=== PATIENT | female | born 1995 | race Two or more races ===

== ENCOUNTER 2020-07-24 10:32 | Emergency (ER) | payer MEDICAID, SELFPAY ==
[2020-07-24 10:34] VITALS: BP 116/70; PULSE 85; RESP 18; TEMP 37.1; O2SAT 97; BMI 32.0
[2020-07-24 11:13] LABS: Glucose Urine UA NEG (NEG); Leukocyte Esterase Urine NEG (NEG); Nitrite Urine NEG (NEG); Specific Gravity - Urine >= 1.030 (1.005-1.025); Urine Blood NEG (NEG); Urine Ketones 15 MG/DL (NEG); Urine Protein NEG (NEG-TRACE)
[2020-07-24 11:16] LABS: Appearance Urine CLEAR; Color Urine YELLOW
[2020-07-24 11:17] LABS: UPreg QC Valid YES; Urine Pregnancy NEGATIVE (NEGATIVE)
--- NOTE | 2020-07-24 11:50 | ED_ITS ---
HPI - Abdominal Pain General Chief Complaint: Abdominal Pain Stated Complaint: abd pain Time Seen by Provider: 07/24/20 11:49 History of Present Illness HPI narrative: Patient complains of intermittent mild low abdominal pain that is coming and going over several days, there is no pain now, there is no nausea vomiting or diarrhea, no dysuria, no vaginal discharge no unusual bleeding At this moment in time she has no symptoms Related Data Allergies Allergy/AdvReac Type Severity Reaction Status Date / Time Penicillins [PCN] Allergy Unknown HIVES Unverified 01/21/20 17:12 Review of Systems Review of Systems Intermittent pelvic pain Negatives are no fever no chills no dizziness no weakness no headache no neck pain no faintness no feeling faint no chest pain no shortness of breath no nausea vomiting diarrhea no dysuria no urinary frequency no changes to bowel or bladder, no rash, no numbness or weakness Physical Exam Vital Signs: Vital Signs: Last Vital Signs Temp 98.7 F 07/24/20 10:34 Pulse 85 07/24/20 10:34 Resp 18 07/24/20 10:34 BP 116/70 07/24/20 10:34 Pulse Ox 97 07/24/20 10:34 Body Mass Index 32.0 General appearance is no acute distress comfortable relaxed and cooperative and O x3 The pharynx is moist, no redness The neck is supple The chest is clear to auscultation bilaterally with full symmetric breath sounds Heart rate regular no murmur The abdomen is soft nontender no rebound no guarding Extremities no edema no rash Neuro no focal deficit Course Course Course Narrative: Urinalysis was negative, was negative I came into room to re-evaluate the patient and repeated an abdominal exam which is completely nontender without rebound or guarding I spoke with the patient at this point in time she has no pain no discomfort and feels completely normal and 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 MDM - Abdominal Pain Lab Data Labs: Lab Results 07/24/20 07/24/20 Range/Units 11:05 11:05 Urine Color YELLOW Urine Appearance CLEAR Urine pH 6.0 (5.0-8.0) Ur Specific [place] >= 1.030 H (1.005-1.025) Urine Protein NEG (NEG-TRACE) MG/DL Urine Glucose (UA) NEG (NEG) MG/DL Urine Ketones 15 (NEG) MG/DL Urine Blood NEG (NEG) Urine Nitrite NEG (NEG) Ur Leukocyte Esterase NEG (NEG) Urine Test NEGATIVE (NEGATIVE) Discharge Plan Discharge Clinical Impression: Pelvic pain Patient Disposition: Home, Self-Care Additional Instructions: During ER visit the pain was gone and her exam was completely normal Urinalysis did not show an active infection test was negative If pain returns or worsens or changes return to ER any time for any worse condition or any concerns If mild pain is coming and going intermittently you can 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
[2020-07-24 12:20] VITALS: BP 127/62; PULSE 80; RESP 18; TEMP 36.9; O2SAT 100
[2020-07-24 14:15] LABS: CT PCR DETECTED (Not Detect.); NG PCR NOT DETECTED (Not Detect.)
== END 2020-07-24 12:34 | disposition home or self-care (01) ==
PROVIDERS: Physician Assistant Medical; Emergency Provider Emergency Medicine; PCP Internal Medicine
DX: A56.02 Chlamydial vulvovaginitis (principal); R10.2 Pelvic and perineal pain
CPT/HCPCS: 81003; 81025; 87491; 87591; 99283

== ENCOUNTER 2020-11-13 09:54 | Emergency (ER) | payer MEDICAID, SELFPAY ==
[2020-11-13 09:58] VITALS: BP 115/72; PULSE 84; RESP 16; TEMP 36.7; O2SAT 98; BMI 25.6
[2020-11-13 11:49] LABS: MANUAL DIFF FLAG NO
[2020-11-13 11:50] LABS: Basophils Percent Auto 0.4 % (0-2); Eosinophils Percent Auto 0.4 % (0-4); Hematocrit 40.3 % (37-47); Hemoglobin 13.4 g/dl (12.0-16.0); Imm Gran Abs Auto 0.03 X10*3/uL (0.00-0.03); Imm Gran Pct Auto 0.3 % (0.0-0.4); Lymphocytes Percent Auto 18.3 % (20-40); Mean Corpuscular HGB Conc 33.3 g/dl (31.0-35.0); Mean Corpuscular Hemoglobin 27.9 pg (27.0-33.0); Mean Corpuscular Volume 83.8 fL (80-98); Mean Platelet Volume 9.9 fL (9.4-12.3); Monocytes Absolute Auto 0.6 X10*3/uL (0.1-1.2); Monocytes Percent Auto 5.1 % (2-11); Neutrophils Absolute Auto 8.3 X10*3/uL (2.0-8.3); Neutrophils Percent Auto 75.5 % (45-73); Platelet Count 245 X10*3/uL (160-400); Red Blood Count 4.81 X10*6/uL (4.20-5.50); Red Cell Distribution Width 13.4 % (11.0-16.0)
[2020-11-13 12:25] LABS: Alanine Aminotransferase 9 U/L (0-31); Albumin Level 4.5 g/dL (3.5-5.0); Alkaline Phosphatase 57 U/L (39-117); Anion Gap 14 (12-20); Aspartate Amino Transferase 14 U/L (5-31); Bilirubin Total 0.6 mg/dL (0.0-1.0); Blood Urea Nitrogen 6 mg/dL (9-16); Calcium 9.7 mg/dL (8.4-10.2); Carbon Dioxide 24 mmol/L (22-29); Chloride 105 mmol/L (96-108); Creatinine Clr Calc Pharmacy 95.3; Estimated Glomerular Filt Rate > 60; Glucose Random 100 mg/dL (60-115); Potassium 3.8 mmol/L (3.3-5.1); Sodium 139 mmol/L (135-145); Total Protein 7.6 g/dL (6.5-8.0)
[2020-11-13 13:23] LABS: Lipase 17 U/L (8-78)
--- NOTE | 2020-11-13 13:28 | ED.ABDPAIN ---
HPI - Abdominal Pain General Chief Complaint: Abdominal Pain Stated Complaint: abd pain Time Seen by Provider: 11/13/20 12:54 Source: patient Mode of arrival: ambulatory Limitations: no limitations History of Present Illness HPI narrative: 25-year-old female came in for evaluation of an abdominal pain. Abdominal pain started 2 days ago after eating [employer] sandwich, no other sick contact, patient describes the pain as an intermittent pain only in the morning and nighttime but during the day patient is pain-free, describes the pain in suprapubic area to the right side, no radiation, pain is associated with 1 time diarrhea and nausea, and vomiting. No fever or chills. Patient also describes mild dysuria. Patient declined any vaginal bleed or discharge. Related Data Allergies Allergy/AdvReac Type Severity Reaction Status Date / Time Penicillins [PCN] Allergy Unknown HIVES Unverified 01/21/20 17:12 Review of Systems Review of Systems All other systems are reviewed and are negative Constitutional: Reports as per HPI and Reports no additional constitutional complaints Eyes: Reports as per HPI and Reports no additional eye complaints Reports system reviewed and no additional complaints, except as documented Cardiovascular: Reports as per HPI and Reports no additional cardiovascular complaints Respiratory: Reports as per HPI and Reports no additional respiratory complaints Gastrointestinal: Reports as per HPI and Reports no additional gastrointestinal complaints Genitourinary: Reports no additional female genitourinary complaints Musculoskeletal: Reports no additional musculoskeletal complaints Skin/Breast: Reports system reviewed and no additional complaints, except as docu Psychiatric: Reports no additional psychiatric complaints Endocrine: Reports no additional endocrine complaints Hematologic/Lymphatic: Reports no additional hematologic/lymphatic complaints Allergic/Immunologic: Reports no additional allergic/immunologic complaints Reports system reviewed and no additional complaints, except as documented and Reports Abnormal speech present Physical Exam Vital Signs: Vital Signs: Last Vital Signs Temp 98.0 F 11/13/20 09:58 Pulse 78 11/13/20 13:40 Resp 16 11/13/20 13:40 BP 114/64 11/13/20 13:40 Pulse Ox 99 11/13/20 13:40 Body Mass Index 25.6 Vital signs have been reviewed as appeared to be correct. Blood pressure normal. Heart rate normal. Respiration rate normal. Temperature normal. Oxygen saturation normal. Appearance: Alert. Oriented X3. No acute distress. Head: Normal external exam. Normocephalic. Atraumatic. No [place] signs noted. No raccoon eyes noted Eyes: PERRLA. EOMI. Conjunctiva and sclera normal. Eyelids normal. ENT: TM's Normal. Pharynx normal. Uvula midline. Moist mucous membranes. No trismus noted. No drooling noted. No muffled voice noted. Neck: Normal inspection. Neck supple. FROM. No adenopathy. Thyroid Normal. No meningeal signs. No neck mass noted. CVS: Normal heart rate and rhythm. Heart sound normal. No murmurs noted. Pulses normal throughout. Respiratory: No respiratory distress. Painless inspiration. Breath sounds normal. No wheezes/rales/rhonchi noted. Chest nontender. No accessory muscle usage noted or decreased air movement noted. Abdomen: Soft and nontender. Bowel sounds normal in all 4 quadrants. No distention noted. No organomegaly noted. No visible injury noted. Back: No CVA tenderness. Full range of motion noted. Skin: Skin warm and dry. Normal skin color. Normal skin turgor. No rashes/lesions/lacerations noted. Extremities: No lower extremity edema. Extremities exhibit normal range of motion. Extremities nontender. Neuro: Oriented X 3. No motor deficit. No sensory deficit. Reflexes normal. Course Course Course Narrative: Assessment and plan. 25-year-old female came in with abdominal pain for 2 days, patient claims that she ate [employer] sandwich followed by abdominal cramps and diarrhea with nausea and vomiting no other sick contacts. Patient with mild leukocytosis, abdominal exam show no tenderness or rebound or guarding, otherwise labs and urine are unremarkable. Will reassure and discharge the patient. MDM - Abdominal Pain Lab Data Attestation: I reviewed the patient's lab results. Result diagrams: 11/13/20 11:44 11/13/20 11:44 Labs: Lab Results 11/13/20 11/13/20 11/13/20 Range/Units 11:44 11:44 13:38 WBC 11.0 H (4.8-10.8) X10*3/uL RBC 4.81 (4.20-5.50) X10*6/uL Hgb 13.4 (12.0-16.0) g/dl Hct 40.3 (37-47) % MCV 83.8 (80-98) fL MCH 27.9 (27.0-33.0) pg MCHC 33.3 (31.0-35.0) g/dl RDW 13.4 (11.0-16.0) % Plt Count 245 (160-400) X10*3/uL MPV 9.9 (9.4-12.3) fL Immature Gran % (Auto) 0.3 (0.0-0.4) % Neut % (Auto) 75.5 H (45-73) % Lymph % (Auto) 18.3 L (20-40) % [place] % (Auto) 5.1 (2-11) % Eos % (Auto) 0.4 (0-4) % Baso % (Auto) 0.4 (0-2) % Lymph # (Auto) 2.0 (1.2-4.9) X10*3/uL [place] # (Auto) 0.6 (0.1-1.2) X10*3/uL Eos # (Auto) 0.0 (0.0-0.4) X10*3/uL Baso # (Auto) 0.0 (0.0-0.2) X10*3/uL Abs Immat Gran (auto) 0.03 (0.00-0.03) X10*3/uL Absolute Neuts (auto) 8.3 (2.0-8.3) X10*3/uL Absolute Nucleated RBC 0.000 (0.0-0.012) X10*3/uL Nucleated RBC % (auto) 0.0 (0.0-0.2) /100WBC Sodium 139 (135-145) mmol/L Potassium 3.8 (3.3-5.1) mmol/L Chloride 105 (96-108) mmol/L Carbon Dioxide 24 (22-29) mmol/L Anion Gap 14 (12-20) BUN 6 L (9-16) mg/dL Creatinine 0.79 (0.5-1.4) mg/dL Estim Creat Clear Calc 95.3 Estimated GFR > 60 Random Glucose 100 (60-115) mg/dL Calcium 9.7 (8.4-10.2) mg/dL Total Bilirubin 0.6 (0.0-1.0) mg/dL AST 14 (5-31) U/L ALT 9 (0-31) U/L Alkaline Phosphatase 57 (39-117) U/L Total Protein 7.6 (6.5-8.0) g/dL Albumin 4.5 (3.5-5.0) g/dL Lipase 17 (8-78) U/L Urine Color YELLOW Urine Appearance HAZY Urine pH 6.0 (5.0-8.0) Ur Specific [place] >= 1.030 H (1.005-1.025) Urine Protein NEG (NEG-TRACE) MG/DL Urine Glucose (UA) NEG (NEG) MG/DL Urine Ketones 40 (NEG) MG/DL Urine Blood NEG (NEG) Urine Nitrite NEG (NEG) Ur Leukocyte Esterase NEG (NEG) Discharge Plan Discharge Clinical Impression: Abdominal pain, Food poisoning Patient Disposition: Home, Self-Care Instructions: Food Poisoning (ED) Referrals: María Elena Zuleta MD [Primary Care Provider] - 2 days PMF Past Medical History Medical History No known health problems Social History Social History Advance Directives: Yes Advance Directives Information Provided: No Advance Directives on File: No Patient : No
[2020-11-13 13:40] VITALS: BP 114/64; PULSE 78; RESP 16; O2SAT 99
[2020-11-13 13:48] LABS: Glucose Urine UA NEG (NEG); Leukocyte Esterase Urine NEG (NEG); Nitrite Urine NEG (NEG); Specific Gravity - Urine >= 1.030 (1.005-1.025); Urine Blood NEG (NEG); Urine Ketones 40 MG/DL (NEG); Urine Protein NEG (NEG-TRACE)
[2020-11-13 13:49] LABS: Appearance Urine HAZY; Color Urine YELLOW
[2020-11-13 14:22] LABS: UPreg QC Valid YES; Urine Pregnancy NEGATIVE (NEGATIVE)
== END 2020-11-13 14:50 | disposition home or self-care (01) ==
PROVIDERS: Emergency Provider Emergency Medicine; PCP Internal Medicine
DX: A05.9 Bacterial foodborne intoxication, unspecified (principal)
CPT/HCPCS: 36415; 80053; 81003; 81025; 83690; 85025; 99283; 99284

== ENCOUNTER 2021-04-21 15:04 | Emergency (ER) | payer MEDICAID, SELFPAY ==
[2021-04-21 15:29] VITALS: BP 109/62; PULSE 77; RESP 18; TEMP 36.8; O2SAT 99; BMI 26.2
[2021-04-21 17:41] LABS: MANUAL DIFF FLAG NO
[2021-04-21 17:47] LABS: Basophils Percent Auto 0.2 % (0-2); Eosinophils Absolute Auto 0.4 X10*3/uL (0.0-0.4); Eosinophils Percent Auto 2.7 % (0-4); Hematocrit 38.8 % (37.0-47.0); Hemoglobin 13.1 g/dl (12.0-16.0); Imm Gran Abs Auto 0.04 X10*3/uL (0.00-0.03); Imm Gran Pct Auto 0.3 % (0.0-0.4); Lymphocytes Absolute Auto 3.2 X10*3/uL (1.2-4.9); Mean Corpuscular HGB Conc 33.8 g/dl (31.0-35.0); Mean Corpuscular Hemoglobin 28.2 pg (27.0-33.0); Mean Corpuscular Volume 83.4 fL (80.0-98.0); Mean Platelet Volume 9.4 fL (9.4-12.3); Monocytes Absolute Auto 1.2 X10*3/uL (0.1-1.2); Monocytes Percent Auto 8.4 % (2-11); Neutrophils Absolute Auto 9.1 x10*3/uL (2.0-8.3); Neutrophils Percent Auto 65.4 % (45-73); Platelet Count 359 X10*3/uL (160-400); Red Blood Count 4.65 X10*6/uL (4.20-5.50); Red Cell Distribution Width 13.2 % (11.0-16.0)
[2021-04-21 18:00] LABS: Alanine Aminotransferase 23 U/L (0-31); Albumin Level 4.2 g/dL (3.5-5.0); Alkaline Phosphatase 64 U/L (39-117); Anion Gap 10 (12-20); Aspartate Amino Transferase 17 U/L (5-31); Bilirubin Total 0.4 mg/dL (0.0-1.0); Blood Urea Nitrogen 11 mg/dL (9-16); Calcium 9.4 mg/dL (8.4-10.2); Carbon Dioxide 26 mmol/L (22-29); Chloride 104 mmol/L (96-108); Creatinine Clr Calc Pharmacy 72.4; Estimated Glomerular Filt Rate > 60; Glucose Random 74 mg/dL (60-115); Potassium 3.9 mmol/L (3.3-5.1); Sodium 136 mmol/L (135-145); Total Protein 7.5 g/dL (6.5-8.0)
--- NOTE | 2021-04-21 19:29 | ED.ABDPAIN ---
HPI - Abdominal Pain General Chief Complaint: Abdominal Pain Stated Complaint: Lower back pain/abd pain Time Seen by Provider: 04/21/21 17:49 Source: patient Mode of arrival: ambulatory Limitations: no limitations History of Present Illness HPI narrative: Patient with 3 days of pelvic pain, LMP 03/16 patient states at times she is irregular, patient had a test that was negative, patient denies vaginal discharge, no fever. Patient has a history of STD's, denies new sexual partners. MD elicited complaint: other (pelvic pain) Onset (ago): day(s) Severity: moderate Related Data Previous Rx's Medication Instructions Recorded naproxen 500 mg tablet (Naprosyn) 500 mg PO BID #20 tab 04/21/21 Allergies Allergy/AdvReac Type Severity Reaction Status Date / Time No Known Allergies Allergy Verified 04/21/21 15:28 Review of Systems Constitutional: Reports no additional constitutional complaints Eyes: Reports no additional eye complaints Denies dizziness Cardiovascular: Reports no additional cardiovascular complaints Respiratory: Reports as per HPI Gastrointestinal: Reports no additional gastrointestinal complaints Genitourinary: Reports no additional female genitourinary complaints Musculoskeletal: Reports no additional musculoskeletal complaints Skin/Breast: Denies rash Reports system reviewed and no additional complaints, except as documented, Denies dizziness and Denies Sensory deficit (Neuro) Psychiatric: Denies anxiety Physical Exam Vital Signs: Vital Signs: Last Vital Signs Temp 98.2 F 04/21/21 19:55 Pulse 74 04/21/21 19:55 Resp 16 04/21/21 19:55 BP 106/64 04/21/21 19:55 Pulse Ox 99 04/21/21 19:55 BMI result Body Mass Index 26.2 Const: General: healthy appearing Nutritional Appearance: average body habitus Orientation/consciousness: oriented to person and patient oriented x3 Limitations: no limitations HENMT: Head: Yes normal to inspection Ears: external ears normal General nose exam: Normal external nose present Mouth: Normal oral and palatal mucosa present and oropharynx normal Throat: Yes posterior oropharynx normal Eyes: General: appearance normal, both eyes and all related structures Neck: Other: supple Neck: Yes normal visual inspection Chest: Chest palpation & inspection: normal inspection of the chest Resp: Auscultation: clear to auscultation bilaterally Cardio: Jugular venous distension: no JVD Rate: regular rate Rhythm: regular rhythm Heart sounds: S1 normal heart sound present and S2 normal heart sound present GI: Other: pelvic tenderness Inspection: Yes normal to inspection Palpation (GI): Soft to palpation and No hepatosplenomegaly present Auscultation: normal bowel sounds : Other: normal vagina, no discharge in vault, no CMT, No adnexal tenderness, uterus slightly enlarged but not very tender General: Yes no CVA tenderness Back/Spine/Pelvis: Back: no CVA tenderness Skin: General skin exam: no rashes or lesions noted Neuro: General: oriented to person and patient oriented x3 Cranial nerves: Yes CN's II-XII intact bilaterally Motor exam (neuro): 5/5 motor strength present throughout Sensory Exam: No Sensory deficit (Neuro) Extrem: General: Yes normal to inspection Psych: Appearance: grossly normal Course Reevaluation(s) Reevaluation #1: physical not consistent with STD, uterus is enlarged by physical but not tender, patient to go for US on Saturday with follow up of PCP Time: 20:45 MDM - Abdominal Pain Lab Data Result diagrams: 04/21/21 17:35 04/21/21 17:35 Labs: Lab Results 04/21/21 04/21/21 04/21/21 Range/Units 17:35 17:35 19:47 WBC 14.0 H (4.8-10.8) X10*3/uL RBC 4.65 (4.20-5.50) X10*6/uL Hgb 13.1 (12.0-16.0) g/dl Hct 38.8 (37.0-47.0) % MCV 83.4 (80.0-98.0) fL MCH 28.2 (27.0-33.0) pg MCHC 33.8 (31.0-35.0) g/dl RDW 13.2 (11.0-16.0) % Plt Count 359 (160-400) X10*3/uL MPV 9.4 (9.4-12.3) fL Immature Gran % (Auto) 0.3 (0.0-0.4) % Neut % (Auto) 65.4 (45-73) % Lymph % (Auto) 23.0 (20-40) % [place] % (Auto) 8.4 (2-11) % Eos % (Auto) 2.7 (0-4) % Baso % (Auto) 0.2 (0-2) % Lymph # (Auto) 3.2 (1.2-4.9) X10*3/uL [place] # (Auto) 1.2 (0.1-1.2) X10*3/uL Eos # (Auto) 0.4 (0.0-0.4) X10*3/uL Baso # (Auto) 0.0 (0.0-0.2) X10*3/uL Abs Immat Gran (auto) 0.04 H (0.00-0.03) X10*3/uL Absolute Neuts (auto) 9.1 H (2.0-8.3) x10*3/uL Absolute Nucleated RBC 0.000 (0.0-0.012) X10*3/uL Nucleated RBC % (auto) 0.0 (0.0-0.2) /100WBC Sodium 136 (135-145) mmol/L Potassium 3.9 (3.3-5.1) mmol/L Chloride 104 (96-108) mmol/L Carbon Dioxide 26 (22-29) mmol/L Anion Gap 10 L (12-20) BUN 11 (9-16) mg/dL Creatinine 1.01 (0.5-1.4) mg/dL Estim Creat Clear Calc 72.4 Estimated GFR > 60 Random Glucose 74 (60-115) mg/dL Calcium 9.4 (8.4-10.2) mg/dL Total Bilirubin 0.4 (0.0-1.0) mg/dL AST 17 (5-31) U/L ALT 23 (0-31) U/L Alkaline Phosphatase 64 (39-117) U/L Total Protein 7.5 (6.5-8.0) g/dL Albumin 4.2 (3.5-5.0) g/dL Urine Color Urine Appearance Urine pH (5.0-8.0) Ur Specific [place] (1.005-1.025) Urine Protein (NEG-TRACE) MG/DL Urine Glucose (UA) (NEG) MG/DL Urine Ketones (NEG) MG/DL Urine Blood (NEG) Urine Nitrite (NEG) Ur Leukocyte Esterase (NEG) Urine RBC (0) /HPF Urine WBC (0-4) /HPF Ur Squamous Epith Cells /LPF Urine Bacteria /LPF Urine Yeast /HPF Urine Test NEGATIVE (NEGATIVE) 04/21/21 Range/Units 19:47 WBC (4.8-10.8) X10*3/uL RBC (4.20-5.50) X10*6/uL Hgb (12.0-16.0) g/dl Hct (37.0-47.0) % MCV (80.0-98.0) fL MCH (27.0-33.0) pg MCHC (31.0-35.0) g/dl RDW (11.0-16.0) % Plt Count (160-400) X10*3/uL MPV (9.4-12.3) fL Immature Gran % (Auto) (0.0-0.4) % Neut % (Auto) (45-73) % Lymph % (Auto) (20-40) % [place] % (Auto) (2-11) % Eos % (Auto) (0-4) % Baso % (Auto) (0-2) % Lymph # (Auto) (1.2-4.9) X10*3/uL [place] # (Auto) (0.1-1.2) X10*3/uL Eos # (Auto) (0.0-0.4) X10*3/uL Baso # (Auto) (0.0-0.2) X10*3/uL Abs Immat Gran (auto) (0.00-0.03) X10*3/uL Absolute Neuts (auto) (2.0-8.3) x10*3/uL Absolute Nucleated RBC (0.0-0.012) X10*3/uL Nucleated RBC % (auto) (0.0-0.2) /100WBC Sodium (135-145) mmol/L Potassium (3.3-5.1) mmol/L Chloride (96-108) mmol/L Carbon Dioxide (22-29) mmol/L Anion Gap (12-20) BUN (9-16) mg/dL Creatinine (0.5-1.4) mg/dL Estim Creat Clear Calc Estimated GFR Random Glucose (60-115) mg/dL Calcium (8.4-10.2) mg/dL Total Bilirubin (0.0-1.0) mg/dL AST (5-31) U/L ALT (0-31) U/L Alkaline Phosphatase (39-117) U/L Total Protein (6.5-8.0) g/dL Albumin (3.5-5.0) g/dL Urine Color YELLOW Urine Appearance HAZY Urine pH 6.0 (5.0-8.0) Ur Specific [place] >= 1.030 H (1.005-1.025) Urine Protein NEG (NEG-TRACE) MG/DL Urine Glucose (UA) NEG (NEG) MG/DL Urine Ketones NEG (NEG) MG/DL Urine Blood NEG (NEG) Urine Nitrite NEG (NEG) Ur Leukocyte Esterase 1+ H (NEG) Urine RBC 0 (0) /HPF Urine WBC 1-4 (0-4) /HPF Ur Squamous Epith Cells 4+ /LPF Urine Bacteria 1+ /LPF Urine Yeast 1+ /HPF Urine Test (NEGATIVE) Discharge Plan Discharge Clinical Impression: Pelvic pain Patient Disposition: Home, Self-Care Instructions: Pelvic Pain (ED) Additional Instructions: Must have US on Saturday Prescriptions: New naproxen [Naprosyn] 500 mg tablet 500 mg PO BID Qty: 20 RF: 0 Referrals: María Elena Zuleta MD [Primary Care Provider] - 5 days PMF Past Medical History Medical History No known health problems Social History Social History Advance Directives: No Advance Directives Information Provided: No Patient : No
[2021-04-21 19:55] VITALS: BP 106/64; PULSE 74; RESP 16; TEMP 36.8; O2SAT 99
[2021-04-21 19:57] LABS: Appearance Urine HAZY; Color Urine YELLOW; Glucose Urine UA NEG (NEG); Leukocyte Esterase Urine 1+ (NEG); Nitrite Urine NEG (NEG); Specific Gravity - Urine >= 1.030 (1.005-1.025); UACC Culture Trigger YES; UPreg QC Valid YES; Urine Blood NEG (NEG); Urine Ketones NEG (NEG); Urine Pregnancy NEGATIVE (NEGATIVE); Urine Protein NEG (NEG-TRACE)
[2021-04-21 20:03] LABS: Bacteria Urine 1+ /LPF; Squamous Epithelial Cell Urine 4+ /LPF
[2021-04-21 20:05] LABS: RBC Urine 0 /HPF (0)
== END 2021-04-21 21:05 | disposition home or self-care (01) ==
PROVIDERS: Emergency Provider Emergency Medicine; PCP Internal Medicine
DX: R10.2 Pelvic and perineal pain (principal); Z79.899 Other long term (current) drug therapy
CPT/HCPCS: 36415; 80053; 81001; 81025; 85025; 87086; 87491; 87591; 99283; 99284

== ENCOUNTER 2021-05-16 13:15 | Outpatient (REF) | payer MEDICAID, SELFPAY ==
[2021-05-17 09:10] LABS: BV Int Neg Control Negative (Negative); BV Int Pos Control Positive (Positive)
[2021-05-17 10:32] LABS: CT PCR NOT DETECTED (Not Detect.); NG PCR NOT DETECTED (Not Detect.)
== END 2021-05-16 13:16 | disposition home or self-care (01) ==
LOC: HO.LAB 13:15
PROVIDERS: PCP Internal Medicine; Visit Provider Advanced Practice Midwife
DX: O20.9 Hemorrhage in early pregnancy, unspecified (principal)
CPT/HCPCS: 36415; 81025; 84702; 86850; 86900; 86901; 87480; 87491; 87510; 87591; 87660; 99202

== ENCOUNTER 2021-05-16 13:56 | Outpatient (REF) | payer MEDICAID, SELFPAY ==
[2021-05-16 15:32] LABS: HCG Quantitative 21126 mIU/mL
== END 2021-05-16 13:57 | disposition home or self-care (01) ==
LOC: HO.LAB 13:56
PROVIDERS: Visit Provider Advanced Practice Midwife
DX: O20.0 Threatened abortion (principal)
CPT/HCPCS: 36415; 84702; 86850; 86900; 86901

== ENCOUNTER 2021-05-26 10:02 | Outpatient (REF) | payer MEDICAID, SELFPAY ==
--- NOTE | ~2021-05-26 | US_ITS ---
EXAMINATION: OBSTETRICAL ULTRASOUND, FIRST TRIMESTER HISTORY: 25-year-old at approximately 10 weeks of gestation Dating and viability LMP: 03/16/2021 COMPARISON: None in this TECHNIQUE: Real time transabdominal imaging with color and M-mode Doppler. FINDINGS: A single, live IUP CRL of 19.6 mm c/w 8.4wks is noted. Heart Rate: 181 beats per minute. Both maternal ovaries are seen and appear normal. GESTATIONAL AGE: 1. GA from LMP: 10.1 wks 2. GA from AUA: 8.4 wks ESTIMATED DATE OF DELIVERY: 1. BECKY from LMP: 12/21/2021 2. BECKY from AUA: 01/01/2022 US/US OB <= 14 weeks fetus IMPRESSION: 1. Single live IUP 2. CRL corresponds to 8.4 weeks. BECKY of 01/01/2022 3. Normal ovaries 4. Small resolving subchorionic hematoma Discussion: I discussed the ultrasound findings and that the CRL is approximately 10 days behind her LMP date. The best BECKY is 01/01/2022 based on today's exam. Thank you very much for this referral. This note was generated with a voice recognition program. Please excuse any errors which may have been overlooked during my review of this note. Sometimes these errors may affect the content or meaning of a given sentence.
== END 2021-05-26 10:03 | disposition home or self-care (01) ==
LOC: HO.US 10:02
PROVIDERS: Visit Provider Advanced Practice Midwife
DX: O20.9 Hemorrhage in early pregnancy, unspecified (principal)
CPT/HCPCS: 76801

== ENCOUNTER 2021-05-27 11:31 | Emergency (ER) | payer MEDICAID, SELFPAY ==
[2021-05-27 12:34] VITALS: BP 113/66; PULSE 19; RESP 19; TEMP 36.6; O2SAT 99; BMI 25.2
[2021-05-27 13:29] LABS: MANUAL DIFF FLAG NO
[2021-05-27 13:45] LABS: Basophils Percent Auto 0.2 % (0-2); Eosinophils Absolute Auto 0.1 X10*3/uL (0.0-0.4); Eosinophils Percent Auto 0.8 % (0-4); Hematocrit 38.6 % (37.0-47.0); Hemoglobin 13.2 g/dl (12.0-16.0); Imm Gran Abs Auto 0.05 X10*3/uL (0.00-0.03); Imm Gran Pct Auto 0.3 % (0.0-0.4); Lymphocytes Absolute Auto 2.5 X10*3/uL (1.2-4.9); Lymphocytes Percent Auto 17.3 % (20-40); Mean Corpuscular HGB Conc 34.2 g/dl (31.0-35.0); Mean Corpuscular Hemoglobin 28.7 pg (27.0-33.0); Mean Corpuscular Volume 83.9 fL (80.0-98.0); Mean Platelet Volume 10.3 fL (9.4-12.3); Monocytes Percent Auto 7.1 % (2-11); Neutrophils Absolute Auto 10.8 x10*3/uL (2.0-8.3); Neutrophils Percent Auto 74.3 % (45-73); Platelet Count 308 X10*3/uL (160-400); Red Cell Distribution Width 13.7 % (11.0-16.0); White Blood Count 14.6 X10*3/uL (4.8-10.8)
[2021-05-27 13:46] LABS: Appearance Urine HAZY; Color Urine YELLOW; Glucose Urine UA NEG (NEG); Leukocyte Esterase Urine TRACE (NEG); Nitrite Urine NEG (NEG); Specific Gravity - Urine >= 1.030 (1.005-1.025); UACC Culture Trigger YES; Urine Blood NEG (NEG); Urine Ketones 5 MG/DL (NEG); Urine Protein TRACE MG/DL (NEG-TRACE)
[2021-05-27 13:59] LABS: Anion Gap 12 (12-20); Blood Urea Nitrogen 5 mg/dL (9-16); Calcium 9.9 mg/dL (8.4-10.2); Carbon Dioxide 25 mmol/L (22-29); Chloride 103 mmol/L (96-108); Creatinine Clr Calc Pharmacy 108.4; Estimated Glomerular Filt Rate > 60; Glucose Random 80 mg/dL (60-115); Potassium 3.7 mmol/L (3.3-5.1); Sodium 136 mmol/L (135-145)
[2021-05-27 14:00] LABS: Bacteria Urine 1+ /LPF; Mucus Urine 2+ /LPF; RBC Urine 0 /HPF (0); Squamous Epithelial Cell Urine 4+ /LPF
== END 2021-05-27 16:07 | disposition left against medical advice (07) ==
PROVIDERS: Emergency Provider Emergency Medicine; PCP Internal Medicine
DX: O21.9 Vomiting of pregnancy, unspecified (principal); Z3A.08 8 weeks gestation of pregnancy
CPT/HCPCS: 36415; 80048; 81001; 84702; 85025; 87086; 87147; 99283

== ENCOUNTER 2021-05-29 11:51 | Emergency (ER) | payer MEDICAID, SELFPAY ==
[2021-05-29 11:53] VITALS: BP 108/63; PULSE 69; RESP 19; TEMP 36.6; O2SAT 99; BMI 24.8
[2021-05-29 12:10] LABS: MANUAL DIFF FLAG NO
[2021-05-29 12:12] LABS: Basophils Percent Auto 0.2 % (0-2); Eosinophils Absolute Auto 0.2 X10*3/uL (0.0-0.4); Eosinophils Percent Auto 1.2 % (0-4); Hematocrit 37.1 % (37.0-47.0); Hemoglobin 12.8 g/dl (12.0-16.0); Imm Gran Abs Auto 0.04 X10*3/uL (0.00-0.03); Imm Gran Pct Auto 0.3 % (0.0-0.4); Lymphocytes Absolute Auto 2.1 X10*3/uL (1.2-4.9); Lymphocytes Percent Auto 15.2 % (20-40); Mean Corpuscular HGB Conc 34.5 g/dl (31.0-35.0); Mean Corpuscular Hemoglobin 28.6 pg (27.0-33.0); Mean Platelet Volume 9.8 fL (9.4-12.3); Monocytes Absolute Auto 0.9 X10*3/uL (0.1-1.2); Monocytes Percent Auto 6.8 % (2-11); Neutrophils Absolute Auto 10.5 x10*3/uL (2.0-8.3); Neutrophils Percent Auto 76.3 % (45-73); Platelet Count 288 X10*3/uL (160-400); Red Blood Count 4.47 X10*6/uL (4.20-5.50); Red Cell Distribution Width 13.5 % (11.0-16.0); White Blood Count 13.8 X10*3/uL (4.8-10.8)
[2021-05-29 12:29] LABS: Alanine Aminotransferase 8 U/L (0-31); Albumin Level 4.2 g/dL (3.5-5.0); Alkaline Phosphatase 42 U/L (39-117); Anion Gap 11 (12-20); Aspartate Amino Transferase 13 U/L (5-31); Bilirubin Direct 0.2 mg/dL (0.0-0.5); Bilirubin Total 0.4 mg/dL (0.0-1.0); Blood Urea Nitrogen 5 mg/dL (9-16); Calcium 9.8 mg/dL (8.4-10.2); Carbon Dioxide 23 mmol/L (22-29); Chloride 105 mmol/L (96-108); Creatinine Clr Calc Pharmacy 104.6; Estimated Glomerular Filt Rate > 60; Glucose Random 98 mg/dL (60-115); Potassium 3.5 mmol/L (3.3-5.1); Sodium 135 mmol/L (135-145); Total Protein 7.4 g/dL (6.5-8.0)
[2021-05-29 12:30] LABS: COVID-19 Test Negative (Negative); IDNOW Serial# 9DD0AD1C
--- NOTE | 2021-05-29 16:29 | ED.NAVMDI ---
HPI - Nausea/Vomiting/Diarrhea General Chief complaint: Nausea/Vomiting/Diarrhea Stated complaint: Syncope/ 8wks preg Time Seen by Provider: 05/29/21 16:28 Source: patient Mode of arrival: ambulatory Limitations: no limitations History of Present Illness HPI Narrative: Patient 8 weeks 2 with vomiting for last few days was here 2 days ago received IV fluids came back as is still vomiting unable to hold down any fluids patient already on B6 and doxylamine. No diarrhea no fever no cough no abdominal pain no vaginal bleeding or urinary symptoms Related Data Previous Rx's Medication Instructions Recorded naproxen 500 mg tablet (Naprosyn) 500 mg PO BID #20 tab 04/21/21 PNV 153-FA 400 mcg-om3 35 mg-dha 1 tab PO daily 30 Days #30 tab 05/17/21 25 mg-epa 5 mg-fish oil chew tablet ( Gummies) doxylamine succinate 25 mg tablet 25 mg PO BEDTIME 30 Days #30 tab 05/22/21 (Unisom (doxylamine)) pyridoxine (vitamin B6) 25 mg 25 mg PO tid PRN 30 Days #90 tab 05/22/21 tablet (Vitamin B-6) ondansetron 4 mg disintegrating 4 mg PO Q6-8H PRN #20 tab 05/29/21 tablet Allergies Allergy/AdvReac Type Severity Reaction Status Date / Time No Known Allergies Allergy Verified 05/16/21 13:23 Review of Systems Review of Systems: Yes all other systems are reviewed and are negative PMFSH Past Medical History Medical History No known health problems Social History Social History Alcohol intake: never Patient Tobacco Use Status: Never used Tobacco Use of substances other than those prescribed or required for medical reasons: No Substance Use Type: Marijuana Advance Directives: No Advance Directives Information Provided: Yes Patient : Yes Sexual orientation: Straight/Heterosexual Gender identity: Female Physical Exam Vital Signs: Vital Signs: Last Vital Signs Temp 98 F 05/29/21 11:53 Pulse 75 05/29/21 20:25 Resp 18 05/29/21 20:25 BP 92/47 L 05/29/21 20:25 Pulse Ox 99 05/29/21 20:25 BMI result Body Mass Index 24.8 Appearance: Alert. Oriented X3. No acute distress. Eyes: No pallor or icterus ENT: Pharynx normal. Oral Mucosa moist Neck: Normal inspection. Neck supple. CVS: Normal heart rate and rhythm. Pulses normal. Respiratory: No respiratory distress. Equal air entry bilateral Abdomen: Soft and nontender. Bowel sounds are present, no mass palpable, no CVA tenderness Skin: Skin warm and dry. Normal skin color. Normal skin turgor. Extremities: No lower extremity edema. No calf tenderness Neuro: Oriented X 3. MDM - Nausea/Vomiting/Diarrhea MDM Narrative Medical decision making narrative: Patient with hyperemesis gravidarum with dehydration improved after 2 L of IV fluid taking p.o. fluids will discharge patient home on Zofran Lab Data Attestation: I reviewed the patient's lab results. Result diagrams: 05/29/21 12:04 05/29/21 12:04 Labs: Lab Results 05/29/21 05/29/21 05/29/21 Range/Units 12:04 12:04 12:04 WBC 13.8 H (4.8-10.8) X10*3/uL RBC 4.47 (4.20-5.50) X10*6/uL Hgb 12.8 (12.0-16.0) g/dl Hct 37.1 (37.0-47.0) % MCV 83.0 (80.0-98.0) fL MCH 28.6 (27.0-33.0) pg MCHC 34.5 (31.0-35.0) g/dl RDW 13.5 (11.0-16.0) % Plt Count 288 (160-400) X10*3/uL MPV 9.8 (9.4-12.3) fL Immature Gran % (Auto) 0.3 (0.0-0.4) % Neut % (Auto) 76.3 H (45-73) % Lymph % (Auto) 15.2 L (20-40) % [place] % (Auto) 6.8 (2-11) % Eos % (Auto) 1.2 (0-4) % Baso % (Auto) 0.2 (0-2) % Lymph # (Auto) 2.1 (1.2-4.9) X10*3/uL [place] # (Auto) 0.9 (0.1-1.2) X10*3/uL Eos # (Auto) 0.2 (0.0-0.4) X10*3/uL Baso # (Auto) 0.0 (0.0-0.2) X10*3/uL Abs Immat Gran (auto) 0.04 H (0.00-0.03) X10*3/uL Absolute Neuts (auto) 10.5 H (2.0-8.3) x10*3/uL Absolute Nucleated RBC 0.000 (0.0-0.012) X10*3/uL Nucleated RBC % (auto) 0.0 (0.0-0.2) /100WBC Sodium 135 (135-145) mmol/L Potassium 3.5 (3.3-5.1) mmol/L Chloride 105 (96-108) mmol/L Carbon Dioxide 23 (22-29) mmol/L Anion Gap 11 L (12-20) BUN 5 L (9-16) mg/dL Creatinine 0.71 (0.5-1.4) mg/dL Estim Creat Clear Calc 104.6 Estimated GFR > 60 Random Glucose 98 (60-115) mg/dL Calcium 9.8 (8.4-10.2) mg/dL Total Bilirubin 0.4 (0.0-1.0) mg/dL Direct Bilirubin 0.2 (0.0-0.5) mg/dL AST 13 (5-31) U/L ALT 8 (0-31) U/L Alkaline Phosphatase 42 D (39-117) U/L Total Protein 7.4 (6.5-8.0) g/dL Albumin 4.2 (3.5-5.0) g/dL Beta HCG, Quant [id number] mIU/mL Urine Color Urine Appearance Urine pH (5.0-8.0) Ur Specific [place] (1.005-1.025) Urine Protein (NEG-TRACE) MG/DL Urine Glucose (UA) (NEG) MG/DL Urine Ketones (NEG) MG/DL Urine Blood (NEG) Urine Nitrite (NEG) Ur Leukocyte Esterase (NEG) COVID-19 (SUZAN) (Negative) COVID-19 Clin Com 01/24/22 01/24/22 Range/Units 12:04 16:43 WBC (4.8-10.8) X10*3/uL RBC (4.20-5.50) X10*6/uL Hgb (12.0-16.0) g/dl Hct (37.0-47.0) % MCV (80.0-98.0) fL MCH (27.0-33.0) pg MCHC (31.0-35.0) g/dl RDW (11.0-16.0) % Plt Count (160-400) X10*3/uL MPV (9.4-12.3) fL Immature Gran % (Auto) (0.0-0.4) % Neut % (Auto) (45-73) % Lymph % (Auto) (20-40) % [place] % (Auto) (2-11) % Eos % (Auto) (0-4) % Baso % (Auto) (0-2) % Lymph # (Auto) (1.2-4.9) X10*3/uL [place] # (Auto) (0.1-1.2) X10*3/uL Eos # (Auto) (0.0-0.4) X10*3/uL Baso # (Auto) (0.0-0.2) X10*3/uL Abs Immat Gran (auto) (0.00-0.03) X10*3/uL Absolute Neuts (auto) (2.0-8.3) x10*3/uL Absolute Nucleated RBC (0.0-0.012) X10*3/uL Nucleated RBC % (auto) (0.0-0.2) /100WBC Sodium (135-145) mmol/L Potassium (3.3-5.1) mmol/L Chloride (96-108) mmol/L Carbon Dioxide (22-29) mmol/L Anion Gap (12-20) BUN (9-16) mg/dL Creatinine (0.5-1.4) mg/dL Estim Creat Clear Calc Estimated GFR Random Glucose (60-115) mg/dL Calcium (8.4-10.2) mg/dL Total Bilirubin (0.0-1.0) mg/dL Direct Bilirubin (0.0-0.5) mg/dL AST (5-31) U/L ALT (0-31) U/L Alkaline Phosphatase (39-117) U/L Total Protein (6.5-8.0) g/dL Albumin (3.5-5.0) g/dL Beta HCG, Quant mIU/mL Urine Color YELLOW Urine Appearance HAZY Urine pH 8.5 H (5.0-8.0) Ur Specific [place] 1.015 (1.005-1.025) Urine Protein TRACE (NEG-TRACE) MG/DL Urine Glucose (UA) NEG (NEG) MG/DL Urine Ketones >=80 (NEG) MG/DL Urine Blood NEG (NEG) Urine Nitrite NEG (NEG) Ur Leukocyte Esterase NEG (NEG) COVID-19 (SUZAN) Negative (Negative) COVID-19 Clin Com See Note Discharge Plan Discharge Clinical Impression: Hyperemesis gravidarum Patient Disposition: Home, Self-Care Instructions: Hyperemesis Gravidarum (ED) Additional Instructions: Drink plenty of fluids Zofran for severe vomiting Prescriptions: New ondansetron 4 mg tablet,disintegrating 4 mg PO Q6-8H PRN (Reason: Vomiting) Qty: 20 RF: 0 No Action Gummies 400 mcg-35 mg- 25 mg-5 mg tablet,chewable 1 tab PO daily 30 Days Qty: 30 RF: 11 pyridoxine (vitamin B6) [Vitamin B-6] 25 mg tablet 25 mg PO tid PRN (Reason: nausea) 30 Days Qty: 90 RF: 3 Unisom (doxylamine) 25 mg tablet 25 mg PO BEDTIME 30 Days Qty: 30 RF: 3 naproxen [Naprosyn] 500 mg tablet 500 mg PO BID Qty: 20 RF: 0 Interventions: ED Discharge Assessment Last Done: 05/29/21 20:29 Discharge Date/Time: 05/29/21 20:32
[2021-05-29 16:39] VITALS: BP 105/57; PULSE 72; RESP 18; O2SAT 100
[2021-05-29] MEDS: 0.9 % Sodium Chloride 1,000 ML 999 ML IV ×2 (16:40→19:58)
[2021-05-29] MEDS: ondansetron HCL 4 MG/2 ML VIAL IVPUSH (16:42)
[2021-05-29 16:54] LABS: Appearance Urine HAZY; Color Urine YELLOW; Glucose Urine UA NEG (NEG); Leukocyte Esterase Urine NEG (NEG); Nitrite Urine NEG (NEG); PH 8.5 (5.0-8.0); Specific Gravity - Urine 1.015 (1.005-1.025); Urine Blood NEG (NEG); Urine Ketones >=80 MG/DL (NEG); Urine Protein TRACE MG/DL (NEG-TRACE)
--- NOTE | 2021-05-29 17:47 | PC.NURSE ---
pt reports feeling better, denies nausea at this time
[2021-05-29 18:47] VITALS: BP 91/52; PULSE 71; RESP 16; O2SAT 99
[2021-05-29 20:25] VITALS: BP 92/47; PULSE 75; RESP 18; O2SAT 99
== END 2021-05-29 20:32 | disposition home or self-care (01) ==
PROVIDERS: Emergency Provider Internal Medicine; PCP Internal Medicine
DX: O21.1 Hyperemesis gravidarum with metabolic disturbance (principal); Z3A.08 8 weeks gestation of pregnancy; Z20.822 Contact with and (suspected) exposure to COVID-19
CPT/HCPCS: 36415; 80048; 80076; 81003; 84702; 85025; 87635; 96361; 96374; 99284; J2405

== ENCOUNTER 2021-06-12 09:44 | Emergency (ER) | payer MEDICAID, SELFPAY ==
[2021-06-12 09:49] VITALS: BP 137/74; PULSE 82; RESP 16; TEMP 35.9; O2SAT 100; BMI 24.3
[2021-06-12 10:24] VITALS: BP 103/62; PULSE 72; RESP 18; O2SAT 100
--- NOTE | 2021-06-12 10:36 | ED.NAVMDI ---
HPI - Nausea/Vomiting/Diarrhea General Chief complaint: Nausea/Vomiting/Diarrhea Stated complaint: vomiting - 3 months preg Time Seen by Provider: 06/12/21 09:59 Source: patient Mode of arrival: ambulatory History of Present Illness HPI Narrative: 25-year-old female at about 10 weeks gestation by CRL, hyperemesis, presenting to the ED complaining of nausea, vomiting, and inability to tolerate p.o. x3 days. Admits to similar symptoms in the past which she was recently evaluated in the ED for, was prescribed Zofran which was working, however ran out of medication. Reports abdominal discomfort secondary to vomiting. Denies fever, chills, dysuria/hematuria, vaginal bleeding/discharge MD elicited complaint: nausea and abdominal pain Onset (ago): day(s) Related Data Previous Rx's Medication Instructions Recorded naproxen 500 mg tablet (Naprosyn) 500 mg PO BID #20 tab 04/21/21 PNV 153-FA 400 mcg-om3 35 mg-dha 1 tab PO daily 30 Days #30 tab 05/17/21 25 mg-epa 5 mg-fish oil chew tablet ( Gummies) doxylamine succinate 25 mg tablet 25 mg PO BEDTIME 30 Days #30 tab 05/22/21 (Unisom (doxylamine)) pyridoxine (vitamin B6) 25 mg 25 mg PO tid PRN 30 Days #90 tab 05/22/21 tablet (Vitamin B-6) ondansetron 4 mg disintegrating 4 mg PO Q6-8H PRN #20 tab 05/29/21 tablet ondansetron 4 mg disintegrating 4 mg PO Q8H PRN #14 tab 06/12/21 tablet Allergies Allergy/AdvReac Type Severity Reaction Status Date / Time No Known Allergies Allergy Verified 06/12/21 09:49 Review of Systems Review of Systems: Constitutional: No Fever, No Chills, No Fatigue, No Malaise ENT/Mouth: No Hearing loss, No Ear Pain, No Nasal Congestion, No sore throat Eyes: No Eye Pain, No Swelling, No Redness Cardiovascular: No Chest Pain, No SOB, No Orthopnea, No Edema, No Palpitations Respiratory: No Cough, No Sputum, No Dyspnea Gastrointestinal: + Nausea, + Vomiting, No Diarrhea, No Constipation, + Abdominal discomfort Genitourinary: No irregular bleeding, No vaginal d/c, No Dysuria, No Urinary Frequency, No Hematuria, No Flank Pain, No Urinary Flow Changes, No Hesitancy Musculoskeletal: No joint pain, No Myalgias, No Joint Swelling Skin: No Skin Lesions, No rash Neuro: No Weakness, No Numbness, No Paresthesias, No Dizziness, No Headache Yes all other systems are reviewed and are negative [facility] Past Medical History Attestation statement: The following information was validated with the patient. Medical History No known health problems Social History Social History Alcohol intake: never Patient Tobacco Use Status: Never used Tobacco Substance Use Type: Marijuana Advance Directives: No Advance Directives Information Provided: No Patient : Yes Sexual orientation: Straight/Heterosexual Gender identity: Female Physical Exam Vital Signs: Vital Signs: Last Vital Signs Temp 96.6 F L 06/12/21 09:49 Pulse 72 06/12/21 10:24 Resp 18 06/12/21 10:24 BP 103/62 06/12/21 10:24 Pulse Ox 100 06/12/21 10:24 BMI result Body Mass Index 24.3 Const: General: cooperative, healthy appearing and no acute distress Orientation/consciousness: patient oriented x3 Limitations: no limitations HENMT: Head: Yes normal to inspection and Yes atraumatic Ears: hearing grossly normal bilaterally General nose exam: Normal external nose present Face and sinus: Yes normal facial exam Eyes: General: appearance normal, both eyes and all related structures EOM: EOMs intact bilaterally Neck: Neck: Yes normal visual inspection and Yes no meningeal signs Resp: Effort & Inspection: normal respiratory effort and no respiratory distress Auscultation: clear to auscultation bilaterally Cardio: Rate: regular rate Heart sounds: S1 normal heart sound present and S2 normal heart sound present GI: Inspection: Yes normal to inspection Palpation (GI): Soft to palpation, Tenderness to palpation present (GI) in the epigastrum, no guarding and not rigid : General: Yes no CVA tenderness Back/Spine/Pelvis: Back: no CVA tenderness Skin: Rashes: no rashes Wounds: no wounds Neuro: General: patient oriented x3, tone normal, moves all extremities and no meningeal signs Gait exam (Neuro): Normal gait present Extrem: General: Yes normal to inspection Course Course Course Narrative: -1227--mild leukocytosis of 12.6 likely reactive from nausea/vomiting. Labs otherwise unremarkable. -hCG 105,812. UA with trace protein/not infected. On re-evaluation patient reports symptomatic improvement, playing on phone. Will p.o. challenge and re-evaluate -1321--patient tolerated p.o. apple juice, fruit, and crackers without nausea or vomiting. Admits she has follow-up with her OBGYN and is aware she is in the ED today. Will DC with Zofran and close follow-up. Discussed worrisome signs and symptoms, she verbalized understanding of feel safe for discharge home MDM - Nausea/Vomiting/Diarrhea MDM Narrative Medical decision making narrative: 25-year-old female at about 10 weeks gestation by CRL, hyperemesis, presenting to the ED complaining of nausea, vomiting, and inability to tolerate p.o. x3 days. On exam vital signs stable, NAD/nontoxic appearing, abdomen soft with mild epigastric tenderness, no rebound or guarding. Denies related complaints Medical Records Attestation: I reviewed the patient's medical records. Lab Data Attestation: I reviewed the patient's lab results. Result diagrams: 06/12/21 10:31 06/12/21 10:31 Labs: Lab Results 06/12/21 06/12/21 06/12/21 Range/Units 10:31 10:31 10:46 WBC 12.6 H (4.8-10.8) X10*3/uL RBC 4.34 (4.20-5.50) X10*6/uL Hgb 12.3 (12.0-16.0) g/dl Hct 36.1 L (37.0-47.0) % MCV 83.2 (80.0-98.0) fL MCH 28.3 (27.0-33.0) pg MCHC 34.1 (31.0-35.0) g/dl RDW 13.5 (11.0-16.0) % Plt Count 264 (160-400) X10*3/uL MPV 10.1 (9.4-12.3) fL Immature Gran % (Auto) 0.3 (0.0-0.4) % Neut % (Auto) 75.9 H (45-73) % Lymph % (Auto) 15.5 L (20-40) % [place] % (Auto) 6.4 (2-11) % Eos % (Auto) 1.7 (0-4) % Baso % (Auto) 0.2 (0-2) % Lymph # (Auto) 2.0 (1.2-4.9) X10*3/uL [place] # (Auto) 0.8 (0.1-1.2) X10*3/uL Eos # (Auto) 0.2 (0.0-0.4) X10*3/uL Baso # (Auto) 0.0 (0.0-0.2) X10*3/uL Abs Immat Gran (auto) 0.04 H (0.00-0.03) X10*3/uL Absolute Neuts (auto) 9.6 H (2.0-8.3) x10*3/uL Absolute Nucleated RBC 0.000 (0.0-0.012) X10*3/uL Nucleated RBC % (auto) 0.0 (0.0-0.2) /100WBC Sodium 136 (135-145) mmol/L Potassium 3.9 (3.3-5.1) mmol/L Chloride 104 (96-108) mmol/L Carbon Dioxide 25 (22-29) mmol/L Anion Gap 11 L (12-20) BUN 5 L (9-16) mg/dL Creatinine 0.68 (0.5-1.4) mg/dL Estim Creat Clear Calc 104.6 Estimated GFR > 60 Random Glucose 87 (60-115) mg/dL Calcium 9.6 (8.4-10.2) mg/dL Magnesium 1.8 (1.6-2.6) mg/dL Total Bilirubin 0.6 (0.0-1.0) mg/dL Direct Bilirubin 0.2 (0.0-0.5) mg/dL AST 13 (5-31) U/L ALT 8 (0-31) U/L Alkaline Phosphatase 37 L (39-117) U/L Total Protein 7.0 (6.5-8.0) g/dL Albumin 4.1 (3.5-5.0) g/dL Lipase 17 (8-78) U/L Beta HCG, Quant [id number] mIU/mL Urine Color YELLOW Urine Appearance CLOUDY Urine pH 8.0 (5.0-8.0) Ur Specific [place] 1.010 (1.005-1.025) Urine Protein TRACE (NEG-TRACE) MG/DL Urine Glucose (UA) NEG (NEG) MG/DL Urine Ketones NEG (NEG) MG/DL Urine Blood NEG (NEG) Urine Nitrite NEG (NEG) Ur Leukocyte Esterase NEG (NEG) Discharge Plan Discharge Clinical Impression: Hyperemesis gravidarum Patient Disposition: Home, Self-Care Instructions: Hyperemesis Gravidarum (ED) Additional Instructions: Take Zofran as needed at home for nausea and vomiting Please have close follow-up with her OBGYN. If youre unable to eat or drink, developed abdominal pain, vaginal bleeding or discharge please return to the emergency department Prescriptions: New ondansetron 4 mg tablet,disintegrating 4 mg PO Q8H PRN (Reason: nausea and vomiting) Qty: 14 0RF No Action Gummies 400 mcg-35 mg- 25 mg-5 mg tablet,chewable 1 tab PO daily 30 Days Qty: 30 11RF pyridoxine (vitamin B6) [Vitamin B-6] 25 mg tablet 25 mg PO tid PRN (Reason: nausea) 30 Days Qty: 90 3RF Rx Instructions: may take every 6 - 8 hours for nausea Unisom (doxylamine) 25 mg tablet 25 mg PO BEDTIME 30 Days Qty: 30 3RF naproxen [Naprosyn] 500 mg tablet 500 mg PO BID Qty: 20 0RF ondansetron 4 mg tablet,disintegrating 4 mg PO Q6-8H PRN (Reason: Vomiting) Qty: 20 0RF Referrals: Jose Raul Bustamante MD [Physician] - 2 days
[2021-06-12 10:37] LABS: MANUAL DIFF FLAG NO
[2021-06-12 10:39] LABS: Basophils Percent Auto 0.2 % (0-2); Eosinophils Absolute Auto 0.2 X10*3/uL (0.0-0.4); Eosinophils Percent Auto 1.7 % (0-4); Hematocrit 36.1 % (37.0-47.0); Hemoglobin 12.3 g/dl (12.0-16.0); Imm Gran Abs Auto 0.04 X10*3/uL (0.00-0.03); Imm Gran Pct Auto 0.3 % (0.0-0.4); Lymphocytes Percent Auto 15.5 % (20-40); Mean Corpuscular HGB Conc 34.1 g/dl (31.0-35.0); Mean Corpuscular Hemoglobin 28.3 pg (27.0-33.0); Mean Corpuscular Volume 83.2 fL (80.0-98.0); Mean Platelet Volume 10.1 fL (9.4-12.3); Monocytes Absolute Auto 0.8 X10*3/uL (0.1-1.2); Monocytes Percent Auto 6.4 % (2-11); Neutrophils Absolute Auto 9.6 x10*3/uL (2.0-8.3); Neutrophils Percent Auto 75.9 % (45-73); Platelet Count 264 X10*3/uL (160-400); Red Blood Count 4.34 X10*6/uL (4.20-5.50); Red Cell Distribution Width 13.5 % (11.0-16.0); White Blood Count 12.6 X10*3/uL (4.8-10.8)
[2021-06-12 10:53] LABS: Alanine Aminotransferase 8 U/L (0-31); Albumin Level 4.1 g/dL (3.5-5.0); Alkaline Phosphatase 37 U/L (39-117); Anion Gap 11 (12-20); Aspartate Amino Transferase 13 U/L (5-31); Bilirubin Direct 0.2 mg/dL (0.0-0.5); Bilirubin Total 0.6 mg/dL (0.0-1.0); Blood Urea Nitrogen 5 mg/dL (9-16); Calcium 9.6 mg/dL (8.4-10.2); Carbon Dioxide 25 mmol/L (22-29); Chloride 104 mmol/L (96-108); Creatinine Clr Calc Pharmacy 104.6; Estimated Glomerular Filt Rate > 60; Glucose Random 87 mg/dL (60-115); Lipase 17 U/L (8-78); Magnesium 1.8 mg/dL (1.6-2.6); Potassium 3.9 mmol/L (3.3-5.1); Sodium 136 mmol/L (135-145)
[2021-06-12] MEDS: Famotidine/PF 20 MG/2 ML VIAL IVPUSH (11:00)
[2021-06-12] MEDS: ondansetron HCL 4 MG/2 ML VIAL IVPUSH (11:00)
[2021-06-12] MEDS: diphenhydrAMINE HCL 50 MG/ML VIAL 25 MG IVPUSH (11:00)
[2021-06-12] MEDS: 0.9 % Sodium Chloride 1,000 ML 999 ML IV (11:01)
[2021-06-12 11:06] LABS: Appearance Urine CLOUDY; Color Urine YELLOW; Glucose Urine UA NEG (NEG); Leukocyte Esterase Urine NEG (NEG); Nitrite Urine NEG (NEG); Urine Blood NEG (NEG); Urine Ketones NEG (NEG); Urine Protein TRACE MG/DL (NEG-TRACE)
[2021-06-12] MEDS: Pyridoxine HCl (Vitamin B6) 50 MG TABLET 25 MG PO (11:24)
[2021-06-12 11:35] LABS: HCG Quantitative 105812 mIU/mL
--- NOTE | 2021-06-12 11:47 | PC.NURSE ---
pt resting in the stretcher watching tv, no vomiting since she arrived to the ED, denies abd pain, respirations even and unlabored
[2021-06-12 13:29] VITALS: TEMP 37.2
== END 2021-06-12 13:52 | disposition home or self-care (01) ==
PROVIDERS: Physician Assistant; Emergency Provider Emergency Medicine
DX: O21.0 Mild hyperemesis gravidarum (principal); Z3A.10 10 weeks gestation of pregnancy
CPT/HCPCS: 36415; 80048; 80076; 81003; 83690; 83735; 84702; 85025; 96361; 96374; 96375; 99284; J1200; J2405

== ENCOUNTER 2021-06-20 22:25 | Emergency (ER) | payer MEDICAID, SELFPAY ==
[2021-06-20 22:33] VITALS: BP 110/66; PULSE 73; RESP 18; TEMP 36.6; O2SAT 100; BMI 24.1
[2021-06-20] MEDS: 0.9 % Sodium Chloride 1,000 ML 999 ML IVCONT (22:41)
--- NOTE | 2021-06-20 22:44 | ED_ITS ---
HPI - Nausea/Vomiting/Diarrhea General Chief complaint: Nausea/Vomiting/Diarrhea Stated complaint: 3 months preg, cant stop throwing up Time Seen by Provider: 06/20/21 22:35 Source: patient Mode of arrival: ambulatory Limitations: no limitations History of Present Illness HPI Narrative: Patient comes to emergency room complaining of vomiting. Patient is at 11 weeks of gestation age. Patient states that she has been seen multiple times for hyperemesis gravidarum. Patient was seen here 1 week ago. Patient was prescribed Zofran. Patient states that she did very well on Zofran. However, she ran out of tablets 2 days ago, and today she started vomiting. Patient denies abdominal cramping, no vaginal bleeding/fluid leakage, no UTI symptoms, no fever chills. Related Data Previous Rx's Medication Instructions Recorded naproxen 500 mg tablet (Naprosyn) 500 mg PO BID #20 tab 04/21/21 PNV 153-FA 400 mcg-om3 35 mg-dha 1 tab PO daily 30 Days #30 tab 05/17/21 25 mg-epa 5 mg-fish oil chew tablet ( Gummies) doxylamine succinate 25 mg tablet 25 mg PO BEDTIME 30 Days #30 tab 05/22/21 (Unisom (doxylamine)) pyridoxine (vitamin B6) 25 mg 25 mg PO tid PRN 30 Days #90 tab 05/22/21 tablet (Vitamin B-6) ondansetron 4 mg disintegrating 4 mg PO Q6-8H PRN #20 tab 05/29/21 tablet ondansetron 4 mg disintegrating 4 mg PO Q8H PRN #14 tab 06/12/21 tablet ondansetron HCl 4 mg tablet 4 mg PO Q6H PRN #30 tab 06/21/21 Allergies Allergy/AdvReac Type Severity Reaction Status Date / Time No Known Allergies Allergy Verified 06/20/21 22:36 Review of Systems Review of Systems: Constitutional : No Weight loss, No Fever, No Chills, No Night Sweats, No Fatigue, No Malaise ENT/Mouth : No Hearing loss, No Ear Pain, No Nasal Congestion, No Sinus Pain, No Hoarseness, No sore throat, No Rhinorrhea, No Swallowing Difficulty Eyes: No Eye Pain, No Swelling, No Redness, No Foreign Body, No Discharge, No Vision Changes Cardiovascular : No Chest Pain, No SOB, No Dyspnea on Exertion, No Orthopnea, No Edema, No Palpitations Respiratory : No Cough, No Sputum, No Wheezing, No Smoke Exposure, No Dyspnea Gastrointestinal : Complaining of nausea and vomiting, No Diarrhea, No Constipation, No abdominal Pain, No Hematochezia, No Melena Genitourinary : no irregular bleeding, No Dysuria, No Urinary Frequency, No Hematuria, No Urinary Incontinence, No Urgency, No Flank Pain, No Urinary Flow Changes, No Hesitancy Musculoskeletal : No joint pain, No Myalgias, No Joint Swelling Skin : No Skin Lesions, No rash Neuro : No Weakness, No Numbness, No Paresthesias, No Loss of Consciousness, No Dizziness, No Headache Psych : No Anxiety/Panic, No Depression, No SI/HI/AH/VH, No Social Issues, Heme/Lymph: No Bruising, No Bleeding,No Lymphadenopathy Endocrine : No Polyuria, No Polydipsia, No Temperature Intolerance [facility] Past Medical History Medical History (Updated 06/21/21 @ 00:32 by Shirley Espinosa MD) Hyperemesis No known health problems Social History Social History Alcohol intake: never Patient Tobacco Use Status: Never used Tobacco Substance Use Type: Marijuana Advance Directives: No Advance Directives Information Provided: Yes Patient : Yes ([facility] 01/31/22) Sexual orientation: Straight/Heterosexual Gender identity: Female Physical Exam Vital Signs: Vital Signs: Last Vital Signs Temp 97.7 F 06/20/21 23:52 Pulse 76 06/20/21 23:52 Resp 16 06/20/21 23:52 BP 119/68 06/20/21 23:52 Pulse Ox 100 06/20/21 23:52 BMI result Body Mass Index 24.1 Const: Other: Appearance: Alert. Oriented X3. No acute distress. Eyes: Pupils equal, round and reactive to light. ENT: Pharynx normal. Neck: Normal inspection. Neck supple. No lymph nodes noted. No crepitus CVS: Normal heart rate and rhythm. Pulses normal. Normal S1 and S2 Respiratory: No respiratory distress. Breath sounds normal. No Wheezing. No rales Abdomen: Soft and nontender. No rigidity. No distention. Skin: Skin warm and dry. Normal skin color. Normal skin turgor. Extremities: No lower extremity edema. No Lacerations. No Rash Neuro: Oriented X 3. No motor deficit. No sensory deficit. Moving all extermities. No slurred speech. Course Course Course Narrative: Patient will be hydrated with IV fluids, given Zofran since it works well for her. Labs pending Feeling much better, patient was p.o. challenged, doing well. Patient instructed to follow-up with OBGYN MDM - Nausea/Vomiting/Diarrhea Lab Data Result diagrams: 06/20/21 23:01 06/20/21 23:01 Labs: Lab Results 06/20/21 06/20/21 Range/Units 23:01 23:01 WBC 13.2 H (4.8-10.8) X10*3/uL RBC 4.14 L (4.20-5.50) X10*6/uL Hgb 11.5 L (12.0-16.0) g/dl Hct 34.7 L (37.0-47.0) % MCV 83.8 (80.0-98.0) fL MCH 27.8 (27.0-33.0) pg MCHC 33.1 (31.0-35.0) g/dl RDW 13.2 (11.0-16.0) % Plt Count 246 (160-400) X10*3/uL MPV 9.5 (9.4-12.3) fL Immature Gran % (Auto) 0.5 H (0.0-0.4) % Neut % (Auto) 65.2 (45-73) % Lymph % (Auto) 22.9 (20-40) % [place] % (Auto) 8.7 (2-11) % Eos % (Auto) 2.4 (0-4) % Baso % (Auto) 0.3 (0-2) % Lymph # (Auto) 3.0 (1.2-4.9) X10*3/uL [place] # (Auto) 1.1 (0.1-1.2) X10*3/uL Eos # (Auto) 0.3 (0.0-0.4) X10*3/uL Baso # (Auto) 0.0 (0.0-0.2) X10*3/uL Abs Immat Gran (auto) 0.06 H (0.00-0.03) X10*3/uL Absolute Neuts (auto) 8.6 H (2.0-8.3) x10*3/uL Absolute Nucleated RBC 0.000 (0.0-0.012) X10*3/uL Nucleated RBC % (auto) 0.0 (0.0-0.2) /100WBC Sodium 136 (135-145) mmol/L Potassium 3.9 (3.3-5.1) mmol/L Chloride 103 (96-108) mmol/L Carbon Dioxide 25 (22-29) mmol/L Anion Gap 12 (12-20) BUN 7 L (9-16) mg/dL Creatinine 0.62 (0.5-1.4) mg/dL Estim Creat Clear Calc 109.7 Estimated GFR > 60 Random Glucose 90 (60-115) mg/dL Calcium 9.5 (8.4-10.2) mg/dL Total Bilirubin 0.2 (0.0-1.0) mg/dL Direct Bilirubin < 0.2 (0.0-0.5) mg/dL AST 11 (5-31) U/L ALT < 6 (0-31) U/L Alkaline Phosphatase 39 (39-117) U/L Total Protein 6.5 (6.5-8.0) g/dL Albumin 3.8 (3.5-5.0) g/dL Beta HCG, Quant 77204 mIU/mL Discharge Plan Discharge Clinical Impression: Hyperemesis Patient Disposition: Home, Self-Care Instructions: Hyperemesis Gravidarum (ED) Additional Instructions: Please follow-up with your primary care physician tomorrow. If you have any worsening or new symptoms, please return to the emergency room or call 911 Prescriptions: New ondansetron HCl 4 mg tablet 4 mg PO Q6H PRN (Reason: nausea and vomiting) Qty: 30 0RF No Action Gummies 400 mcg-35 mg- 25 mg-5 mg tablet,chewable 1 tab PO daily 30 Days Qty: 30 11RF pyridoxine (vitamin B6) [Vitamin B-6] 25 mg tablet 25 mg PO tid PRN (Reason: nausea) 30 Days Qty: 90 3RF Rx Instructions: may take every 6 - 8 hours for nausea Unisom (doxylamine) 25 mg tablet 25 mg PO BEDTIME 30 Days Qty: 30 3RF naproxen [Naprosyn] 500 mg tablet 500 mg PO BID Qty: 20 0RF ondansetron 4 mg tablet,disintegrating 4 mg PO Q6-8H PRN (Reason: Vomiting) Qty: 20 0RF ondansetron 4 mg tablet,disintegrating 4 mg PO Q8H PRN (Reason: nausea and vomiting) Qty: 14 0RF
[2021-06-20 23:05] LABS: MANUAL DIFF FLAG NO
[2021-06-20 23:06] LABS: Basophils Percent Auto 0.3 % (0-2); Eosinophils Absolute Auto 0.3 X10*3/uL (0.0-0.4); Eosinophils Percent Auto 2.4 % (0-4); Hematocrit 34.7 % (37.0-47.0); Hemoglobin 11.5 g/dl (12.0-16.0); Imm Gran Abs Auto 0.06 X10*3/uL (0.00-0.03); Imm Gran Pct Auto 0.5 % (0.0-0.4); Lymphocytes Percent Auto 22.9 % (20-40); Mean Corpuscular HGB Conc 33.1 g/dl (31.0-35.0); Mean Corpuscular Hemoglobin 27.8 pg (27.0-33.0); Mean Corpuscular Volume 83.8 fL (80.0-98.0); Mean Platelet Volume 9.5 fL (9.4-12.3); Monocytes Absolute Auto 1.1 X10*3/uL (0.1-1.2); Monocytes Percent Auto 8.7 % (2-11); Neutrophils Absolute Auto 8.6 x10*3/uL (2.0-8.3); Neutrophils Percent Auto 65.2 % (45-73); Platelet Count 246 X10*3/uL (160-400); Red Blood Count 4.14 X10*6/uL (4.20-5.50); Red Cell Distribution Width 13.2 % (11.0-16.0); White Blood Count 13.2 X10*3/uL (4.8-10.8)
[2021-06-20 23:33] LABS: Alanine Aminotransferase < 6 U/L (0-31); Albumin Level 3.8 g/dL (3.5-5.0); Alkaline Phosphatase 39 U/L (39-117); Anion Gap 12 (12-20); Aspartate Amino Transferase 11 U/L (5-31); Bilirubin Direct < 0.2 mg/dL (0.0-0.5); Bilirubin Total 0.2 mg/dL (0.0-1.0); Blood Urea Nitrogen 7 mg/dL (9-16); Calcium 9.5 mg/dL (8.4-10.2); Carbon Dioxide 25 mmol/L (22-29); Chloride 103 mmol/L (96-108); Creatinine Clr Calc Pharmacy 109.7; Estimated Glomerular Filt Rate > 60; Glucose Random 90 mg/dL (60-115); Potassium 3.9 mmol/L (3.3-5.1); Sodium 136 mmol/L (135-145); Total Protein 6.5 g/dL (6.5-8.0)
[2021-06-20 23:52] VITALS: BP 119/68; PULSE 76; RESP 16; TEMP 36.5; O2SAT 100
[2021-06-21] MEDS: ondansetron HCL 4 MG/2 ML VIAL IVPUSH (00:08)
== END 2021-06-21 00:47 | disposition home or self-care (01) ==
PROVIDERS: Emergency Provider Emergency Medicine; PCP Internal Medicine
DX: O21.0 Mild hyperemesis gravidarum (principal); Z3A.11 11 weeks gestation of pregnancy; Z79.899 Other long term (current) drug therapy
CPT/HCPCS: 36415; 80048; 80076; 84702; 85025; 96361; 96374; 99283; 99284; J2405

== ENCOUNTER 2021-06-23 09:31 | Outpatient (REF) | payer MEDICAID, SELFPAY ==
--- NOTE | ~2021-06-23 | US_ITS ---
EXAMINATION: OBSTETRICAL ULTRASOUND, FIRST TRIMESTER HISTORY: 25-year-old at 12.4 weeks of gestation NT screening COMPARISON: None TECHNIQUE: Real time transabdominal imaging with color and M-mode Doppler. FINDINGS: A single, live IUP CRL of 62.1 mm c/w 12.5wks is noted. Heart Rate: 152 beats per minute. Normal yolk sac seen. NT was 1.2.mm. NB Present The embryo appears sonographically wnl for this GA. Both maternal ovaries are seen and appear normal. GESTATIONAL AGE: 1. Established GA: 12.4 wks 2. GA from AUA: 12.5 wks ESTIMATED DATE OF DELIVERY: 1. Established BECKY: 01/01/2022 2. BECKY from AUA: 12/31/2021 US/US OB 1T nuc measure IMPRESSION: 1. A single live IUP 2. Size equals dates 3. NT of 1.2 mm MFM Consultation: I reviewed the ultrasound findings along with significance of NT measurement. The NT of less than 3mm is generally reassuring. However, the sensitivity for T21 detection is only 60%. I reviewed the availability of serum aneuploidy screening which includes cell-free DNA and placental protein based tests. I discussed the sensitivity, false-positive rate, and other limitations associated with each test. I also reviewed the availability of invasive diagnostic tests that are associated small but definite risk of miscarriage. We also reviewed the differences between screening tests and diagnostic tests. After our discussion, she opted for the First trimester screening that is based on cell-free DNA or non-invasive testing (NIPT). The result will be faxed to your office in approximately 7 days. A follow up at 18 weeks for survey has been scheduled. Thank you very much for this referral. Total time 30 minutes. The time spent was devoted to counseling the patient about the disease and diagnosis, coordinating care including reviewing her records, pertinent lab data and studies, as well as discussing diagnostic evaluation and workup, plan therapeutic interventions and future disposition of care. This includes any additional research needed to obtain further information in formulating the plan of care of this patient. This note was generated with a voice recognition program. Please excuse any errors which may have been overlooked during my review of this note. Sometimes these errors may affect the content or meaning of a given sentence.
== END 2021-06-23 09:32 | disposition home or self-care (01) ==
LOC: HO.US 09:31
PROVIDERS: PCP Internal Medicine; Visit Provider Advanced Practice Midwife
DX: Z34.91 Encounter for supervision of normal pregnancy, unspecified, first trimester (principal); Z3A.12 12 weeks gestation of pregnancy
CPT/HCPCS: 76813

== ENCOUNTER → 2021-07-17 09:48 | Outpatient (BNVA) | payer MEDICAID, SELFPAY | PROVIDERS: PCP Internal Medicine; Visit Provider Advanced Practice Midwife | DX: Z13.89 Encounter for screening for other disorder (principal) | CPT/HCPCS: 99212 ==

== ENCOUNTER 2021-07-24 16:50 | Emergency (ER) | payer MEDICAID, SELFPAY ==
--- NOTE | 2021-07-24 19:33 | PC.NURSE ---
called x 3 in waiting room LWT at this time.
== END 2021-07-24 21:26 | disposition left against medical advice (07) ==
LOC: HO.ED 21:16
PROVIDERS: Emergency Provider Emergency Medicine; PCP Internal Medicine
DX: O21.9 Vomiting of pregnancy, unspecified (principal); Z3A.17 17 weeks gestation of pregnancy

== ENCOUNTER 2021-08-02 11:31 | Outpatient (REF) | payer MEDICAID, SELFPAY ==
[2021-08-03 06:30] LABS: CT PCR NOT DETECTED (Not Detect.); NG PCR NOT DETECTED (Not Detect.)
[2021-08-03 13:34] LABS: BV Int Neg Control Negative (Negative); BV Int Pos Control Positive (Positive)
[2021-08-15 05:21] LABS: HPV 16 RNA NOT DETECTED (NOT DETECTED); HPV mRNA E6/E7 rflx Detected (Not Detected)
== END 2021-08-02 11:32 | disposition home or self-care (01) ==
LOC: HO.LAB 11:31
PROVIDERS: PCP Internal Medicine; Visit Provider Obstetrics & Gynecology
DX: Z34.92 Encounter for supervision of normal pregnancy, unspecified, second trimester (principal); Z3A.18 18 weeks gestation of pregnancy
CPT/HCPCS: 81003; 87480; 87491; 87510; 87591; 87624; 87625; 87660; 88142; 99212

== ENCOUNTER 2021-08-03 10:25 | Outpatient (REF) | payer MEDICAID, SELFPAY ==
[2021-08-03 12:41] LABS: Amphetamine Screen Urine Not Detected (Not Detect); Barbiturates, Urine Not Detected (Not Detect); Benzodiazepines Screen Urine Not Detected (Not Detect); Cannabinoid Screen Urine POSITIVE (Not Detect); Cocaine Screen Urine Not Detected (Not Detect); Fentanyl, urine Not Detected (Not Detect); Opiate Screen Urine Not Detected (Not Detect); Phencyclidine Screen Urine Not Detected (Not Detect)
[2021-08-03 12:58] LABS: Glucose 1 Hour PP 50gm Dose 128 mg/dL (60-140)
[2021-08-03 13:36] LABS: Hematocrit 34.4 % (37.0-47.0); Hemoglobin 11.6 g/dl (12.0-16.0); Mean Corpuscular HGB Conc 33.7 g/dl (31.0-35.0); Mean Corpuscular Hemoglobin 29.4 pg (27.0-33.0); Mean Corpuscular Volume 87.1 fL (80.0-98.0); Mean Platelet Volume 11.4 fL (9.4-12.3); Platelet Count 270 X10*3/uL (160-400); Red Blood Count 3.95 X10*6/uL (4.20-5.50); Red Cell Distribution Width 13.4 % (11.0-16.0); White Blood Count 13.6 X10*3/uL (4.8-10.8)
[2021-08-04 07:49] LABS: HIV AB/AG Nonreactive (Nonreactive); HIV Num 1 0.07 S/CO (0.00-0.99); Hepatitis B Surface Antigen Negative (Negative)
[2021-08-04 08:07] LABS: ~HepC Num1 0.11 S/CO (0.00-0.79); ~Hepatitis C Antibody Nonreactive (Nonreactive)
[2021-08-04 08:17] LABS: Syphilis Screen Nonreactive (Nonreactive)
== END 2021-08-03 10:26 | disposition home or self-care (01) ==
LOC: HO.LAB 10:25
PROVIDERS: PCP Internal Medicine; Visit Provider Advanced Practice Midwife
DX: Z32.01 Encounter for pregnancy test, result positive (principal)
CPT/HCPCS: 80307; 85027; 86762; 86780; 86787; 86803; 86850; 86900; 86901; 87086; 87340; 87389

== ENCOUNTER 2021-08-04 09:35 | Outpatient (REF) | payer MEDICAID, SELFPAY ==
--- NOTE | ~2021-08-04 | US_ITS ---
EXAMINATION: US OBSTETRICAL CLINICAL INFORMATION: 25-year-old at the 18.4 weeks of gestation Screening for anomaly COMPARISON: 06/23/2021 TECHNIQUE: Real-time transabdominal ultrasound was performed using C1-5 megahertz transducer. FINDINGS: A single, active, fetus is seen in vertex presentation. The placenta is right lateral, and the amniotic fluid volume is wnl. MEASUREMENTS: 1. Biparietal Diameter: 4.2 cm; 18.6 wks 2. Occipital Frontal Diameter: 5.6 cm 3. Head Circumference: 16.6 cm; 19.3 wks 4. Abdominal Circumference: 13.5 cm; 19.0 wks 5. Femur Length: 3.0 cm; 19.2 wks 6. Tibia Length: 2.5 cm; 19.1 wks 7. Ulna Length: 2.6 cm; 19.4 wks 8. Lateral ventricle: 0.4 cm 9. Cerebellum: 1.92 cm; 19.6 wks 10. Cisterna Magna: 0.32 cm 11. Nuchal Fold: 1.91 mm 12. Heart Rate: 146 beats per minute Rt ovary: normal Lt ovary: normal Cervical length 2.7 cm on T/A. GESTATIONAL AGE: 1. Established GA: 18.4 wks 2. GA from AUA: 19.1 wks ESTIMATED DATE OF DELIVERY: 1. Established BECKY: 01/01/2022 2. BECKY from AUA: 12/28/2021 ANATOMY: The visualized anatomy includes but not limited to: 1. Cranium: Normal 2. Intracranial anatomy: cavum septum pellucidi, lateral ventricles, choroid plexus, cerebellum, posterior fossa, third and fourth ventricles. 3. face: orbits, lip/palate, profile, nasal bone 4. Heart: four-chamber view of the heart, ventricular septum, foramen ovale, pulmonary vein, left and right outflow tracts, three-vessel view, 3 vessel trachea view, aortic and ductal arches, situs.. 5. Diaphragm: Normal 6. Abdominal wall: Normal 7. Cord Insertion: Normal 8. Spine: Cervical, thoracic, lumbar, sacral. 9. Stomach: Normal size and shape 10. Right Kidney: Normal 11. Left Kidney: Normal 12. 3 vessel cord: Normal 13. Upper extremity: Open hands, fifth digit. 14. Lower extremity: Tibia, fibula, bilateral feet. 15. Bladder: Normal 16. Genitalia: Male, patient aware US/US OB /maternal detail IMPRESSION: 1. Single, living, intrauterine with appropriate biometry. 2. Normal survey DISCUSSION: I reviewed today's ultrasound findings. We discussed the limitations of ultrasound in diagnosing aneuploidy and other congenital abnormalities. I reviewed the differences between screening test and diagnostic test. Amniocentesis was discussed and declined. She was informed that the baseline incidence of congenital abnormalities is approximately 3-5%. Not all these conditions are diagnosable in utero. RECOMMENDATIONS: 1. Follow-up when necessary Thank you for allowing me to participate in her care. Total time 20 minutes. The time spent was devoted to counseling the patient about the disease and diagnosis, coordinating care including reviewing her records, pertinent lab data and studies, as well as discussing diagnostic evaluation and workup, plan therapeutic interventions and future disposition of care. This includes any additional research needed to obtain further information in formulating the plan of care of this patient. This note was generated with a voice recognition program. Please excuse any errors which may have been overlooked during my review of this note. Sometimes these errors may affect the content or meaning of a given sentence.
== END 2021-08-04 09:36 | disposition home or self-care (01) ==
LOC: HO.US 09:35
PROVIDERS: PCP Internal Medicine; Visit Provider Advanced Practice Midwife
DX: O35.9XX0 Maternal care for (suspected) fetal abnormality and damage, unspecified, not applicable or unspecified (principal)
CPT/HCPCS: 76811

== ENCOUNTER → 2021-08-30 10:44 | Outpatient (BNVA) | payer MEDICAID, SELFPAY | PROVIDERS: Visit Provider Advanced Practice Midwife | DX: O26.892 Other specified pregnancy related conditions, second trimester (principal); R87.619 Unspecified abnormal cytological findings in specimens from cervix uteri; Z3A.20 20 weeks gestation of pregnancy | CPT/HCPCS: 81003; 99212 ==

== ENCOUNTER → 2021-09-11 09:59 | Outpatient (BNVA) | payer MEDICAID, SELFPAY | PROVIDERS: PCP Internal Medicine; Visit Provider Obstetrics & Gynecology | DX: O98.312 Other infections with a predominantly sexual mode of transmission complicating pregnancy, second trimester (principal); R87.610 Atypical squamous cells of undetermined significance on cytologic smear of cervix (ASC-US); R87.810 Cervical high risk human papillomavirus (HPV) DNA test positive; Z3A.24 24 weeks gestation of pregnancy | CPT/HCPCS: 57452; 99212 ==

== ENCOUNTER 2021-10-09 09:20 | Outpatient (REF) | payer MEDICAID, SELFPAY ==
[2021-10-09 12:18] LABS: Hematocrit 31.8 % (37.0-47.0); Hemoglobin 10.4 g/dl (12.0-16.0); Mean Corpuscular HGB Conc 32.7 g/dl (31.0-35.0); Mean Corpuscular Hemoglobin 28.6 pg (27.0-33.0); Mean Corpuscular Volume 87.4 fL (80.0-98.0); Mean Platelet Volume 9.8 fL (9.4-12.3); Platelet Count 234 X10*3/uL (160-400); Red Blood Count 3.64 X10*6/uL (4.20-5.50); Red Cell Distribution Width 13.2 % (11.0-16.0); White Blood Count 13.9 X10*3/uL (4.8-10.8)
[2021-10-09 12:38] LABS: Glucose 1 Hour PP 50gm Dose 130 mg/dL (60-140)
[2021-10-09 13:22] LABS: Syphilis Screen Nonreactive (Nonreactive)
== END 2021-10-09 09:21 | disposition home or self-care (01) ==
LOC: HO.LAB 09:20
PROVIDERS: PCP Internal Medicine; Visit Provider Advanced Practice Midwife
DX: Z34.93 Encounter for supervision of normal pregnancy, unspecified, third trimester (principal); Z3A.28 28 weeks gestation of pregnancy
CPT/HCPCS: 36415; 85027; 86780; 99212

== ENCOUNTER → 2021-10-23 14:06 | Outpatient (BNVA) | payer MEDICAID, SELFPAY | PROVIDERS: PCP Internal Medicine; Visit Provider Advanced Practice Midwife | DX: O99.013 Anemia complicating pregnancy, third trimester (principal); Z3A.30 30 weeks gestation of pregnancy | CPT/HCPCS: 99212 ==

== ENCOUNTER → 2021-10-31 14:07 | Outpatient (BNVA) | payer MEDICAID, SELFPAY | PROVIDERS: PCP Internal Medicine; Visit Provider Obstetrics & Gynecology | DX: Z34.83 Encounter for supervision of other normal pregnancy, third trimester (principal); Z3A.31 31 weeks gestation of pregnancy | CPT/HCPCS: 99212 ==

== ENCOUNTER → 2021-11-15 11:27 | Outpatient (BNVA) | payer MEDICAID, SELFPAY | PROVIDERS: PCP Internal Medicine; Visit Provider Obstetrics & Gynecology | DX: O26.893 Other specified pregnancy related conditions, third trimester (principal); M54.9 Dorsalgia, unspecified; O99.820 Streptococcus B carrier state complicating pregnancy; O99.013 Anemia complicating pregnancy, third trimester; D64.9 Anemia, unspecified; Z3A.33 33 weeks gestation of pregnancy; Z79.899 Other long term (current) drug therapy | CPT/HCPCS: 99212 ==

== ENCOUNTER → 2021-12-05 11:03 | Outpatient (BNVA) | payer MEDICAID, SELFPAY | PROVIDERS: PCP Internal Medicine; Visit Provider Obstetrics & Gynecology | DX: Z34.83 Encounter for supervision of other normal pregnancy, third trimester (principal); Z3A.36 36 weeks gestation of pregnancy | CPT/HCPCS: 99212 ==

== ENCOUNTER 2023-01-09 12:12 | Outpatient (REF) | payer MEDICAID, SELFPAY ==
[2023-01-09 14:10] LABS: Estimated Glomerular Filt Rate > 60
[2023-01-10 08:27] LABS: HIV AB/AG Nonreactive (Nonreactive); HIV Num 1 0.06 S/CO (0.00-0.99)
[2023-01-10 12:08] LABS: BV Int Neg Control Negative (Negative); BV Int Pos Control Positive (Positive)
[2023-01-15 06:54] LABS: HPV mRNA E6/E7 rflx Not Detected (Not Detected)
[2023-01-22 03:53] LABS: C. trachomatis RNA TMA NOT DETECTED (NOT DETECTED); N. gonorrhoeae RNA TMA NOT DETECTED (NOT DETECTED)
== END 2023-01-09 12:13 | disposition home or self-care (01) ==
LOC: HO.HHCL 12:12
PROVIDERS: Visit Provider Advanced Practice Midwife
DX: N89.8 Other specified noninflammatory disorders of vagina (principal); R30.0 Dysuria; Z11.3 Encounter for screening for infections with a predominantly sexual mode of transmission; Z12.4 Encounter for screening for malignant neoplasm of cervix; Z79.899 Other long term (current) drug therapy
CPT/HCPCS: 36415; 82565; 87389; 87480; 87491; 87510; 87591; 87624; 87660; 88142

== ENCOUNTER 2023-05-16 11:31 | Outpatient (REF) | payer MEDICAID, SELFPAY ==
[2023-05-16 13:25] LABS: Alanine Aminotransferase 10 U/L (0-31); Albumin Level 4.6 g/dL (3.5-5.0); Alkaline Phosphatase 49 U/L (39-117); Aspartate Amino Transferase 15 U/L (5-31); Bilirubin Direct 0.1 mg/dL (0.0-0.5); Bilirubin Total 0.3 mg/dL (0.0-1.0); Total Protein 7.9 g/dL (6.5-8.0)
[2023-05-21 14:28] LABS: HIV RNA PCR Qn Copies NOT DETECTED copies/mL (NOT DETECTED); HIV RNA PCR Qn Log Copies NOT DETECTED (NOT DETECTED)
== END 2023-05-16 11:32 | disposition home or self-care (01) ==
LOC: HO.HHCL 11:31
PROVIDERS: Visit Provider Internal Medicine
DX: Z79.899 Other long term (current) drug therapy (principal)
CPT/HCPCS: 36415; 80076; 87536

== ENCOUNTER 2023-05-28 08:52 | Outpatient (AMB) | payer MEDICAID, SELFPAY ==
--- NOTE | 2023-05-28 08:54 | A.OFFVIS_ITS ---
Intake Vital Signs 05/28/23 08:55 Height 5 ft 2 in Weight 132 lb BMI 24.1 BP 112/70 Intake Visit Reasons: BV? Intake Note: pt c/o yellow discharge and vaginal irritation Flight Control Specialist: Flight Control Specialist Present (Zina) Allergies No Known Allergies Allergy (Verified 05/28/23 08:55) HPI HPI Comments History of Present Illness Details Patient is here today with complaints of external vulvar burning after being intimate with multiple partners. She was seen at [facility] this month for symptoms, and also with her primary care for the same symptoms. HIV testing was done at primary Care and she reports all negative. She pulled up her results on tapestry under phone during the visit in my and chlamydia were negative. She admits using a triage soap scrub following shaving prior to her intimacy. Currently taking weekly Diflucan x3 weeks. And initially treated with a topical yeast cream intravaginally. She reports an onion like odor from the vulvar region. [facility] Medical History (Updated 05/28/23 @ 09:31 by Radhika Ruelas CNM) No known health problems Family History Mother Diabetes mellitus H/O cancer of uterus H/O: hysterectomy Bipolar 1 disorder, mixed Maternal Grandmother Diabetes mellitus Family/Other Breast CA Sister Autism Brother Autism Bipolar 1 disorder, mixed Social History Household Members: Children Housing: Apartment Are you a primary critical care unit manager to a significant other at home: No Do you presently have visiting nurse or other home services: No Alcohol intake: never Patient Tobacco Use Status: Never used Tobacco Substance Use Type: Marijuana Agree to transfusion: Yes service: No Current occupational status: unemployed Sexual orientation: Straight/Heterosexual Gender identity: Female Cognitive needs: No Hearing needs: No Vision needs: No Female Reproductive History Menstrual Age of Menarche: 10 control method: progesterone injection Total pregnancies: 2 Full term: 2 Number of Living Children: 2 Review of Systems Const All systems reviewed & are unremarkable except as noted in HPI and below Physical Exam Vital Signs: Last Vital Signs BP 112/70 05/28/23 08:55 BMI result Body Mass Index 24.1 Const General: cooperative, healthy appearing and no acute distress Orientation/consciousness: patient oriented x3 GI Inspection: Yes normal to inspection Palpation (GI): Soft to palpation and Other GI palpation findings present (Nontender) Rectal Exam - Female: visual inspection normal General: Yes bladder normal to palpation External Female Exam: normal appearance of the urethra Speculum Exam - Vagina: normal appearance of the vagina, normal palpation and other (White frothy discharge) Speculum Exam - Cervix: normal appearance of the cervix and normal palpation Bimanual exam- vagina & uterus: normal bimanual exam, normal palpation, uterine size normal, bladder normal to palpation, normal palpation, uterine shape normal and non-tender Bimanual Exam- Adnexa, other: normal adnexae Neuro General: patient oriented x3 Assessment & Plan Assessment & Plan (1) Vulvar irritation: Code(s): N90.89 - Other specified noninflammatory disorders of vulva and perineum (2) Possible exposure to STD: Code(s): Z20.2 - Contact with and (suspected) exposure to infections with a predominantly sexual mode of transmission Plan Instructions: Discussed the multiple causes for vulvar irritation. Utilized a mirror during her exam to point out the areas of her concerned, the area was the hymenal ring and it does appear normal. Most likely it may have been fungal on top of mechanical chemical irritation. It appears that she has improved she will continue with the medication prescribed from her primary care. Clean with warm water, no soaps, scrub, exfoliating, or scented/flavored products. No shaving. Wear loose, cotton underclothes, avoid tight outer clothing. Air when possible. No coitus until well healed. Always use condoms. Await culture results. Call the office if there is no improvement in 24-48hrs., or if worsening symptoms. All of her questions and concerns were addressed to the best of my ability and shared decision making. She is agreeable to the plan of care. Request for Pap records from [facility]. Schedule annual exam. Orders: Orders Routine Culture w Gram Stain Today N89.8 - Other specified noninflammatory disorders of vagina Bacterial Vaginosis Panel Today N89.8 - Other specified noninflammatory disorders of vagina CT NG by PCR Today N89.8 - Other specified noninflammatory disorders of vagina Coding Level of Care Code Est Pt Level 3 (16487) Diagnoses Vulvar irritation N90.89 Possible exposure to STD Z20.2
--- OUTSIDE RECORDS SUMMARY | 2023-05-28 08:54 | XMS_ITS | Continuity of Care Document ---
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 Role Phone Sreedhar DIOP, Eva Martinez Primary Care Physician [place] [facility] [place](s): 12/11/21 - 12/13/[address] [address] Discharge Disposition: A-D/C Home Attending Physician: Holden Tellez MD Admitting Physician: Holden Tellez MD Referring Physician: Holden Tellez MD Allergies, Adverse Reactions, Alerts No Known Medication Allergies Medications acetaminophen 500 mg oral capsule 2 capsule = 1,000 mg, By Mouth, Every 6 hours, PRN Pain , Moderate, for 14 days, not to exceed 4000mg/day, # 100 capsule, 0 Refills, Acute 12/26/21 11:42:00 EDT, 12/12/21 11:42:00 EDT, Capsule, [id number], Partial fill upon patient request if... Start Date: 12/12/21 Stop Date: 12/26/21 Status: Ordered Acetaminophen Tablet 650 mg, Tablet, By Mouth, Every 4 hours, PRN for Pain , Mild, (1-3), may give 325mg per patient preference and re-dose with 325mg within 4 hours, if needed. Patient should only receive a total of 650mg of Acetaminophen every 4 hours., Routine, 12/11... Start Date: 12/11/21 Stop Date: 12/13/21 Status: Discontinued ferrous sulfate 325 mg oral enteric coated tablet 325 mg, 1, tablet, By Mouth, Daily, # 30 tablet, Refills 0, Maintenance, 11/25/21 21:07:00 EDT, Partial fill upon patient request if the prescription is for a schedule II opioid drug. Start Date: 11/25/21 Status: Ordered ibuprofen 600 mg oral tablet 600 mg, 1, tablet, By Mouth, 4 times a day, for 14 days, # 56 tablet, Refills 0, Tot. Refills 0, Acute 12/26/21 11:42:00 EDT, 12/12/21 11:42:00 EDT, Route to Pharmacy Electronically, [id number], Partial fill upon patient request if the prescri... Start Date: 12/12/21 Stop Date: 12/26/21 Status: Ordered Multivitamins By Mouth, Daily, 0 Refills, Maintenance, 11/25/21 21:07:00 EDT, Partial fill upon patient request if the prescription is for a schedule II opioid drug. Start Date: 11/25/21 Status: Ordered Problem List Condition Effective Dates Status Health Status Inform ant Non-toxic uninodular goiter(Confirmed) Active Vital Signs Most recent to oldest [Reference Range]: 1 2 3 4 Height 158 cm (12/13/21 9:38 AM) 158 cm (12/12/21 3:20 PM) 158 cm (12/12/21 3:20 PM) Weight 70 kg (12/11/21 8:09 AM) 70.0 kg (12/11/21 6:36 AM) Oxygen Saturation [94-100 %] 99 % (12/11/21 11:55 PM) 97 % (12/11/21 8:29 PM) 96 % (12/11/21 11:15 AM) Pulse Rate [55-90 bpm] 66 bpm (12/13/21 9:38 AM) 76 bpm (12/13/21 12:00 AM) 74 bpm (12/12/21 3:20 PM) 74 bpm (12/12/21 3:20 PM) Body Mass Index [18.5-24.99] 28.04 *H* (12/11/21 8:09 AM) 28.04 *H* (12/11/21 6:36 AM) Blood Pressure [90-138/55-84 mm Hg] 104/68mm Hg (12/13/21 9:38 AM) 116/58mm Hg (12/13/21 12:00 AM) 104/57mm Hg (12/12/21 3:20 PM) 104/57mm Hg (12/12/21 3:20 PM) Respiratory Rate [16-30 br/min] 16 br/min (12/13/21 11:05 AM) 17 br/min (12/13/21 9:38 AM) 18 br/min (12/12/21 9:55 PM) Temperature [96.8-100.4 DegF] 98.1 DegF (12/13/21 9:38 AM) 98.6 DegF (12/13/21 12:00 AM) 97.8 DegF (12/12/21 3:20 PM) 97.8 DegF (12/12/21 3:20 PM) Mode of Delivery (Oxygen) Room air (12/11/21 11:55 PM) Room air (12/11/21 8:29 PM) Blood pressure sites Arm, right (12/13/21 9:38 AM) Arm, left (12/13/21 12:00 AM) Arm, left (12/11/21 11:55 PM) Temperature Route Oral (12/13/21 9:38 AM) Oral (12/13/21 12:00 AM) Oral (12/12/21 3:20 PM) Oral (12/12/21 3:20 PM) Dry Weight 70 kg (12/11/21 8:09 AM) 70.0 kg (12/11/21 6:36 AM) Weight Obtained Via Standing scale (12/11/21 6:36 AM)
--- OUTSIDE RECORDS SUMMARY | 2023-05-28 08:54 | XMS_ITS | Continuity of Care Document ---
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 Role Phone Not on Staff, PCP Primary Care Physician Unavail able Encounter [facility] [place] Date(s): 05/26/23 - 05/26/[address] [address]- Encounter Diagnosis Vulvar pruritus(Final) - 05/26/23 Discharge Disposition: A-D/C Home Attending Physician: Taiwo Currie MD, Kasia Admitting Physician: Taiwo Currie MD, Kasia Referring Physician: Not on Staff, Referring MD Allergies, Adverse Reactions, Alerts No Known Medication Allergies Medications desonide 0.05% topical cream 1 application, Topically, 2 times a day, for 14 days, # 90 Gm, 1 Refills, Acute 06/23/23 15:04:00 EST, 05/26/23 15:04:00 EST, Cream, [id number], Partial fill upon patient request if the prescription is for a schedule II opioid drug., 1 applica... Start Date: 05/26/23 Stop Date: 06/23/23 Status: Ordered ferrous sulfate 325 mg oral enteric coated tablet 325 mg, 1, tablet, By Mouth, Daily, # 30 tablet, Refills 0, Maintenance, 11/25/21 21:07:00 EDT, Partial fill upon patient request if the prescription is for a schedule II opioid drug. Start Date: 11/25/21 Status: Ordered Multivitamins By Mouth, Daily, 0 Refills, Maintenance, 11/25/21 21:07:00 EDT, Partial fill upon patient request if the prescription is for a schedule II opioid drug. Start Date: 11/25/21 Status: Ordered Problem List Condition Confirmation Course Effective Dates Status Health St atus Informant Non-toxic uninodular goiter Confirmed Active Vital Signs Most recent to oldest [Reference Range]: 1 2 3 Height 155 cm (05/26/23 1:59 PM) 155 cm (05/26/23 1:36 PM) 155 cm (05/26/23 11:31 AM) Weight 64 kg (05/26/23 1:59 PM) 64 kg (05/26/23 1:36 PM) 64 kg (05/26/23 11:31 AM) Oxygen Saturation [94-100 %] 100 % (05/26/23 1:36 PM) 99 % (05/26/23 11:33 AM) 100 % (05/26/23 11:31 AM) Pulse Rate [55-90 bpm] 62 bpm (05/26/23 1:36 PM) 93 bpm *H* (05/26/23 11:33 AM) 60 bpm (05/26/23 11:31 AM) Body Mass Index [18.5-24.99 kg/m2] 26.64 kg/m2 *H* (05/26/23 1:36 PM) 26.64 kg/m2 *H* (05/26/23 11:31 AM) Blood Pressure [90-138/55-84 mm Hg] 107/68mm Hg (05/26/23 1:36 PM) 121/72mm Hg (05/26/23 11:31 AM) Respiratory Rate [16-30 br/min] 18 br/min (05/26/23 1:36 PM) 18 br/min (05/26/23 11:31 AM) Temperature [96.8-100.4 DegF] 98.4 DegF (05/26/23 1:36 PM) 98.8 DegF (05/26/23 11:31 AM) Mode of Delivery (Oxygen) Room air (05/26/23 1:36 PM) Room air (05/26/23 11:33 AM) Room air (05/26/23 11:31 AM) Blood pressure sites Arm, right (05/26/23 11:31 AM) Temperature Route Oral (05/26/23 1:36 PM) Oral (05/26/23 11:31 AM) Dry Weight 64 kg (05/26/23 1:59 PM) 64 kg (05/26/23 1:36 PM) 64 kg (05/26/23 11:31 AM) Weight Obtained Via Patient/family state d (05/26/23 11:31 AM) Dry Weight Obtained Via Patient/family s tated (05/26/23 11:31 AM) Patient Care team information Care Team Personnel Name: Not on Staff, PCP Position: [facility] Physician (General Medicine) Member Role: PCP Care Team Related Persons Name: HENNY JOSE M Address: [address] [place] [address] Name: MONAE MARCH Address: [id number] Address: [address] [address] [place]
--- OUTSIDE RECORDS SUMMARY | 2023-05-28 08:54 | XMS_ITS | Continuity of Care Document ---
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 Role Phone Eva Eli NP, V Primary Care Physician [place] [facility] [place] 12/08/21 - 12/08/[address] [address]- Discharge Disposition: A-D/C Home Attending Physician: Ana Martinez MD Admitting Physician: Ana Martinez MD Referring Physician: Ana Martinez MD Allergies, Adverse Reactions, Alerts No Known Medication Allergies Medications ferrous sulfate 325 mg oral enteric coated [...] Most recent to oldest [Reference Range]: 1 Weight 69.8 kg (12/08/21 2:26 PM) Oxygen Saturation [94-100 %] 97 % (12/08/21 2:41 PM) Blood Pressure [90-138/55-84 mm Hg] 95/5 6mm Hg (12/08/21 2:41 PM) Respiratory Rate [16-30 br/min] 18 br/mi n (12/08/21 2:41 PM) Temperature [96.8-100.4 DegF] 97.8 DegF (12/08/21 2:26 PM) Mode of Delivery (Oxygen) Room air (12/08/21 2:41 PM) Blood pressure sites Arm, left (12/08/21 2:41 PM) Temperature Route Oral (12/08/21 2:26 PM) Weight Obtained Via Standing scale (12/08/21 2:26 PM)
[2023-05-28 08:55] VITALS: BP 112/70; BMI 24.1
== END 2023-05-28 09:34 | disposition home or self-care (01) ==
LOC: HO.HWS 08:52
PROVIDERS: PCP Internal Medicine; Visit Provider Advanced Practice Midwife
DX: N90.89 Other specified noninflammatory disorders of vulva and perineum (principal); Z20.2 Contact with and (suspected) exposure to infections with a predominantly sexual mode of transmission
CPT/HCPCS: 99213

== ENCOUNTER 2023-05-28 08:52 | Outpatient (REF) | payer MEDICAID, SELFPAY ==
[2023-05-28 14:07] LABS: CT PCR NOT DETECTED (Not Detect.); NG PCR NOT DETECTED (Not Detect.)
[2023-05-29 11:06] LABS: BV Int Neg Control Negative (Negative); BV Int Pos Control Positive (Positive)
== END 2023-05-28 08:53 | disposition home or self-care (01) ==
LOC: HO.LAB 08:52
PROVIDERS: PCP Internal Medicine; Visit Provider Advanced Practice Midwife
DX: N90.89 Other specified noninflammatory disorders of vulva and perineum (principal); Z11.3 Encounter for screening for infections with a predominantly sexual mode of transmission; Z20.2 Contact with and (suspected) exposure to infections with a predominantly sexual mode of transmission
CPT/HCPCS: 0353U; 87070; 87205; 87480; 87510; 87660; 99212

== ENCOUNTER 2023-05-28 09:21 | Outpatient (REF) | payer MEDICAID, SELFPAY | END 2023-05-28 09:22 | disposition home or self-care (01) | LOC: HO.LNP 09:21 | PROVIDERS: Visit Provider Advanced Practice Midwife | DX: Z13.89 Encounter for screening for other disorder (principal) ==

== ENCOUNTER 2023-06-14 09:22 | Outpatient (REF) | payer MEDICAID, SELFPAY ==
[2023-06-17 13:43] LABS: HIV RNA PCR Qn Copies NOT DETECTED copies/mL (NOT DETECTED); HIV RNA PCR Qn Log Copies NOT DETECTED (NOT DETECTED)
== END 2023-06-14 09:23 | disposition home or self-care (01) ==
LOC: HO.HHCL 09:22
PROVIDERS: Visit Provider Internal Medicine
DX: Z11.4 Encounter for screening for human immunodeficiency virus [HIV] (principal); Z79.899 Other long term (current) drug therapy
CPT/HCPCS: 36415; 87536

== ENCOUNTER 2023-06-28 01:01 | Emergency (ER) | payer MEDICAID, SELFPAY ==
[2023-06-28 01:17] VITALS: BP 104/65; BP 110/68; PULSE 65; PULSE 88; RESP 20; TEMP 36.6; O2SAT 97; O2SAT 98; BMI 26.1
[2023-06-28 01:37] LABS: MANUAL DIFF FLAG NO
[2023-06-28 01:38] LABS: Basophils Percent Auto 0.3 % (0-2); Eosinophils Absolute Auto 0.2 X10*3/uL (0.0-0.4); Eosinophils Percent Auto 2.5 % (0-4); Hematocrit 38.5 % (37.0-47.0); Hemoglobin 13.1 g/dl (12.0-16.0); Imm Gran Abs Auto 0.02 X10*3/uL (0.00-0.03); Imm Gran Pct Auto 0.2 % (0.0-0.4); Lymphocytes Absolute Auto 1.5 X10*3/uL (1.2-4.9); Lymphocytes Percent Auto 15.8 % (20-40); Mean Corpuscular Hemoglobin 27.8 pg (27.0-33.0); Mean Corpuscular Volume 81.6 fL (80.0-98.0); Mean Platelet Volume 9.6 fL (9.4-12.3); Monocytes Absolute Auto 0.8 X10*3/uL (0.1-1.2); Neutrophils Absolute Auto 6.8 x10*3/uL (2.0-8.3); Neutrophils Percent Auto 72.2 % (45-73); Platelet Count 291 X10*3/uL (160-400); Red Blood Count 4.72 X10*6/uL (4.20-5.50); Red Cell Distribution Width 12.9 % (11.0-16.0); White Blood Count 9.4 X10*3/uL (4.8-10.8)
[2023-06-28 01:51] LABS: Appearance Urine Clear; Color Urine Yellow; Glucose Urine UA Negative (Negative); Leukocyte Esterase Urine Trace (Negative); Nitrite Urine Negative (Negative); PH >= 9.0 (5.0-9.0); Specific Gravity - Urine >= 1.030 (1.005-1.025); UMIC TRIGGER UACC YES; Urine Blood Large (3+) (Negative); Urine Ketones Trace mg/dL (Negative); Urine Protein 100 (2+) mg/dL (Neg-Trace)
[2023-06-28 01:52] LABS: UPreg QC Valid YES; Urine Pregnancy NEGATIVE (NEGATIVE)
[2023-06-28 01:55] LABS: Bacteria Urine 1+ (None Seen); Hyaline Casts Urine 0-2 /LPF (0-2); RBC Urine >20 /HPF (0-2); WBC Urine 0-5 /HPF (0-5)
[2023-06-28 01:56] LABS: Alanine Aminotransferase 14 U/L (0-31); Albumin Level 4.4 g/dL (3.5-5.0); Alkaline Phosphatase 51 U/L (39-117); Anion Gap 14 (12-20); Aspartate Amino Transferase 13 U/L (5-31); Bilirubin Total 0.3 mg/dL (0.0-1.0); Blood Urea Nitrogen 7 mg/dL (9-16); Calcium 9.6 mg/dL (8.4-10.2); Carbon Dioxide 21 mmol/L (22-29); Chloride 109 mmol/L (96-108); Creatinine Clr Calc Pharmacy 88.4; Estimated Glomerular Filt Rate > 60; Glucose Random 109 mg/dL (60-115); Lipase 34 U/L (8-78); Potassium 3.6 mmol/L (3.3-5.1); Sodium 140 mmol/L (135-145); Total Protein 7.6 g/dL (6.5-8.0)
[2023-06-28 02:09] LABS: COVID-19 Test Negative (Negative); IDNOW Serial# 08D9AD1C; IDNOW Serial# 152EDE1D; Influenza A Negative (Negative); Influenza B2 Negative (Negative)
--- NOTE | 2023-06-28 03:31 | ED.NAVMDI ---
HPI - Nausea/Vomiting/Diarrhea General Chief complaint: Abdominal Pain Stated complaint: Abd Pain, N/V Time Seen by Provider: 06/28/23 03:24 Source: patient Mode of arrival: ambulatory Limitations: no limitations History of Present Illness HPI Narrative: Patient comes to the emergency room complaining of nausea vomiting and diarrhea for 2 days. Patient complaining of generalized malaise. Patient denies significant abdominal pain, no flank pain. No fever. Only chills. Related Data Home Medications Medication Instructions Recorded Confirmed desonide 0.05 % topical cream 1 appl topical BID-QID PRN 05/28/23 medroxyprogesterone 150 mg/mL mg IM 05/28/23 intramuscular suspension Previous Rx's Medication Instructions Recorded loperamide 2 mg capsule 2 mg PO Q4H PRN loose stool #14 06/28/23 caps ondansetron HCl 4 mg tablet 4 mg PO Q6H PRN nausea and 06/28/23 vomiting #14 tabs sulfamethoxazole 800 1 tab PO BID #5 tabs 06/28/23 mg-trimethoprim 160 mg tablet (Bactrim DS) Allergies Allergy/AdvReac Type Severity Reaction Status Date / Time No Known Allergies Allergy Verified 05/28/23 08:55 Review of Systems Review of Systems: Constitutional : No Weight loss, No Fever, No Chills, No Night Sweats, complaining of fatigue and generalized malaise ENT/Mouth : No Hearing loss, No Ear Pain, No Nasal Congestion, No Sinus Pain, No Hoarseness, No sore throat, No Rhinorrhea, No Swallowing Difficulty Eyes: No Eye Pain, No Swelling, No Redness, No Foreign Body, No Discharge, No Vision Changes Cardiovascular : No Chest Pain, No SOB, No Dyspnea on Exertion, No Orthopnea, No Edema, No Palpitations Respiratory : No Cough, No Sputum, No Wheezing, No Smoke Exposure, No Dyspnea Gastrointestinal : Complaining of nausea and vomiting, No Diarrhea, No Constipation, No abdominal Pain, No Hematochezia, No Melena Genitourinary : no irregular bleeding, No Dysuria, No Urinary Frequency, No Hematuria, No Urinary Incontinence, No Urgency, No Flank Pain, No Urinary Flow Changes, No Hesitancy Musculoskeletal : No joint pain, No Myalgias, No Joint Swelling Skin : No Skin Lesions, No rash Neuro : No Weakness, No Numbness, No Paresthesias, No Loss of Consciousness, No Dizziness, No Headache Psych : No Anxiety/Panic, No Depression, No SI/HI/AH/VH, No Social Issues, Heme/Lymph: No Bruising, No Bleeding,No Lymphadenopathy Endocrine : No Polyuria, No Polydipsia, No Temperature Intolerance [facility] Past Medical History Medical History No known health problems Family History Family History Mother Diabetes mellitus H/O cancer of uterus H/O: hysterectomy Bipolar 1 disorder, mixed Maternal Grandmother Diabetes mellitus Family/Other Breast CA Sister Autism Brother Autism Bipolar 1 disorder, mixed Social History Social History Household Members: Children Housing: Apartment Are you a primary manager intensive care to a significant other at home: No Do you presently have visiting nurse or other home services: No Alcohol intake: never Patient Tobacco Use Status: Never used Tobacco Substance Use Type: Marijuana Agree to transfusion: Yes Advance Directives: No Advance Directives Information Provided: Yes service: No Current occupational status: unemployed Sexual orientation: Straight/Heterosexual Gender identity: Female Cognitive needs: No Hearing needs: No Vision needs: No Physical Exam Vital Signs: Vital Signs: Last Vital Signs Temp 97.9 F 06/28/23 01:17 Pulse 65 06/28/23 01:17 Resp 20 06/28/23 01:17 BP 110/68 06/28/23 01:17 Pulse Ox 98 06/28/23 01:17 O2 Del Method Room Air 06/28/23 01:17 BMI result Body Mass Index 26.1 Const: Other: Appearance: Alert. Oriented X3. No acute distress. Eyes: Pupils equal, round and reactive to light. ENT: Pharynx normal. Neck: Normal inspection. Neck supple. No lymph nodes noted. No crepitus CVS: Normal heart rate and rhythm. Pulses normal. Normal S1 and S2 Respiratory: No respiratory distress. Breath sounds normal. No Wheezing. No rales Abdomen: Soft and nontender. No rigidity. No distention. Skin: Skin warm and dry. Normal skin color. Normal skin turgor. Extremities: No lower extremity edema. No Lacerations. No Rash Neuro: Oriented X 3. No motor deficit. No sensory deficit. Moving all extremities. No slurred speech. CN 2 through 12 grossly intact Psych: calm, cooperative, normal affect Medical Decision Making Medical Decision Making [facility] Narrative: My interpretation of labs: No significant electrolyte abnormalities, hematology normal, LFTs and lipase normal. test negative. Patient does have a UTI. -patient receiving IV fluids, Zofran, loperamide and Bactrim -patient has no fever chills, normal blood pressure, sepsis/pyelonephritis no suspected Differential Diagnosis Differential Diagnoses: The differential diagnosis associated with the presentation includes (Viral syndrome, gastritis, gastroenteritis, UTI, pyelonephritis) Lab Data [facility] Lab Attestation statement: I reviewed the patient's lab results. 06/28/23 01:06/28/23 01: Labs: Lab Results 06/28/23 06/28/23 Range/Units 01:29 01:43 WBC 9.4 (4.8-10.8) X10*3/uL RBC 4.72 D (4.20-5.50) X10*6/uL Hgb 13.1 D (12.0-16.0) g/dl Hct 38.5 D (37.0-47.0) % MCV 81.6 (80.0-98.0) fL MCH 27.8 (27.0-33.0) pg MCHC 34.0 (31.0-35.0) g/dl RDW 12.9 (11.0-16.0) % Plt Count 291 (160-400) X10*3/uL MPV 9.6 (9.4-12.3) fL Immature Gran % (Auto) 0.2 (0.0-0.4) % Neut % (Auto) 72.2 (45-73) % Lymph % (Auto) 15.8 L (20-40) % [place] % (Auto) 9.0 (2-11) % Eos % (Auto) 2.5 (0-4) % Baso % (Auto) 0.3 (0-2) % Lymph # (Auto) 1.5 (1.2-4.9) X10*3/uL [place] # (Auto) 0.8 (0.1-1.2) X10*3/uL Eos # (Auto) 0.2 (0.0-0.4) X10*3/uL Baso # (Auto) 0.0 (0.0-0.2) X10*3/uL Abs Immat Gran (auto) 0.02 (0.00-0.03) X10*3/uL Absolute Neuts (auto) 6.8 (2.0-8.3) x10*3/uL Absolute Nucleated RBC 0.000 (0.0-0.012) X10*3/uL Nucleated RBC % (auto) 0.0 (0.0-0.2) /100WBC Sodium 140 (135-145) mmol/L Potassium 3.6 (3.3-5.1) mmol/L Chloride 109 H (96-108) mmol/L Carbon Dioxide 21 L (22-29) mmol/L Anion Gap 14 (12-20) BUN 7 L (9-16) mg/dL Creatinine 0.81 (0.5-1.4) mg/dL Estim Creat Clear Calc 88.4 Estimated GFR > 60 Random Glucose 109 (60-115) mg/dL Calcium 9.6 (8.4-10.2) mg/dL Total Bilirubin 0.3 (0.0-1.0) mg/dL AST 13 (5-31) U/L ALT 14 (0-31) U/L Alkaline Phosphatase 51 (39-117) U/L Total Protein 7.6 (6.5-8.0) g/dL Albumin 4.4 (3.5-5.0) g/dL Lipase 34 (8-78) U/L Urine Color Yellow Urine Appearance Clear Urine pH >= 9.0 (5.0-9.0) Ur Specific [place] >= 1.030 H (1.005-1.025) Urine Protein 100 (2+) H (Neg-Trace) mg/dL Urine Glucose (UA) Negative (Negative) mg/dL Urine Ketones Trace (Negative) mg/dL Urine Blood Large (3+) H (Negative) Urine Nitrite Negative (Negative) Ur Leukocyte Esterase Trace H (Negative) Urine RBC >20 H (0-2) /HPF Urine WBC 0-5 (0-5) /HPF Ur Squamous Epith Cells 3-5 (0-2) /HPF Urine Bacteria 1+ (None Seen) Hyaline Casts 0-2 (0-2) /LPF Urine Test NEGATIVE (NEGATIVE) COVID-19 (SUZAN) Negative (Negative) COVID-19 Clin Com See Note Influenza Type A (JORJE) Negative (Negative) Influenza Type B (JORJE) Negative (Negative) Influenza A & B Note See Note Discharge Plan Discharge Clinical Impression: UTI (urinary tract infection), Nausea & vomiting, Diarrhea Patient Disposition: Home, Self-Care Instructions: Urinary Tract Infection in Women (ED), Acute Nausea and Vomiting (ED), Acute Diarrhea (ED) Additional Instructions: Please follow-up with your primary care physician tomorrow. If you have any worsening or new symptoms, please return to the emergency room or call 911 Prescriptions: New sulfamethoxazole-trimethoprim [Bactrim DS] 800-160 mg tablet 1 tab PO BID Qty: 5 0RF ondansetron HCl 4 mg tablet 4 mg PO Q6H PRN (Reason: nausea and vomiting) Qty: 14 0RF loperamide 2 mg capsule 2 mg PO Q4H PRN (Reason: loose stool) Qty: 14 0RF Rx Instructions: administer after each loose stool until symptoms controlled; do not exceed 8 mg per 24 hrs No Action desonide 0.05 % cream 1 appl topical BID-QID PRN medroxyprogesterone 150 mg/mL suspension IM Stand Alone Forms: Work/School Release
[2023-06-28] MEDS: Sulfamethox/Trimeth 800/160 TABLET 1 TAB PO (03:52)
[2023-06-28] MEDS: ondansetron HCL 4 MG/2 ML VIAL IVPUSH (03:53)
[2023-06-28] MEDS: 0.9 % Sodium Chloride 1,000 ML 999 ML IVCONT (03:53)
[2023-06-28] MEDS: Loperamide HCl 2 MG CAPSULE 4 MG PO (03:53)
[2023-06-28 04:42] VITALS: BP 115/51; PULSE 71; RESP 16; TEMP 37.1
[2023-06-28 04:57] VITALS: BP 100/60; BP 108/64; BP 99/62; PULSE 61; PULSE 62; PULSE 63
== END 2023-06-28 04:58 | disposition home or self-care (01) ==
PROVIDERS: Emergency Provider Emergency Medicine
DX: N39.0 Urinary tract infection, site not specified (principal); R11.2 Nausea with vomiting, unspecified; R19.7 Diarrhea, unspecified; Z11.52 Encounter for screening for COVID-19
CPT/HCPCS: 36415; 80053; 81001; 81025; 83690; 85025; 87502; 87635; 96374; 99284; 99285; J2405

== ENCOUNTER 2023-07-25 17:53 | Outpatient (REF) | payer MEDICAID, SELFPAY ==
[2023-07-27 00:04] LABS: C. trachomatis RNA TMA NOT DETECTED (NOT DETECTED); N. gonorrhoeae RNA TMA NOT DETECTED (NOT DETECTED)
== END 2023-07-25 17:54 | disposition home or self-care (01) ==
LOC: HO.HHCLNP 17:53
PROVIDERS: Visit Provider Internal Medicine
DX: R39.9 Unspecified symptoms and signs involving the genitourinary system (principal); N92.1 Excessive and frequent menstruation with irregular cycle
CPT/HCPCS: 36415; 81513; 87086; 87491; 87591

== ENCOUNTER 2023-08-01 11:34 | Outpatient (REF) | payer MEDICAID, SELFPAY ==
--- NOTE | ~2023-08-01 | US_ITS ---
EXAMINATION: US PELVIS CLINICAL INFORMATION: Pelvic pain. Unknown last menstrual period. COMPARISON: None available. TECHNIQUE: Ultrasound of the pelvis is performed using both transabdominal and transvaginal transducers along with Doppler. Transvaginal imaging is performed due to inadequate visualization transabdominally. FINDINGS: The uterus is anteverted and measures 7.9 x 5.0 x 5.6 cm. No discrete fibroids are appreciated. Endometrial thickness is 6 mm. Small amount of free fluid in the cul-de-sac. Right ovary measures 3.8 x 2.6 x 2.6 cm, volume 13.4 mL. Left ovary measures 3.5 x 2.3 x 2.8 cm, volume 11.8 mL. Bilateral ovaries are unremarkable. US/US pelvic and transvaginal IMPRESSION: 1. Endometrial thickness is 6 mm. 2. Small amount of free fluid in the cul-de-sac. 3. Unremarkable bilateral ovaries.
[2023-08-01 11:49] LABS: MANUAL DIFF FLAG NO
[2023-08-01 12:50] LABS: Basophils Percent Auto 0.4 % (0-2); Eosinophils Absolute Auto 0.5 X10*3/uL (0.0-0.4); Hematocrit 36.1 % (37.0-47.0); Hemoglobin 11.9 g/dl (12.0-16.0); Imm Gran Abs Auto 0.03 X10*3/uL (0.00-0.03); Imm Gran Pct Auto 0.3 % (0.0-0.4); Lymphocytes Absolute Auto 3.7 X10*3/uL (1.2-4.9); Lymphocytes Percent Auto 36.4 % (20-40); Mean Corpuscular Hemoglobin 27.6 pg (27.0-33.0); Mean Corpuscular Volume 83.8 fL (80.0-98.0); Mean Platelet Volume 10.7 fL (9.4-12.3); Monocytes Absolute Auto 0.8 X10*3/uL (0.1-1.2); Monocytes Percent Auto 7.9 % (2-11); Neutrophils Absolute Auto 5.1 x10*3/uL (2.0-8.3); Platelet Count 284 X10*3/uL (160-400); Red Blood Count 4.31 X10*6/uL (4.20-5.50); Red Cell Distribution Width 14.1 % (11.0-16.0); White Blood Count 10.2 X10*3/uL (4.8-10.8)
[2023-08-01 13:13] LABS: TSH reflex Free T4 0.92 uIU/mL (0.32-4.0)
== END 2023-08-01 11:35 | disposition home or self-care (01) ==
LOC: HO.US 11:34
PROVIDERS: Internal Medicine; PCP Internal Medicine; Visit Provider Internal Medicine
DX: R10.2 Pelvic and perineal pain (principal); N92.1 Excessive and frequent menstruation with irregular cycle
CPT/HCPCS: 36415; 76830; 76856; 84443; 85025

== ENCOUNTER 2023-08-22 17:36 | Outpatient (REF) | payer MEDICAID, SELFPAY ==
[2023-08-23 23:14] LABS: C. trachomatis RNA TMA NOT DETECTED (NOT DETECTED); N. gonorrhoeae RNA TMA NOT DETECTED (NOT DETECTED)
== END 2023-08-22 17:37 | disposition home or self-care (01) ==
LOC: HO.HHCLNP 17:36
PROVIDERS: Visit Provider Internal Medicine
DX: N92.1 Excessive and frequent menstruation with irregular cycle (principal)
CPT/HCPCS: 36415; 81513; 87491; 87591

== ENCOUNTER 2023-09-27 17:54 | Outpatient (REF) | payer MEDICAID, SELFPAY ==
[2023-09-28 06:08] LABS: CT PCR NOT DETECTED (Not Detect.); NG PCR NOT DETECTED (Not Detect.)
[2023-09-28 08:19] LABS: Bacterial Vaginosis PCR NEGATIVE (Negative); Candida Group PCR NOT DETECTED (Not Detect); Candida glab krusei PCR NOT DETECTED (Not Detect); Trichomonas vaginalis PCR NOT DETECTED (Not Detect)
== END 2023-09-27 17:55 | disposition home or self-care (01) ==
LOC: HO.HHCLNP 17:54
PROVIDERS: Visit Provider Internal Medicine
DX: N89.8 Other specified noninflammatory disorders of vagina (principal)
CPT/HCPCS: 0352U; 0353U

== ENCOUNTER 2023-10-09 23:13 | Emergency (ER) | payer MEDICAID, SELFPAY ==
[2023-10-09 23:15] VITALS: BP 122/74; PULSE 77; O2SAT 98
[2023-10-09 23:23] VITALS: BP 112/57; PULSE 80; RESP 20; TEMP 36.2; O2SAT 99; BMI 24.3
[2023-10-09 23:59] LABS: MANUAL DIFF FLAG NO
[2023-10-10] LABS: Basophils Percent Auto 0.3 % (0-2); Eosinophils Absolute Auto 0.5 X10*3/uL (0.0-0.4); Hematocrit 35.3 % (37.0-47.0); Hemoglobin 12.1 g/dl (12.0-16.0); Imm Gran Abs Auto 0.05 X10*3/uL (0.00-0.03); Imm Gran Pct Auto 0.3 % (0.0-0.4); Lymphocytes Absolute Auto 2.1 X10*3/uL (1.2-4.9); Lymphocytes Percent Auto 13.2 % (20-40); Mean Corpuscular HGB Conc 34.3 g/dl (31.0-35.0); Mean Corpuscular Hemoglobin 28.6 pg (27.0-33.0); Mean Corpuscular Volume 83.5 fL (80.0-98.0); Mean Platelet Volume 10.2 fL (9.4-12.3); Monocytes Absolute Auto 1.2 X10*3/uL (0.1-1.2); Monocytes Percent Auto 7.4 % (2-11); Neutrophils Percent Auto 75.8 % (45-73); Platelet Count 229 X10*3/uL (160-400); Red Blood Count 4.23 X10*6/uL (4.20-5.50); Red Cell Distribution Width 13.2 % (11.0-16.0); White Blood Count 15.8 X10*3/uL (4.8-10.8)
[2023-10-10 00:02] LABS: Appearance Urine Clear; Color Urine Yellow; Glucose Urine UA Negative (Negative); Leukocyte Esterase Urine Trace (Negative); Nitrite Urine Negative (Negative); PH 5.5 (5.0-9.0); Specific Gravity - Urine >= 1.030 (1.005-1.025); UMIC TRIGGER UACC YES; Urine Blood Negative (Negative); Urine Ketones 15 mg/dL (Negative); Urine Protein Negative (Neg-Trace)
[2023-10-10 00:03] LABS: UPreg QC Valid YES; Urine Pregnancy NEGATIVE (NEGATIVE)
[2023-10-10 00:04] LABS: Bacteria Urine None Seen (None Seen); RBC Urine 0-2 /HPF (0-2); WBC Urine 0-5 /HPF (0-5)
[2023-10-10 00:20] LABS: Alanine Aminotransferase 8 U/L (0-31); Albumin Level 4.2 g/dL (3.5-5.0); Alkaline Phosphatase 44 U/L (39-117); Anion Gap 13 (12-20); Aspartate Amino Transferase 13 U/L (5-31); Bilirubin Direct < 0.2 mg/dL (0.0-0.5); Bilirubin Total 0.2 mg/dL (0.0-1.0); Blood Urea Nitrogen 8 mg/dL (9-16); Calcium 9.3 mg/dL (8.4-10.2); Carbon Dioxide 22 mmol/L (22-29); Chloride 108 mmol/L (96-108); Creatinine Clr Calc Pharmacy 99.5; Estimated Glomerular Filt Rate > 60; Glucose Random 98 mg/dL (60-115); Lipase 31 U/L (8-78); Potassium 3.3 mmol/L (3.3-5.1); Sodium 140 mmol/L (135-145); Total Protein 7.3 g/dL (6.5-8.0)
[2023-10-10 01:34] VITALS: BP 127/88; PULSE 77; RESP 18; TEMP 36.9; O2SAT 99
== END 2023-10-10 03:38 | disposition left against medical advice (07) ==
PROVIDERS: Emergency Provider Emergency Medicine
DX: R10.9 Unspecified abdominal pain (principal); R10.13 Epigastric pain; Z79.899 Other long term (current) drug therapy
CPT/HCPCS: 36415; 80048; 80076; 81001; 81003; 81025; 83690; 85025; 99284

== ENCOUNTER 2023-12-08 09:14 | Emergency (ER) | payer MEDICAID, SELFPAY ==
--- NOTE | ~2023-12-08 | CT_ITS ---
EXAMINATION: CT ABDOMEN AND PELVIS WITH CONTRAST CLINICAL INFORMATION: Abdominal pain, diarrhea, nausea and vomiting. COMPARISON: CT abdomen and pelvis 07/27/2017. TECHNIQUE: Multidetector volumetric images were obtained from the superior aspect of the liver through the pubic symphysis following administration 85 mL of Omnipaque 350 intravenous contrast. Sagittal and coronal reformatted images were obtained on the technologist's workstation. Oral contrast: No This CT examination was performed using dose optimization techniques as appropriate, variously including the following: *Automated exposure control *Adjustment of mA and/or kV according to patient size (this includes techniques or standardized protocols for targeted exams where dose is matched to indication/reason for exam; i.e. extremities or head) *Use of iterative reconstruction technique DLP: 407 mGy-cm FINDINGS: LUNG BASES: The lung bases are clear. LIVER, GALLBLADDER, AND BILIARY TREE: The liver is normal in size, shape, and attenuation. No focal hepatic lesion or biliary ductal dilatation is present. The gallbladder is unremarkable with no evidence of radiopaque gallstones, gallbladder wall thickening, or obvious pericholecystic inflammatory changes. PANCREAS: Unremarkable. SPLEEN: Unremarkable. ADRENAL GLANDS: Unremarkable. KIDNEYS AND URETERS: The kidneys are normal in size, shape, and attenuation. No hydronephrosis, hydroureter, or calculi seen. No perinephric stranding. BLADDER: Unremarkable. GASTROINTESTINAL TRACT: There is scattered stool and gas seen throughout the colon without significant distention. The small bowel loops are normal caliber. Appendix is not visualized. There is no free air or free fluid. ABDOMINAL WALL: No significant hernia is appreciated. LYMPH NODES: Normal. VASCULAR: Unremarkable. PELVIC VISCERA: The uterus is anteverted and appears unremarkable. There is no adnexal mass or free fluid.. OSSEOUS STRUCTURES: No aggressive lytic or sclerotic process. CT/CT abdomen pelvis w IV con IMPRESSION: 1. No acute intra-abdominal process seen. 2. Mild constipation. 3. No major change since the previous exam 07/27/2017 Fleischner guidelines were followed.
--- NOTE | ~2023-12-08 | XR_ITS ---
EXAMINATION: XR CHEST CLINICAL INFORMATION: Examination: Chest pressure. COMPARISON: None available. TECHNIQUE: Frontal view of the chest was obtained. FINDINGS: The lungs are well-expanded and clear. Heart size and pulmonary vascularity is normal. No gross bony abnormality seen. Unremarkable chest exam. XR/XR chest 1V IMPRESSION: Unremarkable chest exam.
[2023-12-08 09:19] VITALS: BP 108/64; BP 110/64; PULSE 65; PULSE 66; RESP 18; TEMP 36.6; O2SAT 98; O2SAT 99; BMI 24.7
[2023-12-08 09:28] VITALS: BP 108/64; PULSE 66; RESP 18; TEMP 36.6; O2SAT 99
--- NOTE | 2023-12-08 09:35 | ED.ABDPAIN ---
HPI - Abdominal Pain General Chief Complaint: Abdominal Pain Stated Complaint: n/v x3days, NO PO, ab pain Source: patient Mode of arrival: ambulatory Limitations: no limitations History of Present Illness ED Provider: Rodrick LUNDBERG HPI narrative: This is a 28-year-old female with a past medical history of hyperemesis, low back pain presents to the emergency department for concerns of diarrhea, epigastric pain abdominal pain, nausea, vomiting, headache and central chest pressure that doesn't radiate to her neck or arms. Patient reports that a month ago she was diagnosed with acute gastritis at [facility] and was prescribed a medication which she does not recall the name of. She states her symptoms started 3 days ago after she ate some sauce from food brand call [employer] . She states she unable to keep foods down but tolerates fluids . Patient reports diarrhea comes on suddenly and she is unable to make it to the bathroom sometimes however she does feel like coming.. She denies any fevers, dizziness, flank pain, no urinary symptoms. She does report frequent use of marijuana as well. Related Data Home Medications ?Medication ?Instructions ?Recorded ?Confirmed desonide 0.05 % topical cream 1 appl topical BID-QID PRN 05/28/23 medroxyprogesterone 150 mg/mL mg IM 05/28/23 intramuscular suspension Previous Rx's ?Medication ?Instructions ?Recorded loperamide 2 mg capsule 2 mg PO Q4H PRN loose stool #14 06/28/23 caps ondansetron HCl 4 mg tablet 4 mg PO Q6H PRN nausea and 06/28/23 vomiting #14 tabs sulfamethoxazole 800 1 tab PO BID #5 tabs 06/28/23 mg-trimethoprim 160 mg tablet (Bactrim DS) ondansetron 4 mg disintegrating 4 mg PO Q6H PRN nausea and 12/08/23 tablet vomiting #14 tabs Allergies Allergy/AdvReac Type Severity Reaction Status Date / Time No Known Allergies Allergy Verified 12/08/23 09:21 Review of Systems Review of Systems Yes all other systems are reviewed and are negative [facility] Past Medical History Attestation statement: The following information was validated with the patient. Source: old records reviewed and nursing notes reviewed Medical History No known health problems Family History Family History Mother Diabetes mellitus H/O cancer of uterus H/O: hysterectomy Bipolar 1 disorder, mixed Maternal Grandmother Diabetes mellitus Family/Other Breast CA Sister Autism Brother Autism Bipolar 1 disorder, mixed Social History Social History Household Members: Children Housing: Apartment Are you a primary pet care associate to a significant other at home: No Do you presently have visiting nurse or other home services: No Alcohol intake: never Patient Tobacco Use Status: Never used Tobacco Substance Use Type: Marijuana Agree to transfusion: Yes Advance Directives: No Advance Directives Information Provided: No Do you have a plan to hurt others: No Plan service: No Current occupational status: unemployed Sexual orientation: Straight/Heterosexual Gender identity: Female Cognitive needs: No Hearing needs: No Vision needs: No Physical Exam ED Vital Signs: Vital Signs - 24 hr 12/08/23 09:19 12/08/23 09:28 12/08/23 12:02 Temperature 97.8 F 97.8 F Pulse Rate 66 66 63 Respiratory Rate 18 18 18 Blood Pressure 108/64 108/64 99/63 Pulse Oximetry 99 99 100 Oxygen Delivery Method Room Air Room Air Room Air 12/08/23 12:05 Temperature Pulse Rate Respiratory Rate 18 Blood Pressure Pulse Oximetry Oxygen Delivery Method BMI result Body Mass Index 24.7 vss Appearance: Alert.? Oriented X3.? No acute distress.? Head: Normocephalic, atraumatic, no step-offs or deformities Eyes: Pupils equal, round and reactive to light.? ENT: Pharynx normal.? Neck: Normal inspection.? Neck supple.? CVS: Normal heart rate and rhythm.? Pulses normal.? Respiratory: No respiratory distress.? Breath sounds normal.? Abdomen: Soft and tenderness in the epigastrium.? Skin: Skin warm and dry.? Normal skin color.? Normal skin turgor.? Extremities: No lower extremity edema.? No calf ttp. 5/5 strength to bilateral upper and lower extremities Neuro: Oriented X 3.? No motor deficit.? No sensory deficit. CN 2-12 intact . No saddle anesthesias. Ambulating with steady gait normal coordination Course Reevaluation(s) Reevaluation #1: CBC slight leukocytosis likely reactive secondary to nausea and vomiting. Chemistry with very mild hypokalemia will give p.o. potassium at this time 40 connie equivalents. UA with mild infection. Urine toxicology positive for marijuana again can not exclude cannabis induced hyperemesis syndrome. Transaminases normal. Lipase normal. Patient's influenza, COVID, RSV negative. Troponin and EKG pending. Time: 11:31 Reevaluation #2: Troponin negative nonischemic EKG. On re-evaluation patient is feeling a lot better. Pain-free. No longer having nausea or vomiting. Educated patient on diagnosis and treatment plan, answered all question, patient verbalizes understanding. At this time patient will be discharged home, advised to return with new or worsening symptoms. Educated on worrisome signs and symptoms and when to return. At this time I feel comfortable discharge home. Time: 12:33 Medical Decision Making Medical Decision Making [facility] Narrative: 28-year-old female presents with nausea, vomiting, diarrhea, abdominal pain and some substernal chest discomfort. All of which started 3 days ago Physical exam tenderness to palpation to epigastric region. History and physical exam concerning for viral illness versus gastroenteritis versus hyperemesis. Unlikely C diff bacterial diarrhea. Will rule out metabolic derangements. Unlikely acute abdomen diverticulitis , cholecystitis, pancreatitis, obstruction, appendicitis. Diarrhea likely secondary to viral illness I do not suspect acute cauda equina, cord compression, epidural abscess. Plan labs, imaging, urine, a drug test Differential Diagnosis Differential Diagnoses: The differential diagnosis associated with the presentation includes History and physical exam concerning for viral illness versus gastroenteritis versus hyperemesis. Unlikely C diff bacterial diarrhea. Will rule out metabolic derangements. Unlikely acute abdomen diverticulitis , cholecystitis, pancreatitis, obstruction, appendicitis. Diarrhea likely secondary to viral illness I do not suspect acute cauda equina, cord compression, epidural abscess. Admission/Observation Consideration of admission/observation: Escalation of care including admission/observation considered Unlikley however considered Lab Data [facility] Lab Attestation statement: I reviewed the patient's lab results. 12/08/23 09:39 12/08/23 09:39 Labs: Lab Results 12/08/23 12/08/23 Range/Units 09:39 09:55 WBC 11.1 H (4.8-10.8) X10*3/uL RBC 4.32 (4.20-5.50) X10*6/uL Hgb 12.1 (12.0-16.0) g/dl Hct 34.3 L (37.0-47.0) % MCV 79.4 L (80.0-98.0) fL MCH 28.0 (27.0-33.0) pg MCHC 35.3 H (31.0-35.0) g/dl RDW 13.1 (11.0-16.0) % Plt Count 286 (160-400) X10*3/uL MPV 10.0 (9.4-12.3) fL Immature Gran % (Auto) 0.3 (0.0-0.4) % Neut % (Auto) 66.8 (45-73) % Lymph % (Auto) 24.8 (20-40) % [place] % (Auto) 7.3 (2-11) % Eos % (Auto) 0.5 (0-4) % Baso % (Auto) 0.3 (0-2) % Lymph # (Auto) 2.8 (1.2-4.9) X10*3/uL [place] # (Auto) 0.8 (0.1-1.2) X10*3/uL Eos # (Auto) 0.1 (0.0-0.4) X10*3/uL Baso # (Auto) 0.0 (0.0-0.2) X10*3/uL Abs Immat Gran (auto) 0.03 (0.00-0.03) X10*3/uL Absolute Neuts (auto) 7.4 (2.0-8.3) x10*3/uL Absolute Nucleated RBC 0.000 (0.0-0.012) X10*3/uL Nucleated RBC % (auto) 0.0 (0.0-0.2) /100WBC Sodium 139 (135-145) mmol/L Potassium 3.1 L (3.3-5.1) mmol/L Chloride 106 (96-108) mmol/L Carbon Dioxide 23 (22-29) mmol/L Anion Gap 13 (12-20) BUN 9 (9-16) mg/dL Creatinine 0.82 (0.5-1.4) mg/dL Estim Creat Clear Calc 84.4 Estimated GFR > 60 Random Glucose 113 (60-115) mg/dL Calcium 9.4 (8.4-10.2) mg/dL Magnesium 1.8 (1.6-2.6) mg/dL Total Bilirubin 0.4 (0.0-1.0) mg/dL AST 13 (5-31) U/L ALT 11 (0-31) U/L Alkaline Phosphatase 39 (39-117) U/L Troponin I High Sens < 2.7 (<3.5-17.0) ng/L Total Protein 7.3 (6.5-8.0) g/dL Albumin 4.3 (3.5-5.0) g/dL Lipase 21 (8-78) U/L Urine Color Yellow Urine Appearance Clear Urine pH 6.5 (5.0-9.0) Ur Specific [place] >= 1.030 H (1.005-1.025) Urine Protein Trace (Neg-Trace) mg/dL Urine Glucose (UA) Negative (Negative) mg/dL Urine Ketones 80 (Negative) mg/dL Urine Blood Negative (Negative) Urine Nitrite Negative (Negative) Ur Leukocyte Esterase Trace H (Negative) Urine RBC 0-2 (0-2) /HPF Urine WBC 6-10 H (0-5) /HPF Ur Squamous Epith Cells 11-20 (0-2) /HPF Urine Bacteria 1+ (None Seen) Hyaline Casts 0-2 (0-2) /LPF Urine Test NEGATIVE (NEGATIVE) Urine Opiates Screen Not Detected (Not Detect) Ur Buprenorphine Scrn Not Detected (Not Detect) ng/mL Ur Oxycodone Screen Not Detected (Not Detect) ng/mL Urine Methadone Screen Not Detected (Not Detect) ng/mL Urine Fentanyl Screen Not Detected (Not Detect) Ur Barbiturates Screen Not Detected (Not Detect) Ur Phencyclidine Scrn Not Detected (Not Detect) Ur Amphetamines Screen Not Detected (Not Detect) U Benzodiazepines Scrn Not Detected (Not Detect) Urine Cocaine Screen Not Detected (Not Detect) U Marijuana (THC) Screen POSITIVE H (Not Detect) Influenza Type A (PCR) NEGATIVE (Negative) Influenza Type B (PCR) NEGATIVE (Negative) RSV RNA Qual (PCR) NEGATIVE (Negative) SARS-CoV-2 RNA (RT-PCR) NEGATIVE (Negative) Independent Interpretation I performed an independent interpretation of an: CT Scan Radiology Impression Discussion of test interpretation with radiology: I have reviewed the radiologist's reading. External Record Review External record reviewed: Office record, Outpatient record and Prior outpatient labs Medications Administered Discontinued Medications Generic Name Dose Route Start Last Admin Trade Name Paula PRN Reason Stop Dose Admin Iohexol 100 ml 12/08/23 11:25 12/08/23 11:26 Iohexol 350 Mg/Ml 100 Ml Infus..Btl IV 12/08/23 11:26 85 ml ONCE ONE Administration Morphine Sulfate 2 mg 12/08/23 11:32 12/08/23 12:05 Morphine Sulfate 2 Mg/Ml Cartridge IVPUSH 12/08/23 11:33 2 mg ONCE ONE Administration Protocol Ondansetron HCl 4 mg 12/08/23 11:10 12/08/23 11:20 Ondansetron Hcl 4 Mg/2 Ml Vial IVPUSH 12/08/23 11:11 4 mg ONCE ONE Administration Critical Care Time Critical Care Time Critical Care Time: Yes Total Critical Care Time: 35 Attestation: I attest to this time spent taking care of the patient, obtaining history, physical, reviewing labs, imaging, speaking to my attending, specialist or hospitalist. Discharge Plan Discharge Clinical Impression: Viral illness, Nausea & vomiting, Diarrhea, Chest pain, Abdominal pain, Hyperemesis, UTI (urinary tract infection) Patient Disposition: Home, Self-Care Instructions: Chest Pain (ED), Hypokalemia (ED), Acute Nausea and Vomiting (ED), Acute Diarrhea (ED), Viral Syndrome (ED), Nutrition Tips for Relief of Diarrhea (ED), Chest Wall Pain (ED) Additional Instructions: Take your medications as prescribed. If you were prescribed antibiotics today, it is important that you take your medication to their entirety, do not skip any doses, do not finish them early. Follow-up with your primary care provider this week. Return to the emergency department with new or worsening symptoms. Such as fevers, chills, chest pain, shortness of breath, nausea, vomiting, dizziness, headache, vision changes, lethargy In case of emergency call 911 Jelena has been sent to your pharmacy for nausea and vomiting please take this as prescribed. Prescriptions: New ondansetron 4 mg tablet,disintegrating 4 mg PO Q6H PRN (Reason: nausea and vomiting) Qty: 14 0RF No Action sulfamethoxazole-trimethoprim [Bactrim DS] 800-160 mg tablet 1 tab PO BID Qty: 5 0RF ondansetron HCl 4 mg tablet 4 mg PO Q6H PRN (Reason: nausea and vomiting) Qty: 14 0RF loperamide 2 mg capsule 2 mg PO Q4H PRN (Reason: loose stool) Qty: 14 0RF Rx Instructions: administer after each loose stool until symptoms controlled; do not exceed 8 mg per 24 hrs desonide 0.05 % cream 1 appl topical BID-QID PRN medroxyprogesterone 150 mg/mL suspension IM Referrals: María Elena Zuleta MD [Primary Care Provider] - 2 days Print Language: Swedish
[2023-12-08 09:44] LABS: MANUAL DIFF FLAG NO
[2023-12-08 09:48] LABS: Basophils Percent Auto 0.3 % (0-2); Eosinophils Absolute Auto 0.1 X10*3/uL (0.0-0.4); Eosinophils Percent Auto 0.5 % (0-4); Hematocrit 34.3 % (37.0-47.0); Hemoglobin 12.1 g/dl (12.0-16.0); Imm Gran Abs Auto 0.03 X10*3/uL (0.00-0.03); Imm Gran Pct Auto 0.3 % (0.0-0.4); Lymphocytes Absolute Auto 2.8 X10*3/uL (1.2-4.9); Lymphocytes Percent Auto 24.8 % (20-40); Mean Corpuscular HGB Conc 35.3 g/dl (31.0-35.0); Mean Corpuscular Volume 79.4 fL (80.0-98.0); Monocytes Absolute Auto 0.8 X10*3/uL (0.1-1.2); Monocytes Percent Auto 7.3 % (2-11); Neutrophils Absolute Auto 7.4 x10*3/uL (2.0-8.3); Neutrophils Percent Auto 66.8 % (45-73); Platelet Count 286 X10*3/uL (160-400); Red Blood Count 4.32 X10*6/uL (4.20-5.50); Red Cell Distribution Width 13.1 % (11.0-16.0); White Blood Count 11.1 X10*3/uL (4.8-10.8)
[2023-12-08 10:03] LABS: Alanine Aminotransferase 11 U/L (0-31); Albumin Level 4.3 g/dL (3.5-5.0); Alkaline Phosphatase 39 U/L (39-117); Anion Gap 13 (12-20); Aspartate Amino Transferase 13 U/L (5-31); Bilirubin Total 0.4 mg/dL (0.0-1.0); Blood Urea Nitrogen 9 mg/dL (9-16); Calcium 9.4 mg/dL (8.4-10.2); Carbon Dioxide 23 mmol/L (22-29); Chloride 106 mmol/L (96-108); Creatinine Clr Calc Pharmacy 84.4; Estimated Glomerular Filt Rate > 60; Glucose Random 113 mg/dL (60-115); Lipase 21 U/L (8-78); Magnesium 1.8 mg/dL (1.6-2.6); Potassium 3.1 mmol/L (3.3-5.1); Sodium 139 mmol/L (135-145); Total Protein 7.3 g/dL (6.5-8.0)
[2023-12-08 10:17] LABS: UPreg QC Valid YES; Urine Pregnancy NEGATIVE (NEGATIVE)
[2023-12-08 10:19] LABS: Appearance Urine Clear; Color Urine Yellow; Glucose Urine UA Negative (Negative); Leukocyte Esterase Urine Trace (Negative); Nitrite Urine Negative (Negative); PH 6.5 (5.0-9.0); Specific Gravity - Urine >= 1.030 (1.005-1.025); UMIC TRIGGER UACC YES; Urine Blood Negative (Negative); Urine Ketones 80 mg/dL (Negative); Urine Protein Trace mg/dL (Neg-Trace)
[2023-12-08 10:21] LABS: Bacteria Urine 1+ (None Seen); Hyaline Casts Urine 0-2 /LPF (0-2); RBC Urine 0-2 /HPF (0-2); UACC Culture Trigger YES
[2023-12-08 10:25] LABS: Influenza A PCR NEGATIVE (Negative); Influenza B PCR NEGATIVE (Negative); Resp Syncy Virus RNA Qual PCR NEGATIVE (Negative); SARS COV2 PCR INHOUSE NEGATIVE (Negative)
[2023-12-08 10:35] LABS: Amphetamine Screen Urine Not Detected (Not Detect); Barbiturates, Urine Not Detected (Not Detect); Benzodiazepines Screen Urine Not Detected (Not Detect); Buprenorphine Scr Not Detected (Not Detect); Cannabinoid Screen Urine POSITIVE (Not Detect); Cocaine Screen Urine Not Detected (Not Detect); Fentanyl, urine Not Detected (Not Detect); Methadone Screen, Urine Not Detected (Not Detect); Opiate Screen Urine Not Detected (Not Detect); Oxycodone Screen Urine Not Detected (Not Detect); Phencyclidine Screen Urine Not Detected (Not Detect)
[2023-12-08] MEDS: ondansetron HCL 4 MG/2 ML VIAL IVPUSH (11:20)
[2023-12-08] MEDS: iohexoL 350 MG/ML 100 ML INFUS..BTL IV (11:26)
--- NOTE | 2023-12-08 11:29 | ECG_ITS ---
Test Reason : CHEST PAINS Blood Pressure : / mmHG Vent. Rate : 057 BPM Atrial Rate : 057 BPM P-R Int : 118 ms QRS Dur : 110 ms QT Int : 438 ms P-R-T Axes : 023 031 017 degrees QTc Int : 426 ms Sinus bradycardia Incomplete right bundle branch block Nonspecific T wave abnormality Abnormal ECG No previous ECGs available Referred By: Yaw Harmon Electronically Signed By:ZOILA GUIDO MD
[2023-12-08 12:02] VITALS: BP 99/63; PULSE 63; RESP 18; O2SAT 100
[2023-12-08 12:05] VITALS: RESP 18
[2023-12-08] MEDS: Morphine Sulfate 2 MG/ML CARTRIDGE IVPUSH (12:05)
[2023-12-08 12:22] LABS: Troponin-I High Sensitivity < 2.7 ng/L (<3.5-17.0)
--- NOTE | 2023-12-08 13:09 | PC.NURSE ---
Pt. requesting to speak with PA again before d/c, as she is concerned that her abdominal pain and nausea is returning.
--- NOTE | 2023-12-08 13:23 | PC.NURSE ---
Pt. refusing to drink Potassium powdered drink due to flavor - is requesting the Potassium in a tablet/pill form. MATT Ulloa aware.
[2023-12-08] MEDS: Potassium Chloride ER 20 MEQ TAB.ER.PRT 40 MEQ PO (13:29)
[2023-12-08] MEDS: Acetaminophen 325 MG TABLET 975 MG PO (13:29)
[2023-12-08 14:00] VITALS: BP 100/58; PULSE 55; O2SAT 100
[2023-12-08 14:52] VITALS: BP 100/58; PULSE 55; RESP 18; TEMP 36.6; O2SAT 100
== END 2023-12-08 14:52 | disposition home or self-care (01) ==
PROVIDERS: Physician Assistant; Emergency Provider Emergency Medicine; PCP Internal Medicine
DX: B34.9 Viral infection, unspecified (principal); N39.0 Urinary tract infection, site not specified; R11.2 Nausea with vomiting, unspecified; M54.50 Low back pain, unspecified; R07.89 Other chest pain; R10.13 Epigastric pain; F12.90 Cannabis use, unspecified, uncomplicated; Z03.818 Encounter for observation for suspected exposure to other biological agents ruled out; Z79.899 Other long term (current) drug therapy
CPT/HCPCS: 0241U; 71045; 74177; 80053; 80307; 81001; 81025; 83690; 83735; 84484; 85025; 87086; 93005; 96374; 99284; J2270; J2405; Q9967

== ENCOUNTER → 2023-12-08 11:29 | Outpatient (BNV) | payer MEDICAID, SELFPAY | PROVIDERS: Emergency Provider Emergency Medicine; PCP Internal Medicine; Visit Provider Internal Medicine Cardiovascular Disease | DX: R07.9 Chest pain, unspecified (principal); R00.1 Bradycardia, unspecified; I45.19 Other right bundle-branch block; R94.31 Abnormal electrocardiogram [ECG] [EKG] | CPT/HCPCS: 93010 ==

== ENCOUNTER 2023-12-20 13:18 | Outpatient (AMB) | payer MEDICAID, SELFPAY ==
--- NOTE | 2023-12-20 13:22 | MHC.OFFVIS ---
Vital Signs 12/20/23 13:25 Height 5 ft 2 in Weight 132 lb 11.492 oz BMI 24.3 BP 112/56 L Blood Pressure Location Lt brachial Position Sitting Pulse 80 Pulse Source Pulse Oximeter Pulse Oximetry (%) 98 Oxygen Delivery Method Room Air Intake Visit Reasons: Coffee Ground Emesis Intake Note: Vilma presents in office today for a scheduled initial assessment CC; Pt reports having worsening epigastric pain over the course of the last 1 month. Pt has also had multiple episodes of coffee ground type emesis. Pt reports that she recall this episode approximately 3-4 weeks ago when she had eaten at a restaurant and had spicy food. Pt states that she recalls feeling this burning sensation prior to her vomiting. Pt reports feeling a twisting feeling in their epigastric region that accompanied the vomiting. Pt reports that she did notice a similar presentation with coffee ground emesis, lots of brown spots . Pt reports that she was seen [place] [facility] [place]. Pt has also been seen at [facility] most recently for a similar episode. Embedded Systems Software Developer Required: No Accompanied by: Child Allergies No Known Allergies Allergy (Verified 12/20/23 13:24) HPI HPI Coffee Ground Emesis: Details: 28-year-old female with past medical history of hyperemesis, HPV, is here today for initial consultation. Patient reports that in the past few months she has been having excessive nausea, occasional vomiting and epigastric pain. Currently patient is taking famotidine. Patient was seen in the ER on August 07 before then she was seen at [facility] ER. Each time patient had mildly elevated white, most likely related to vomiting. Patient does admit to smoking marijuana, however she reports that even if she does not her symptoms are the same. Patient has not had upper endoscopy. Reports to have UTI and had been treated with antibiotics. Symptoms of nausea and vomiting before she was even treated with antibiotics. Patient reports that she is constipated moves her bowels only every 2-3 days. Patient also reports postprandial abdominal bloating. Not on any particular diet. Did not notice if any food provokes her symptoms [facility] Medical History (Updated 12/20/23 @ 21:13 by Griselda Sharma FIELD MARKETING SPECIALIST-) Constipation Nausea & vomiting Family History Mother Diabetes mellitus H/O cancer of uterus H/O: hysterectomy Bipolar 1 disorder, mixed Maternal Grandmother Diabetes mellitus Family/Other Breast CA Sister Autism Brother Autism Bipolar 1 disorder, mixed Social History Household Members: Children Both parents involved: Yes Caregiver staying overnight: No Housing: Apartment Are you a primary rn acute care to a significant other at home: No Do you presently have visiting nurse or other home services: No 75 years or older and lives alone: No Alcohol intake: never Patient Tobacco Use Status: Never used Tobacco Substance Use Type: Marijuana Agree to transfusion: Yes service: No Current occupational status: unemployed Sexual orientation: Straight/Heterosexual Gender identity: Female Cognitive needs: No Hearing needs: No Vision needs: No Female Reproductive History Menstrual Age of Menarche: 10 Review of Systems Const Denies weight gain and Denies weight loss ENT Reports no additional complaints, Denies dysphagia and Denies odynophagia Card Reports no additional complaints Resp Reports no additional complaints GI Reports abdominal pain (Epigastric), Denies belching, Denies melena, Reports bloating, Denies change in bowel habits, Reports constipation, Denies dysphagia, Denies excessive flatus, Reports dyspepsia, Reports heartburn, Denies diarrhea, Denies loose stools, Denies nausea, Denies odynophagia and Denies vomiting Reports no additional complaints Musc Reports no additional complaints Neuro Reports no additional complaints Psych Reports no additional complaints Endo Reports no additional complaints Physical Exam Vital Signs: Last Vital Signs Pulse 80 12/20/23 13:25 BP 112/56 L 12/20/23 13:25 Pulse Ox 98 12/20/23 13:25 Oxygen Delivery Method Room Air 12/20/23 13:25 BMI result Body Mass Index 24.3 Const General: healthy appearing, no acute distress and well developed Nutritional Appearance: well nourished Orientation/consciousness: patient oriented x3 Resp Effort & Inspection: normal respiratory effort, able to speak in complete sentences, no tracheal deviation and symmetric chest movement Auscultation: clear to auscultation bilaterally Cardio Rate: regular rate GI Inspection: Yes normal to inspection and No distended Palpation (GI): Soft to palpation, not firm, nontender and No hepatosplenomegaly present Auscultation: normal bowel sounds General: Yes no CVA tenderness Back/Spine/Pelvis Back: no CVA tenderness Skin General skin exam: elasticity normal, turgor normal and dry skin Neuro General: patient oriented x3 Psych Appearance: grossly normal Mental Status: mental status grossly normal Assessment & Plan Assessment & Plan (1) Postprandial epigastric pain: Code(s): R10.13 - Epigastric pain (2) GERD (gastroesophageal reflux disease): Code(s): K21.9 - Gastro-esophageal reflux disease without esophagitis Qualifiers: Esophagitis presence: esophagitis presence not specified Qualified Code(s): K21.9 - Gastro-esophageal reflux disease without esophagitis (3) Postprandial abdominal bloating: Code(s): R14.0 - Abdominal distension (gaseous) (4) Constipation: Code(s): K59.00 - Constipation, unspecified Qualifiers: Constipation type: slow transit constipation Qualified Code(s): K59.01 - Slow transit constipation (5) Nausea & vomiting: Code(s): R11.2 - Nausea with vomiting, unspecified Qualifiers: Vomiting type: unspecified Qualified Code(s): R11.2 - Nausea with vomiting, unspecified Plan Patient will return for H pylori testing on Saturday and will stop famotidine on Saturday. Will treat empirically if positive. Vitamin B12, folate and vitamin-D levels. Patient will start to take omeprazole after testing. Patient will start taking senna every evening after dinner. Patient was encouraged to avoid dietary triggers and late night snacking. Staying upright for minimum 3 hours after meals discussed with patient. Patient will follow-up in the office in 3 months, sooner on as needed basis. Patient will be sent for upper endoscopy we will discuss going for the procedure next visit. She is agreeable to this plan and verbalizes understanding of instructions. She was given the opportunity to ask questions and all questions answered. Thank you for allowing me to participate in her care Orders: Orders H Pylori Breath Test Today K21.9 - Gastro-esophageal reflux disease without esophagitis Vitamin B12 and Folate Today R19.7 - Diarrhea, unspecified Vitamin D 25-OH (D2 and D3) Today E55.9 - Vitamin D deficiency, unspecified Medications: New sennosides (Natural Senna Laxative) 17.2 mg (2 x 8.6 mg) PO BEDTIME 60 tabs 3RF constipation K59.00 - Constipation, unspecified Coding Level of Care Code New Pt Level 4 (01406) Diagnoses Postprandial epigastric pain R10.13 Gastroesophageal reflux disease, unspecified whether esophagitis present K21.9 Esophagitis presence: esophagitis presence not specified Postprandial abdominal bloating R14.0 Slow transit constipation K59.01 Constipation type: slow transit constipation Nausea and vomiting, unspecified vomiting type R11.2 Vomiting type: unspecified Time Spent (min) 45 Comment 30 minutes spent with patient and additional 15 minutes spent reviewing her records
[2023-12-20 13:25] VITALS: BP 112/56; PULSE 80; O2SAT 98; BMI 24.3
== END 2023-12-20 13:57 | disposition home or self-care (01) ==
PROVIDERS: PCP Internal Medicine; Visit Provider Nurse Practitioner Family
DX: R10.13 Epigastric pain (principal); K21.9 Gastro-esophageal reflux disease without esophagitis; R14.0 Abdominal distension (gaseous); K59.01 Slow transit constipation; R11.2 Nausea with vomiting, unspecified
CPT/HCPCS: 99204

== ENCOUNTER 2023-12-20 13:18 | Outpatient (REF) | payer MEDICAID, SELFPAY ==
[2023-12-20 16:29] LABS: Folate 9.8 ng/mL (> or = 4.0)
[2023-12-20 17:09] LABS: Vitamin B12 350 pg/mL (200-900)
[2023-12-27 16:14] LABS: Vitamin D 25-OH, D2 <4 ng/mL; Vitamin D 25-OH, D3 29 ng/mL; Vitamin D 25-OH, Total 29 ng/mL (30-100)
== END 2023-12-20 13:19 | disposition home or self-care (01) ==
LOC: HO.LAB 13:18
PROVIDERS: PCP Internal Medicine; Visit Provider Nurse Practitioner Family
DX: R19.7 Diarrhea, unspecified (principal); E55.9 Vitamin D deficiency, unspecified; R10.13 Epigastric pain; K21.9 Gastro-esophageal reflux disease without esophagitis; R14.0 Abdominal distension (gaseous); K59.01 Slow transit constipation; R11.2 Nausea with vomiting, unspecified
CPT/HCPCS: 36415; 82306; 82607; 82746; 99212

== ENCOUNTER 2023-12-25 14:26 | Outpatient (REF) | payer MEDICAID, SELFPAY ==
[2023-12-26 12:29] LABS: H Pylori Breath Test Positive (Negative)
== END 2023-12-25 14:27 | disposition home or self-care (01) ==
LOC: HO.LNP 14:26
PROVIDERS: PCP Internal Medicine; Visit Provider Nurse Practitioner Family
DX: K21.9 Gastro-esophageal reflux disease without esophagitis (principal)
CPT/HCPCS: 83013

== ENCOUNTER → 2023-12-25 14:26 | Outpatient (AMB) | payer MEDICAID, SELFPAY ==
--- NOTE | 2023-12-25 15:54 | AM.OFFVISNUR ---
Intake Visit Reasons: H pylori Intake Note: Patient presents for collection of H Pylori breath test. Patient has been fasting for 1 hour (nothing to eat, drink, no chewing gum or smoking) has not taken any antacid medication for at least 2 weeks and has no allergies to artificial sweeteners.?? Allergies No Known Allergies Allergy (Verified 12/25/23 15:54) Nursing Note Patient presents for collection of H Pylori breath test. Patient has been fasting for 1 hour (nothing to eat, drink, no chewing gum or smoking) has not taken any antacid medication for at least 2 weeks and has no allergies to artificial sweeteners.?? Assessment & Plan Assessment & Plan (1) Hyperemesis: Code(s): R11.10 - Vomiting, unspecified Category: Medical (2) Nausea & vomiting: Code(s): R11.2 - Nausea with vomiting, unspecified Category: Medical Plan Patient presents for collection of H Pylori breath test. Patient has been fasting for 1 hour (nothing to eat, drink, no chewing gum or smoking) has not taken any antacid medication for at least 2 weeks and has no allergies to artificial sweeteners.???This test checks for an overgrowth of bacteria in your stomach. We all have bacteria but some may have more than others. It is treatable. if the test comes back negative there is nothing else to do. If the test result is positive we will treat you with 2 antibiotics and a medication to decrease the acid in your stomach (PPI) for 2 weeks. Two weeks after you have completed the treatment we will retest you to make sure the overgrowth has resolved. Patient Instructions: Process for specimen collection and reason for testing was explained to the patient. Specimen collection. Patient instructed to take a deep breath and then exhale into the blue bag, filling it up as much as possible. Patient instructed to drink a mixture of water and the artificial sweetener with a straw. A 15 minute wait period was observed. Patient instructed to take a deep breath and then exhale into the pink bag, filling it up as much as possible.??
== END ==
LOC: HO.HGI 14:26
PROVIDERS: PCP Internal Medicine; Visit Provider Nurse Practitioner Family
DX: R11.10 Vomiting, unspecified (principal); R11.2 Nausea with vomiting, unspecified
CPT/HCPCS: 99499

== ENCOUNTER 2024-05-13 11:55 | Outpatient (REF) | payer MEDICAID, SELFPAY ==
[2024-05-16 13:38] LABS: TS Negative Control Passed; TS Panel A 0; TS Panel B 0; TS Positive Control Passed; TSpotTB Negative (Negative)
== END 2024-05-13 11:56 | disposition home or self-care (01) ==
LOC: HO.HHCL 11:55
PROVIDERS: Visit Provider Internal Medicine
DX: Z00.00 Encounter for general adult medical examination without abnormal findings (principal); Z11.1 Encounter for screening for respiratory tuberculosis
CPT/HCPCS: 36415; 86481

== ENCOUNTER 2024-05-13 13:07 | Outpatient (REF) | payer MEDICAID, SELFPAY ==
[2024-05-13 16:17] LABS: Appearance Urine Clear; Color Urine Yellow; Glucose Urine UA Negative (Negative); Leukocyte Esterase Urine Small (1+) (Negative); Nitrite Urine Negative (Negative); PH 6.5 (5.0-9.0); Specific Gravity - Urine 1.025 (1.005-1.025); UMIC TRIGGER UACC YES; Urine Blood Negative (Negative); Urine Ketones Negative (Negative); Urine Protein Negative (Neg-Trace)
[2024-05-13 16:35] LABS: Bacteria Urine 1+ (None Seen); Hyaline Casts Urine 0-2 /LPF (0-2); RBC Urine 0-2 /HPF (0-2); UACC Culture Trigger YES
== END 2024-05-13 13:08 | disposition home or self-care (01) ==
LOC: HO.HHCL 13:07
PROVIDERS: Internal Medicine; Visit Provider Nurse Practitioner
DX: R39.9 Unspecified symptoms and signs involving the genitourinary system (principal)
CPT/HCPCS: 81001; 87086

== ENCOUNTER 2024-05-27 15:59 | Outpatient (REF) | payer MEDICAID, SELFPAY ==
[2024-05-27 17:39] LABS: MANUAL DIFF FLAG NO
[2024-05-27 17:48] LABS: Basophils Absolute Auto 0.1 X10*3/uL (0.0-0.2); Basophils Percent Auto 0.6 % (0-2); Eosinophils Absolute Auto 0.5 X10*3/uL (0.0-0.4); Eosinophils Percent Auto 4.4 % (0-4); Hematocrit 32.8 % (37.0-47.0); Hemoglobin 11.1 g/dl (12.0-16.0); Imm Gran Abs Auto 0.04 X10*3/uL (0.00-0.03); Imm Gran Pct Auto 0.4 % (0.0-0.4); Lymphocytes Absolute Auto 2.6 X10*3/uL (1.2-4.9); Lymphocytes Percent Auto 24.2 % (20-40); Mean Corpuscular HGB Conc 33.8 g/dl (31.0-35.0); Mean Corpuscular Volume 82.8 fL (80.0-98.0); Mean Platelet Volume 10.9 fL (9.4-12.3); Monocytes Absolute Auto 1.1 X10*3/uL (0.1-1.2); Monocytes Percent Auto 9.9 % (2-11); Neutrophils Absolute Auto 6.5 x10*3/uL (2.0-8.3); Neutrophils Percent Auto 60.5 % (45-73); Platelet Count 316 X10*3/uL (160-400); Red Blood Count 3.96 X10*6/uL (4.20-5.50); White Blood Count 10.8 X10*3/uL (4.8-10.8)
--- OUTSIDE RECORDS SUMMARY | 2024-05-27 18:07 | XMS_ITS | Encounter Summary ---
Author Organization [employer] Address [address] [facility] [address] [place] [address] Care Team Providers Care Keno Manager Name Role Phone María Elena Zuleta MD Primary Care Provider + Encounter Details Date Type Department Care Team (Latest Contact Info) Description 05/13/2024 Travel Social History Tobacco Use Types Packs/Day Years Used Date Smoking Tobacco: Never Smokeless Tobacco: Never Alcohol Use Standard Drinks/Week Comments Not Currently 0 (1 standard drink = 0.6 oz pur e alcohol) Depression Answer Date Recorded Patient Health Questionnaire-9 Score 6 11/27/2023 Patient Health Questionnaire-9 Score 6 11/27/2023 Last PHQ-9: Questionnaire Data Not on file 0 11/27/2023 Housing Stability Answer Date Recorded What is your housing situation today? I have tricialiborio simon 02/18/[address] you li ve. Do you have problems with any of the following? None of the above 02/18/2023 Food Insecurity Answer Date Recorded Within the past 12 months, y ou worried that your food would run out before you got money to buy more: Never True 02/18/2023 Within the past 12 months,th e food you bought just didn't last and you didn't have enough money to get more: Never True Transportation Answer Date Recorded In the past 12 months, has l ack of transportation kept you from medical appts, meetings, work or from getting things needed for daily living? Yes, it has kept me from non-medical meetings, work, or getting things that I need 05/07/2024 Utilities Answer Date Recorded In the past 12 months, has t he electric, gas, oil or water [employer] threatened to shut off services in your home? No 02/18/2023 Depression Answer Date Recorded Patient Health Questionnaire-2 Score 0 05/13/2024 Internet Access Answer Date Recorded Internet Access Q1 Yes 05/07/2024 Internet Access Q2 Not on file 05/07/2024 Comments No Sex and Gender Information Value Date Recorded Sex Assigned at Female 03/05/2022 10:16 AM EDT Legal Sex Female 10:16 AM EDT Gender Identity Female 03/05/2022 10:16 AM EDT Sexual Orientation Bisexual 05/22/2024 8: 45 AM EST Sexual Orientation Straight 05/22/2024 8: 45 AM EST documented as of this encounter Plan of Treatment Upcoming Encounters Date Type Department Care Team (Late st Contact Info) Description 07/27/2024 2:30 PM EDT Office Visit [facility] [address] [place] [address] TarkaSerena, OD [address] [place] [address] documented as of this encounter Visit Diagnoses Not on filedocumented in this encounter Additional Health Concerns Assessment Noted Time PHQ-9 Depression Total Score: 6 11/27/19 24 9:34 AM EDT documented as of this encounter Care Teams Keno Manager Relationship Specialty Start Date End Date María Elena Zuleta MD [address] [place] [phone] PCP - General Family Medicine 06/13/17 documented as of this encounter
--- OUTSIDE RECORDS SUMMARY | 2024-05-27 18:07 | XMS_ITS | Encounter Summary ---
Author Organization [employer] Address [address] [facility] [address] [place] [address] Care Team Providers Care Asparagus Cutter Name Role Phone María Elena Zuleta MD Primary Care Provider + Seven Ly RN Unavailable [phone] Encounter Details Date Type Department Care Team (Latest Contact Info) Description 05/27/2024 Travel Social History Tobacco Use Types Packs/Day [...] t he electric, gas, oil or water company threatened to shut off services in your [...] Description 07/27/2024 2:30 PM EDT Office Visit [facility] OPTOMETRY [address] [place] [address] Serena Daniel, OD [address] [place] [address] documented as of this encounter Visit Diagnoses Not on filedocumented in this encounter Additional Health Concerns Assessment Noted Time PHQ-9 Depression Total Score: 6 11/27/19 24 9:34 AM EDT documented as of this encounter Care Teams Asparagus Cutter Relationship Specialty Start Date End Date María Elena Zuleta MD [address] [place] [address] PCP - General Family Medicine 06/13/17 Seven Ly RN [address] [place] [address] Tool/Die MakerAdoption Counselor 05/26/24 documented as of this encounter
--- OUTSIDE RECORDS SUMMARY | 2024-05-27 18:07 | XMS_ITS | Encounter Summary ---
Author Organization [employer] Address [address] [facility] [address] [place] [address] Care Team Providers Care Opto Mechanical Technician Name Role Phone María Elena Zuleta MD Primary Care Provider + Encounter Details Date Type Department Care Team ([facility] st Contact Info) Description 05/13/2024 Orders Only [facility] [address] [place], [place] [phone] María Elena Zuleta MD [address] [place], [place] [phone] Social History Tobacco Use Types Packs/Day Years [...] is your housing situation today? I have tricia simon 02/18/[address] you [...] AM EST documented as of this encounter Miscellaneous Notes * Result Encounter Note - María Elena Zuleta MD - 05/13/2024 4:35 PM EST Rx Bactrim sent until results of Cx are available, see previous encounter/ * Result Encounter Note - María Elena Zuleta MD - 05/13/2024 4:35 PM EST UA showed strep viridans, no need for addtl rx at this time documented in this encounter Plan of Treatment Upcoming Encounters Date Type Department Care Team (Late st Contact Info) Description 07/27/2024 2:30 PM EDT Office Visit [facility] OPTOMETRY [address] [place], [place] [phone] Serena Daniel, OD [address] [place] [address] documented as of this encounter Procedures Procedure Name Priority Date/Time Associated Diagnosis Comments URINALYSIS, COMPLETE, WITH REFLEX TO CULTURE Routine 05/13/2024 1:09 PM EST CULTURE, URINE, ROUTINE Routine 05/13/2024 1:09 PM EST documented in this encounter Results * Culture, Urine, Routine (05/13/2024 1:09 PM EST) Urine Urine specimen obtained by clean catch procedure / Unknown 05/13/2024 1:09 PM EST 05/13/2024 4:41 PM EST Comment:UACC Narrative [facility] - 05/17/2024 8:22 AM EST Viridans streptococcus group Quant > 100,000 cfu/mL Susc N/A Susceptibility not routinely performed on this isolate. Specimen Source: Urine clean catch us María Elena Zuleta MD LAB MICROBIOLOGY - GENER AL ORDERABLES Final Result [facility] [address] [place] [phone] * (ABNORMAL) Urinalysis, Complete, with Reflex to Culture (05/13/2024 1:09 PM EST) Color Urine Yellow [facility] Appearance Urine Clear [facility] PH 6.5 5.0 - 9.0 [facility] Glucose Urine UA Negative Negative mg/dL [facility] Urine Blood Negative Negative [facility] Specific Heaters - Urine 1.025 1.005 - 1.025 [facility] Urine Protein Negative Neg-Trace mg/dL [facility] Urine Ketones Negative Negative mg/dL [facility] Nitrite Urine Negative Negative [facility] Leukocyte Esterase Urine Small (1+)(A) Negative [facility] RBC Urine 0-2 0 - 2 /HPF [facility] Urine WBC 11-20(A) 0 - 5 /HPF [facility] Urine Squamous Epithelial Cell 6-10 0 - 2 /HPF [facility] Urine Bacteria 1+ None Seen [facility] Hyaline Casts, Urine 0-2 0 - 2 /LPF [facility] 05/13/2024 1:09 PM EST 05/13/2024 4:07 PM EST Narrative [facility] - 05/13/2024 4:38 PM EST Urine, Clean Catch us María Elena Zuleta MD LAB URINE ORDERABLES Fin al Result Performing Organization Address City/State/[facility] Co de Phone Number [facility] [address] [place] [phone] documented in this encounter Visit Diagnoses Not on filedocumented in this encounter Additional Health Concerns Assessment Noted Time PHQ-9 Depression Total Score: 6 11/27/19 24 9:34 AM EDT documented as of this encounter Care Teams Opto Mechanical Technician Relationship Specialty Start Date End Date María Elena Zuleta MD [address] [place] [phone] PCP - General Family Medicine 06/13/17 documented as of this encounter
--- OUTSIDE RECORDS SUMMARY | 2024-05-27 18:07 | XMS_ITS | Encounter Summary ---
Author Organization [employer] Address [address] [facility] [address] [address] Care Team Providers Care Banana Room Cutter Name Role Phone María Elena Zuleta MD Primary Care Provider + Reason for Visit * Reason Comments Care Coordination CM/CHW appt reminder Encounter Details Date Type Department Care Team (Latest Contact Info) Description 05/22/2024 Patient Outreach [facility] [address] [place], [place] [phone] María Elena Zuleta MD [address] [place], [place] [phone] Care Coordination (CM/CHW appt reminder) Social History Tobacco Use Types Packs/Day Years [...] AM EST documented as of this encounter Progress Notes * Ivette Nunez - 05/22/2024 11:10 AM EST CHW Ivette Nunez sent text through [employer] for Appt. reminder for initial assessment scheduled for 05/26/24 @ 103AM tele appt with JOVANNA Ly RN. documented in this encounter Plan of Treatment Upcoming Encounters Date Type Department Care Team ([facility] st Contact Info) Description 07/27/2024 2:30 PM EDT Office Visit [facility] OPTOMETRY [address] [place] [address] Tarka, Serena, OD [address] [place] [address] documented as of this encounter Visit Diagnoses Not on filedocumented in this encounter Additional Health Concerns Assessment Noted Time PHQ-9 Depression Total Score: 6 11/27/19 24 9:34 AM EDT documented as of this encounter Care Teams Banana Room Cutter Relationship Specialty Start Date End Date María Elena Zuleta MD [address] [place] [address] PCP - General Family Medicine 06/13/17 documented as of this encounter
--- OUTSIDE RECORDS SUMMARY | 2024-05-27 18:07 | XMS_ITS | Encounter Summary ---
Author Organization [employer] Address [address] 7 [place] [address] Care Team Providers Care Hand Laminator Name Role Phone María Elena Zuleta MD Primary Care Provider + Seven Ly RN Unavailable [phone] Reason for Visit * Reason Onset Date Comments Care Management 05/26/2024 C3CM- initial as sessment/ enrollment Encounter Details Date Type Department Care Team ([facility] st Contact Info) Description 05/26/2024 Telephone [facility] MEDICINE [address] [place], [place] [phone] Seven Ly, RN [address] [place], [place] [phone] Care Management (C3- initial assessment/ enrollment) Social History Tobacco Use Types Packs/Day Years [...] as of this encounter Miscellaneous Notes * Telephone Encounter - Seven Ly RN - 05/26/2024 11:05 AM EST JOVANNA Ly RN, provided notification to PCP Dr. Zuleta of patient's enrollment into C3 Complex Care Program. JOVANNA Ly RN, completed care plan and sent to HIM to be scanned into the medical record. PCP notified and awaiting review from provider. CM plan: - assist with scheduling appointments with provider/ specialists and ensure that patient is attending visits as scheduled -provide patient with appt reminders and assist with scheduling PT1 as needed -provide education around disease processes and management - provide patient with resources based on positive SDOH needs * Telephone Encounter - Seven Ly RN - 05/26/2024 11:04 AM EST JOVANNA Ly RN placed outbound call to patient for agreed upon time for initial assessment for enrollment into Adult Care Management Program. Patient's name, , and address were verified. Vilma is a 28 year old female with Hx of pelvic pain, low transit constipation, recurrent UTI, DUB, metorrhagia, non- toxic uninodular goiter, tinea corporis, H.Pylori infection. Patient also reports Hx anxiety. Per patient, being followed by [facility] and [facility]. She states she was dx with H.Pylori infection several months ago. Per patient, seen by GI and started on medications to treat symptoms. Patient states she started the medications but reports stopping the meds, stating there were just too many to take. She reports still experiencing acid reflux and gas occasionally. Per patient, was instructed by GI to follow a diet that is low in fat/cholesterol/processed foods due to having gastritis. She states this has been difficult for her to do but knows that it is important for her overall health. Per patient, plans on calling GI to schedule a f/u appt. Will f/u with CM if in need of assistance with connecting to the office. Patient states she was previously followed by [facility] for therapy. Shestates she fell out of care about 2-3 years ago. Per patient, stopped seeing her therapist as she felt she was being asked about SI/HI too often. Per patient, was not suicidal at the time. She statesshe just wanted to vent about her feelings. Patient states that at the time, she was dealing with homelessness. She reports recently moving into a low income apartment. She states she is relieved andis happy with where she is at currently. Per patient, has not been behind on rent or utilities. Shestates she is able to afford food. She reports currently living with her two children who are 2 and7. She states her 2 year old was recently Dx with autism. Patient reports doing much better emotionally and declines referral to at this time. 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 CM/CHW will assist with connecting her to resources. Per patient, recently seen at [facility] and Dx with BV, UTI and pelvic cyst? She states she was prescribed several medications which she reports taking as prescribed. Per patient, symptoms have improved and deniesany pain at this time. Patient is scheduled for ED f/u tomorrow and denies any barriers to attending the visit. She states she also called [facility] and has an upcoming appt scheduled. Patient denies any immediate needs or concerns at this time. Care management program explained and contact information given. Patient verbalizes understanding, and able to repeat back to service writer advisor. A follow up call will be placed within 10 days, patient agrees with plan. documented in this encounter Plan of Treatment Upcoming Encounters Date Type Department Care Team ([facility] st Contact Info) Description 07/27/2024 2:30 PM EDT Office Visit [facility] OPTOMETRY [address] [place] [address] Serena Daniel, OD [address] [place] [address] documented as of this encounter Visit Diagnoses Not on filedocumented in this encounter Additional Health Concerns Assessment Noted Time PHQ-9 Depression Total Score: 6 11/27/19 24 9:34 AM EDT documented as of this encounter Care Teams Hand Laminator Relationship Specialty Start Date End Date María Elena Zuleta MD [address] [place] [id number] PCP - General Family Medicine 06/13/17 Seven Ly RN [address] [place] [phone] State DirectorAgri Business Agent 05/26/24 documented as of this encounter
--- OUTSIDE RECORDS SUMMARY | 2024-05-27 18:07 | XMS_ITS | Encounter Summary ---
Author Organization [employer] Address [address] [facility] 7 [place] [address] Care Team Providers Care Churn Tender Name Role Phone María Elena Zuleta MD Primary Care Provider + Seven Ly RN Unavailable [phone] Reason for Visit * Reason Comments Abdominal Pain Encounter Details Date Type Department Care Team ([facility] st Contact Info) Description 05/27/2024 3:30 PM EST Office Visit [facility] MEDICINE [address] [place], [place] [phone] Emani Bird MD [address] [place], [place] [phone] Rupture of cyst of right ovary (Primary Dx) Social History Tobacco Use Types Packs/Day Years Used Date Smoking Tobacco: Never Smokeless Tobacco: Never Tobacco Cessation:Counseling Given: Not Answered Alcohol Use Standard Drinks/Week Comments Not Currently [...] AM EST documented as of this encounter Last Filed Vital Signs Vital Sign Reading Time Taken Comments Blood Pressure 121/65 05/27/2024 3:42 PM EST Pulse 74 05/27/2024 3:42 PM EST Temperature 36.2 ??C (97.2 ??F) 05/27/2024 3:42 PM ES T Respiratory Rate 16 05/27/2024 3:42 PM EST Oxygen Saturation 100% 05/27/2024 3:42 PM EST Inhaled Oxygen Concentration - - Weight 60.8 kg (134 lb) 05/27/2024 3:42 PM EST Height 157.5 cm (5' 2 ) 05/27/2024 3:42 PM EST Body Mass Index 24.51 05/27/2024 3:42 PM EST documented in this encounter Plan of Treatment Upcoming Encounters Date Type Department Care Team (Late st Contact Info) Description 07/27/2024 2:30 PM EDT Office Visit [facility] OPTOMETRY [address] [place], [place] [phone] Serena Daniel, OD [address] [place], [place] [phone] documented as of this encounter Procedures Procedure Name Priority Date/Time Associated Diagnosis Comments CBC WITH AUTO DIFFERENTIAL Routine 05/27/2024 4:01 PM EST Rupture of cyst of right ovary documented in this encounter Results * (ABNORMAL) CBC auto differential (05/27/2024 4:01 PM EST) White Blood Count 10.8 4.8 - 10.8 X10*3/uL [facility] Red Blood Count 3.96(L) 4.20 - 5.50 X10*6/uL [facility] Hemoglobin 11.1(L) 12.0 - 16.0 g/dl [facility] Hematocrit 32.8(L) 37.0 - 47.0 % [facility] Mean Corpuscular Volume 82.8 80.0 - 98.0 fL [facility] Mean Corpuscular Hemoglobin 28.0 27.0 - 33.0 pg [facility] Mean Corpuscular HGB Conc 33.8 31.0 - 35.0 g/dl [facility] Red Cell Distribution Width 14.0 11.0 - 16.0 % [facility] Platelet Count 316 160 - 400 X10*3/uL [facility] Mean Platelet Volume 10.9 9.4 - 12.3 fL [facility] Neutrophils Percent Auto 60.5 45 - 73 % [facility] Imm Gran Pct Auto 0.4 0.0 - 0.4 % [facility] Lymphocytes Percent Auto 24.2 20 - 40 % [facility] Monocytes Percent Auto 9.9 2 - 11 % [facility] Eosinophils Percent Auto 4.4(H) 0 - 4 % [facility] Basophils Percent Auto 0.6 0 - 2 % [facility] NRBC Pct Auto 0.0 0.0 - 0.2 /100WBC [facility] Neutrophils Absolute Auto 6.5 2.0 - 8.3 x10*3/uL [facility] Imm Gran Abs Auto 0.04(H) 0.00 - 0.03 X10*3/uL [facility] Lymphocytes Absolute Auto 2.6 1.2 - 4.9 X10*3/uL [facility] Monocytes Absolute Auto 1.1 0.1 - 1.2 X10*3/uL [facility] Eosinophils Absolute Auto 0.5(H) 0.0 - 0.4 X10*3/uL [facility] Basophils Absolute Auto 0.1 0.0 - 0.2 X10*3/uL [facility] NRBC Abs Auto 0.000 0.0 - 0.012 X10*3/uL [facility] Blood Venous blood specimen / Unknown 05/27/2024 4:01 PM EST 05/27/2024 5:35 PM EST us Emani Bird MD LAB BLOOD ORDERABLES Final Res ult [facility] [address] [place] [phone] documented in this encounter Visit Diagnoses Diagnosis Rupture of cyst of right ovary- Primary documented in this encounter Additional Health Concerns Assessment Noted Time PHQ-9 Depression Total Score: 6 11/27/19 24 9:34 AM EDT documented as of this encounter Care Teams Churn Tender Relationship Specialty Start Date End Date María Elena Zuleta MD [address] [place] [address] PCP - General Family Medicine 06/13/17 Seven Ly RN [address] [place] [phone] Head Banquet Waiter/WaitressPaint Laboratory Technician 05/26/24 documented as of this encounter
--- OUTSIDE RECORDS SUMMARY | 2024-05-27 18:07 | XMS_ITS | Encounter Summary ---
Author Organization [employer] Address [address] [facility] 7t [place] [address] Care Team Providers Care Airplane Refueler Name Role Phone María Elena Zuleta MD Primary Care Provider + Encounter Details Date Type Department Care Team ([facility] st Contact Info) Description 05/21/2024 Telephone [facility] MEDICINE [address] [place], [place] [phone] Seven Ly RN [address] [place] [address] Social History Tobacco Use Types Packs/Day Years [...] Telephone Encounter - Seven Ly RN - 05/21/2024 8:25 AM EST JOVANNA Ly RN, performed chart review, in anticipation of initial assessment with patient, as patient has stratified for C3 Adult Complex Care through the ADT feed. History significant for pelvic pain, slow transit constipation, recurrent UTI, DUB, metrorrhagia, non-toxic uninodular goiter, t inea corporis, and H. Pylori infection. Specialists include [facility] Dental, Optometry, [facility], HUMAN RESOURCES ANALYST, andOphthalmology. ED visits within the last 12 months include [facility] 05/20/24, [facility] 05/02/24, [facility] 12/08/23, and [facility] 10/10/23. Last appointment in PCP office on 05/13/24. Next appointment scheduled for 07/27/24 at 2:30pm with [facility] Optometry. documented in this encounter Plan of Treatment Upcoming Encounters Date Type Department Care Team (Late st Contact Info) Description 07/27/2024 2:30 PM EDT Office Visit [facility] OPTOMETRY [address] [place] [address] Serena Daniel, DARIN [address] [place] [address] documented as of this encounter Visit Diagnoses Not on filedocumented in this encounter Additional Health Concerns Assessment Noted Time PHQ-9 Depression Total Score: 6 11/27/19 24 9:34 AM EDT documented as of this encounter Care Teams Airplane Refueler Relationship Specialty Start Date End Date María Elena Zuleta MD [address] [place] [phone] PCP - General Family Medicine 06/13/17 documented as of this encounter
--- OUTSIDE RECORDS SUMMARY | 2024-05-27 18:07 | XMS_ITS | Encounter Summary ---
Author Organization [email or web address] Address [address] [facility] [address], [place] [address] Care Team Providers Care Block Operator Name Role Phone María Elena Zuleta MD Primary Care Provider + Reason for Visit * Reason Onset Date Comments Nurse Triage 05/19/2024 Encounter Details Date Type Department Care Team ([facility] st Contact Info) Description 05/19/[address] [facility] MEDICINE [address] [place], [place] [phone] María Elena Zuleta MD [address] [place], [place] [phone] Nurse Triage Social History Tobacco Use Types Packs/Day Years [...] encounter Miscellaneous Notes * Telephone Encounter - Gale Oviedo RN - 05/19/2024 10:15 AM EST Call returned to Vilma Andrews to triage below. Reports having lower back pain and RLQ pelvic pain x 1 week. Per pt still having sx even while taking medication. Per pt last dose of meds taken yesterday. Pt denies any pain with passing urine now. Pt denies any vaginal discharge. Painis intermittent. Pt has not taken any OTC meds since pain onset prior to visit on 05/13/24. Pt advised of disposition, agrees to seek [facility] today for exam . Reviewed [facility] operating hours and that wait times vary. Reviewed home care advise, ER precautions and reasons to call back. Protocol Used: Urinary Tract Infection on Antibiotic Follow-up Call - Female (Adult) Protocol-Based Disposition: See in Office or Video Visit Today Positive Triage Question: * Taking antibiotic > 72 hours (3 days) for UTI and flank or lower back pain is SAME (unchanged,not better) * All higher-acuity triage questions were negative * Telephone Encounter - Nolberto Rodriguez - 05/19/2024 9:40 AM EST Symptoms: Back Pain - Not From Injury, Abdominal Pain - Female - Not Outcome: Schedule an appointment to be seen within 24 hours Reason: Caller denied all higher acuity questions The caller accepted this outcome. Contact pt at [phone] documented in this encounter Plan of Treatment Upcoming Encounters Date Type Department Care Team (Late st Contact Info) Description 07/27/2024 2:30 PM EDT Office Visit [facility] OPTOMETRY [address] [place], [place] [phone] Serena Daniel OD [address] [place] [address] documented as of this encounter Visit Diagnoses Not on filedocumented in this encounter Additional Health Concerns Assessment Noted Time PHQ-9 Depression Total Score: 6 11/27/19 24 9:34 AM EDT documented as of this encounter Care Teams Block Operator Relationship Specialty Start Date End Date María Elena Zuleta MD [address] [place] [address] PCP - General Family Medicine 06/13/17 documented as of this encounter
--- OUTSIDE RECORDS SUMMARY | 2024-05-27 18:07 | XMS_ITS | Encounter Summary ---
Author Organization [employer] Address [address] [facility] [address] 7[address] [place] [address] Care Team Providers Care Glueline Worker Name Role Phone María Elena Zuleta MD Primary Care Provider + Seven Ly RN Unavailable [phone] Encounter Details Date Type Department Care Team ([facility] st Contact Info) Description 05/26/2024 Telephone [facility] MEDICINE [address] [place], [place] [phone] Seven Ly, RN [address] [place], [place] [phone] Social History Tobacco Use Types Packs/Day Years [...] encounter Miscellaneous Notes * Telephone Encounter - Nasrin Cosme RN - 05/26/2024 3:49 PM EST Call returned to patient regarding request to change PCP. Patient states felt her medical needs were not being met. She was having back pain and pelvic pain. Was seen by PCP and tested for UTI. She was told the u/a was positive and she was given Rx. She states she was told to F/U once she finished the medication. Patient finished the medication but was still having symptoms. She called for appointment and was told no appointments were available until June so she went to [facility] ER, had an ultrasound, vaginal swab and repeat u/a completed. Results showed cyst, BV infection, no UTI. Patient wasprescribed treatment for the BV and is taking the medication. She was referred to OBGYN for the cyst. Patient has a ED follow up appointment with Dr. Bird on 05/27/24. Patient states she doesn't understand why Dr. Zuleta told her she had a UTI but the u/a in the ED showed no infection. Patient was educated about how the antibiotic she took for the UTI cleared the infection and the repeat u/a would not show an infection. Patient verbalized understanding. The patient was also advised that she should have been offered a sick visit or to present at the [facility] for unresolved symptoms if no appointment was available with Dr. Zuleta. Patient informed she can change her PCP if she desires. Patient stated she no longer wants to change PCP at this time. * Telephone Encounter - Seven Ly RN - 05/26/2024 11:15 AM EST Patient requesting to change PCP. Per patient, does not feel satisfied with care. Patient can be contacted at [phone]. documented in this encounter Plan of Treatment Upcoming Encounters Date Type Department Care Team ([facility] st Contact Info) Description 07/27/2024 2:30 PM EDT Office Visit [facility] OPTOMETRY [address] [place] [address] Serena Daniel, OD [address] [place] [address] documented as of this encounter Visit Diagnoses Not on filedocumented in this encounter Additional Health Concerns Assessment Noted Time PHQ-9 Depression Total Score: 6 11/27/19 24 9:34 AM EDT documented as of this encounter Care Teams Glueline Worker Relationship Specialty Start Date End Date María Elena Zuleta MD [address] [place] [address] PCP - General Family Medicine 06/13/17 Seven Ly RN [address] [place] [address] Medic TechnicianAbalone Processor 05/26/24 documented as of this encounter
--- OUTSIDE RECORDS SUMMARY | 2024-05-27 18:07 | XMS_ITS | Encounter Summary ---
Author Organization [employer] Address [address] [facility] 7t [place] [address] Care Team Providers Care Drawing Supervisor Name Role Phone María Elena Zuleta MD Primary Care Provider + Encounter Details Date Type Department Care Team ([facility] st Contact Info) Description 05/15/2024 Telephone [facility] OPTOMETRY [address] [place], [place] [phone] Serena Daniel, OD [address] [place] [address] Social History Tobacco Use Types Packs/Day Years [...] Description 07/27/2024 2:30 PM EDT Office Visit [facility] OPTOMETRY [address] [place], [place] [phone] TarkaSerena, OD [address] [place] [address] documented as of this encounter Visit Diagnoses Not on filedocumented in this encounter Additional Health Concerns Assessment Noted Time PHQ-9 Depression Total Score: 6 11/27/19 24 9:34 AM EDT documented as of this encounter Care Teams Drawing Supervisor Relationship Specialty Start Date End Date María Elena Zuleta MD [address] [place] [phone] PCP - General Family Medicine 06/13/17 documented as of this encounter
--- OUTSIDE RECORDS SUMMARY | 2024-05-27 18:07 | XMS_ITS | Encounter Summary ---
Author Organization [employer] Address [address] [facility] [address], [place] [address] Care Team Providers Care Computer Terminal Operator Name Role Phone María Elena Zuleta MD Primary Care Provider + Reason for Visit * Reason Onset Date Comments ER Follow-up 05/21/2024 Encounter Details Date Type Department Care Team ([facility] st Contact Info) Description 05/21/2024 Telephone [facility] MEDICINE [address] [place], [place] [phone] María Elena Zuleta MD [address] [place], [place] [phone] ER Follow-up Social History Tobacco Use Types Packs/Day Years [...] encounter Miscellaneous Notes * Telephone Encounter - Pooja Moreno RN - 05/21/2024 1:27 PM EST T/C returned to pt. Pt reports that she is attempting to transfer care to a [facility] practice in [place]. Pt reports that pcp was treating her for UTI and checking labs for STI when her pain was caused by a cyst. Pt states she was diagnosed with a UTI in ED as well. Reviewed recommendations forf/u per [facility] note. Pt reports she was discharged with Ibuprofen 600 mg prn for pain. Reports that she brought [facility] records to [facility] and is awaiting call back from that office for appointment scheduling. Advised pt f/u is also recommended for CT findings. Pt declines to schedule f/u with pcp. States sheprefers evaluation with alternate provider and does not want to wait until next available pcp appt in July. Pt agrees to f/u with team provider 05/27/24. Pt agrees to call [facility] or come to [facility] prn based on symptoms. * Telephone Encounter - Amanda Darden - 05/21/2024 12:26 PM EST Tc from pt returning call * Telephone Encounter - Pooja Moreno RN - 05/21/2024 11:27 AM EST Pt evaluated in [facility] ED 05/20/24 Dx: right lower ABD pain, right hemorrhagic ovarian cyst. 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 Recommendation is for repeat CT in a few months or MRI. Pt was discharged home with recommendation to f/u with [facility]. T/C to pt for status check and scheduled f/u if needed. No answer, v/m left to return call to Red team nurses. * Telephone Encounter - Jose C Nunez - 05/21/2024 9:11 AM EST Patient calling to report ED visit on : Date: 05/20/24 Hospital: [facility] Seen for: Cist in right pelvic Symptomatic No Patient advised will forward to team nurse for follow up documented in this encounter Plan of Treatment Upcoming Encounters Date Type Department Care Team (Late st Contact Info) Description 07/27/2024 2:30 PM EDT Office Visit [facility] OPTOMETRY [address] [place] [address] Serena Daniel, OD [address] [place] [address] documented as of this encounter Visit Diagnoses Not on filedocumented in this encounter Additional Health Concerns Assessment Noted Time PHQ-9 Depression Total Score: 6 11/27/19 24 9:34 AM EDT documented as of this encounter Care Teams Computer Terminal Operator Relationship Specialty Start Date End Date María Elena Zuleta MD [address] [place] [address] PCP - General Family Medicine 06/13/17 documented as of this encounter
--- OUTSIDE RECORDS SUMMARY | 2024-05-27 18:07 | XMS_ITS | Encounter Summary ---
Author Organization [employer] Address [address] [facility] 7t [place] [address] Care Team Providers Care Net Finisher Name Role Phone María Elena Zuleta MD Primary Care Provider + Encounter Details Date Type Department Care Team (Latest Contact Info) Description 05/22/2024 Travel Social History Tobacco Use Types Packs/Day [...] t he electric, gas, oil or water [employer] threatened to shut off services in your [...] Description 07/27/2024 2:30 PM EDT Office Visit [facility] OPTOMETRY [address] [place] [address] TarkaSerena, OD [address] [place] [address] documented as of this encounter Visit Diagnoses Not on filedocumented in this encounter Additional Health Concerns Assessment Noted Time PHQ-9 Depression Total Score: 6 11/27/19 24 9:34 AM EDT documented as of this encounter Care Teams Net Finisher Relationship Specialty Start Date End Date María Elena Zuleta MD [address] [place] [address] PCP - General Family Medicine 06/13/17 documented as of this encounter
--- OUTSIDE RECORDS SUMMARY | 2024-05-27 18:07 | XMS_ITS | Encounter Summary ---
Author Organization [employer] Address [address] [facility] [address], [place] [address] Care Team Providers Care Night Club Manager Name Role Phone María Elena Zuleta MD Primary Care Provider + Reason for Visit * Reason Onset Date Comments Results 05/14/2024 Encounter Details Date Type Department Care Team ([facility] st Contact Info) Description 05/14/2024 Telephone [facility] MEDICINE [address] [place], [place] [phone] María Elena Zuleta MD [address], [place] [phone] Results Social History Tobacco Use Types Packs/Day Years [...] encounter Miscellaneous Notes * Telephone Encounter - Viviane Go RN - 05/20/2024 10:21 AM EST TC placed to patient [phone] in regards to below message. Patient verbalized understanding brenda she is currently at [facility] d/t continued symptoms post abx completion. Patient reports continued back pain and continued pelvic pain. Patient continues with pain with urination and post urination as well. Patient advised to stay at [facility] to be evaluated and to follow their POC. Patient advised she may be Rx'd abx again which she should take in their entirety and if her s/s do not improveagain then she should call [facility] for a f/u appointment/re-evaluation. Patient verbalized understanding. * Telephone Encounter - María Elena Zuleta MD - 05/19/2024 7:34 PM EST Urine culture showed strep viridans which is usually sensitive to most abs including bactrim, so noaddtl rx is needed as she was rx with Bactrim already. . * Telephone Encounter - Amanda Darden - 05/18/2024 11:19 AM EST Tc from pt requesting to speak to nurse regarding prior message. Contact pt at [phone] * Telephone Encounter - Viviane Go RN - 05/14/2024 3:22 PM EST Incoming call from patient in regards to below message. Patient advised of UA results and is aware of abx being sent (Bactrim ) as BID x5 days. Patient also advised of pyridium medication being sent as TID PRN dysuria if needed. Patient advised we are still awaiting CT/NG results, TB results and urine culture results. Patient advised if urine culture results return and Bactrim is not effective against bacteria in the urine, the abx will need to be changed and patient will receive a call with abx change. Patient verbalized understanding. Patient to f/u PRN. * Telephone Encounter - María Elena Zuleta MD - 05/14/2024 2:57 PM EST UA doen yesterday showed leukocyturia, neg nitrates. Will rx with Bactrim DS x 5d until we obtain full c/s reports. Please call patient to take med and can also take pyridium prn dysuria x the first 2-3d. * Telephone Encounter - Mahad Gunter - 05/14/2024 1:55 PM EST Pt calling again regarding urinalysis results. * Telephone Encounter - Sarah Velazco - 05/14/2024 8:36 AM EST TC from pt requesting call back regarding Results. Type of results: Urinalysis, Complete, Date when done: 05/13 Facility: [facility] documented in this encounter Plan of Treatment Upcoming Encounters Date Type Department Care Team (Late st Contact Info) Description 07/27/2024 2:30 PM EDT Office Visit [facility] OPTOMETRY [address] [place] [address] Serena Daniel, OD [address] [place] [address] documented as of this encounter Visit Diagnoses Diagnosis Recurrent UTI- Primary Urinary tract infection, site not specified documented in this encounter Additional Health Concerns Assessment Noted Time PHQ-9 Depression Total Score: 6 11/27/19 24 9:34 AM EDT documented as of this encounter Care Teams Night Club Manager Relationship Specialty Start Date End Date María Elena Zuleta MD [address] [place] [phone] PCP - General Family Medicine 06/13/17 documented as of this encounter
--- OUTSIDE RECORDS SUMMARY | 2024-05-27 18:07 | XMS_ITS | Clinical Summary ---
Author Organization [employer] Address [address] [place] [address] 7 [place] [address] Care Team Providers Care Recreation Teacher Name Role Phone María Elena Zuleta MD Primary Care Provider + Seven Ly RN Unavailable [phone] Allergies Active Allergy Reactions Criticality Noted Date Comments Penicillin V 07/10/2010 Other reaction(s): rash Medications omeprazole (PriLOSEC) [address] Armstrong ions:Coffee ground emesis Take 1 capsule (40 mg) by mouth 2 times daily. Do not crush or chew. 60 capsule 11 12/09/19 24 025 Active norelgestromin -ethinyl estradiol (Xulane) 150-35 MCG/24HR APPLY 1 PATCH EACH WEEK FOR 3 WEEKS, THEN HAVE NO PATCH FOR 1 WEEK. REPEAT 9 patch 05/13/19 25 Active norelgestromin -ethinyl estradiol (Xulane) 150-35 MCG/24HR APPLY 1 PATCH EACH WEEK FOR 3 WEEKS, THEN HAVE NO PATCH FOR 1 WEEK. REPEAT 9 patch 2 11/27/19 24 025 Discontinued(Re order (will not trigger notification to Pharmacy)) loperamide (Imodium) 2 MG capsule PLEASE SEE ATTACHED FOR DETAILED DIRECTIONS 12/09/19 24 025 Discontinued(Th erapy completed) amoxicillin (Amoxil) 500 MG capsule TAKE 1 CAPSULE BY MOUTH THREE TIMES A DAY UNTIL FINISHED 12/18/19 24 025 Discontinued( erapy completed) sulfamethoxazo le-trimethopri m (Bactrim DS) 800-160 MG tablet Take 1 tablet by mouth 2 times daily for 5 days. 10 tablet 05/14/19 25 025 phenazopyridin e (Pyridium) 200 MG tablet Take 1 tablet (200 mg) by mouth if needed in the morning, at noon, and at bedtime for bladder spasms for up to 3 days. 10 tablet 05/14/19 25 025 Active Problems Problem Noted Date Diagnosed Date Visit for preventive health examination 05/13/19 Assessment & Plan (05/13/2024 1:43 PM EST): Discussed with patient re increase fresh fruit and vegetable intake. Counseled re moderate exercise as tolerated, up to 20min/d Patient feels safe at home. PAP smear: UTD, next one due 2027 Eye exam: Overdue, will refer to Eye clinic. Lipids/FBS: UTD, needs TB test only. Vaccinations: she will get TDAP, declined COVID and Influenza, advised to have earliest convenience. Dental visit: UTD next one due 06/2024. Pt counseled on contraception, does not want to use contraceptives at this time due to sexual abstinence but is aware of condom use, prescription for hormonal patch sent to pharmacy. FU in 6 months. H. pylori infection 12/27/2023 Tinea corporis 11/27/2023 Assessment & Plan (12/17/2023 7:18 PM EDT): On left knee. Rx ketoconazole cream bid to affected hien DC clotrimazole cream Assessment & Plan (11/27/2023 10:43 AM EDT): - on elbow and knees - use Clotrimazole cream BID x 14 days - re consult PRN Vaginal discharge 09/27/2023 Assessment & Plan (09/27/2023 12:15 PM EDT): Could be physiological, r/o STI Order vaginal swab and fu PRN UTI symptoms 09/27/2023 Assessment & Plan (05/13/2024 1:44 PM EST): Rule out UTI / Vaginitis, patient unable to void urine. Will order labs for her to get at earliest convenience and will FU results. Increase water intake and control constipation. Metrorrhagia 07/25/2023 Assessment & Plan (08/22/2023 1:54 PM EDT): Seems to be related to repeated use of emergency contraception? Irregular use of BC? 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 Continue Xulane patch and fu in 6 wks Reconsult PRN Assessment & Plan (06/07/2023 2:44 PM EST): test is repeatedly NEG. DUB is most likely related to depo injection, reassurance Pt to return to clinic prn if bleeding persists for more than 1 m. Encounter for preventive health examination 09/2023 Assessment & Plan (05/10/2023 12:09 PM EST): Discussed with patient re increase fresh fruit and vegetable intake. Counseled re moderate exercise as tolerated, up to 20min/d Patient feels safe at home. PAP smear is up to date, next one due 2025 Eye exam overdue, refer to ophthalmology Lipids/FBS up to date, next one due 2023 Vaccinations she needs TD, Covid and Flu booster, will FU next appointment Dental visit up to date, she has an appointment next month Encounter for prescription of emergency contrace ption 05/10/2023 Assessment & Plan (05/10/2023 12:10 PM EST): Prescription Heather sent today, pt needs to take BOONE or within the next 48 hrs. Today test is negative and she's getting Depo Provera the same day as well I reminded her about protected intercourse and importance of Depo injections every 3 m Recurrent UTI 10/30/2022 Assessment & Plan (10/30/2022 11:26 AM EDT): Prescription for macrobid x 7 days and ordered urine culture recommended post coital hygiene Today's pregancy test is negative Risk for sexually transmitted disease 10/30/2022 Assessment & Plan (08/22/2023 1:39 PM EDT): Pt doesn't have a sexual partnerat this time and for the past 4 months Rpeated vaginal swab Discussed w her importance of condom use at all times and PrEP as needed, she will continue off PrEP Discussed with patioent about post EP, she will reconsult PRN Assessment & Plan (05/10/2023 3:54 PM EST): We discussed in length w/ pt about use of condoms, we gave her sample of both female and male condoms STI testing done this morning at STI clinic We discussed about PrEP and since she has not been complaint w/ Truvada, she agreed to start Cabotegravir Depot injection. STI team will call her for appointment probably next week We discussed about medications side effects including pain on injection area, fever, diarrhea and options to go on PO medications for the first month. FU w/ her in 6 wks. Information re medication was given to patient today Assessment & Plan (02/20/2023 1:23 PM EDT): Pt w/ multiple sex partners. I gave her samples of condoms, female condoms, and vaginal dams to use I gave her info about PrEP and she is interested in taking it. We discussed about both injectable and oral options. She wants to start BOONE so I will send a rx for Truvada. I spoke with Saira Duvall from the STD clinic and she will call her to get tested before she starts themedication FU w PrEP team in 3m Assessment & Plan (10/30/2022 11:25 AM EDT): counseled regarding use of condoms at all times. STI testing done today Pt will check with her current partner about his STI testing Counseling for initiation of control metho d 10/30/2022 Assessment & Plan (10/30/2022 11:24 AM EDT): Depo-provera reminded pt to come to appointment for depo which has been orderd since July I will see her next week and if all tests and test is negative I will give Dep counseled regaridng use of condoms at all times. Pelvic pain 08/22/2022 Assessment & Plan (05/10/2023 12:09 PM EST): UA nl, r/o BV STI test pending done at STI clinic I gave her info about BV, she whitley tart taking tylenol Reconsult PRN Assessment & Plan (02/19/2023 11:39 AM EDT): Seems to be related to BV, however she need pelvic ultrasound due to residual pain I gave her information to reschedule her appointment Recommended use of condoms, vaginal dams, or female condoms as needed Fu 3 months Assessment & Plan (10/30/2022 11:25 AM EDT): r/o STI could be related to UTI Order STI testing Order pelvic US and fu with me in 10 days Slow transit constipation 09/17/2018 Resolved Problems Problem Noted Date Diagnosed Date Resolved Date UTI symptoms 07/25/2023 08/22/2023 Vulvovaginitis 05/22/2023 08/22/2023 Assessment & Plan (06/07/2023 10:44 AM EST): Vaginitis resolved, 2/2 to BV Counseled to avoid shaving or other procedures of the area. If she so desires I recommended hair treatment instead and if definitely wants to shave I suggested to use non scented soaps and use a new device every time. I discussed w her that the area does not need to be checked and is physiologically covered in hair to prevent injections Assessment & Plan (05/22/2023 8:35 PM EST): Most likely residual vaginal candidiasis. Fluconazole 150mg/w x 3w Use cotton panties only, avoid scented soaps, vaginal douches. Urination pain 05/10/2023 08/22/2023 Dysuria 10/30/2022 08/22/2023 Miscarriage 06/03/2019 08/22/2023 Vaginal discharge 10/18/2017 08/22/2023 Encounters Date Type Department Care Team Description 05/27/2024 3:30 PM EST Office Visit [address] [address] Emani Bird MD Rupture of cyst of right ovary (Primary Dx) 05/27/2024 Travel 05/26/[address] [address] Seven Ly RN 05/26/[address] [address] Seven Ly, JACKIE Care Management (C3CM- initial assessment/ enrollment) 05/22/2024 Patient Outreach [address] [phone] María Elena Zuleta MD Care Coordination (CM/CHW appt reminder) 05/22/2024 Travel 05/21/2024 Patient Outreach [address] [address] María Elena Zuleta MD Care Coordination (CM/CHW outreach) 05/21/[address] [address] María Elena Zuleta MD ER Follow-up 05/21/[address] [address] Seven Ly RN 05/19/[address] [address] María Elena Zuleta MD Nurse Triage 05/15/2024 Telephone [facility] [address] [place] [address] Serena Daniel, DARIN 05/14/2024 Telephone [facility] MEDICINE [address] [place] [phone] María Elena Zuleta MD Results 05/13/2024 10:30 AM EST Office Visit [address] [address] María Elena Zuleta MD Visit for preventive health examination (Primary Dx); UTI symptoms; Encounter for immunization 05/13/2024 Orders Only [address] [address] María Elena Zuleta MD 05/13/2024 Travel 05/12/[address] [address] Graciela Weber MA Chart prep 05/07/2024 Patient Outreach [address] [address] María Elena Zuleta MD Pre-visit Planning 04/23/[address] [address] Julius Tamayo, JACKIE 04/01/[address] [address] María Elena Zuleta MD Nurse Triage 03/17/[address] [address] María Elena Zuleta MD May recall from Last 3 Months Immunizations Name Administration Dates Next Due DTaP 11/14/1999, 7,02/10/1996,12/17,1995 HPV, Quadrivalent 08/19/2008,11/21/2007,02/28/20 07 Hep A, ped/adol, 2 dose 2009,08/19/2008 Hep B, Adolescent or Pediatric 04/15/1996,1995,1995 Hep B, adult 09/17/2018 IPV 12/03/1996, 6,1995,10/13 Influenza injectable quadriv alent preservative free 02/27/2017 Influenza, IIV3, injectable 02/07/2007 Influenza, Split (incl. salena fied surface antigen) 01/03/2012 MMR 11/14/1999,08/28/1996 Meningococcal MCV4P ACYW-135 08/21/2009 Pneumococcal Conjugate PCV 7 04/18/2001 Pneumococcal, Unspecified 04/18/2001 Tdap 05/13/2024,2009 Varicella 2009,09/11/1996 Social History Tobacco Use Types Packs/Day Years [...] Orientation Straight 05/22/2024 8: 45 AM EST Last Filed Vital Signs Vital Sign Reading [...] Mass Index 24.51 05/27/2024 3:42 PM EST Plan of Treatment Upcoming Encounters Date Type Department Care Team (Late st Contact Info) Description 07/27/2024 2:30 PM EDT Office Visit [facility] OPTOMETRY [address] [place] [address] Serena Daniel, OD [address] [place] [address] Health Maintenance Due Date Last Done Comments Dental Oral Exam 1995 Dental Prophylaxis 1995 Dental X-Ray: Bitewings 1995 Dental X-Ray: Full Mouth 1995 Alcohol/Substance Use Screening 2007 COVID-19 Vaccine ( season) 2024 02/28/2022, 02/07/2022 Influenza Vaccine (#1) 2024 7, 01/03/2012, 02/07/2007 SDOH Screening 05/07/2025 05/07/2024 Depression Screening 05/13/2025 05/13/2024, 11/27/19 24 Family Planning (PISQ) 05/13/2025 05/13/2024 Tobacco Screening 05/27/2025 05/27/2024 Pap Smear 01/09/2026 01/09/2023, 09/02/2020 DTaP/Tdap/Td Vaccines (9 - Td or Tdap) 05/13/2034 05/13/2024, 02/13/2017, 2009, Additional history exists Zoster Vaccines (1 of 2) 08/10/2045 RSV Patients and Patients Aged 60 years or older (1 - 1-dose 75+ series) 08/10/2070 IPV Vaccines Completed 12/03/1996, 11/1995, 1995, Additional history exists Pneumococcal Vaccine: Pediatrics (0 to 5 Years) and At-Risk Patients (6 to 64 Years) Aged Out 04/18/2001, 04/18/2001 No longer eligibl e based on patient's age to complete this topic Hepatitis A Vaccines Completed 2009, 08/20/19 09 Meningococcal Vaccine Aged Out 08/21/2009 No malachi mame eligible based on patient's age to complete this topic HPV Vaccines Completed 11/24/2013, 08/04, 11/21/2007, Additional history exists Hepatitis B Vaccines Completed 09/17/2018, 04/15/1996, 1995, Additional history exists HIV Screening Completed 04/10/2024, 01/2024, 05/16/2023, Additional history exists Hepatitis C Screening Completed 04/10/2024 , 10/30/2022, 08/03/2021 HIB Vaccines Aged Out No longer eligi ble based on patient's age to complete this topic RSV under 20 months Aged Out No longe r eligible based on patient's age to complete this topic Rotavirus Vaccines Aged Out No longer eligible based on patient's age to complete this topic Procedures Procedure Name Priority Date/Time Associated Diagnosis Comments CBC WITH AUTO DIFFERENTIAL Routine 05/27/2024 4:01 PM EST Rupture of cyst of right ovary URINALYSIS, COMPLETE, WITH REFLEX TO CULTURE Routine 05/13/2024 1:09 PM EST CULTURE, URINE, ROUTINE Routine 05/13/2024 1:09 PM EST T-SPOT(R).TB Routine 05/13/2024 11:57 AM EST Visit for preventive health examination HIV ANTIBODY/ANTIGEN ([place] DP) Routine 04/10/2024 HEPATITIS C ANTIBODY ([place] DP) Routine 04/10/2024 SYPHILIS ABS ([place] DP) Routine 04/10/2024 CHLAMYDIA/GONORRHEA THROAT SWAB ([place] DP) Routine 04/10/2024 CHLAMYDIA/GONORRHEA VAGINAL SWAB ([place] DP) Routine 04/10/2024 PAP SMEAR Routine 01/09/2023 12:03 PM EDT Vaginal discharge from Last 3 Months or Most Recently Relevant to Health Maintenance Results * (ABNORMAL) CBC auto differential (05/27/2024 4:01 PM EST) White Blood Count 10.8 4.8 - 10.8 X10*3/uL [facility] Red Blood Count 3.96(L) 4.20 - 5.50 X10*6/uL [facility] Hemoglobin 11.1(L) 12.0 - 16.0 g/dl [facility] Hematocrit 32.8(L) 37.0 - 47.0 % [facility] Mean Corpuscular Volume 82.8 80.0 - 98.0 fL [facility] Mean Corpuscular Hemoglobin 28.0 27.0 - 33.0 pg [facility] Mean Corpuscular HGB Conc 33.8 31.0 - 35.0 g/dl [facility] Red Cell Distribution Width 14.0 11.0 - 16.0 % [facility] Platelet Count 316 160 - 400 X10*3/uL [facility] Mean Platelet Volume 10.9 9.4 - 12.3 fL [facility] Neutrophils Percent Auto 60.5 45 - 73 % [facility] Imm Gran Pct Auto 0.4 0.0 - 0.4 % [facility] Lymphocytes Percent Auto 24.2 20 - 40 % [facility] Monocytes Percent Auto 9.9 2 - 11 % [facility] Eosinophils Percent Auto 4.4(H) 0 - 4 % [facility] Basophils Percent Auto 0.6 0 - 2 % [facility] NRBC Pct Auto 0.0 0.0 - 0.2 /100WBC [facility] Neutrophils Absolute Auto 6.5 2.0 - 8.3 x10*3/uL [facility] Imm Gran Abs Auto 0.04(H) 0.00 - 0.03 X10*3/uL [facility] Lymphocytes Absolute Auto 2.6 1.2 - 4.9 X10*3/uL [facility] Monocytes Absolute Auto 1.1 0.1 - 1.2 X10*3/uL [facility] Eosinophils Absolute Auto 0.5(H) 0.0 - 0.4 X10*3/uL [facility] Basophils Absolute Auto 0.1 0.0 - 0.2 X10*3/uL [facility] NRBC Abs Auto 0.000 0.0 - 0.012 X10*3/uL [facility] Blood Venous blood specimen / Unknown 05/27/2024 4:01 PM EST 05/27/2024 5:35 PM EST us Emani Bird MD LAB BLOOD ORDERABLES Final Res ult [facility] [address] [place] [phone] * (ABNORMAL) Urinalysis, Complete, with Reflex to Culture (05/13/2024 1:09 PM EST) Color Urine Yellow [facility] Appearance Urine Clear [facility] PH 6.5 5.0 - 9.0 [facility] Glucose Urine UA Negative Negative mg/dL [facility] Urine Blood Negative Negative [facility] Specific [place] - Urine 1.025 1.005 - 1.025 [facility] Urine Protein Negative Neg-Trace mg/dL [facility] Urine Ketones Negative Negative mg/dL [facility] Nitrite Urine Negative Negative [facility] Leukocyte Esterase Urine Small (1+)(A) Negative [facility] RBC Urine 0-2 0 - 2 /HPF [facility] Urine WBC 11-20(A) 0 - 5 /HPF [facility] Urine Squamous Epithelial Cell 6-10 0 - 2 /HPF [facility] Urine Bacteria 1+ None Seen [facility] Hyaline Casts, Urine 0-2 0 - 2 /LPF [facility] 05/13/2024 1:09 PM EST 05/13/2024 4:07 PM EST Narrative [facility] - 05/13/2024 4:38 PM EST Urine, Clean Catch us María Elena Zuleta MD LAB URINE ORDERABLES Fin al Result Performing Organization Address [facility] Co de Phone Number [facility] [address] [place] [phone] * Culture, Urine, Routine (05/13/2024 1:09 PM EST) Urine Urine specimen obtained by clean catch procedure / Unknown 05/13/2024 1:09 PM EST 05/13/2024 4:41 PM EST Comment:[facility] - 05/17/2024 8:22 AM EST Viridans streptococcus group Quant > 100,000 cfu/mL Susc N/A Susceptibility not routinely performed on this isolate. Specimen Source: Urine clean catch us María Elena Zuleta MD LAB MICROBIOLOGY - GENER AL ORDERABLES Final Result Performing Organization Address [facility] Co de Phone Number [facility] [address] [place] [phone] * T-SPOT??.TB (05/13/2024 11:57 AM EST) T Spot TB Negative Negative [facility] Comment:A negative test resu lt does not exclude the possibilityof exposure to or infection with Mycobacteriumtuberculosis (M. tuberculosis). Patients with recentexposure to TB infected individuals exhibiting anegative T-SPOT.TB result should be considered forretesting within 6 weeks or if other relevant clinicalsymptoms indicate. Results from T-SPOT.TB testing mustbe used in conjunction with each individual'sepidemiological history, current medical status,and results of other diagnostic evaluations.The T-SPOT.TB test is qualitative and results arereported as positive, borderline, or negative, giventhat the test controls perform as expected. In linewith the Centers for Disease Control and Prevention's2010 recommendation to report quantitative measurementsalongside the qualitative result, the laboratoryprovides spot counts for informational purposes only.The T-SPOT.TB test should not be interpreted as aquantitative test. TS PANEL A 0 [facility] TS PANEL B 0 [facility] Negative Control Passed [facility] Positive Control Passed [facility] Comment:For additional infor mation, please refer tohttp://education.[employer]/faq/WTB068(This link is being provided for informational/educational purposes only.)THIS TEST WAS PERFORMED AT:[employer]/[facility] [place] [phone] GOMEZ MD,PHD 05/13/2024 11:5 7 AM EST 05/13/2024 1:05 PM EST us María Elena Zuleta MD LAB BLOOD ORDERABLES Fin al Result [facility] [address] [place] [phone] * Chlamydia/Gonorrhea Vaginal Swab ([facility]) (04/10/2024) Chlamydia Vaginal Swab Negative Negative, Indeterminate, None Detected, Invalid, Specimen unsatisfactory for evaluation, Weakly Positive Gonorrhea Vaginal Swab Negative Negative, Indeterminate, None Detected, Invalid, Specimen unsatisfactory for evaluation, Weakly Positive Swab Vaginal structure / Unknown 04/10/2024 Result [facility] MD LAB MICROBIOLOGY - GENERA L ORDERABLES Final Result * Chlamydia/Gonorrhea Throat Swab ([place] DP) (04/10/2024) Chlamydia Throat Swab Negative Gonorrhea Throat Swab Negative Swab 04/10/2024 Result [facility] MD LAB MICROBIOLOGY - GENERA L ORDERABLES Final Result * Syphilis Antibodies ([facility]) (04/10/2024) Syphilis Abs Nonreactive Borderline, Nonreactive, Weakly Reactive, Inconclusive, Specimen unsatisfactory for evaluation Blood Venous blood specimen / Unknown 04/10/2024 Result [facility] MD LAB BLOOD ORDERABLES Teri l Result * Hepatitis C Antibody ([place] DP) (04/10/2024) Hepatitis C Ab Nonreactive Blood 04/10/2024 Result [facility] MD LAB BLOOD ORDERABLES Teri l Result * HIV Ab/Ag ([place] DP) (04/10/2024) HIV Ag/Ab Nonreactive Blood 04/10/2024 Result [facility] MD LAB BLOOD ORDERABLES Edit ed Result - Final * Pap Smear (01/09/2023 12:03 PM EDT) 01/09/2023 12:0 3 PM EDT 01/10/2023 9:15 AM EDT Narrative [facility] - 01/22/2023 10:48 AM EDT ----- ------- Name: Vilma Mendez ?Age/Sex: 27/F ? : 1995 Unit#: [id number] ?? Attend Dr: SANJU QUIJANO CNM ?Re01/09/23 ?Status: DEP REF ? [facility]: [facility] ? Disch: ? ----- ------- SPEC : [id number] ?RECD: 01/10/23 ? STATUS: ??SOUT ? REQ NUM: [id number] ? DEVON: 01/09/23-1202 ? SUBM DR: SANJU QUIJANO CNM ? ENTERED: ??01/10/23-1114 ?SP TYPE: Pap Smr ?OTHR : ? ORDERED: ??Pap Smear ? Interpretation ?? Satisfactory for evaluation. ?? Coccobacilli consistent with shift in vaginal sonia. ?? Inflammation with associated cellular changes. ?? Negative for intraepithelial lesion or malignancy. ?HPV mRNA E6/E7: ?NOT DETECTED ? This assay detects E6/E7 viral messenger RNA (mRNA) from 14 high-risk HPV types (16, 18, ?? 31, 33, 35, 39, 45, 51, 52, 56, 58, 59, 66, 68) ?? HPV testing performed by [employer], [place], [place]. ??See reference laboratory ?? pion of the EMR for entire report. ?Clinical Information LMP: 12/29/2022 Previous PAP test:2021, [facility] HPV positive ? Material Received ?? ThinPrep-Vaginal/Cervical ----- ------- Signed (signature on file) Andres Wood MD 01/22/23 [id number] ? ----- ------- ? END OF REPORT ? Sanju Quijano CNM LAB CYTOLOGY ORDERABLES F inal Result [facility] [address] [place] [phone] from Last 3 Months or Most Recently Relevant to Health Maintenance Insurance [facility] STANDARD DENTAL-[facility] MEDICAID STAND ADULT Care Teams Recreation Teacher Relationship Specialty Start Date End Date María Elena Zuleta MD [address] [place] [phone] PCP - General Family Medicine 06/13/17 Seven Ly, JACKIE [address] [place] [phone] Senior Sas ProgrammerLearning Support Specialist 05/26/24
--- OUTSIDE RECORDS SUMMARY | 2024-05-27 18:07 | XMS_ITS | Encounter Summary ---
Author Organization [employer] Address 75 [facility] [address], [place] [address] Care Team Providers Care Screen Tender Name Role Phone María Elena Zuleta MD Primary Care Provider + Reason for Visit * Reason Comments Care Coordination CM/CHW outreach Encounter Details Date Type Department Care Team (Latest Contact Info) Description 05/21/2024 Patient Outreach [facility] [address] [place], [place] [phone] María Elena Zuleta MD [address] [place] [address] Care Coordination (CM/CHW outreach) Social History Tobacco Use Types Packs/Day Years [...] encounter Progress Notes * Ivette Nunez - 05/21/2024 10:41 AM EST CHW Ivette Nunez, placed outbound call to patient introducing herself from [facility] CM Department, in regard to offering services. Patient's name and was confirmed. Patient agrees to participate in program. Appt. for initial assessment scheduled for 05/26/24 @ 103AM tele appt with CM Seven Ly RN. CHW reinforced direct contact information or for any additional questions or concerns and extended clinic hours on Mondays and Wednesdays, and Walk-In Urgent Care Located in [facility]. Patient provided with after-hours line for [facility], , which offer night time triage service and option to transfer to simulation tech provider if needed. Patient verbalizes understanding, and able to repeat back to procedure writer. documented in this encounter Plan of Treatment Upcoming Encounters Date Type Department Care Team ([facility] st Contact Info) Description 07/27/2024 2:30 PM EDT Office Visit [facility] [address] [place] [address] [place] [address] Nimcocarolyne Serena, OD [address] [place] [address] documented as of this encounter Visit Diagnoses Not on filedocumented in this encounter Additional Health Concerns Assessment Noted Time PHQ-9 Depression Total Score: 6 11/27/19 24 9:34 AM EDT documented as of this encounter Care Teams Screen Tender Relationship Specialty Start Date End Date María Elena Zuleta MD [address] [place] [address] PCP - General Family Medicine 06/13/17 documented as of this encounter
--- OUTSIDE RECORDS SUMMARY | 2024-05-27 18:08 | XMS_ITS | Encounter Summary ---
Author Organization [employer] Address 75 [facility] [address] [place] [address] Care Team Providers Care Electrical Sign Wirer Helper Name Role Phone María Elena Zuleta MD Primary Care Provider + Seven Ly RN Unavailable [phone] Reason for Visit * Reason Onset Date Comments Results 07/29/2023 Encounter Details Date Type Department Care Team ([facility] st Contact Info) Description 07/29/2023 Telephone [facility]INE [address] [place], [place] [phone] María Elena Zuleta MD [address] [place], [place] [phone] Results Social History Tobacco Use Types Packs/Day Years Used Date Smoking Tobacco: Never Smokeless Tobacco: Never Alcohol Use Standard Drinks/Week Comments Never 0 (1 standard drink = 0.6 oz pur e alcohol) Housing Stability Answer Date Recorded What is [...] from getting things needed for daily living? No 02/18/2023 Utilities Answer Date Recorded In the past 12 months, has t he electric, gas, oil or water company threatened to shut off services in your home? No 02/18/2023 Depression Answer Date Recorded Patient Health Questionnaire-2 Score 0 10/30/2022 Comments No Sex and Gender Information Value Date Recorded Sex Assigned at Female 03/05/2022 10:16 AM EDT Legal Sex Female 10:16 AM EDT Gender Identity Female 03/05/2022 10:16 AM EDT Sexual Orientation Bisexual 05/22/2024 8: 45 AM EST Sexual Orientation Straight 05/22/2024 8: 45 AM EST documented as of this encounter Miscellaneous Notes * Telephone Encounter - Breanna Ly - 07/29/2023 10:17 AM EDT TC from pt requesting call back regarding Results. Type of results: Urine culture, labs, swab Date when done: 07/24 Facility: [facility] Please contact pt at [phone] documented in this encounter Plan of Treatment Upcoming Encounters Date Type Department Care Team (Late st Contact Info) Description 07/27/2024 2:30 PM EDT Office Visit [facility] [address] [place] [address] TarSerena barfield, OD [address] [place] [address] documented as of this encounter Visit Diagnoses Not on filedocumented in this encounter Care Teams Electrical Sign Wirer Helper Relationship Specialty Start Date End Date María Elena Zuleta MD [address] [place] [address] PCP - General Family Medicine 06/13/17 Sevne Ly RN [address] [place] [address] Show Horse DriverReceiving Worker 05/26/24 documented as of this encounter
--- OUTSIDE RECORDS SUMMARY | 2024-05-27 18:08 | XMS_ITS | Encounter Summary ---
Author Organization [employer] Address 75 [facility] 7[place] [address] Care Team Providers Care Blood Bank Credit Clerk Name Role Phone María Elena Zuleta MD Primary Care Provider + Reason for Visit * Reason Comments Pre-visit Planning Encounter Details Date Type Department Care Team ([facility] Contact Info) Description 05/07/2024 Patient Outreach [facility] [address] [place], [place] [phone] María Elena Zuleta MD [address] [place] [address] Pre-visit Planning Social History Tobacco Use Types Packs/Day Years [...] Answer Date Recorded Patient Health Questionnaire-2 Score 3 11/27/2023 Internet Access Answer Date Recorded Internet Access [...] as of this encounter Progress Notes * Carola Steele - 05/07/2024 10:32 AM EST CC Carola placed successful outbound call to patient for pre-visit planning. Patient name and confirmed. Patient confirms appt date and time, and has transportation. Biggest concern for appointment at this time is none Patient advised to bring to appointment a photo id and insurance card. Appropriate screenings completed in anticipation of appointment. documented in this encounter Plan of Treatment Upcoming Encounters Date Type Department Care Team (Late st Contact Info) Description 07/27/2024 2:30 PM EDT Office Visit [facility] [address] [place] [address] Serena Daniel, OD [address] [place] [address] documented as of this encounter Visit Diagnoses Not on filedocumented in this encounter Additional Health Concerns Assessment Noted Time PHQ-9 Depression Total Score: 6 11/27/19 9:34 AM EDT documented as of this encounter Care Teams Blood Bank Credit Clerk Relationship Specialty Start Date End Date María Elena Zuleta MD [address] [place] [address] PCP - General Family Medicine 06/13/17 documented as of this encounter
--- OUTSIDE RECORDS SUMMARY | 2024-05-27 18:08 | XMS_ITS | Encounter Summary ---
Author Organization [employer] Address [address] [place] [address] [address] [place] [address] Care Team Providers Care Arborer Name Role Phone María Elena Zuleta MD Primary Care Provider + Reason for Referral * Consultation (Routine) - Closed Specialty Diagnoses / Procedures Referred By Regulo huerta Referred To Contact Optometry Diagnoses Visit for preventive health examination María Elena Zuleta MD [address] [place] [address] Phone: tel: fax: [facility] [address] [place] [address] Phone: tel: fax: Referral ID Status Reason Start Date Expiration Date V isits Requested Visits Authorized [id number] Closed Consult and Treat 05/13/2024 05/13/2025 1 1 Reason for Visit * Reason Comments Annual Exam Encounter Details Date Type Department Care Team (Late st Contact Info) Description 05/13/2024 10:30 AM EST Office Visit [facility] [address] [place], [place] [phone] María Elena Zuleta MD [address] [place], [place] [phone] Visit for preventive health examination (Primary Dx); UTI symptoms; Encounter for immunization Social History Tobacco Use Types Packs/Day Years [...] Sign Reading Time Taken Comments Blood Pressure 124/65 05/13/2024 10:55 AM EST Pulse 72 05/13/2024 10:55 AM EST Temperature 35.8 ??C (96.5 ??F) 05/13/2024 10:[address] Respiratory Rate - - Oxygen Saturation 100% 05/13/2024 10:55 AM EST Inhaled Oxygen Concentration - - Weight 59.6 kg (131 lb 6 oz) 05/13/2024 10:55 AM EST Height 157.5 cm (5' 2 ) 05/13/2024 10:55 AM EST Body Mass Index 24.03 05/13/2024 10:55 AM EST documented in this encounter Progress Notes * María Elena Zuleta MD - 05/13/2024 10:30 AM EST SUBJECTIVE: Vilma Andrews is a 28 y.o. year old female who presents for routine physical exam. Denies recent illness, injury, or hospitalization. Patient here for PE. -PAP smear: 01/09/2023 -Ophthalmology: More than 5 years ago. -Labs: 12/20/2023 -Dental visit: 12/27/2023 -Adult IZ: TDAP 06/25/09, HEPB x3 + booster 2018, COVID X2 2021 -Safety: Patient feels safe at home, lives with 2 yr old. Intimate Partner Violence Screening: negative. - Not in a relationship. -STI screening: No Hx STI/concern? No Not interested in PrEp -PHQ 06/14 -LMP 05/03/24, irregular cycles (every 2-3 months, light bleeding). - She DC contraceptive patch on 04/2024. - Intention: Do you want to get in the next year?: No, I don't want to become (05/13/2024 11:17 AM) Do you want to talk about contraception or prevention during your visit today?: No - I amunsure or don't want to use contraception (05/13/2024 11:17 AM) control method reported at intake: None (05/13/2024 11:17 AM) Reason for no contraceptive method use Reported - at intake: Abstinence (05/13/2024 11:17 AM) control method at exit Reported: None (Rx contraceptive patch sent/patient not using it) (05/13/2024 11:17 AM) Reason for no contraceptive method use Reported - on exit: Abstinence (05/13/2024 11:17 AM) How was contraception provided?: Prescription (05/13/2024 11:17 AM) Contraceptive counseling was provided: Yes (05/13/2024 11:17 AM) Acute Concerns: Patient mentions having back pain, lower abdominal pain, pain with urination that begin one week ago. She also mentions having constipation and pelvic pain with bowel movements. Patient has not been in a relationship within the past 2-3 months. 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 Patient Active Problem List Diagnosis Slow transit constipation Pelvic pain Recurrent UTI Risk for sexually transmitted disease Counseling for initiation of control method Encounter for preventive health examination Encounter for prescription of emergency contraception DUB (dysfunctional uterine bleeding) Non-toxic uninodular goiter Metrorrhagia Vaginal discharge UTI symptoms Tinea corporis H. pylori infection Visit for preventive health examination No family history on file. Review of Systems Constitutional: Negative for chills, fatigue and fever. HENT: Negative for congestion, ear pain, nosebleeds, rhinorrhea, sinus pressure, sore throat and trouble swallowing. Eyes: Negative for pain and discharge. Respiratory: Negative for cough, chest tightness and shortness of breath. Cardiovascular: Negative for chest pain, palpitations and leg swelling. Gastrointestinal: Positive for constipation. Negative for abdominal pain, blood in stool, diarrhea and nausea. Endocrine: Negative for polydipsia and polyuria. Genitourinary: Positive for dysuria. Negative for frequency, genital sores, pelvic pain and vaginaldischarge. Musculoskeletal: Positive for back pain. Negative for neck pain. Skin: Negative for rash. Allergic/Immunologic: Negative for environmental allergies. Neurological: Negative for dizziness, seizures, weakness, light-headedness and headaches. Hematological: Negative for adenopathy. Psychiatric/Behavioral: Positive for sleep disturbance. Negative for agitation, behavioral problems, self-injury and suicidal ideas. OBJECTIVE: Vitals: 05/13/24 1055 BP: 124/65 Pulse: 72 Temp: 96.5 ??F (35.8 ??C) SpO2: 100% Physical Exam Constitutional: Appearance: Normal appearance. HENT: Right Ear: Tympanic membrane and ear canal normal. Left Ear: Tympanic membrane and ear canal normal. Mouth/Throat: Mouth: Mucous membranes are moist. Pharynx: No oropharyngeal exudate or posterior oropharyngeal erythema. Eyes: Pupils: Pupils are equal, round, and reactive to light. Cardiovascular: Rate and Rhythm: Normal rate and regular rhythm. Heart sounds: No murmur heard. Pulmonary: Breath sounds: Normal breath sounds. No wheezing. Abdominal: General: Bowel sounds are normal. Palpations: Abdomen is soft. Tenderness: There is no abdominal tenderness. Musculoskeletal: General: No tenderness. Normal range of motion. Cervical back: Normal range of motion. No tenderness. Skin: General: Skin is warm. Neurological: General: No focal deficit present. Mental Status: She is alert and oriented to person, place, and time. Psychiatric: Mood and Affect: Mood normal. Patient Health Questionnaire-9 Score: 6 (11/27/2023 9:34 AM) Patient Health Questionnaire-2 Score: 0 (05/13/2024 2:54 PM) Thoughts that you would be better off or hurting yourself in some way: Not at all (11/27/2023 9:34 AM) ASSESSMENT/PLAN Problem List Items Addressed This Visit Visit for preventive health examination - Primary Discussed with patient re increase fresh fruit [...] sent to pharmacy. FU in 6 months. Relevant Orders T-SPOT??.TB Referral to Optometry UTI symptoms Rule out UTI / Vaginitis, patient unable to void urine. Will order labs for her to get at earliest convenience and will FU results. Increase water intake and control constipation. Relevant Orders Chlamydia/N. Gonorrhoeae RNA, TMA, Urogenitial Culture, Urine, Routine Urinalysis with reflex microscopic Other Visit Diagnoses Encounter for immunization Relevant Orders TDAP VACCINE 7 yrs + (Completed) Follow Up: Current Outpatient Medications on File Prior to Visit Medication Sig Dispense Refill omeprazole (PriLOSEC) [address] capsule Take 1 capsule (40 mg) by mouth 2 times daily. Do not crush or chew. 60 capsule 11 [DISCONTINUED] amoxicillin (Amoxil) 500 MG capsule TAKE 1 CAPSULE BY MOUTH THREE TIMES A DAY UNTIL FINISHED [DISCONTINUED] loperamide (Imodium) 2 MG capsule PLEASE SEE ATTACHED FOR DETAILED DIRECTIONS [DISCONTINUED] norelgestromin-ethinyl estradiol (Xulane) 150-35 MCG/24HR APPLY 1 PATCH EACH WEEK FOR 3 WEEKS, THEN HAVE NO PATCH FOR 1 WEEK. REPEAT 9 patch 2 No current facility-administered medications on file prior to visit. I, Shannon Albarran, am serving as a scribe to document services personally performed by Dr. María Elena Zuleta, based on the patient's response to questions by provider and provider's statements to me. documented in this encounter Miscellaneous Notes * Assessment & Plan Note - Shannon Albarran MA - 05/13/2024 1:39 PM EST Associated Problem(s): UTI symptoms Rule out UTI / Vaginitis, patient unable to void urine. Will order labs for her to get at earliest convenience and will FU results. Increase water intake and control constipation. * Assessment & Plan Note - Shannon Albarran MA - 05/13/2024 1:37 PM EST Associated Problem(s): Visit for preventive health examination Discussed with patient re increase fresh fruit [...] sent to pharmacy. FU in 6 months. documented in this encounter Plan of Treatment Upcoming Encounters Date Type Department Care Team (Late st Contact Info) Description 07/27/2024 2:30 PM EDT Office Visit [facility] [address] [place] [address] Fredy Serena, OD [address] [place] [address] Scheduled Orders Name Type Priority Associated Diagnoses Orde r Schedule Chlamydia/N. Gonorrhoeae RNA, TMA, Urogenitial Microbiology Routine UTI symptoms Ordered: 05/13/2024 Culture, Urine, Routine Microbiology Routine UTI symptoms Expected: 05/13/2024 (Approximate), Expires: 05/13/2025 Urinalysis with reflex microscopic Lab Routine UTI symptoms Expected: 05/13/2024, Expires: 05/13/2025 Scheduled Referrals Name Type Priority Associated Diagnoses Orde r Schedule Referral to Optometry Outpatient Referral Routine Visit for preventive health examination Expected: 05/13/2024 (Approximate), Expires: 05/13/2025 documented as of this encounter Procedures Procedure Name Priority Date/Time Associated Diagnosis Comments T-SPOT(R).TB Routine 05/13/2024 11:57 AM EST Visit for preventive health examination documented in this encounter Results * T-SPOT??.TB (05/13/2024 11:57 AM EST) [facility] T Spot TB Negative Negative [facility] Comment:A negative test resu lt [...] as aquantitative test. TS PANEL A 0 [facility] TS PANEL B 0 [facility] Negative Control Passed [facility] Positive Control Passed [facility] Comment:For additional infor filemon, please refer tohttp://education.Vibrynt/faq/TGG641(This link is being provided for informational/educational purposes only.)THIS TEST WAS PERFORMED AT:[id number] [place] [address]JSHQOCK W. MASON,MD,PHD 05/13/2024 11:5 7 AM EST 05/13/2024 1:05 PM EST us María Elena Zuleta MD LAB BLOOD ORDERABLES Fin al Result [facility] [address] [place] [phone] documented in this encounter Visit Diagnoses Diagnosis Visit for preventive health examination- Primary UTI symptoms Encounter for immunization documented in this encounter Additional Health Concerns Assessment Noted Time PHQ-9 Depression Total Score: 6 11/27/19 24 9:34 AM EDT documented as of this encounter Care Teams Arborer Relationship Specialty Start Date End Date María Elena Zuleta MD [address] [place] [address] PCP - General Family Medicine 06/13/17 documented as of this encounter
--- OUTSIDE RECORDS SUMMARY | 2024-05-27 18:08 | XMS_ITS | Encounter Summary ---
Author Organization [employer] Address 75 [facility] [address] [address] Care Team Providers Care Loom Setter Name Role Phone María Elena Zuleta MD Primary Care Provider + Reason for Visit * Reason Onset Date Comments Nurse Triage 07/16/2023 Encounter Details Date Type Department Care Team ([facility] st Contact Info) Description 07/16/2023 Telephone [facility] MEDICINE [address] [place], [place] [phone] María Elena Zuleta MD [address] [place], [place] [phone] Nurse Triage Social History Tobacco Use Types [...] enough money to get more: Never True 10/ Transportation Answer Date Recorded In the past [...] encounter Miscellaneous Notes * Telephone Encounter - Ani Gao RN - 07/16/2023 10:59 AM EDT Triage call Pt reports continual vaginal spotting for last 3 months. Pt reports using 7 panty liners per day for spotting. Color ranges from brownish to pink. Pt was seen 07/01/23 regarding this problem, declined to take depo injection and xulane patch ordered at that time. Pt reports has not used the patch because Pt wanted to see if this spotting would just stop. Pt has had previous bacterial vaginosis and HIV injection and has lost weight. Pt weight is 129lbs previously about 140lbs. Pt wants to see Provider for assessment and direction at this point. Apt with provider Dr. Bird 07/22/23@ 315pm. Pt agrees with disposition. Insurance is verified as active prior to booking. Protocol Used: Vaginal Bleeding - Abnormal (Adult) Protocol-Based Disposition: See in Office or Video Visit within 2 Weeks Positive Triage Question: * Periods last > 7 days * All higher-acuity triage questions were negative Care Advice Discussed: * Irregular Bleeding and You Are Using the Control Patch * Reasons To Call Back - Irregular bleeding occurs more than 2 cycles (2 months) - Bleeding becomes worse - You become worse * Telephone Encounter - Josette Luis - 07/16/2023 10:08 AM EDT Symptom: Vaginal Bleeding - Not Outcome: Talk to a nurse or provider within 15 minutes Reason: ( spotting ) bleeding The caller accepted this outcome Please contact at [phone] documented in this encounter Plan of Treatment Upcoming Encounters Date Type Department Care Team (Late st Contact Info) Description 07/27/2024 2:30 PM EDT Office Visit [facility] [address] [place], [place] [phone] Serena Daniel, OD [address] [place] [address] documented as of this encounter Visit Diagnoses Not on filedocumented in this encounter Care Teams Loom Setter Relationship Specialty Start Date End Date María Elena Zuleta MD [address] [place], [place] [phone] PCP - General Family Medicine 06/13/17 documented as of this encounter
--- OUTSIDE RECORDS SUMMARY | 2024-05-27 18:08 | XMS_ITS | Encounter Summary ---
Author Organization [employer] Address 75 [facility] 7[facility] [place] [address] Care Team Providers Care Pulmonary Specialist Name Role Phone María Elena Zuleta MD Primary Care Provider + Seven Ly RN Unavailable [phone] Reason for Visit * Reason Onset Date Comments Triage 07/18/2022 Encounter Details Date Type Department Care Team (Late st Contact Info) Description 07/18/2022 Telephone [facility] [address] [place], [place] [phone] María Elena Zuleta MD [address] [place], [place] [phone] Triage Social History Tobacco Use Types Packs/Day Years Used Date Smoking Tobacco: Never Assessed Comments Unknown Sex and Gender Information Value Date Recorded Sex Assigned at Female 03/05/2022 10:16 AM EDT Legal Sex Female 10:16 AM EDT Gender Identity Female 03/05/2022 10:16 AM EDT Sexual Orientation Bisexual 05/22/2024 8: 45 AM EST Sexual Orientation Straight 05/22/2024 8: 45 AM EST COVID-19 Exposure Response Date Recorded In the last 10 days, have yo u been in contact with someone who was confirmed or suspected to have Coronavirus/COVID-19? No / Unsure 07/20/2022 12:27 PM EDT documented as of this encounter Miscellaneous Notes * Telephone Encounter - Ani Gao RN - 07/18/2022 1:33 PM EDT Triage call Pt reports cleaning a turtle tank for son and while doing Pt scratched upper arm near arm pit, right arm, on the side of the tank. Pt reports the next day area became very itchy, it is storm perfect [place] and is a blood worm per Pt description which is found on google . Advised Pt tocome to [facility] today to be seen by provider and Pt agrees. Home care reviewed and Pt agrees. Protocol Used: Rash or Redness - Localized (Adult) Protocol-Based Disposition: See in Office or Video Visit Today Video visit not offered Positive Triage Question: * Patient wants to be seen * All higher-acuity triage questions were negative Care Advice Discussed: * Reassurance and Education - Mild Localized Rash * Wash the Area * Cold Pack for Mild Itching or Mild Pain * Don't Scratch * Reasons To Call Back - Rash spreads or becomes worse - Rash lasts longer than 1 week - You become worse * Telephone Encounter - Gary Lopez - 07/18/2022 10:42 AM EDT Symptoms: Rash or Redness - Widespread, Itching - No Rash Outcome: Schedule an urgent appointment (within 4 hours) or talk to a nurse or provider soon Reason: Severe itching now The caller accepted this outcome Please contact pt at [phone] documented in this encounter Plan of Treatment Upcoming Encounters Date Type Department Care Team (Late st Contact Info) Description 07/27/2024 2:30 PM EDT Office Visit [facility] OPTOM[facility]RY [address] [place] [address] Serena Daniel, OD [address] [place] [address] documented as of this encounter Visit Diagnoses Not on filedocumented in this encounter Care Teams Pulmonary Specialist Relationship Specialty Start Date End Date María Elena Zuleta MD [address] [place] [address] PCP - General Family Medicine 06/13/17 Seven Ly RN [address] [place] [phone] Physician Assistant Primary CareSurg Physician Asst 05/26/24 documented as of this encounter
--- OUTSIDE RECORDS SUMMARY | 2024-05-27 18:08 | XMS_ITS | Encounter Summary ---
Author Organization [employer] Address 75 [facility] 7[facility] [place] [address] Care Team Providers Care Cans Vacuum Tester Name Role Phone María Elena Zuleta MD Primary Care Provider + Seven Ly RN Unavailable [phone] Reason for Visit * Reason Comments Med Refill Encounter Details Date Type Department Care Team ([facility] st Contact Info) Description 05/24/2023 Refill [facility] MEDICINE [address] [place], [place] [phone] María Elena Zuleta MD [address] [place], [place] [phone] Social History Tobacco Use Types Packs/Day Years Used Date Smoking Tobacco: Never Smokeless Tobacco: Current Alcohol Use Standard Drinks/Week Comments Never 0 [...] PM EDT Office Visit [facility] OPT[facility]ET[facility] [address] [place] [address] Serena Daniel, OD [address] [place] [address] documented as of this encounter Visit Diagnoses Not on filedocumented in this encounter Care Teams Cans Vacuum Tester Relationship Specialty Start Date End Date María Elena Zuleta MD [address] [place] [address] PCP - General Family Medicine 06/13/17 Seven Ly RN [address] [place] [phone] Arc Furnace OperatorFlour Worker 05/26/24 documented as of this encounter
--- OUTSIDE RECORDS SUMMARY | 2024-05-27 18:08 | XMS_ITS | Encounter Summary ---
Author Organization [employer] Address [address] [facility] 7[place], [place] [address] Care Team Providers Care Insolvency Consultant Name Role Phone María Elena Zuleta MD Primary Care Provider + Reason for Visit * Reason Onset Date Comments Chart prep 05/12/2024 Encounter Details Date Type Department Care Team ([facility] st Contact Info) Description 05/12/[address] [facility] MEDICINE [address] [place] [address] Alvino Weberisha [place] Chart prep Social History Tobacco Use Types Packs/Day Years [...] encounter Miscellaneous Notes * Telephone Encounter - Graciela Weber [place] - 05/12/2024 1:52 PM EST Chart Prep Labs: done Images: done Vaccines due: yes Referrals: complete Screenings: N/A Overdue care gaps: N/A documented in this encounter Plan of Treatment Upcoming Encounters Date Type Department Care Team (Late st Contact Info) Description 07/27/2024 2:30 PM EDT Office Visit [facility] [address] [place], [place] [phone] Serena Daniel, OD [address] [place] [address] documented as of this encounter Visit Diagnoses Not on filedocumented in this encounter Additional Health Concerns Assessment Noted Time PHQ-9 Depression Total Score: 6 11/27/19 24 9:34 AM EDT documented as of this encounter Care Teams Insolvency Consultant Relationship Specialty Start Date End Date María Elena Zuleta MD [address] [place] [address] PCP - General Family Medicine 06/13/17 documented as of this encounter
--- OUTSIDE RECORDS SUMMARY | 2024-05-27 18:08 | XMS_ITS | Encounter Summary ---
Author Organization [employer] Address 75 [facility] 7[facility] [place] [address] Care Team Providers Care Coach Mechanic Name Role Phone María Elena Zuleta MD Primary Care Provider + Seven Ly RN Unavailable [phone] Reason for Visit * Reason Onset Date Comments triage 08/07/2022 Encounter Details Date Type Department Care Team (Late st Contact Info) Description 08/07/2022 Telephone [facility] MEDICINE [address] [place], [place] [phone] María Elena Zuleta MD [address] [place], [place] [phone] triage Social History Tobacco Use Types Packs/Day Years Used Date Smoking Tobacco: Every Day Cigarettes Smokeless Tobacco: Current Comments Unknown Sex and Gender Information Value [...] Telephone Encounter - Ani Gao RN - 08/07/2022 10:04 AM EDT Triage call Pt reports pelvic pain. Pain started 2 days ago and feels like period cramps which come and go. Neg for discharge or odor at this time. On the second day Pt reports some white dischargebut, no odor. Neg for fever. is possible advised to take a test if possible first urine in the morning and Pt agreed. Pt last period started beginning of July. Pt is advised to come to [facility] Pt requests some testing for STDs. Pt atgrees with disposition and home care reviewed. Protocol Used: Pelvic Pain - Female (Adult) Protocol-Based Disposition: See in Office or Video Visit Today or Tomorrow Positive Triage Question: * Patient wants to be seen * All higher-acuity triage questions were negative Care Advice Discussed: * Reassurance and Education - Mild to Moderate Pain Lasting Less Than 2 Hours * Rest * Pass a Stool * Heat * Pain Medicines * Pain Medicines - Extra Notes and Warnings * Test, When in Doubt * Expected Course * Reasons To Call Back - Severe pain lasts over 1 hour - Constant pain lasts over 2 hours - Intermittent pains (e.g., comes and goes, cramps) last over 48 hours - You become worse. * Telephone Encounter - Charan Valiente - 08/07/2022 9:26 AM EDT Symptom: Abdominal Pain - Female - Not Outcome: Talk to a nurse or provider within 15 minutes Reason: Severe pain now The caller accepted this outcome documented in this encounter Plan of Treatment Upcoming Encounters Date Type Department Care Team (Late st Contact Info) Description 07/27/2024 2:30 PM EDT Office Visit [facility] OPTOMETRY [address] [place] [address] Serena Daniel OD [address] [place] [address] documented as of this encounter Visit Diagnoses Not on filedocumented in this encounter Care Teams Coach Mechanic Relationship Specialty Start Date End Date María Elena Zuleta MD [address] [place] [address], [place] [address] PCP - General Family Medicine 06/13/17 Seven Ly RN [address] [place] [phone] Vegetable LoaderMonogram Machine Operator 05/26/24 documented as of this encounter
--- OUTSIDE RECORDS SUMMARY | 2024-05-27 18:08 | XMS_ITS | Encounter Summary ---
Author Organization [employer] Address 75 [facility] 7 [place] [address] Care Team Providers Care Plaster Mold Maker Name Role Phone María Elena Zuleta MD Primary Care Provider + Seven Ly RN Unavailable [phone] Encounter Details Date Type Department Care Team ([facility] st Contact Info) Description 11/01/[address] [facility] MEDICINE [address] [place], [place] [phone] María Elena Zuleta MD [address] [place], [place] [phone] Vaginal discharge (Primary Dx) Social History Tobacco Use Types Packs/Day Years Used Date Smoking Tobacco: Former Cigarettes Smokeless Tobacco: Current Alcohol Use Standard Drinks/Week Comments Never 0 (1 standard drink = 0.6 oz pur e alcohol) Depression Answer Date Recorded Patient Health Questionnaire-2 Score 0 10/30/2022 Comments Unknown Sex and Gender Information Value [...] suspected to have Coronavirus/COVID-19? No / Unsure 10/29/2022 11:04 AM EDT documented as of this encounter Miscellaneous Notes * Result Encounter Note - Sanju Quijano CNM - 11/01/2022 5:00 PM EDT Hi - Vilma's creatinine is good, HIV neg. Can you reach out to see if she wants to do Truvada, review medication and I will send in rx. Thanks! * Result Encounter Note - Sanju Quijano CNM - 11/01/2022 5:00 PM EDT Please let Vilma know vaginal swab testing showed yeast and bacterial vaginosis. Bacterial vaginosis was treated at visit. If she is still having vaginal symptoms, I will treat yeast as well. Some labs are still pending, but HIV neg, normal kidney test. PrEP navigator should be in touch to discuss HIV prevention medication further. Thanks! * Result Encounter Note - Sanju Quijano CNM - 11/01/2022 5:00 PM EDT Great - thanks! documented in this encounter Plan of Treatment Upcoming Encounters Date Type Department Care Team (Late st Contact Info) Description 07/27/2024 2:30 PM EDT Office Visit [facility] OPT[facility] [address] [place] [address] Serena Daniel, OD [address] [place] [address] documented as of this encounter Procedures Procedure Name Priority Date/Time Associated Diagnosis Comments HIV ANTIBODY/ANTIGEN ([facility]) Routine 01/09/2023 12:18 PM EDT Vaginal discharge C.TRACHOMATIS/N. GONORRHOEAE DNA PROBE Routine 01/09/2023 12:03 PM EDT Vaginal discharge HPV MRNA E6/E7 REFLEX TO HPV 16, 18/45 Routine 01/09/2023 12:03 PM EDT Vaginal discharge PAP SMEAR Routine 01/09/2023 12:03 PM EDT Vaginal discharge BACTERIAL VAGINOSIS PANEL Routine 01/09/2023 12:00 AM EDT Vaginal discharge documented in this encounter Results * HIV Ab/Ag ([facility]) (01/09/2023 12:18 PM EDT) HIV AB/AG Nonreactive Nonreactive [facility] Comment:HIV-1 p24 Ag and/or HIV-1/HIV-2 Ab not detected.A test result that is nonreactive does not exclude thepossibility of exposure to or infection with HIV-1 and/orHIV-2. Nonreactive results in this assay for individualswith prior exposure to HIV-1 and/or HIV-2 may be due toantigen and antibody levels that are below the limit ofdetection of this assay.The [employer] HIV Ag/Ab Combo assay result andsupplemental assay results should be interpreted inconjunction with the patient's clinical presentation,history and other laboratory results. If the results areinconsistent with clinical evidence, additional testing issuggested to confirm the result. 01/09/2023 12:1 8 PM EDT 01/09/2023 1:10 PM EDT us Sanju Quijano [facility] BLOOD ORDERABLES Teri cantu Result [facility] [address] [place] [phone] * Pap Smear (01/09/2023 12:03 PM EDT) 01/09/2023 12:0 3 PM EDT 01/10/2023 9:15 AM EDT Narrative [facility] - 01/22/2023 10:48 AM EDT ----- ------- Name: Elizabeth DarrylVilma ?Age/Sex: 27/F ? : 1995 Unit#: [id number] ?? Attend Dr: SANJU QUIJANO CNM ?Re01/09/23 ?Status: DEP REF ? Location: HO.CL ? Disch: ? ----- ------- SPEC : [id number] ?RECD: 01/10/23 ? STATUS: ??SOUT ? REQ NUM: [id number] ? DEVON: 01/09/23-1203 ? SUBM DR: SANJU QUIJANO CNM ? [...] 66, 68) ?? HPV testing performed by [facility], [place], [place]. ??See reference laboratory ?? pion of the EMR for entire report. ?Clinical Information LMP: 12/29/2022 Previous PAP test:2021, ASCUS HPV positive ? Material Received ?? ThinPrep-Vaginal/Cervical ----- ------- Signed (signature on file) Andres Wood MD 01/22/23 [id number] ? ----- ------- ? END OF REPORT ? Sanju Rhonda [facility] CYTOLOGY ORDERABLES F inal Result Performing Organization Address [facility] Co de Phone Number [facility] [address] [place], [place] [phone] * C.TRACHOMATIS/N. GONORRHOEAE DNA PROBE (01/09/2023 12:03 PM EDT) [facility] Ref Lab NOT DETECTED NOT DETECTED [facility] NG Ref Lab NOT DETECTED NOT DETECTED [facility] Ref Note SEE NOTE [facility] Comment:The analytical perfo rmance characteristics of thisassay, when used to test SurePath(TM) specimens have beendetermined by [facility]. The modifications havenot been cleared or approved by the FDA. This assay hasbeen validated pursuant to the CLIA regulations and isused for clinical purposes.For additional information, please refer tohttps://education.[employer]/faq/QGM904(This link is being provided for information/educational purposes only.)THIS TEST WAS PERFORMED AT:[facility] [place] [id number] RASHID MD 01/09/2023 12:0 3 PM EDT 01/10/2023 9:15 AM EDT Sanju Rhonda [facility] MICROBIOLOGY - GENERA L ORDERABLES Final Result Performing Organization Address [facility] Co de Phone Number [facility] [address] [place] [phone] * HPV mRNA E6/E7 w/Reflex to HPV Genotypes 16, 18/45 (01/09/2023 12:03 PM EDT) Pathologist [facility] HPV nRNA E6/E7 Not Detected Not Detected [facility] Comment:Methodology: Transcr iption-Mediated AmplificationThis assay detects E6/E7 viral messenger RNA (mRNA) from 14high-risk HPV types (16,18,31,33,35,39,45,51,52,56,58,59,66,68).Cervical sources are required for HPV testing.If a vaginal source from a patient who has had atotal hysterectomy with removal of cervix wassubmitted, please contact the testing laboratoryfor alternative testing options.For additional information, please refer tohttp://education.[employer] Met[employer]/faq/NGG164q0(This link if provided for information/educational purposes only.)THIS TEST WAS PERFORMED AT:[facility] [place] [id number] RASHID MD HPV mRNA E6/E7 [facility] HPV 16 RNA [facility] HPV 18/45 RNA [facility] 01/09/2023 12:0 3 PM EDT 01/10/2023 9:15 AM EDT [facility] ORDERABLES F inal Result Performing Organization Address City/[facility]/ZIP Co de Phone Number [facility] [address] [place] [phone] * (ABNORMAL) Bacterial Vaginosis (01/09/2023 12:00 AM EDT) Trichomonas DNA Probe Negative Negative [facility] Gardnerella DNA Probe Positive(A) Negative [facility] Lindsey DNA Probe Positive(A) Negative [facility] 01/09/2023 01/09/2023 [facility] - GENERA L ORDERABLES Final Result Performing Organization Address [facility]/ZIP Co de Phone Number [facility] [address] [place] [phone] documented in this encounter Visit Diagnoses Diagnosis Vaginal discharge- Primary Leukorrhea, not specified as infective documented in this encounter Care Teams Plaster Mold Maker Relationship Specialty Start Date End Date María Elena Zuleta MD [address] [place] [address] PCP - General Family Medicine 06/13/17 Seven Ly RN [address] [place] [phone] Program SchedulerSpooling Supervisor 05/26/24 documented as of this encounter
== END 2024-05-27 16:00 | disposition home or self-care (01) ==
LOC: HO.HHCL 15:59
PROVIDERS: Visit Provider General Practice
DX: N83.201 Unspecified ovarian cyst, right side (principal)
CPT/HCPCS: 36415; 85025

== ENCOUNTER 2024-06-02 17:47 | Outpatient (REF) | payer MEDICAID, SELFPAY ==
[2024-06-03 06:16] LABS: CT PCR NOT DETECTED (Not Detect.); NG PCR NOT DETECTED (Not Detect.)
== END 2024-06-02 17:48 | disposition home or self-care (01) ==
LOC: HO.HHCLNP 17:47
PROVIDERS: Visit Provider Advanced Practice Midwife
DX: N89.8 Other specified noninflammatory disorders of vagina (principal)
CPT/HCPCS: 87491; 87591

== ENCOUNTER 2024-06-18 11:12 | Outpatient (REF) | payer MEDICAID, SELFPAY ==
--- OUTSIDE RECORDS SUMMARY | 2024-06-18 14:28 | XMS_ITS | Encounter Summary ---
Author Organization [employer] Address 75 [facility] [address] [address] Care Team Providers Care Dye House Supervisor Name Role Phone María Elena Zuleta MD Primary Care Provider + Seven Ly RN Unavailable [phone] Reason for Visit * Reason Onset Date Comments telephone call 06/02/2024 Encounter Details Date Type Department Care Team ([facility] st Contact Info) Description 06/02/2024 Telephone [facility] MEDICINE [address] [place], [place] [phone] María Elena Zuleta MD 230 [place], [place] [phone] telephone call Social History Tobacco Use Types [...] Visit [facility] OPTOMETRY [address] [place], [place] [phone] Serena Daniel OD 267 [place] [address] documented as of this encounter Visit Diagnoses Not on filedocumented in this encounter Additional Health Concerns Assessment Noted Time PHQ-9 Depression Total Score: 6 11/27/19 9:34 AM EDT documented as of this encounter Care Teams Dye House Supervisor Relationship Specialty Start Date End Date María Elena Zuleta MD 230 [place] [address] PCP - General Family Medicine 06/13/17 Sveen Ly RN 505 [place] [address] Weight And Balance Control AgentCrossing Flagman 05/26/24 documented as of this encounter
--- OUTSIDE RECORDS SUMMARY | 2024-06-18 14:28 | XMS_ITS | Encounter Summary ---
Author Organization [employer] Address 75 [facility] 7t [place] [address] Care Team Providers Care Advertising Writer Name Role Phone María Elena Zuleta MD Primary Care Provider + Seven Ly RN Unavailable Encounter Details Date Type Department Care Team [...] 2:30 PM EDT Office Visit [facility] OPTOMETRY 267 [place] [address] TarSerena barfield, OD 267 [place] [address] documented as of this encounter Visit Diagnoses Not on filedocumented in this encounter Additional Health Concerns Assessment Noted Time PHQ-9 Depression Total Score: 6 11/27/19 24 9:34 AM EDT documented as of this encounter Care Teams Advertising Writer Relationship Specialty Start Date End Date María Elena Zuleta MD 230 [place] [address] PCP - General Family Medicine 06/13/17 Seven Ly RN [address] [place] [address] Cheese CookRetail Parts Pro 05/26/24 documented as of this encounter
--- OUTSIDE RECORDS SUMMARY | 2024-06-18 14:29 | XMS_ITS | Encounter Summary ---
Author Organization [employer] Address 75 [facility] 7 [place] [address] Care Team Providers Care Cane Flume Watcher Name Role Phone María Elena Zuleta MD Primary Care Provider + Seven Ly RN Unavailable [phone] Reason for Visit * Reason Onset Date Comments Care Management 06/04/2024 C3CM- f/u call Encounter Details Date Type Department Care Team ([facility] st Contact Info) Description 06/04/2024 Telephone [facility] MEDICINE 230 [place], [place] [phone] Seven Ly, RN [address] [place], [place] [phone] Care Management (C3CM- f/u call) Social History [...] Per patient, has a f/u scheduled with TOOL ROOM MACHINIST on 06/18/24. Shealso states she called GI and has an appt scheduled on 06/29 or 06/30. Patient denies any immediate needs or concerns at this time. No further questions or concerns. CM reinforced direct contact information for any additional questions or concerns. Education provided on Walk-In Urgent Care located in [facility]. Patient provided with after-hours line for [facility], , which offer night time triage service and option to transfer to sew on operator provider if needed. Patient verbalizes understanding, and able to r epeat back to personal lines underwriter. A follow up call will be placed within 10 days, patient agrees with plan. documented in this encounter Plan of Treatment Upcoming Encounters Date Type Department Care Team (Late st Contact Info) Description 07/27/2024 2:30 PM EDT Office Visit [facility] OPTOMETRY 267 [place], [place] [phone] Serena Daniel, OD 267 [place], [place] [phone] documented as of this encounter Visit Diagnoses Not on filedocumented in this encounter Additional Health Concerns Assessment Noted Time PHQ-9 Depression Total Score: 6 11/27/19 24 9:34 AM EDT documented as of this encounter Care Teams Cane Flume Watcher Relationship Specialty Start Date End Date María Elena Zuleta MD 230 [place], [place] [phone] PCP - General Family Medicine 06/13/17 Seven Ly RN 505 [place] [address] Senior Data AnalystKnitting Inspector 05/26/24 documented as of this encounter
--- OUTSIDE RECORDS SUMMARY | 2024-06-18 14:29 | XMS_ITS | Encounter Summary ---
Author Organization [employer] Address 75 [facility] [address] [address] Care Team Providers Care Event Specialist Product Demonstrator Name Role Phone María Elena Zuleta MD Primary Care Provider + Seven Ly RN Unavailable [phone] Encounter Details Date Type Department Care Team ([facility] st Contact Info) Description 06/04/2024 [facility] 230 [place], [place] [phone] Emani Bird MD 230 [place] [address] Social History Tobacco Use Types Packs/Day Years [...] 06/04/2024 10:31 AM EST Incoming fax from [facility] requesting MRI order to be update to MRI Abdomen WWO Contrast. Please advise! documented in this encounter Plan of Treatment Upcoming Encounters Date Type Department Care Team (Late st Contact Info) Description 07/27/2024 2:30 PM EDT Office Visit [facility] OPTOMETRY 267 [place] [address] Serena Daniel, OD 267 [place] [address] documented as of this encounter Visit Diagnoses Not on filedocumented in this encounter Additional Health Concerns Assessment Noted Time PHQ-9 Depression Total Score: 6 11/27/19 24 9:34 AM EDT documented as of this encounter Care Teams Event Specialist Product Demonstrator Relationship Specialty Start Date End Date María Elena Zlueta MD 230 [place] [address] PCP - General Family Medicine 06/13/17 Seven Ly RN [address] [place] [address] Agriculture InternMetalsmith Apprentice 05/26/24 documented as of this encounter
--- OUTSIDE RECORDS SUMMARY | 2024-06-18 14:29 | XMS_ITS | Encounter Summary ---
Author Organization [employer] Address 75 [facility] [place] [address] Care Team Providers Care Director Museum Or Zoo Name Role Phone María Elena Zuleta MD Primary Care Provider + Reason for Visit * Reason Onset Date Comments Nurse Triage 07/16/2023 Encounter Details Date Type Department Care Team ([facility] st Contact Info) Description 07/16/2023 Telephone [facility] MEDICINE 230 [place], [place] [phone] María Elena Zuleta MD 230 [place], [place] [phone] Nurse Triage Social History Tobacco Use Types [...] caller accepted this outcome Please contact at [phone] documented in this encounter Plan of Treatment Upcoming Encounters Date Type Department Care Team (Late st Contact Info) Description 07/27/2024 2:30 PM EDT Office Visit [facility] OPTOMETRY [address] [place], [place] [phone] Serena Daniel, OD 267 [place] [address] documented as of this encounter Visit Diagnoses Not on filedocumented in this encounter Care Teams Director Museum Or Zoo Relationship Specialty Start Date End Date María Elena Zuleta MD 230 [place], [place] [phone] PCP - General Family Medicine 06/13/17 documented as of this encounter
--- OUTSIDE RECORDS SUMMARY | 2024-06-18 14:29 | XMS_ITS | Encounter Summary ---
Author Organization [employer] Address 75 [facility] [address] [place] [address] Care Team Providers Care Academic Records Specialist Name Role Phone María Elena Zuleta MD Primary Care Provider + Seven Ly RN Unavailable [phone] Encounter Details Date Type Department Care Team ([facility] st Contact Info) Description 06/02/2024 3:15 PM EST Office Visit [facility] MEDICINE 230 [place], [place] [phone] Esmer Ellis CNM 230 [place], [place] [phone] Vaginal discharge (Primary Dx); Abnormal uterine bleeding [...] for cotesting 01/2024. Has followup with [facility] 06/18. Would like to do pap there. [...] x 12 weeks. Go to commercial pharmacy ([facility]) and get Boric Acid 600mg vaginal capsules. [...] Description 07/27/2024 2:30 PM EDT Office Visit [facility] OPTOMETRY 267 [place], [place] [phone] TarSerena barfield, OD 267 [place] [address] documented as of this encounter Procedures Procedure [...] manually resulted (06/02/2024 4:07 PM EST) Pathologist [facility] Preg Test, Ur Negative Negative, Indeterminate, None Detected, Invalid, Specimen unsatisfactory for evaluation, Weakly Positive QC Media Lot # [id number] Lot# Expiration Date [id number] Urine 06/02/2024 4:07 PM EST Esmer Ellis [facility] POINT OF CARE TEST ENTER/ EDIT ORDERABLES Final Result * Chlamydia/N. Gonorrhoeae RNA, TMA, Urogenitial (06/02/2024 3:51 PM EST) Pathologist [facility] CT PCR NOT DETECTED Not Detect. [facility] Comment:A not detected test result does [...] psychologicalconsequences. NG PCR NOT DETECTED Not Detect. [facility] Comment:A not detected test result does [...] PM EST 06/02/2024 5:48 PM EST Narrative [facility] - 06/03/2024 6:16 AM EST Vaginal Esmer Ellis CNM LAB MICROBIOLOGY - GENERA L ORDERABLES Final Result [facility] [address] [place] [address] [phone] documented in this encounter Visit Diagnoses Diagnosis Vaginal discharge- Primary Leukorrhea, not specified as infective Abnormal uterine bleeding (AUB) documented in this encounter Additional Health Concerns Assessment Noted Time PHQ-9 Depression Total Score: 6 11/27/19 24 9:34 AM EDT documented as of this encounter Care Teams Academic Records Specialist Relationship Specialty Start Date End Date María Elena Zuleta MD 230 [place] [address] PCP - General Family Medicine 06/13/17 Seven Ly RN [address] [place] [address] Enrollment AdvisorFinancial Administrative Assistant 05/26/24 documented as of this encounter
--- OUTSIDE RECORDS SUMMARY | 2024-06-18 14:29 | XMS_ITS | Encounter Summary ---
Author Organization [employer] Address 75 [facility] [place] [address] Care Team Providers Care Contract Administrative Assistant Name Role Phone María Elena Zuleta MD Primary Care Provider + Seven Ly RN Unavailable [phone] Reason for Visit * Reason Comments Care Coordination SDOH Encounter Details Date Type Department Care Team (Latest Contact Info) Description 06/01/2024 Patient Outreach [facility] MEDICINE 230 [place], [place] [phone] María Elena Zuleta MD 230 [place] [address] Care Coordination (SDOH) Social History Tobacco Use [...] with resources for the right school in [facility]. [facility]W will mail out resources and will follow up with patient within 5-7 days. No other SDOH nee ded at this time. No further questions or concerns. CHW reinforced direct contact information or CM for any additional questions or concerns and extended clinic hours on Mondays and Wednesdays, and Walk-In Urgent Care Located in [facility] of [facility]. Patient provided with after-hours line for [facility], , which offer night time triage service and option to transfer to prison guard supervisor provider if needed. Patient verbalizes understanding, and able to repeat back to policy writer typist. A follow up call willbe placed within 10 days, patient agrees with plan. documented in this encounter Plan of Treatment Upcoming Encounters Date Type Department Care Team (Late st Contact Info) Description 07/27/2024 2:30 PM EDT Office Visit [facility] OPTOMETRY [address] [place], [place] [phone] Fredy Serena, OD 267 [place] [address] documented as of this encounter Visit Diagnoses Not on filedocumented in this encounter Additional Health Concerns Assessment Noted Time PHQ-9 Depression Total Score: 6 11/27/19 24 9:34 AM EDT documented as of this encounter Care Teams Contract Administrative Assistant Relationship Specialty Start Date End Date María Elena Zuleta MD [address] [place] [address] [phone] PCP - General Family Medicine 06/13/17 Seven Ly RN [address] [place] [address] Food Operations ManagerRn Physician Office 05/26/24 documented as of this encounter
--- OUTSIDE RECORDS SUMMARY | 2024-06-18 14:29 | XMS_ITS | Encounter Summary ---
Author Organization [email or web address] Address 75 [facility] 7 [place] [address] Care Team Providers Care Ball Holder Name Role Phone María Elena Zuleta MD Primary Care Provider + Seven Ly RN Unavailable [phone] Encounter Details Date Type Department Care Team ([facility] st Contact Info) Description 11/01/2022 Orders Only [facility] MEDICINE 230 [place], [place] [phone] María Elena Zuleta MD 230 [place], [place] [phone] Vaginal discharge (Primary Dx) Social History Tobacco [...] 07/27/2024 2:30 PM EDT Office Visit [facility] OPTOMETRY 267 [place] [address] Serena Daniel, OD 267 [place] [address] documented as of this encounter Procedures Procedure Name Priority Date/Time Associated Diagnosis Comments HIV ANTIBODY/ANTIGEN ([facility]) Routine 01/09/2023 12:18 PM EDT Vaginal discharge [...] 12:18 PM EDT) HIV AB/AG Nonreactive Nonreactive [facility] Comment:HIV-1 p24 Ag and/or HIV-1/HIV-2 Ab not detected.A test result that is nonreactive does not exclude thepossibility of exposure to or infection with HIV-1 and/orHIV-2. Nonreactive results in this assay for individualswith prior exposure to HIV-1 and/or HIV-2 may be due toantigen and antibody levels that are below the limit ofdetection of this assay.The [employer] HIV Ag/Ab Combo assay result andsupplemental assay results should be interpreted inconjunction with the patient's clinical presentation,history and other laboratory results. If the results areinconsistent with clinical evidence, additional testing issuggested to confirm the result. 01/09/2023 12:1 8 PM EDT 01/09/2023 1:10 PM EDT us Sanju Quijano [facility] BLOOD ORDERABLES Teri cantu Result [facility] [address] [place] [phone] * Pap Smear (01/09/2023 12:03 PM EDT) 01/09/2023 12:0 3 PM EDT 01/10/2023 9:15 AM EDT Narrative [facility] - 01/22/2023 10:48 AM EDT ----- ------- Name: Elizabeth DarrylVilma ?Age/Sex: 27/F ? : 1995 Unit#: [id number] ?? Attend Dr: SANJU QUIJANO CNM ?Re01/09/23 ?Status: DEP REF ? Location: HO.CL ? Disch: ? ----- ------- SPEC : [id number] ?RECD: 01/10/23 ? STATUS: ??SOUT ? REQ NUM: [id number] ? DEVON: 01/09/23-1203 ? SUBM DR: SANJU [...] 66, 68) ?? HPV testing performed by [facility], [place], [place]. ??See reference laboratory ?? pion of the EMR for entire report. ?Clinical Information LMP: 12/29/2022 Previous PAP test:2021, ASCUS HPV positive ? Material Received ?? ThinPrep-Vaginal/Cervical ----- ------- Signed (signature on file) Andres Wood MD 01/22/23 1488 ? ----- ------- ? END OF REPORT ? Sanju Rhonda [facility] CYTOLOGY ORDERABLES F inal Result Performing Organization Address [facility] Co de Phone Number [facility] [address] [place], [place] [phone] * C.TRACHOMATIS/N. GONORRHOEAE DNA PROBE (01/09/2023 12:03 PM EDT) CTNG Ref Lab NOT DETECTED NOT DETECTED [facility] NG Ref Lab NOT DETECTED NOT DETECTED [facility] CTNG Ref Note SEE NOTE [facility] Comment:The analytical perfo rmance characteristics of thisassay, when used to test SurePath(TM) specimens have beendetermined by [facility]. The modifications havenot been cleared or approved by the FDA. This assay hasbeen validated pursuant to the CLIA regulations and isused for clinical purposes.For additional information, please refer tohttps://education.[employer]/faq/FTB147(This link is being provided for information/educational purposes only.)THIS TEST WAS PERFORMED AT:[facility] [place] [id number] RASHID MD 01/09/2023 12:0 3 PM EDT 01/10/2023 9:15 AM EDT Sanju Rhonda [facility] MICROBIOLOGY - GENERA L ORDERABLES Final Result Performing Organization Address [facility] Co de Phone Number [facility] [address] [place] [phone] * HPV mRNA E6/E7 w/Reflex to HPV Genotypes 16, 18/45 (01/09/2023 12:03 PM EDT) Pathologist [facility] HPV nRNA E6/E7 Not Detected Not Detected [facility] Comment:Methodology: Transcr iption-Mediated AmplificationThis assay detects E6/E7 viral messenger RNA (mRNA) from 14high-risk HPV types (16,18,31,33,35,39,45,51,52,56,58,59,66,68).Cervical sources are required for HPV testing.If a vaginal source from a patient who has had atotal hysterectomy with removal of cervix wassubmitted, please contact the testing laboratoryfor alternative testing options.For additional information, please refer tohttp://education.[employer]/faq/ROJ268x4(This link if provided for information/educational purposes only.)THIS TEST WAS PERFORMED AT:[facility] [place] [id number] RASHID MD HPV mRNA E6/E7 [facility] HPV 16 RNA [facility] HPV 18/45 RNA [facility] 01/09/2023 12:0 3 PM EDT 01/10/2023 9:15 AM EDT [facility] CYT[facility] ORDERABLES F inal Result Performing Organization Address City/[facility]/ZIP Co de Phone Number [facility] [address] [place] [phone] * (ABNORMAL) Bacterial Vaginosis (01/09/2023 12:00 AM EDT) Trichomonas DNA Probe Negative Negative [facility] Gardnerella DNA Probe Positive(A) Negative [facility] Lindsey DNA Probe Positive(A) Negative [facility] 01/09/2023 01/09/2023 [facility] MICROBIOLOGY - GENERA L ORDERABLES Final Result Performing Organization Address [facility]/ZIP Co de Phone Number [facility] [address] [place] [phone] documented in this encounter Visit Diagnoses Diagnosis Vaginal discharge- Primary Leukorrhea, not specified as infective documented in this encounter Care Teams Ball Holder Relationship Specialty Start Date End Date María Elena Zuleta MD [address] [place] [address] PCP - General Family Medicine 06/13/17 Seven yL RN [address] [place] [phone] Ticket Dispenser ChangerMotor Builder Assembler 05/26/24 documented as of this encounter
--- OUTSIDE RECORDS SUMMARY | 2024-06-18 14:29 | XMS_ITS | Encounter Summary ---
Author Organization [employer] Address 75 [facility] 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 Advised Pt to[facility] to [facility] today to be seen [...] accepted this outcome Please contact pt at [phone] documented in this encounter Plan of Treatment Upcoming Encounters Date Type Department Care Team (Late st Contact Info) Description 07/27/2024 2:30 PM EDT Office Visit [facility] OPTOMETRY [address] [place] [address] Serena Daniel, OD 267 [place] [address] documented as of this encounter Visit Diagnoses Not on filedocumented in this encounter Care Teams Swim Instructor Relationship Specialty Start Date End Date María Elena Zuleta MD 230 [place] [address] PCP - General Family Medicine 06/13/17 Seven Ly RN [address] [place] [phone] Dumpster DriverSnow Ranger 05/26/24 documented as of this encounter
--- OUTSIDE RECORDS SUMMARY | 2024-06-18 14:29 | XMS_ITS | Encounter Summary ---
Author Organization [employer] Address 75 [facility] 7t [place] [address] Care Team Providers Care Complex Commercial Litigation Paralegal Name Role Phone María Elena Zuleta MD Primary Care Provider + Seven Ly RN Unavailable Reason for Visit * Reason Onset Date Comments Results 06/12/2024 Encounter Details Date Type Department Care Team ([facility] st Contact Info) Description 06/12/2024 Telephone [facility] MEDICINE 230 [place] [address] Karuna Slade, JACKIE Results Social History Tobacco [...] up as needed. * Telephone Encounter - Karuna Slade RN - 06/12/2024 9:21 AM EST ----- Message from Emani Bird MD sent at 06/11/2024 8:25 PM EST ----- Can you check in with patient about how she is feeling from an abd pain point of view? Her Hg did drop after the ruptured ovary, so she needs to eat lots of red meat, beans, leafy vegetables. Does she have a carriage feeder appointment scheduled to f/u on the ovarian cyst? documented in this encounter Plan of Treatment Upcoming Encounters Date Type Department Care Team (Late st Contact Info) Description 07/27/2024 2:30 PM EDT Office Visit [facility] OPTOMETRY [address] [place] [address] Nimcocarolyne Serena, OD [address] [place] [address] documented as of this encounter Visit Diagnoses Not on filedocumented in this encounter Additional Health Concerns Assessment Noted Time PHQ-9 Depression Total Score: 6 11/26/ 24 9:34 AM EDT documented as of this encounter Care Teams Complex Commercial Litigation Paralegal Relationship Specialty Start Date End Date María Elena Zuleta MD [address] [place] [phone] PCP - General Family Medicine 06/13/17 Seven Ly RN [address] [place] [phone] Mica Washer GluerPackager Head 05/26/24 documented as of this encounter
--- OUTSIDE RECORDS SUMMARY | 2024-06-18 14:29 | XMS_ITS | Encounter Summary ---
Author Organization [employer] Address 75 [facility] [place] [address] Care Team Providers Care Coremaker Apprentice Name Role Phone María Elena Zuleta MD Primary Care Provider + Seven Ly RN Unavailable [phone] Reason for Visit * Reason Onset Date Comments Call Back Request 06/02/2024 Encounter Details Date Type Department Care Team ([facility] st Contact Info) Description 06/02/2024 Telephone [facility] [address] [place], [place] [phone] María Elena Zuleta MD 230 [place], [place] [phone] Call Back Request Social History Tobacco Use [...] Pt reports she has an appointment at [facility] on February 13th, but is currently [...] Description 07/27/2024 2:30 PM EDT Office Visit [facility] [address] [place] [address] Serena Daniel, OD [address] [place] [address] documented as of this encounter Visit Diagnoses Not on filedocumented in this encounter Additional Health Concerns Assessment Noted Time PHQ-9 Depression Total Score: 6 11/27/19 24 9:34 AM EDT documented as of this encounter Care Teams Coremaker Apprentice Relationship Specialty Start Date End Date María Elena Zuleta MD 230 [place] [address] PCP - General Family Medicine 06/13/17 Seven Ly RN [address] [place] [address] Video System RepairerAlteration Hand 05/26/24 documented as of this encounter
--- OUTSIDE RECORDS SUMMARY | 2024-06-18 14:29 | XMS_ITS | Encounter Summary ---
Author Organization [employer] Address 75 [facility] [place] [address] Care Team Providers Care Brake Mechanic Name Role Phone María Elena Zuleta MD Primary Care Provider + Seven Ly RN Unavailable [phone] Reason for Visit * Reason Comments Med Refill Encounter Details Date Type Department Care Team ([facility] st Contact Info) Description 05/24/2023 Refill [facility] 230 [place], [place] [phone] María Elena Zuleta MD 230 [place], [place] [phone] Social History Tobacco Use Types Packs/Day Years [...] PM EDT Office Visit [facility] [address] [place] [address] Serena Daniel, OD [address] [place] [address] documented as of this encounter Visit Diagnoses Not on filedocumented in this encounter Care Teams Brake Mechanic Relationship Specialty Start Date End Date María Elena Zuleta MD 230 [place] [address] PCP - General Family Medicine 06/13/17 Seven Ly RN [address] [place] [address] Radio RepairerAged Or Disabled Carer 05/26/24 documented as of this encounter
--- OUTSIDE RECORDS SUMMARY | 2024-06-18 14:29 | XMS_ITS | Clinical Summary ---
Author Organization [employer] Address 75 [facility] 7 [place] [address] Care Team Providers Care Clinical Nursing Assistant Name Role Phone María Elena Zuleta MD Primary Care Provider + Seven Ly RN Unavailable [phone] Allergies Active Allergy Reactions Criticality Noted [...] Date Type Department Care Team Description 06/12/2024 [facility] Information Management [address] [place] [address] Emani Bird MD 06/12/[address] [address] Karuna Slade RN Results 06/05/2024 [facility] Information [address] [address] Emani Bird MD 06/04/[address] [address] María Elena Zlueta MD Nurse Triage 06/04/[address] [address] Seven Ly, RN Care Management (C3CM- f/u call) 06/04/2024 [facility] Information [address] [address] Emani Bird MD 06/03/2024 Patient Outreach [address] [address] María Elena Zuleta MD Care Coordination (SDOH/mail) 06/02/2024 3:15 PM EST Office Visit [address] [address] Sanju Quijano CNM Vaginal discharge (Primary Dx); Abnormal uterine bleeding (AUB) 06/02/[address] [address] María Elena Zuleta MD telephone call 06/02/2024 Travel 06/02/[address] [address] María Elena Zuleta MD Call Back Request 06/01/2024 Patient Outreach [address] [place] [address] María Elena Zuleta MD Care Coordination (SDOH) 05/27/2024 3:30 PM EST Office Visit [address] [place] [address] Emani Bird MD Rupture of cyst of right ovary (Primary Dx); IPMN (intraductal papillary mucinous neoplasm) 05/27/2024 Travel 05/26/[address] [address] Seven Ly RN 05/26/[address] [address] Seven Ly, RN Care Management (C3CM- initial assessment/ enrollment) 05/22/2024 Patient Outreach [address] [address] María Elena Zuleat MD Care Coordination (CM/CHW appt reminder) 05/22/2024 Travel 05/21/2024 Patient Outreach [address] [address] María Elena Zuleta MD Care Coordination (CM/CHW outreach) 05/21/[address] [address] María Elena Zuleta MD ER Follow-up 05/21/[address] [phone] Seven Ly, RN 05/19/[address] [address] María Elena Zuleta MD Nurse Triage 05/15/2024 Telephone [facility] [address] [place] [address] Serena Daniel OD 05/14/[address] [address] María Elena Zuleta MD Results 05/13/2024 10:30 AM EST Office Visit [address] [address] María Elena Zuleta MD Visit for preventive health examination (Primary Dx); UTI symptoms; Encounter for immunization 05/13/2024 Orders Only [address] [address] María Elena Zuleta MD 05/13/2024 Travel 05/12/[address] [address] Graciela Weber MA Chart prep 05/07/2024 Patient Outreach [address] [address] María Elena Zuleta MD Pre-visit Planning 04/23/[address] [address] Julius Tamayo, JACKIE 04/01/[address] [address] María Elena Zuleta MD Nurse Triage from [...] PM EDT Office Visit [facility] [address] [place], [place] [phone] Serena Daniel, OD 267 [place] [address] Health Maintenance Due Date Last Done Comments [...] Media Lot # [id number] Lot# Expiration Date [id number] Urine 06/02/2024 4:07 PM EST Sanju Quijano BRI POINT OF CARE TEST ENTER/ EDIT ORDERABLES Final Result * Chlamydia/N. Gonorrhoeae RNA, TMA, Urogenitial (06/02/2024 3:51 PM EST) CT PCR NOT DETECTED Not Detect. [facility] Comment:A not detected test result [...] psychologicalconsequences. NG PCR NOT DETECTED Not Detect. [facility] Comment:A not detected test result [...] PM EST 06/02/2024 5:48 PM EST Narrative [facility] - 06/03/2024 6:16 AM EST Vaginal Sanju LANDIS LAB MICROBIOLOGY - GENERA L ORDERABLES Final Result [facility] [address] [place] [address] [phone] * (ABNORMAL) CBC auto differential (05/27/2024 4:01 PM EST) White Blood Count 10.8 4.8 - 10.8 X10*3/uL [facility] Red Blood Count 3.96(L) 4.20 - 5.50 X10*6/uL [facility] Hemoglobin 11.1(L) 12.0 - 16.0 g/dl [facility] Hematocrit 32.8(L) 37.0 - 47.0 % [facility] Mean Corpuscular Volume 82.8 80.0 - 98.0 fL [facility] Mean Corpuscular Hemoglobin 28.0 27.0 - 33.0 pg [facility] Mean Corpuscular HGB Conc 33.8 31.0 - 35.0 g/dl [facility] Red Cell Distribution Width 14.0 11.0 - 16.0 % [facility] Platelet Count 316 160 - 400 X10*3/uL [facility] Mean Platelet Volume 10.9 9.4 - 12.3 fL [facility] Neutrophils Percent Auto 60.5 45 - 73 % [facility] Imm Gran Pct Auto 0.4 0.0 - 0.4 % [facility] Lymphocytes Percent Auto 24.2 20 - 40 % [facility] Monocytes Percent Auto 9.9 2 - 11 % [facility] Eosinophils Percent Auto 4.4(H) 0 - 4 % [facility] Basophils Percent Auto 0.6 0 - 2 % [facility] NRBC Pct Auto 0.0 0.0 - 0.2 /100WBC [facility] Neutrophils Absolute Auto 6.5 2.0 - 8.3 x10*3/uL [facility] Imm Gran Abs Auto 0.04(H) 0.00 - 0.03 X10*3/uL [facility] Lymphocytes Absolute Auto 2.6 1.2 - 4.9 X10*3/uL [facility] Monocytes Absolute Auto 1.1 0.1 - 1.2 X10*3/uL [facility] Eosinophils Absolute Auto 0.5(H) 0.0 - 0.4 X10*3/uL [facility] Basophils Absolute Auto 0.1 0.0 - 0.2 X10*3/uL [facility] NRBC Abs Auto 0.000 0.0 - 0.012 X10*3/uL [facility] Blood Venous blood specimen / Unknown 05/27/2024 4:01 PM EST 05/27/2024 5:35 PM EST us Emani Bird MD LAB BLOOD ORDERABLES Final Res ult [facility] [address] [place] [address] [phone] * (ABNORMAL) Urinalysis, Complete, with Reflex to Culture (05/13/2024 1:09 PM EST) Color Urine Yellow [facility] Appearance Urine Clear [facility] PH 6.5 5.0 - 9.0 [facility] Glucose Urine UA Negative Negative mg/dL [facility] Urine Blood Negative Negative [facility] Specific [place] - Urine 1.025 1.005 - 1.025 [facility] Urine Protein Negative Neg-Trace mg/dL [facility] Urine Ketones Negative Negative mg/dL [facility] Nitrite Urine Negative Negative [facility] Leukocyte Esterase Urine Small (1+)(A) Negative [facility] RBC Urine 0-2 0 - 2 /HPF [facility] Urine WBC 11-20(A) 0 - 5 /HPF [facility] Urine Squamous Epithelial Cell 6-10 0 - 2 /HPF [facility] Urine Bacteria 1+ None Seen [facility] Hyaline Casts, Urine 0-2 0 - 2 /LPF [facility] 05/13/2024 1:09 PM EST 05/13/2024 4:07 PM EST Narrative [facility] - 05/13/2024 4:38 PM EST Urine, Clean Catch us María Elena Zuleta MD LAB URINE ORDERABLES Fin al Result Performing Organization Address City/[facility]/ZIP Co de Phone Number [facility] [address] [place] [address] [phone] * Culture, Urine, Routine (05/13/2024 1:09 PM EST) Urine Urine specimen obtained by clean catch procedure / Unknown 05/13/2024 1:09 PM EST 05/13/2024 4:41 PM EST Comment:UACC Narrative [facility] - 05/17/2024 8:22 AM EST Viridans streptococcus group Quant > 100,000 cfu/mL Susc N/A Susceptibility not routinely performed on this isolate. Specimen Source: Urine clean catch us María Elena Zuleta MD LAB MICROBIOLOGY - GENER AL ORDERABLES Final Result Performing Organization Address [facility] Co de Phone Number [facility] [address] [place] [phone] * T-SPOT??.TB (05/13/2024 11:57 AM EST) T Spot TB Negative Negative [facility] Comment:A negative test resu lt [...] as aquantitative test. TS PANEL A 0 [facility] TS PANEL B 0 [facility] Negative Control Passed [facility] Positive Control Passed [facility] Comment:For additional infor mation, please refer tohttp://education.Hand Talk/faq/RZO740(This link is being provided for informational/educational purposes only.)THIS TEST WAS PERFORMED AT:[email or web address] [email or web address] [place] [address]SCUHZDHROBERTH GOMEZ MD,PHD 05/13/2024 11:5 7 AM EST 05/13/2024 1:05 PM EST María Elena Zuleta MD LAB BLOOD ORDERABLES Fin al Result [facility] [address] [place] [phone] * Chlamydia/Gonorrhea Vaginal Swab ([place] DPH) (04/10/2024) Chlamydia Vaginal Swab Negative Negative, Indeterminate, None Detected, Invalid, Specimen unsatisfactory for evaluation, Weakly Positive Gonorrhea Vaginal Swab Negative Negative, Indeterminate, None Detected, Invalid, Specimen unsatisfactory for evaluation, Weakly Positive Swab Vaginal structure / Unknown 04/10/2024 Historical Provider LAB MICROBIOLOGY - GENERA L ORDERABLES Final Result * Chlamydia/Gonorrhea Throat Swab ([place] DPH) (04/10/2024) Chlamydia Throat Swab Negative Gonorrhea Throat Swab Negative Swab 04/10/2024 Historical Provider MD LAB MICROBIOLOGY - GENERA L ORDERABLES Final Result * Syphilis Antibodies (DPH) (04/10/2024) Pathologist [facility] Syphilis Abs Nonreactive Borderline, Nonreactive, Weakly Reactive, Inconclusive, Specimen unsatisfactory for evaluation Blood Venous blood specimen / Unknown 04/10/2024 Result [facility] Provider MD LAB BLOOD ORDERABLES Teri l Result * Hepatitis C Antibody ([place] DP) (04/10/2024) Pathologist [facility] Hepatitis C Ab Nonreactive Blood 04/10/2024 Result [facility] MD LAB BLOOD ORDERABLES Teri l Result * HIV Ab/Ag ([place] DP) (04/10/2024) Pathologist [facility] HIV Ag/Ab Nonreactive Blood 04/10/2024 Result [facility] MD LAB BLOOD ORDERABLES Edit ed Result - Final * HPV mRNA E6/E7 w/Reflex to HPV Genotypes 16, 18/45 (01/09/2023 12:03 PM EDT) [facility] HPV nRNA E6/E7 Not Detected Not Detected [facility] Comment:Methodology: Transcr iption-Mediated AmplificationThis assay detects E6/E7 viral messenger RNA (mRNA) from 14high-risk HPV types (16,18,31,33,35,39,45,51,52,56,58,59,66,68).Cervical sources are required for HPV testing.If a vaginal source from a patient who has had atotal hysterectomy with removal of cervix wassubmitted, please contact the testing laboratoryfor alternative testing options.For additional information, please refer tohttp://education.Hand Talk/faq/RBY057y8(This link if provided for information/educational purposes only.)THIS TEST WAS PERFORMED AT:[a][employer] [place] [id number] RASHID MD HPV mRNA E6/E7 TNP [facility] HPV 16 RNA TNP [facility] HPV 18/45 RNA TNP [facility] 01/09/2023 12:0 3 PM EDT 01/10/2023 9:15 AM EDT Sanju Quijano CNM LAB CYTOLOGY ORDERABLES F inal Result [facility] [address] [place] [phone] * Pap Smear (01/09/2023 12:03 PM EDT) 01/09/2023 12:0 3 PM EDT 01/10/2023 9:15 AM EDT Narrative [facility] - 01/22/2023 10:48 AM EDT ----- ------- Name: Vilma Mendez ?Age/Sex: 27/F ? : 1995 Unit#: [id number] ?? Attend Dr: SANJU QUIJANO CNM ?Re01/09/23 ?Status: DEP REF ? Location: [facility] ? Disch: ? ----- ------- SPEC : [id number] ?RECD: 01/10/23 ? STATUS: ??SOUT ? REQ NUM: [id number] ? DEVON: 01/09/23-1203 ? SUBM DR: SANJU [...] 66, 68) ?? HPV testing performed by [facility], [place], [place]. ??See reference laboratory ?? pion of the EMR for entire report. ?Clinical Information LMP: 12/29/2022 Previous PAP test:2021, [facility] HPV positive ? Material Received ?? ThinPrep-Vaginal/Cervical ----- ------- Signed (signature on file) Andres Wood MD 01/22/23 1048 ? ----- ------- ? END OF REPORT ? us Sanju Quijano [facility] LAB CYTOLOGY ORDERABLES F inal Result [facility] [address] [place] [phone] from Last 3 Months or Most Recently Relevant to Health Maintenance [place] [address] [place] [address] [facility]ARD [facility] STAND ADULT Care Teams Clinical Nursing Assistant Relationship Specialty Start Date End Date María Elena Zuleta MD [address] [place] [address] PCP - General Family Medicine 06/13/17 Seven Ly RN [address] [place] [address] Stereotype FinisherDirector Video 05/26/24
--- OUTSIDE RECORDS SUMMARY | 2024-06-18 14:29 | XMS_ITS | Encounter Summary ---
Author Organization [employer] Address 75 [facility] 7[place] [address] Care Team Providers Care Metal Engraver Name Role Phone María Elena Zuleta MD Primary Care Provider + Seven Ly RN Unavailable [phone] Encounter Details Date Type Department Care Team ([facility] st Contact Info) Description 06/05/2024 Telephone [facility] [employer] [facility] [address] [place], [place] [phone] Emani Bird MD [address] [place] [address] Social History Tobacco Use Types Packs/Day Years [...] 07/27/2024 2:30 PM EDT Office Visit [facility] [address] [place] [address] Serena Daniel, OD [address] [place] [address] documented as of this encounter Visit Diagnoses Not on filedocumented in this encounter Additional Health Concerns Assessment Noted Time PHQ-9 Depression Total Score: 6 11/27/19 24 9:34 AM EDT documented as of this encounter Care Teams Metal Engraver Relationship Specialty Start Date End Date María Elena Zuleta MD [address] [place] [address] PCP - General Family Medicine 06/13/17 Seven Ly RN [address] [place] [address] [place] [address] Pattern HandNet Coordinator 05/26/24 documented as of this encounter
--- OUTSIDE RECORDS SUMMARY | 2024-06-18 14:29 | XMS_ITS | Encounter Summary ---
Author Organization [employer] Address 75 [facility] 7[facility] [place] [address] Care Team Providers Care Algorithm Developer Name Role Phone María Elena Zuleta MD Primary Care Provider + Seven Ly RN Unavailable [phone] Reason for Visit * Reason Onset Date Comments Nurse Triage 06/04/2024 Encounter Details Date Type Department Care Team ([facility] st Contact Info) Description 06/04/[address] [facility] [address] [place], [place] [phone] María Elena Zuleta MD [address] [place], [place] [phone] Nurse Triage Social History Tobacco Use Types [...] call back before that. Contact pt at [phone] * Telephone Encounter - Truong Delarosa - 06/04/2024 2:32 PM EST Symptom: Medication Question Outcome: Schedule an urgent appointment (within 4 hours) or talk to a nurse or provider soon Reason: New prescription question The caller accepted this outcome. documented in this encounter Plan of Treatment Upcoming Encounters Date Type Department Care Team ([facility] st Contact Info) Description 07/27/2024 2:30 PM EDT Office Visit [facility] [address] [place], [place] [phone] Serena Daniel, OD [address] [place] [address] documented as of this encounter Visit Diagnoses Not on filedocumented in this encounter Additional Health Concerns Assessment Noted Time PHQ-9 Depression Total Score: 6 11/27/19 24 9:34 AM EDT documented as of this encounter Care Teams Algorithm Developer Relationship Specialty Start Date End Date María Elena Zuleta MD [address] [place] [address] PCP - General Family Medicine 06/13/17 Seven Ly, JACKIE [address] [place] [address] Production Crew SupervisorAudio Video Technician 05/26/24 documented as of this encounter
--- OUTSIDE RECORDS SUMMARY | 2024-06-18 14:29 | XMS_ITS | Encounter Summary ---
Author Organization [employer] Address 75 [facility] 7[facility] [place] [address] Care Team Providers Care Supervisor Bottle House Cleaners Name Role Phone María Elena Zuleta MD Primary Care Provider + Seven Ly RN Unavailable [phone] Reason for Visit * Reason Onset Date Comments triage 08/07/2022 Encounter Details Date Type Department Care Team (Late st Contact Info) Description 08/07/2022 Telephone [facility] 230 [place], [place] [phone] María Elena Zuleta MD 230 [place], [place] [phone] triage Social History Tobacco Use Types Packs/Day [...] July. Pt is advised to come to [facility] Pt requests some testing for STDs. Pt [...] Description 07/27/2024 2:30 PM EDT Office Visit [facility] [address] [place] [address] Serena Daniel OD [address] [place] [address] documented as of this encounter Visit Diagnoses Not on filedocumented in this encounter Care Teams Supervisor Bottle House Cleaners Relationship Specialty Start Date End Date María Elena Zuleta MD [address] [place] [address], [place] [address] PCP - General Family Medicine 06/13/17 Seven Ly RN [address] [place] [address] Mattress PackerFashion Styling Intern 05/26/24 documented as of this encounter
--- OUTSIDE RECORDS SUMMARY | 2024-06-18 14:29 | XMS_ITS | Encounter Summary ---
Author Organization [employer] Address 75 [facility] 7[place] [address] Care Team Providers Care Toolroom Checker Name Role Phone María Elena Zuleta MD Primary Care Provider + Seven Ly RN Unavailable [phone] Encounter Details Date Type Department Care Team ([facility] st Contact Info) Description 06/12/2024 Telephone [facility] Information Management [address] [place], [place] [phone] Emani Bird MD [address] [place] [address] Social History Tobacco Use Types Packs/Day Years [...] 06/12/2024 3:24 PM EST Incoming fax from [facility] requesting MRI order to be update to MRI Abdomen WWO Contrast. Please advise! documented in this encounter Plan of Treatment Upcoming Encounters Date Type Department Care Team (Late st Contact Info) Description 07/27/2024 2:30 PM EDT Office Visit [facility] [address] [place] [address] Serena Daniel, OD [address] [place] [address] documented as of this encounter Visit Diagnoses Not on filedocumented in this encounter Additional Health Concerns Assessment Noted Time PHQ-9 Depression Total Score: 6 11/27/19 24 9:34 AM EDT documented as of this encounter Care Teams Toolroom Checker Relationship Specialty Start Date End Date María Elena Zuleta MD [address] [place] [address] PCP - General Family Medicine 06/13/17 Seven Ly RN [address] [place] [address] Tear Down WorkerUnindentured Apprentice 05/26/24 documented as of this encounter
--- OUTSIDE RECORDS SUMMARY | 2024-06-18 14:29 | XMS_ITS | Encounter Summary ---
Author Organization [employer] Address 75 [facility] 7[place] [address] Care Team Providers Care Senior Microsoft Net Developer Name Role Phone María Elena Zuleta MD Primary Care Provider + Seven Ly RN Unavailable [phone] Reason for Visit * Reason Comments Care Coordination SDOH/mail Encounter Details Date Type Department Care Team (Latest Contact Info) Description 06/03/2024 Patient Outreach [facility] 230 [place], [place] [phone] María Elena Zuleta MD 230 [place], [place] [phone] Care Coordination (SDOH/mail) Social History Tobacco Use [...] 07/27/2024 2:30 PM EDT Office Visit [facility] [address] [place], [place] [phone] Serena Daniel, OD [address] [place] [address] documented as of this encounter Visit Diagnoses Not on filedocumented in this encounter Additional Health Concerns Assessment Noted Time PHQ-9 Depression Total Score: 6 11/27/19 24 9:34 AM EDT documented as of this encounter Care Teams Senior Microsoft Net Developer Relationship Specialty Start Date End Date María Elena Zuleta MD [address] [place] [address] PCP - General Family Medicine 06/13/17 Seven Ly RN [address] [place] [phone] Extractor And Wringer OperatorTin Can Feeder 05/26/24 documented as of this encounter
--- OUTSIDE RECORDS SUMMARY | 2024-06-18 14:30 | XMS_ITS | Encounter Summary ---
Author Organization [employer] Address 75 [facility] 7t [place] [address] Care Team Providers Care Operator Automated Process Name Role Phone María Elena Zuleta MD [...] t he electric, gas, oil or water [employer] threatened to shut off services in your [...] Description 07/27/2024 2:30 PM EDT Office Visit [facility] [address] [place] [address] TarkaSerena, OD [address] [place] [address] documented as of this encounter Visit Diagnoses Not on filedocumented in this encounter Additional Health Concerns Assessment Noted Time PHQ-9 Depression Total Score: 6 11/27/19 24 9:34 AM EDT documented as of this encounter Care Teams Operator Automated Process Relationship Specialty Start Date End Date María Elena Zuleta MD [address] [place] [address] PCP - General Family Medicine 06/13/17 documented as of this encounter
--- OUTSIDE RECORDS SUMMARY | 2024-06-18 14:30 | XMS_ITS | Encounter Summary ---
Author Organization [employer] Address [address] [facility] [address] [address] Care Team Providers Care Pool Coordinator Name Role Phone María Elena Zuleta MD Primary Care Provider + Reason for Visit * Reason Onset Date Comments ER Follow-up 05/21/2024 Encounter Details Date Type Department Care Team ([facility] st Contact Info) Description 05/21/2024 Telephone [facility] MEDICINE [address] [place], [place] [phone] María Elena Zuleta MD 230 [place], [place] [phone] ER Follow-up Social History Tobacco Use Types [...] is attempting to transfer care to a [facility] practice in [place]. Pt reports that pcp was treating her for UTI and checking labs for STI when her pain was caused by a cyst. Pt states she was diagnosed with a UTI in ED as well. Reviewed recommendations forf/u per [facility] note. Pt reports she was discharged with Ibuprofen 600 mg prn for pain. Reports that she brought [facility] records to [facility] [employer] and is awaiting call back from that office for appointment scheduling. Advised pt f/u is also recommended for CT findings. Pt declines to schedule f/u with pcp. States sheprefers evaluation with alternate provider and does not want to wait until next available pcp appt in July. Pt agrees to f/u with team provider 05/27/24. Pt agrees to call [facility] or come to [facility] prn based on symptoms. * Telephone Encounter - Amanda Darden - 05/21/2024 12:26 PM EST Tc from pt returning call * Telephone Encounter - Pooja Moreno RN - 05/21/2024 11:27 AM EST Pt evaluated in [facility] 05/20/24 Dx: right lower ABD pain, right hemorrhagic ovarian cyst. 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 Recommendation is for repeat CT in a few months or MRI. Pt was discharged home with recommendation to f/u with [facility]. T/C to pt for status check and scheduled f/u if needed. No answer, v/m left to return call to Red team nurses. * Telephone Encounter - Jose C Nunez - 05/21/2024 9:11 AM EST Patient calling to report ED visit on : Date: 05/20/24 Hospital: [facility] Seen for: Cist in right pelvic Symptomatic No Patient advised will forward to team nurse for follow up documented in this encounter Plan of Treatment Upcoming Encounters Date Type Department Care Team (Late st Contact Info) Description 07/27/2024 2:30 PM EDT Office Visit [facility] OPTOMETRY [address] [place] [address] Serena Daniel, OD [address] [place] [address] documented as of this encounter Visit Diagnoses Not on filedocumented in this encounter Additional Health Concerns Assessment Noted Time PHQ-9 Depression Total Score: 6 11/27/19 24 9:34 AM EDT documented as of this encounter Care Teams Pool Coordinator Relationship Specialty Start Date End Date María Elena Zlueta MD 230 [place] [address] PCP - General Family Medicine 06/13/17 documented as of this encounter
--- OUTSIDE RECORDS SUMMARY | 2024-06-18 14:30 | XMS_ITS | Encounter Summary ---
Author Organization [employer] Address 75 [facility] 7t [place] [address] Care Team Providers Care Thermometer Tester Name Role Phone María Elena Zuleta MD Primary Care Provider + Encounter Details Date Type Department Care Team ([facility] st Contact Info) Description 05/21/2024 Telephone [facility] MEDICINE 230 [place], [place] [phone] Seven Ly RN [address] [place] [address] Social History Tobacco Use Types Packs/Day Years [...] corporis, and H. Pylori infection. Specialists include [facility] Dental, Optometry, [facility] GI, PATIENT INSURANCE CLERK, andOphthalmology. ED visits within the last 12 months include [facility] 05[place]24, [facility] 05/02/24, [facility] 12/08/23, and [facility] 10/10/23. Last appointment in PCP office on 05/13/24. Next appointment scheduled for 07/27/24 at 2:30pm with [facility] Optometry. documented in this encounter Plan of Treatment Upcoming Encounters Date Type Department Care Team (Late st Contact Info) Description 07/27/2024 2:30 PM EDT Office Visit [facility] OPTOMETRY [address] [place] [address] Serena Daniel, DARIN [address] [place] [address] documented as of this encounter Visit Diagnoses Not on filedocumented in this encounter Additional Health Concerns Assessment Noted Time PHQ-9 Depression Total Score: 6 11/27/19 24 9:34 AM EDT documented as of this encounter Care Teams Thermometer Tester Relationship Specialty Start Date End Date María Elena Zuleta MD [address] [place] [address] PCP - General Family Medicine 06/13/17 documented as of this encounter
--- OUTSIDE RECORDS SUMMARY | 2024-06-18 14:30 | XMS_ITS | Encounter Summary ---
Author Organization [employer] Address 75 [facility] 7[place] [address] Care Team Providers Care Medical Equipment Repair Technician Name Role Phone María Elena Zuleta MD Primary Care Provider + Reason for Visit * Reason Onset Date Comments Nurse Triage 05/19/2024 Encounter Details Date Type Department Care Team ([facility] st Contact Info) Description 05/19/2024 Telephone [facility] MEDICINE 230 [place], [place] [phone] María Elena Zuleta MD 230 [place], [place] [phone] Nurse Triage Social History Tobacco Use Types [...] Pt advised of disposition, agrees to seek [facility] today for exam . Reviewed WIC [...] caller accepted this outcome. Contact pt at [phone] documented in this encounter Plan of Treatment Upcoming Encounters Date Type Department Care Team (Late st Contact Info) Description 07/27/2024 2:30 PM EDT Office Visit [facility] OPTOMETRY [address] [place], [place] [phone] Serena Daniel OD [address] [place] [address] documented as of this encounter Visit Diagnoses Not on filedocumented in this encounter Additional Health Concerns Assessment Noted Time PHQ-9 Depression Total Score: 6 11/27/19 24 9:34 AM EDT documented as of this encounter Care Teams Medical Equipment Repair Technician Relationship Specialty Start Date End Date María Elena Zuleta MD [address] [place] [address] PCP - General Family Medicine 06/13/17 documented as of this encounter
--- OUTSIDE RECORDS SUMMARY | 2024-06-18 14:30 | XMS_ITS | Encounter Summary ---
Author Organization [employer] Address 75 [facility] [place] [address] Care Team Providers Care Anthropologist Name Role Phone María Elena Zuleta MD Primary Care Provider + Seven Ly RN Unavailable [phone] Reason for Visit * Reason Onset Date Comments Results 07/29/2023 Encounter Details Date Type Department Care Team ([facility] st Contact Info) Description 07/29/2023 Telephone [facility] MEDICINE 230 [place], [place] [phone] María Elena Zuleta MD [address] [place], [place] [phone] Results Social History Tobacco Use Types Packs/Day [...] labs, swab Date when done: 07/24 Facility: [facility] Please contact pt at [phone] documented in this encounter Plan of Treatment Upcoming Encounters Date Type Department Care Team (Late st Contact Info) Description 07/27/2024 2:30 PM EDT Office Visit [facility] OPTOMETRY [address] [place] [address] TarSerena barfield, OD [address] [place] [address] documented as of this encounter Visit Diagnoses Not on filedocumented in this encounter Care Teams Anthropologist Relationship Specialty Start Date End Date María Elena Zuleta MD 230 [place] [address] PCP - General Family Medicine 06/13/17 Seven Ly RN [address] [place] [address] Relay TechnicianPublication Specialist 05/26/24 documented as of this encounter
--- OUTSIDE RECORDS SUMMARY | 2024-06-18 14:30 | XMS_ITS | Encounter Summary ---
Author Organization [employer] Address 75 [facility] 7[place] [address] Care Team Providers Care Dam Tender Name Role Phone María Elena Zuleta MD Primary Care Provider + Reason for Visit * Reason Comments Care Coordination CM/CHW appt reminder Encounter Details Date Type Department Care Team (Latest Contact Info) Description 05/22/2024 Patient Outreach [facility] MEDICINE 230 [place], [place] [phone] MaríaE lena Zuleta MD [address] [place], [place] [phone] Care Coordination (CM/CHW appt reminder) Social History [...] EST CHW Ivette Nunez sent text through [employer] for Appt. reminder for initial assessment scheduled for 05/26/24 @ 103AM tele appt with JOVANNA Ly RN. documented in this encounter Plan of Treatment Upcoming Encounters Date Type Department Care Team ([facility] st Contact Info) Description 07/27/2024 2:30 PM EDT Office Visit [facility] OPTOMETRY [address] [place] [address] Tarka, Serena, OD [address] [place] [address] documented as of this encounter Visit Diagnoses Not on filedocumented in this encounter Additional Health Concerns Assessment Noted Time PHQ-9 Depression Total Score: 6 11/27/19 24 9:34 AM EDT documented as of this encounter Care Teams Dam Tender Relationship Specialty Start Date End Date María Elena Zuleta MD [address] [place] [address] PCP - General Family Medicine 06/13/17 documented as of this encounter
--- OUTSIDE RECORDS SUMMARY | 2024-06-18 14:30 | XMS_ITS | Encounter Summary ---
Author Organization [employer] Address 75 [facility] 7t [place] [address] Care Team Providers Care Truck Body Repairer Name Role Phone María Elena Zuleta MD Primary Care Provider + Seven Ly RN Unavailable [phone] Reason for Referral * Imaging (Routine) - Authorized Specialty Diagnoses / Procedures Referred By Contac t Referred To Contact Radiology Diagnoses IPMN (intraductal papillary mucinous neoplasm) Procedures MRI PANCREAS WO CONTRAST Emani Bird MD [address] [place] [address] Phone: tel: fax: [address] Phone: tel: fax: Referral ID Status Reason Start Date Expiration Date V isits Requested Visits Authorized [id number] Authorized 06/02/2024 06/02/2025 1 1 Reason for Visit * Reason Comments Abdominal Pain Encounter Details Date Type Department Care Team (Late st Contact Info) Description 05/27/2024 3:30 PM EST Office Visit [facility] MEDICINE 230 [place], [place] [phone] Emani Bird MD [address] [place] [phone] Rupture of cyst of right ovary (Primary [...] acute visit/ER follow-up. She was seen at [facility] ER 05/20/24 for abdominal pain.US showed ruptured R ovarian cyst and CT showed possible IPMN. She is feeling well, back to baseline today, eating and drinking, going to the bathroom. Acute Concerns: Per gynecology teacher, repeat CBC, and have consult. 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 Review of Systems Constitutional: [...] WEEK. REPEAT, Disp: 9 patch, Rfl: 0 Mongolian Translation: Patient is bilingual and declines translation [...] beans, leafy vegetables. Does she have a gynecology teacher appointment scheduled to f/u on the ovarian cyst? documented in this encounter Plan of Treatment Upcoming Encounters Date Type Department Care Team ([facility] st Contact Info) Description 07/27/2024 2:30 PM EDT Office Visit [facility] OPTOMETRY [address] [place] [address] Serena Daniel, OD 267 [place] [address] Scheduled Orders Name Type Priority Associated Diagnoses [...] Blood Count 10.8 4.8 - 10.8 X10*3/uL [facility] Red Blood Count 3.96(L) 4.20 - 5.50 X10*6/uL [facility] Hemoglobin 11.1(L) 12.0 - 16.0 g/dl [facility] Hematocrit 32.8(L) 37.0 - 47.0 % [facility] Mean Corpuscular Volume 82.8 80.0 - 98.0 fL [facility] Mean Corpuscular Hemoglobin 28.0 27.0 - 33.0 pg [facility] Mean Corpuscular HGB Conc 33.8 31.0 - 35.0 g/dl [facility] Red Cell Distribution Width 14.0 11.0 - 16.0 % [facility] Platelet Count 316 160 - 400 X10*3/uL [facility] Mean Platelet Volume 10.9 9.4 - 12.3 fL [facility] Neutrophils Percent Auto 60.5 45 - 73 % [facility] Imm Gran Pct Auto 0.4 0.0 - 0.4 % [facility] Lymphocytes Percent Auto 24.2 20 - 40 % [facility] Monocytes Percent Auto 9.9 2 - 11 % [facility] Eosinophils Percent Auto 4.4(H) 0 - 4 % [facility] Basophils Percent Auto 0.6 0 - 2 % [facility] NRBC Pct Auto 0.0 0.0 - 0.2 /100WBC [facility] Neutrophils Absolute Auto 6.5 2.0 - 8.3 x10*3/uL [facility] Imm Gran Abs Auto 0.04(H) 0.00 - 0.03 X10*3/uL [facility] Lymphocytes Absolute Auto 2.6 1.2 - 4.9 X10*3/uL [facility] Monocytes Absolute Auto 1.1 0.1 - 1.2 X10*3/uL [facility] Eosinophils Absolute Auto 0.5(H) 0.0 - 0.4 X10*3/uL [facility] Basophils Absolute Auto 0.1 0.0 - 0.2 X10*3/uL [facility] NRBC Abs Auto 0.000 0.0 - 0.012 X10*3/uL [facility] Blood Venous blood specimen / Unknown 05/27/2024 4:01 PM EST 05/27/2024 5:35 PM EST us Emani Bird MD LAB BLOOD ORDERABLES Final Res ult [facility] [address] [place] [address] [phone] documented in this encounter Visit Diagnoses Diagnosis Rupture of cyst of right ovary- Primary IPMN (intraductal papillary mucinous neoplasm) Neoplasm of unspecified nature of digestive system documented in this encounter Additional Health Concerns Assessment Noted Time PHQ-9 Depression Total Score: 6 11/27/19 24 9:34 AM EDT documented as of this encounter Care Teams Truck Body Repairer Relationship Specialty Start Date End Date María Elena Zuleta MD [address] [place] [address] PCP - General Family Medicine 06/13/17 Seven Ly RN [address] [place] [address] Aeronautical Engineering TeacherManager Terminal 05/26/24 documented as of this encounter
--- OUTSIDE RECORDS SUMMARY | 2024-06-18 14:30 | XMS_ITS | Encounter Summary ---
Author Organization [employer] Address 75 [facility] 7t [place] [address] Care Team Providers Care Packaging Manager Name Role Phone María Elena Zuleta MD Primary Care Provider + Seven Ly RN Unavailable [phone] Encounter Details Date Type Department Care [...] 2:30 PM EDT Office Visit [facility] OPTOMETRY [address] [place] [address] Serena Daneil, OD [address] [place] [address] documented as of this encounter Visit Diagnoses Not on filedocumented in this encounter Additional Health Concerns Assessment Noted Time PHQ-9 Depression Total Score: 6 11/27/19 24 9:34 AM EDT documented as of this encounter Care Teams Packaging Manager Relationship Specialty Start Date End Date María Elena Zuleta MD [address] [place] [address] PCP - General Family Medicine 06/13/17 Seven Ly RN [address] [place] [address] Brush SanderManager Document 05/26/24 documented as of this encounter
--- OUTSIDE RECORDS SUMMARY | 2024-06-18 14:30 | XMS_ITS | Encounter Summary ---
Author Organization [employer] Address [address] [facility] 7[place] [address] Care Team Providers Care Diamond Broker Name Role Phone María Elena Zuleta MD Primary Care Provider + Reason for Visit * Reason Comments Care Coordination CM/CHW outreach Encounter Details Date Type Department Care Team (Latest Contact Info) Description 05/21/2024 Patient Outreach [facility] MEDICINE 230 [place], [place] [phone] María Elena Zuleta MD 230 [place] [address] Care Coordination (CM/CHW outreach) Social History Tobacco [...] outbound call to patient introducing herself from [facility] CM Department, in regard to offering services. Patient's name and was confirmed. Patient agrees to participate in program. Appt. for initial assessment scheduled for 05/26/24 @ 103AM tele appt with CM Seven Ly RN. CHW reinforced direct contact information or for any additional questions or concerns and extended clinic hours on Mondays and Wednesdays, and Walk-In Urgent Care Located in [facility] of [facility]. Patient provided with after-hours line for [facility], , which offer night time triage service and option to transfer to customer consultant provider if needed. Patient verbalizes understanding, and able to repeat back to senior underwriter. documented in this encounter Plan of Treatment Upcoming Encounters Date Type Department Care Team ([facility] st Contact Info) Description 07/27/2024 2:30 PM EDT Office Visit [facility] OPTOMETRY [address] [place] [address] [place] [address] Nimcocarolyne Serena, OD [address] [place] [address] documented as of this encounter Visit Diagnoses Not on filedocumented in this encounter Additional Health Concerns Assessment Noted Time PHQ-9 Depression Total Score: 6 11/27/19 24 9:34 AM EDT documented as of this encounter Care Teams Diamond Broker Relationship Specialty Start Date End Date María Elena Zuleta MD [address] [place] [address] PCP - General Family Medicine 06/13/17 documented as of this encounter
--- OUTSIDE RECORDS SUMMARY | 2024-06-18 14:30 | XMS_ITS | Encounter Summary ---
Author Organization [employer] Address 75 [facility] 7[place] [address] Care Team Providers Care Db2 Systems Programmer Name Role Phone María Elena Zuleta MD Primary Care Provider + Reason for Visit * Reason Onset Date Comments Results 05/14/2024 Encounter Details Date Type Department Care Team ([facility] st Contact Info) Description 05/14/2024 Telephone [facility] MEDICINE [address] [place], [place] [phone] María Elena Zuleta MD 230 [place], [place] [phone] Results Social History Tobacco Use Types Packs/Day [...] 10:21 AM EST TC placed to patient [phone] in regards to below message. Patient verbalized understanding brenda she is currently at [facility] d/t continued symptoms post abx completion. Patient reports continued back pain and continued pelvic pain. Patient continues with pain with urination and post urination as well. Patient advised to stay at [facility] to be evaluated and to follow their POC. Patient advised she may be Rx'd abx again which she should take in their entirety and if her s/s do not improveagain then she should call [facility] for a f/u appointment/re-evaluation. Patient verbalized understanding. [...] nurse regarding prior message. Contact pt at [phone] * Telephone Encounter - Viviane Go RN [...] Urinalysis, Complete, Date when done: 05/13 Facility: [facility] documented in this encounter Plan of Treatment Upcoming Encounters Date Type Department Care Team (Late st Contact Info) Description 07/27/2024 2:30 PM EDT Office Visit [facility] OPTOMETRY [address] [place] [address] Serena Daniel, OD [address] [place] [address] documented as of this encounter Visit Diagnoses Diagnosis Recurrent UTI- Primary Urinary tract infection, site not specified documented in this encounter Additional Health Concerns Assessment Noted Time PHQ-9 Depression Total Score: 6 11/27/19 24 9:34 AM EDT documented as of this encounter Care Teams Db2 Systems Programmer Relationship Specialty Start Date End Date María Elena Zuleta MD [address] [place] [phone] PCP - General Family Medicine 06/13/17 documented as of this encounter
--- OUTSIDE RECORDS SUMMARY | 2024-06-18 14:30 | XMS_ITS | Encounter Summary ---
Author Organization [employer] Address 75 [facility] 7 [place] [address] Care Team Providers Care Distributor Cleaner Name Role Phone María Elena Zuleta MD Primary Care Provider + Seven Ly RN Unavailable [phone] Reason for Visit * Reason Onset Date Comments Care Management 05/26/2024 C3CM- initial as sessment/ enrollment Encounter Details Date Type Department Care Team ([facility] st Contact Info) Description 05/26/[address] [facility] MEDICINE [address] [place], [place] [phone] Seven Ly, RN [address] [place], [place] [phone] Care Management (C3- initial assessment/ enrollment) Social [...] Hx anxiety. Per patient, being followed by [facility] GI and [facility] EXERCISE PHYSIOLOGIST CERTIFIED. She states she was dx with H.Pylori [...] Patient states she was previously followed by [facility] for therapy. Shestates she fell out of [...] to resources. Per patient, recently seen at [facility] and Dx with BV, UTI and pelvic cyst? She states she was prescribed several medications which she reports taking as prescribed. Per patient, symptoms have improved and deniesany pain at this time. Patient is scheduled for ED f/u tomorrow and denies any barriers to attending the visit. She states she also called [facility] EXERCISE PHYSIOLOGIST CERTIFIED and has an upcoming appt scheduled. Patient denies any immediate needs or concerns at this time. Care management program explained and contact information given. Patient verbalizes understanding, and able to repeat back to designer writer. A follow up call will be placed within 10 days, patient agrees with plan. documented in this encounter Plan of Treatment Upcoming Encounters Date Type Department Care Team ([facility] st Contact Info) Description 07/27/2024 2:30 PM EDT Office Visit [facility] OPTOMETRY [address] [place] [address] Serena Daniel, OD [address] [place] [address] documented as of this encounter Visit Diagnoses Not on filedocumented in this encounter Additional Health Concerns Assessment Noted Time PHQ-9 Depression Total Score: 6 11/27/19 24 9:34 AM EDT documented as of this encounter Care Teams Distributor Cleaner Relationship Specialty Start Date End Date María Elena Zuleta MD [address] [place] [address] PCP - General Family Medicine 06/13/17 Seven Ly RN [address] [place] [address] ForemanAircraft Armorer 05/26/24 documented as of this encounter
--- OUTSIDE RECORDS SUMMARY | 2024-06-18 14:30 | XMS_ITS | Encounter Summary ---
Author Organization [employer] Address [address] [facility] [address] 7[address] [place] [address] Care Team Providers Care Federal Appellate Clerk Name Role Phone María Elena Zuleta MD Primary Care Provider + Seven Ly RN Unavailable [phone] Encounter Details Date Type Department Care Team ([facility] st Contact Info) Description 05/26/2024 Telephone [facility] MED[facility]INE [address] [place], [place] [phone] Seven Ly, RN [address] [place], [place] [phone] Social History Tobacco Use Types Packs/Day Years [...] available until June so she went to [facility], had an ultrasound, vaginal swab and [...] sick visit or to present at the [facility] for unresolved symptoms if no appointment was available with Dr. Zuleta. Patient informed she can change her PCP if she desires. Patient stated she no longer wants to change PCP at this time. * Telephone Encounter - Seven Ly RN - 05/26/2024 11:15 AM EST Patient requesting to change PCP. Per patient, does not feel satisfied with care. Patient can be contacted at [phone]. documented in this encounter Plan of Treatment Upcoming Encounters Date Type Department Care Team ([facility] st Contact Info) Description 07/27/2024 2:30 PM EDT Office Visit [facility] OPTOMETRY [address] [place] [address] Serena Daniel, OD [address] [place] [address] documented as of this encounter Visit Diagnoses Not on filedocumented in this encounter Additional Health Concerns Assessment Noted Time PHQ-9 Depression Total Score: 6 11/27/19 24 9:34 AM EDT documented as of this encounter Care Teams Federal Appellate Clerk Relationship Specialty Start Date End Date María Elena Zuleta MD 230 [place] [address] PCP - General Family Medicine 06/13/17 Seven Ly RN [address] [place] [address] National Coverage SpecialistBriquette Machine Operator Helper 05/26/24 documented as of this encounter
[2024-06-19 12:51] LABS: Bacterial Vaginosis PCR NEGATIVE (Negative); Candida Group PCR NOT DETECTED (Not Detect); Candida glab krusei PCR NOT DETECTED (Not Detect); Trichomonas vaginalis PCR NOT DETECTED (Not Detect)
[2024-06-19 13:58] LABS: CT PCR NOT DETECTED (Not Detect.); NG PCR NOT DETECTED (Not Detect.)
== END 2024-06-18 11:13 | disposition home or self-care (01) ==
LOC: HO.LNP 11:12
PROVIDERS: PCP Internal Medicine; Visit Provider Obstetrics & Gynecology
DX: N83.209 Unspecified ovarian cyst, unspecified side (principal); N89.8 Other specified noninflammatory disorders of vagina
CPT/HCPCS: 81515; 87491; 87591; 99212

== ENCOUNTER 2024-06-18 11:12 | Outpatient (AMB) | payer MEDICAID, SELFPAY ==
[2024-06-18 11:14] VITALS: BP 120/74; BMI 23.8
--- NOTE | 2024-06-18 11:14 | MHC.OFFVIS ---
Vital Signs 06/18/24 11:14 Height 5 ft 2 in Weight 130 lb BMI 23.8 BP 120/74 Intake Visit Reasons: ER follow up Allergies No Known Allergies Allergy (Verified 12/25/23 15:54) HPI Comments Details: The patient is presenting for ED follow-up . The patient went to emergency room few weeks ago [facility] ED was diagnosed with ruptured ovarian cyst, no records available. Since then the patient is doing well with no complaints no pain complaining of vulvovaginal discharge whitish in color with no associated itching or [facility] History Constipation Nausea & vomiting Family History Mother Diabetes mellitus H/O cancer of uterus H/O: hysterectomy Bipolar 1 disorder, mixed Maternal Grandmother Diabetes mellitus Family/Other Breast CA Sister Autism Brother Autism Bipolar 1 disorder, mixed Social History Household Members: Children Both parents involved: Yes Caregiver staying overnight: No Housing: Apartment Are you a primary plant care worker to a significant other at home: No Do you presently have visiting nurse or other home services: No 75 years or older and lives alone: No Alcohol intake: never Patient Tobacco Use Status: Never used Tobacco Substance Use Type: Marijuana Agree to transfusion: Yes service: No Current occupational status: unemployed Sexual orientation: Straight/Heterosexual Gender identity: Female Cognitive needs: No Hearing needs: No Vision needs: No Female Reproductive History Menstrual Age of Menarche: 10 Review of Systems Const All systems reviewed & are unremarkable except as noted in HPI and below Physical Exam Vital Signs: Last Vital Signs BP 120/74 06/18/24 11:14 BMI result Body Mass Index 23.8 General: Yes no CVA tenderness External Female Exam: normal external appearance and normal appearance of the urethra Speculum Exam - Vagina: normal appearance of the vagina, normal palpation, no lesions and no masses Speculum Exam - Cervix: normal appearance of the cervix, normal palpation, no lesions, no masses and nontender Bimanual exam- vagina & uterus: normal bimanual exam, normal palpation, uterine size normal, normal palpation, uterine shape normal, No Cervical tenderness present and non-tender Bimanual Exam- Adnexa, other: normal adnexae Back/Spine/Pelvis Back: no CVA tenderness Assessment & Plan Assessment & Plan (1) Ovarian cyst: Code(s): N83.209 - Unspecified ovarian cyst, unspecified side Category: Medical Plan: Will order pelvic ultrasound. Instructions given the patient to schedule an ultrasound and a follow-up appointment in 2 weeks. (2) Vaginal discharge: Code(s): N89.8 - Other specified noninflammatory disorders of vagina Category: Medical Plan: GC/CT with BV panel collected, will check the results and treat accordingly. All questions answered, the patient verbalized understanding Orders: Orders US pelvic and transvaginal Today N83.209 - Unspecified ovarian cyst, unspecified side Coding Level of Care Code Est Pt Level 3 (61576) Diagnoses Ovarian cyst N83.209 Vaginal discharge N89.8
--- OUTSIDE RECORDS SUMMARY | 2024-06-18 11:51 | XMS_ITS | Encounter Summary ---
Author Organization [employer] Address [address] [facility] 7[place] [address] Care Team Providers Care Swimming Pool Serviceperson Name Role Phone María Elena Zuleta MD Primary Care Provider + Seven Ly RN Unavailable [phone] Reason for Visit * Reason Comments Care Coordination SDOH Encounter Details Date Type Department Care Team (Latest Contact Info) Description 06/01/2024 Patient Outreach [facility] MEDICINE [address] [place], [place] [phone] María Elena Zuleta MD [address] [place] [address] Care Coordination (SDOH) Social History Tobacco Use Types Packs/Day Years [...] from getting things needed for daily living? I am not sure 06/01/2024 Utilities Answer Date Recorded In the past [...] encounter Progress Notes * Ivette Nunez - 06/01/2024 3:07 PM EST CHW Ivette Nunez placed outbound call to patient to follow up on SDOH needs. Patient's name, and address confirmed. Patient states is doing well. 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 CHW will help patient with resources for the right school in [facility]. CHW will mail out resources and will follow up with patient within 5-7 days. No other SDOH nee ded at this time. No further questions or concerns. CHW reinforced direct contact information or CM for any additional questions or concerns and extended clinic hours on Mondays and Wednesdays, and Walk-In Urgent Care Located in [facility]. Patient provided with after-hours line for [facility], , which offer night time triage service and option to transfer to cotton breeder provider if needed. Patient verbalizes understanding, and able to repeat back to loan underwriter. A follow up call willbe placed within 10 days, patient agrees with plan. documented in this encounter Plan of Treatment Upcoming Encounters Date Type Department Care Team (Late st Contact Info) Description 07/27/2024 2:30 PM EDT Office Visit [facility] [address] [place], [place] [phone] Fredy Serena, OD [address] [place] [address] documented as of this encounter Visit Diagnoses Not on filedocumented in this encounter Additional Health Concerns Assessment Noted Time PHQ-9 Depression Total Score: 6 11/27/19 24 9:34 AM EDT documented as of this encounter Care Teams Swimming Pool Serviceperson Relationship Specialty Start Date End Date María Elena Zuleta MD [address] [place] [address] [phone] PCP - General Family Medicine 06/13/17 Seven Ly RN [address] [place] [phone] Bag AdjusterTunnel Elastic Operator Zigzag 05/26/24 documented as of this encounter
--- OUTSIDE RECORDS SUMMARY | 2024-06-18 11:51 | XMS_ITS | Encounter Summary ---
Author Organization [employer] Address 75 [facility] 7[facility] [place] [address] Care Team Providers Care Flight Attendant Inflight Services Name Role Phone María Elena Zuleta MD Primary Care Provider + Seven Ly RN Unavailable [phone] Encounter Details Date Type Department Care Team ([facility] st Contact Info) Description 06/02/2024 3:15 PM EST Office Visit [facility] MEDICINE [address] [place], [place] [phone] Esmer Ellis CNM [address] [place], [place] [phone] Vaginal discharge (Primary Dx); Abnormal uterine bleeding (AUB) Social History Tobacco Use Types Packs/Day Years [...] your housing situation today? I have tricialiborio ismon 02/18/[address] you li [...] Sign Reading Time Taken Comments Blood Pressure 113/78 06/02/2024 3:36 PM EST Pulse 77 06/02/2024 3:36 PM EST Temperature 36.2 ??C (97.1 ??F) 06/02/2024 3:36 PM ES T Respiratory Rate 20 06/02/2024 3:36 PM EST Oxygen Saturation 98% 06/02/2024 3:36 PM EST Inhaled Oxygen Concentration - - Weight 58.9 kg (129 lb 12.8 oz) 06/02/2024 3:36 PM EST Height 157.5 cm (5' 2 ) 06/02/2024 3:36 PM EST Body Mass Index 23.74 06/02/2024 3:36 PM EST documented in this encounter Progress Notes * Esmer Ellis CNM - 06/02/2024 3:15 PM EST Subjective Patient ID: Vilma Andrews is a 28 y.o. female who presents for vulvar irritation Per triage, vulvar irritation for past few days and discharge and what sounds like intermenstrual bleeding. Treated for bacterial vaginosis recently, UTI earlier this month. Urinary symptoms resolved. Frustrated by frequent bacterial vaginosis, would like to discuss prevention strategies. Previously on Xulane patch, but stopped earlier this month as she is not currently sexually active. Had unexpected early period on 05/23 after stopping patch prior to end of full three week cycle. Last normal menses 05/03/2024. Not planning in the next year. Ruptured right ovarian cyst on CT 05/2024. NIL/HPV neg pap 01/2023, preceded by ASCUS HPV pos, neg . Due for cotesting 01/2024. Has followup with [facility] 06/18. Would like to do pap there. Gonorrhea/Chlamydia, HIV, syphilis, Hep C neg 04/2024. Review of Systems Constitutional: Negative for chills and fever. Genitourinary: Positive for menstrual problem, vaginal bleeding and vaginal discharge. Negative fordyspareunia, dysuria, pelvic pain and vaginal pain. Objective BP 113/78 (BP Location: Left arm, Patient Position: Sitting, BP Cuff Size: Adult) Pulse 77 Temp97.1 ??F (36.2 ??C) (Temporal) Resp 20 Ht 5' 2 (1.575 m) Wt 129 lb 12.8 oz (58.9 kg) LMP 05/23/2024 (Approximate) SpO2 98% BMI 23.74 kg/m?? Physical Exam Constitutional: Appearance: Normal appearance. Genitourinary: General: Normal vulva. Labia: Right: No rash, tenderness, lesion or injury. Left: No rash, tenderness, lesion or injury. Vagina: No signs of injury and foreign body. Vaginal discharge present. No erythema, tenderness, bleeding, lesions or prolapsed vaginal benitez. Comments: Scant curdy discharge, bimanual deferred Neurological: Mental Status: She is alert. Psychiatric: Mood and Affect: Mood normal. Behavior: Behavior normal. Assessment/Plan Diagnoses and all orders for this visit: Vaginal discharge - POCT fern test, vaginal fluid manually resulted - Chlamydia/N. Gonorrhoeae RNA, TMA, Urogenitial Consistent with vulvovaginal candidiasis. Will treat today. Report worsening/persistent symptoms. Would like repeat Gonorrhea/Chlamydia today. Discussed options for bacterial vaginosis prevention. Would like to try suppressive MetroGel and Boric Acid. For MetroGel twice weekly x 12 weeks. Go to commercial pharmacy ([facility]) and get Boric Acid 600mg vaginal capsules. Insert one in vagina every night x 14-21 days after finishing MetroGel. Do not take by mouth. Keep out of reach of children and pets as this is poisonous if taken by mouth. Abstain from receptive oral sex during treatment. Seek care if no improvement in symptoms. Abnormal uterine bleeding (AUB) - POCT , urine manually resulted Likely due to early patch removal. test today. Let me know if this recurs. Has patch rx on file for future use, happy with that method. Reviewed correct patch use. Change weekly x 3 weeks followed by one week with no patch. If stopping patch early, may not be protected from for sex in 5 days prior to stopping patch. documented in this encounter Plan of Treatment Upcoming Encounters Date Type Department Care Team (Late st Contact Info) Description 07/27/2024 2:30 PM EDT Office Visit [facility] OPTOMETRY [address] [place], [place] [phone] TarSerena barfield, OD [address] [place] [address] documented as of this encounter Procedures Procedure Name Priority Date/Time Associated Diagnosis Comments POCT WET MOUNT/JOSI Routine 06/02/2024 4: 25 PM EST Vaginal discharge POCT , URINE Routine 06/02/2024 4:07 PM EST Abnormal uterine bleeding (AUB) CHLAMYDIA/N. GONORRHOEAE RNA, TMA, UROGENITAL Routine 06/02/2024 3:51 PM EST Vaginal discharge documented in this encounter Results * POCT fern test, vaginal fluid manually resulted (06/02/2024 4:25 PM EST) JOSI Prep Positive Comment:pH 4.5, neg whiff, n eg clue, neg trich, neg wbc, pos yeast Vaginal Fluid Vaginal structure / Unknown 06/02/2024 4:25 PM EST Impressions Esmer Ellis, BRI - 06/02/2024 4:25 PM EST Vulvovaginal candidiasis Esmer Ellis [facility] POINT OF CARE TEST ENTER/ EDIT ORDERABLES Final Result * POCT , urine manually resulted (06/02/2024 4:07 PM EST) Pathologist [facility] Preg Test, Ur Negative Negative, Indeterminate, None Detected, Invalid, Specimen unsatisfactory for evaluation, Weakly Positive QC Media Lot # [id number] Lot# Expiration Date [id number] Urine 06/02/2024 4:07 PM EST Esmer Ellis [facility] POINT OF CARE TEST ENTER/ EDIT ORDERABLES Final Result * Chlamydia/N. Gonorrhoeae RNA, TMA, Urogenitial (06/02/2024 3:51 PM EST) Pathologist [facility] CT PCR NOT DETECTED Not Detect. [facility] Comment:A not detected test result does not exclude the possibilityof infection because test results can be affected byimproper specimen collection, concurrent antibiotic therapy,or the number of organisms in the specimen which may bebelow the sensitivity of the test. As with many diagnostictests, results from the Xpert CT/NG assay should beinterpreted in conjunction with other laboratory andclinical data available to the clinician.Xpert CT/NG performance has not been evaluated in patientsless than 14 years of age. The assay should not be used forthe evaluationof suspected sexual abuse or for other medico-legalindications. Additional testing is recommended in anycircumstance when false positive or false negative resultscould lead to adverse medical, social or psychologicalconsequences. NG PCR NOT DETECTED Not Detect. [facility] Comment:A not detected test result does not exclude the possibilityof infection because test results can be affected byimproper specimen collection, concurrent antibiotic therapy,or the number of organisms in the specimen which may bebelow the sensitivity of the test. As with many diagnostictests, results from the Xpert CT/NG assay should beinterpreted in conjunction with other laboratory andclinical data available to the clinician.Xpert CT/NG performance has not been evaluated in patientsless than 14 years of age. The assay should not be used forthe evaluationof suspected sexual abuse or for other medico-legalindications. Additional testing is recommended in anycircumstance when false positive or false negative resultscould lead to adverse medical, social or psychologicalconsequences. Swab Vaginal structure / Unknown 06/02/2024 3:51 PM EST 06/02/2024 5:48 PM EST Narrative [facility] - 06/03/2024 6:16 AM EST Vaginal Esmer Ellis CNM LAB MICROBIOLOGY - GENERA L ORDERABLES Final Result [facility] [address] [place] [address] [phone] documented in this encounter Visit Diagnoses Diagnosis Vaginal discharge- Primary Leukorrhea, not specified as infective Abnormal uterine bleeding (AUB) documented in this encounter Additional Health Concerns Assessment Noted Time PHQ-9 Depression Total Score: 6 11/27/19 24 9:34 AM EDT documented as of this encounter Care Teams Flight Attendant Inflight Services Relationship Specialty Start Date End Date María Elena Zuleta MD [address] [place] [address] PCP - General Family Medicine 06/13/17 Seven Ly RN [address] [place] [phone] Garland Machine OperatorInformation Technology Auditor 05/26/24 documented as of this encounter
--- OUTSIDE RECORDS SUMMARY | 2024-06-18 11:51 | XMS_ITS | Encounter Summary ---
Author Organization [employer] Address 75 [facility] 7t [place] [address] Care Team Providers Care Rock Room Worker Name Role Phone María Elena Zuleta MD Primary Care Provider + Seven Ly RN Unavailable [phone] Encounter Details Date Type Department Care Team (Latest Contact Info) Description 06/02/2024 Travel Social History Tobacco Use Types Packs/Day [...] Description 07/27/2024 2:30 PM EDT Office Visit [facility] OPTOMETRY [address] [place] [address] TarSerena barfield, OD [address] [place] [address] documented as of this encounter Visit Diagnoses Not on filedocumented in this encounter Additional Health Concerns Assessment Noted Time PHQ-9 Depression Total Score: 6 11/27/19 24 9:34 AM EDT documented as of this encounter Care Teams Rock Room Worker Relationship Specialty Start Date End Date María Elena Zuleta MD [address] [place] [address] PCP - General Family Medicine 06/13/17 Seven Ly RN [address] [place] [phone] Ingot WeigherChef Saucier 05/26/24 documented as of this encounter
--- OUTSIDE RECORDS SUMMARY | 2024-06-18 11:51 | XMS_ITS | Encounter Summary ---
Author Organization [employer] Address 75 [facility] [address] Care Team Providers Care Laborer Vineyard Name Role Phone María Elena Zuleta MD Primary Care Provider + Seven Ly RN Unavailable [phone] Reason for Visit * Reason Onset Date Comments Call Back Request 06/02/2024 Encounter Details Date Type Department Care Team ([facility] st Contact Info) Description 06/02/2024 Telephone [facility] MEDICINE [address] [place], [place] [phone] María Elena Zuleta MD [address] [place], [place] [phone] Call Back Request Social History Tobacco Use Types Packs/Day Years [...] encounter Miscellaneous Notes * Telephone Encounter - Gisela Lew RN - 06/02/2024 12:01 PM EST TC placed to pt regarding issues going on. Pt reports she had gone to PCP regarding abdominal and back pain and was diagnosed with a UTI and strep. Pt reports she finished her UTI medications but washaving new symptoms, so she went to the ED where they did a CT. Pt states, They did a CT which showed a cyst in right upper pelvis and BV. They stated the BV was causing irritation to cyst . Pt reports she was given cream to treat BV, but is unsure if it is cleared as she had her period when usingcream. Pt reports she was seen by for ED f/u and voiced concern about use of BV cream while on period. Pt reports her period ended a few days ago and she is having irritation and intermittent tingling of the left side of vulva. Pt denies redness, bumps, lesions, fever, chills, headaches. Pt currently experiencing brown/red discharge. Denies any abnormal discharge or vaginal odor. Pt denies urinary symptoms. Pt reports she has an appointment at [facility] gynecology on February 13th, but is currently concerned about vulva irritation. Pt booked with Esmer Ellis for this afternoon 06/02/24 at 3:15 PM. Pt reports they will attend appointment and denies any further questions or concernsat this time. * Telephone Encounter - Truong Delarosa - 06/02/2024 11:45 AM EST Tc from pt requesting a callback, pt inform she's been taking some meds due to some issues going on, as she will like to know if medication has to be taken as she will like to follow up wit [place] or PCP documented in this encounter Plan of Treatment Upcoming Encounters Date Type Department Care Team (Late st Contact Info) Description 07/27/2024 2:30 PM EDT Office Visit [facility] OPTOMETRY [address] [place] [address] Serena Daniel, OD [address] [place] [address] documented as of this encounter Visit Diagnoses Not on filedocumented in this encounter Additional Health Concerns Assessment Noted Time PHQ-9 Depression Total Score: 6 11/27/19 24 9:34 AM EDT documented as of this encounter Care Teams Laborer Vineyard Relationship Specialty Start Date End Date María Elena Zuleta MD [address] [place] [address] PCP - General Family Medicine 06/13/17 Seven Ly RN [address] [place] [address] Final FinisherElectronics Processor 05/26/24 documented as of this encounter
--- OUTSIDE RECORDS SUMMARY | 2024-06-18 11:51 | XMS_ITS | Encounter Summary ---
Author Organization [employer] Address 75 [facility] [place] [address] Care Team Providers Care Finishing Technician Name Role Phone María Elena Zuleta MD Primary Care Provider + Seven Ly RN Unavailable [phone] Reason for Visit * Reason Onset Date Comments telephone call 06/02/2024 Encounter Details Date Type Department Care Team ([facility] st Contact Info) Description 06/02/2024 Telephone [facility] MEDICINE [address] [place], [place] [phone] María Elena Zuleta MD [address] [place], [place] [phone] telephone call Social History Tobacco Use Types Packs/Day Years [...] encounter Miscellaneous Notes * Telephone Encounter - Maureen Navas - 06/02/2024 4:12 PM EST Pt walked in requesting to switch her provider she says she doesn't feel like her pcp is hearing her out she feels like she doesn't really care about her. She asked if she can have a female provider and she doesn't want it to be on the red team if possible if it can be from another team. documented in this encounter Plan of Treatment Upcoming Encounters Date Type Department Care Team (Late st Contact Info) Description 07/27/2024 2:30 PM EDT Office Visit [facility] OPTOMETRY [address] [place], [place] [phone] Serena Daniel OD [address] [place] [address] documented as of this encounter Visit Diagnoses Not on filedocumented in this encounter Additional Health Concerns Assessment Noted Time PHQ-9 Depression Total Score: 6 11/27/19 9:34 AM EDT documented as of this encounter Care Teams Finishing Technician Relationship Specialty Start Date End Date María Elena Zuleta MD [address] [place] [address] PCP - General Family Medicine 06/13/17 Seven Ly RN [address] [place] [address] Piece Goods PackerPatent Lawyer 05/26/24 documented as of this encounter
--- OUTSIDE RECORDS SUMMARY | 2024-06-18 11:52 | XMS_ITS | Encounter Summary ---
Author Organization [employer] Address 75 [facility] [address] [address] Care Team Providers Care Funeral Limousine Driver Name Role Phone María Elena Zuleta MD Primary Care Provider + Seven Ly RN Unavailable [phone] Encounter Details Date Type Department Care Team ([facility] st Contact Info) Description 06/12/2024 Telephone [facility] [address] [place], [place] [phone] Emani Bird MD [address] [place] [address] Social History Tobacco Use Types Packs/Day Years [...] encounter Miscellaneous Notes * Telephone Encounter - Cora Andrews - 06/12/2024 3:24 PM EST Incoming fax from [facility] requesting MRI order to be update to MRI Abdomen WWO Contrast. Please advise! documented in this encounter Plan of Treatment Upcoming Encounters Date Type Department Care Team (Late st Contact Info) Description 07/27/2024 2:30 PM EDT Office Visit [facility] OPTOMETRY [address] [place] [address] Serena Daniel, OD [address] [place] [address] documented as of this encounter Visit Diagnoses Not on filedocumented in this encounter Additional Health Concerns Assessment Noted Time PHQ-9 Depression Total Score: 6 11/27/19 24 9:34 AM EDT documented as of this encounter Care Teams Funeral Limousine Driver Relationship Specialty Start Date End Date María Elena Zuleta MD [address] [place] [address] PCP - General Family Medicine 06/13/17 Seven Ly RN [address] [place] [phone] Research Quality Assurance SpecialistPad Machine Offbearer 05/26/24 documented as of this encounter
--- OUTSIDE RECORDS SUMMARY | 2024-06-18 11:52 | XMS_ITS | Encounter Summary ---
Author Organization [employer] Address 75 [facility] 7t [place] [address] Care Team Providers Care Health It Specialist Name Role Phone María Elena Zuleta MD Primary Care Provider + Seven Ly RN Unavailable [phone] Reason for Visit * Reason Onset Date Comments Results 06/12/2024 Encounter Details Date Type Department Care Team ([facility] st Contact Info) Description 06/12/2024 Telephone [facility] MEDICINE [address] [place] [address] Karuna Slade, JACKIE Results Social History Tobacco Use Types Packs/Day [...] encounter Miscellaneous Notes * Telephone Encounter - Karuna Slade RN - 06/12/2024 9:23 AM EST Telephone call returned to patient in regards to below message. Patient verbalized understanding and denied having any further questions or concerns at this time. Patient to follow up as needed. * Telephone Encounter - Krauna Slade RN - 06/12/2024 9:21 AM EST ----- Message from Emani Bird MD sent at 06/11/2024 8:25 PM EST ----- Can you check in with patient about how she is feeling from an abd pain point of view? Her Hg did drop after the ruptured ovary, so she needs to eat lots of red meat, beans, leafy vegetables. Does she have a ob gyn physician assistant appointment scheduled to f/u on the ovarian cyst? documented in this encounter Plan of Treatment Upcoming Encounters Date Type Department Care Team (Late st Contact Info) Description 07/27/2024 2:30 PM EDT Office Visit [facility] OPTOMETRY [address] [place] [address] Nimcocarolyne Serena, OD [address] [place] [address] documented as of this encounter Visit Diagnoses Not on filedocumented in this encounter Additional Health Concerns Assessment Noted Time PHQ-9 Depression Total Score: 6 11/26/ 24 9:34 AM EDT documented as of this encounter Care Teams Health It Specialist Relationship Specialty Start Date End Date María Elena Zuleta MD [address] [place] [address] PCP - General Family Medicine 06/13/17 Seven Ly RN [address] [place] [phone] Sorter/Assay TechPolice Surgeon 05/26/24 documented as of this encounter
--- OUTSIDE RECORDS SUMMARY | 2024-06-18 11:52 | XMS_ITS | Encounter Summary ---
Author Organization [employer] Address 75 [facility] [address] [address] Care Team Providers Care Supervisor Christmas Tree Farm Name Role Phone María Elena Zuleta MD Primary Care Provider + Reason for Visit * Reason Comments Care Coordination CM/CHW outreach Encounter Details Date Type Department Care Team (Latest Contact Info) Description 05/21/2024 Patient Outreach [facility] MEDICINE [address] [place], [place] [phone] María Elena Zuleta MD [address] [place] [address] Care Coordination (CM/CHW outreach) Social History Tobacco [...] outbound call to patient introducing herself from [facility] CM Department, in regard to offering services. Patient's name and was confirmed. Patient agrees to participate in program. Appt. for initial assessment scheduled for 05/26/24 @ 103AM tele appt with CM Seven Ly RN. CHW reinforced direct contact information or for any additional questions or concerns and extended clinic hours on Mondays and Wednesdays, and Walk-In Urgent Care Located in [facility]. Patient provided with after-hours line for [facility], , which offer night time triage service and option to transfer to typewriter ribbon winder provider if needed. Patient verbalizes understanding, and able to repeat back to production underwriter. documented in this encounter Plan of Treatment Upcoming Encounters Date Type Department Care Team ([facility] st Contact Info) Description 07/27/2024 2:30 PM EDT Office Visit [facility] OPTOMETRY [address] [place] [address] [place] [address] Nimcocarolyne Serena, OD [address] [place] [address] documented as of this encounter Visit Diagnoses Not on filedocumented in this encounter Additional Health Concerns Assessment Noted Time PHQ-9 Depression Total Score: 6 11/27/19 24 9:34 AM EDT documented as of this encounter Care Teams Supervisor Christmas Tree Farm Relationship Specialty Start Date End Date María Elena Zuleta MD [address] [place] [address] PCP - General Family Medicine 06/13/17 documented as of this encounter
--- OUTSIDE RECORDS SUMMARY | 2024-06-18 11:52 | XMS_ITS | Encounter Summary ---
Author Organization [employer] Address 75 [facility] 7[place] [address] Care Team Providers Care Carpenter Wooden Tank Erecting Name Role Phone María Elena Zuleta MD Primary Care Provider + Reason for Visit * Reason Onset Date Comments Nurse Triage 05/19/2024 Encounter Details Date Type Department Care Team ([facility] st Contact Info) Description 05/19/2024 Telephone [facility] MEDICINE [address] [place], [place] [phone] María Elena Zuleta MD [address] [place], [place] [phone] Nurse Triage Social History Tobacco Use Types [...] Pt advised of disposition, agrees to seek [facility] today for exam . Reviewed [facility] operating [...] caller accepted this outcome. Contact pt at [phone] documented in this encounter Plan of Treatment Upcoming Encounters Date Type Department Care Team (Late st Contact Info) Description 07/27/2024 2:30 PM EDT Office Visit [facility] OPTOMETRY [address] [place], [place] [phone] Serena Daniel OD [address] [place] [address] documented as of this encounter Visit Diagnoses Not on filedocumented in this encounter Additional Health Concerns Assessment Noted Time PHQ-9 Depression Total Score: 6 11/27/19 24 9:34 AM EDT documented as of this encounter Care Teams Carpenter Wooden Tank Erecting Relationship Specialty Start Date End Date María Elena Zuleta MD [address] [place] [address] PCP - General Family Medicine 06/13/17 documented as of this encounter
--- OUTSIDE RECORDS SUMMARY | 2024-06-18 11:52 | XMS_ITS | Encounter Summary ---
Author Organization [employer] Address [address] [facility] [address] [address] Care Team Providers Care Tea Taster Name Role Phone María Elena Zuleta MD Primary Care Provider + Seven Ly RN Unavailable [phone] Reason for Visit * Reason Comments Care Coordination SDOH/mail Encounter Details Date Type Department Care Team (Latest Contact Info) Description 06/03/2024 Patient Outreach [facility] [address] [place], [place] [phone] María Elena Zuleta MD [address] [place], [place] [phone] Care Coordination (SDOH/mail) Social History Tobacco Use Types Packs/Day Years [...] encounter Progress Notes * Ivette Nunez - 06/03/2024 2:07 PM EST CHW Ivette Nunez 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 CHW will follow up with patient within 10 days for any additional help. documented in this encounter Plan of Treatment Upcoming Encounters Date Type Department Care Team (Late st Contact Info) Description 07/27/2024 2:30 PM EDT Office Visit [facility] [address] [place], [place] [phone] Serena Daniel, OD [address] [place] [address] documented as of this encounter Visit Diagnoses Not on filedocumented in this encounter Additional Health Concerns Assessment Noted Time PHQ-9 Depression Total Score: 6 11/27/19 24 9:34 AM EDT documented as of this encounter Care Teams Tea Taster Relationship Specialty Start Date End Date María Elena Zuleta MD [address] [place] [address] PCP - General Family Medicine 06/13/17 Seven Ly RN [address] [place] [address] Quill Machine TenderReceiver Dispatcher 05/26/24 documented as of this encounter
--- OUTSIDE RECORDS SUMMARY | 2024-06-18 11:52 | XMS_ITS | Encounter Summary ---
Author Organization [employer] Address 75 [facility] 7 [place] [address] Care Team Providers Care Pin Puller Name Role Phone María Elena Zuleta MD Primary Care Provider + Seven Ly RN Unavailable Reason for Visit * Reason Onset Date Comments Care Management 06/04/2024 C3CM- f/u call Encounter Details Date Type Department Care Team ([facility] st Contact Info) Description 06/04/2024 Telephone [facility] [address] [place], [place] [phone] Seven Ly, RN [address] [place], [place] [phone] Care Management (C3CM- f/u call) Social History Tobacco Use Types Packs/Day Years [...] Telephone Encounter - Seven Ly RN - 06/04/2024 11:26 AM EST CM Seven Ly RN placed outbound call to patient. Patient's name, and address confirmed. Patient states is doing well with no recent illnesses or emergency room visits. Patient inquiring on lab results from 06/02/24. CM reviewed results with patient. Advised the PCOT was completed in office.Result was consistent with vulvovaginal candidiasis. Provider prescribed fluconazole and metronidazole to treat symptoms. Per patient, took the fluconazole. She states she picked up the metronidazolegel yesterday and would like to know if she should start Rx. CM advised she start using Rx as directed and f/u if no improvement. She agrees. Per patient, has a f/u scheduled with [facility]RBAN REDEVELOPMENT SPECIALIST on 06/18/24. Shealso states she called GI and has an appt scheduled on 06/29 or 06/30. Patient denies any immediate needs or concerns at this time. No further questions or concerns. CM reinforced direct contact information for any additional questions or concerns. Education provided on [facility] located in [facility]. Patient provided with after-hours line for [facility], , which offer night time triage service and option to transfer to transportation engineer provider if needed. Patient verbalizes understanding, and able to r epeat back to fiction writer. A follow up call will be placed within 10 days, patient agrees with plan. documented in this encounter Plan of Treatment Upcoming Encounters Date Type Department Care Team (Late st Contact Info) Description 07/27/2024 2:30 PM EDT Office Visit [facility] OPTOMETRY [address] [place], [place] [phone] Serena Daniel, OD [address] [place], [place] [phone] documented as of this encounter Visit Diagnoses Not on filedocumented in this encounter Additional Health Concerns Assessment Noted Time PHQ-9 Depression Total Score: 6 11/27/19 24 9:34 AM EDT documented as of this encounter Care Teams Pin Puller Relationship Specialty Start Date End Date María Elena Zuleta MD [address] [place], [place] [phone] PCP - General Family Medicine 06/13/17 Seven Ly RN [address] [place] [address] Mortgage Loan OfficerManager Retirement 05/26/24 documented as of this encounter
--- OUTSIDE RECORDS SUMMARY | 2024-06-18 11:52 | XMS_ITS | Encounter Summary ---
Author Organization [employer] Address 75 [facility] 7t [place] [address] Care Team Providers Care Housekeeper Cleaning Cooking Name Role Phone María Elena Zuleta MD [...] t he electric, gas, oil or water viVood threatened to shut off services in your [...] 07/27/2024 2:30 PM EDT Office Visit [facility] OPTOMETRY [address] [place] [address] TarkaSerena, OD [address] [place] [address] documented as of this encounter Visit Diagnoses Not on filedocumented in this encounter Additional Health Concerns Assessment Noted Time PHQ-9 Depression Total Score: 6 11/27/19 24 9:34 AM EDT documented as of this encounter Care Teams Housekeeper Cleaning Cooking Relationship Specialty Start Date End Date María Elena Zlueta MD [address] [place] [address] PCP - General Family Medicine 06/13/17 documented as of this encounter
--- OUTSIDE RECORDS SUMMARY | 2024-06-18 11:52 | XMS_ITS | Encounter Summary ---
Author Organization [employer] Address 75 [facility] 7t [place] [address] Care Team Providers Care Logistic Manager Name Role Phone María Elena Zuleta MD Primary Care Provider + Seven Ly RN Unavailable [phone] Reason for Referral * Imaging (Routine) - Authorized Specialty Diagnoses / Procedures Referred By Contac t Referred To Contact Radiology Diagnoses IPMN (intraductal papillary mucinous neoplasm) Procedures MRI PANCREAS WO CONTRAST Emani Bird MD [address] [place] [address] Phone: tel: fax: [address] Phone: tel: fax: Referral ID Status Reason Start Date Expiration Date V isits Requested Visits Authorized [id number] Authorized 06/02/2024 06/02/2025 1 1 Reason for Visit * Reason Comments Abdominal Pain Encounter Details Date Type Department Care Team (Late st Contact Info) Description 05/27/2024 3:30 PM EST Office Visit [facility] [address] [place], [place] [phone] Emani Bird MD [address] [place] [phone] Rupture of cyst of right ovary (Primary Dx); IPMN (intraductal papillary mucinous neoplasm) Social History Tobacco Use Types Packs/Day Years [...] 3:42 PM EST documented in this encounter Progress Notes * Emani Bird MD - 05/27/2024 3:30 PM EST SUBJECTIVE: Vilma Andrews is a 28 y.o. year old female who presents for acute visit/ER follow-up. She was seen at [place] [facility] ER 05/20/24 for abdominal pain.US showed ruptured R ovarian cyst and CT showed possible IPMN. She is feeling well, back to baseline today, eating and drinking, going to the bathroom. Acute Concerns: Per regional economist, repeat CBC, and have consult. This is scheduled. H/H stable Repeat CT or MRI for IPMN in 3 months. This was ordered Patient Active Problem List Diagnosis Slow transit constipation Pelvic pain Recurrent UTI Risk for sexually transmitted disease Counseling for initiation of control method Encounter for preventive health examination Encounter for prescription of emergency contraception DUB (dysfunctional uterine bleeding) Non-toxic uninodular goiter Metrorrhagia Vaginal discharge UTI symptoms Tinea corporis H. pylori infection Visit for preventive health examination History reviewed. No pertinent surgical history. No family history on file. 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 Review of Systems Constitutional: Negative. Respiratory: Negative. Cardiovascular: Negative. Gastrointestinal: Negative. Genitourinary: Negative. OBJECTIVE: Vitals: 05/27/24 1542 BP: 121/65 BP Location: Left arm Patient Position: Sitting BP Cuff Size: Adult Pulse: 74 Resp: 16 Temp: 97.2 ??F (36.2 ??C) TempSrc: Temporal SpO2: 100% Weight: 134 lb (60.8 kg) Height: 5' 2 (1.575 m) Physical Exam Vitals and nursing note reviewed. Constitutional: Appearance: Normal appearance. HENT: Head: Normocephalic and atraumatic. Cardiovascular: Rate and Rhythm: Normal rate and regular rhythm. Skin: General: Skin is warm and dry. Neurological: General: No focal deficit present. Mental Status: She is alert and oriented to person, place, and time. Psychiatric: Mood and Affect: Mood normal. Behavior: Behavior normal. ASSESSMENT/PLAN Problem List Items Addressed This Visit None Visit Diagnoses Rupture of cyst of right ovary - Primary Relevant Orders CBC auto differential (Completed) IPMN (intraductal papillary mucinous neoplasm) Relevant Orders MRI PANCREAS WO CONTRAST Follow Up: per PCP recall or sooner prn Allergies Allergen Reactions Penicillin V Other reaction(s): rash Current Outpatient Medications: ibuprofen 400 MG tablet, TAKE 1 TO 2 TABLETS BY MOUTH EVERY 6 TO 8 HOURS NEEDED FOR PAIN, Disp: , Rfl: metroNIDAZOLE (Metrogel) 0.75 % vaginal gel, USE 1 APPLICATORFUL VAGINALLY AT BEDTIME FOR 5 DAYS, Disp: , Rfl: pantoprazole (ProtoNix) 20 MG EC tablet, TAKE 1 TABLET BY MOUTH TWICE A DAY FOR 2 WEEKS, Disp: , Rfl: norelgestromin-ethinyl estradiol (Xulane) 150-35 MCG/24HR, APPLY 1 PATCH EACH WEEK FOR 3 WEEKS, THEN HAVE NO PATCH FOR 1 WEEK. REPEAT, Disp: 9 patch, Rfl: 0 Telugu Translation: Patient is bilingual and declines translation services documented in this encounter Miscellaneous Notes * Result Encounter Note - Emani Bird MD - 05/27/2024 3:30 PM EST Can you check in with patient about how she is feeling from an abd pain point of view? Her Hg did drop after the ruptured ovary, so she needs to eat lots of red meat, beans, leafy vegetables. Does she have a regional economist appointment scheduled to f/u on the ovarian cyst? documented in this encounter Plan of Treatment Upcoming Encounters Date Type Department Care Team ([facility] st Contact Info) Description 07/27/2024 2:30 PM EDT Office Visit [facility] [address] [place] [address] Serena Daniel, OD [address] [place] [address] Scheduled Orders Name Type Priority Associated Diagnoses Orde r Schedule MRI PANCREAS WO CONTRAST Imaging Routine IPMN (intraductal papillary mucinous neoplasm) Expected: 08/31/2024, Expires: 06/02/2025 documented as of this encounter Procedures Procedure Name Priority Date/Time Associated Diagnosis Comments CBC WITH AUTO DIFFERENTIAL Routine 05/27/2024 4:01 PM EST Rupture of cyst of right ovary documented in this encounter Results * (ABNORMAL) CBC auto differential (05/27/2024 4:01 PM EST) White Blood Count 10.8 4.8 - 10.8 X10*3/uL [facility] Red Blood Count 3.96(L) 4.20 - 5.50 X10*6/uL [facility] Hemoglobin 11.1(L) 12.0 - 16.0 g/dl [facility] Hematocrit 32.8(L) 37.0 - 47.0 % [facility] Mean Corpuscular Volume 82.8 80.0 - 98.0 fL [facility] Mean Corpuscular Hemoglobin 28.0 27.0 - 33.0 pg [facility] Mean Corpuscular HGB Conc 33.8 31.0 - 35.0 g/dl [facility] Red Cell Distribution Width 14.0 11.0 - 16.0 % [facility] Platelet Count 316 160 - 400 X10*3/uL [facility] Mean Platelet Volume 10.9 9.4 - 12.3 fL [facility] Neutrophils Percent Auto 60.5 45 - 73 % [facility] Imm Gran Pct Auto 0.4 0.0 - 0.4 % [facility] Lymphocytes Percent Auto 24.2 20 - 40 % [facility] Monocytes Percent Auto 9.9 2 - 11 % [facility] Eosinophils Percent Auto 4.4(H) 0 - 4 % [facility] Basophils Percent Auto 0.6 0 - 2 % [facility] NRBC Pct Auto 0.0 0.0 - 0.2 /100WBC [facility] Neutrophils Absolute Auto 6.5 2.0 - 8.3 x10*3/uL [facility] Imm Gran Abs Auto 0.04(H) 0.00 - 0.03 X10*3/uL [facility] Lymphocytes Absolute Auto 2.6 1.2 - 4.9 X10*3/uL [facility] Monocytes Absolute Auto 1.1 0.1 - 1.2 X10*3/uL [facility] Eosinophils Absolute Auto 0.5(H) 0.0 - 0.4 X10*3/uL [facility] Basophils Absolute Auto 0.1 0.0 - 0.2 X10*3/uL [facility] NRBC Abs Auto 0.000 0.0 - 0.012 X10*3/uL [facility] Blood Venous blood specimen / Unknown 05/27/2024 4:01 PM EST 05/27/2024 5:35 PM EST us Emani Bird MD LAB BLOOD ORDERABLES Final Res ult [facility] [address] [place] [address] [phone] documented in this encounter Visit Diagnoses Diagnosis Rupture of cyst of right ovary- Primary IPMN (intraductal papillary mucinous neoplasm) Neoplasm of unspecified nature of digestive system documented in this encounter Additional Health Concerns Assessment Noted Time PHQ-9 Depression Total Score: 6 11/27/19 24 9:34 AM EDT documented as of this encounter Care Teams Logistic Manager Relationship Specialty Start Date End Date María Elena Zuleta MD [address] [place] [address] PCP - General Family Medicine 06/13/17 Seven Ly RN [address] [place] [address] Division EngineerCollege Or University Department Head 05/26/24 documented as of this encounter
--- OUTSIDE RECORDS SUMMARY | 2024-06-18 11:52 | XMS_ITS | Encounter Summary ---
Author Organization [employer] Address [address] [facility] [address], [place] [address] Care Team Providers Care Inside Polisher Name Role Phone María Elena Zuleta MD Primary Care Provider + Seven Ly RN Unavailable [phone] Encounter Details Date Type Department Care Team ([facility] st Contact Info) Description 06/04/2024 Indexing Health Information Management [address] [place], [place] [phone] Emani Bird MD [address] [place] [address] Social History Tobacco Use Types Packs/Day Years [...] * Telephone Encounter - Cora Andrews - 06/04/2024 10:31 AM EST Incoming fax from [facility] requesting MRI order to be update to MRI Abdomen WWO Contrast. Please advise! documented in this encounter Plan of Treatment Upcoming Encounters Date Type Department Care Team (Late st Contact Info) Description 07/27/2024 2:30 PM EDT Office Visit [facility] [address] [place] [address] Serena Daniel, OD [address] [place] [address] documented as of this encounter Visit Diagnoses Not on filedocumented in this encounter Additional Health Concerns Assessment Noted Time PHQ-9 Depression Total Score: 6 11/27/19 24 9:34 AM EDT documented as of this encounter Care Teams Inside Polisher Relationship Specialty Start Date End Date María Elena Zuleta MD [address] [place] [address] PCP - General Family Medicine 06/13/17 Seven Ly RN [address] [place] [phone] Career Education TeacherSurgical Elastic Knitter 05/26/24 documented as of this encounter
--- OUTSIDE RECORDS SUMMARY | 2024-06-18 11:52 | XMS_ITS | Encounter Summary ---
Author Organization [employer] Address [address] [facility] [address] 7t [place] [address] Care Team Providers Care Associate Creative Director Name Role Phone María Elena Zuleta MD Primary Care Provider + Seven Ly RN Unavailable [phone] Encounter Details Date Type Department Care Team ([facility] st Contact Info) Description 05/26/2024 Telephone [facility] [address] [place], [place] [phone] Seven Ly, RN [address] [place], [place] [phone] Social History Tobacco Use Types Packs/Day Years [...] available until June so she went to [facility] ER, had an ultrasound, vaginal swab and [...] sick visit or to present at the [facility] for unresolved symptoms if no appointment was available with Dr. Zuleta. Patient informed she can change her PCP if she desires. Patient stated she no longer wants to change PCP at this time. * Telephone Encounter - Seven Ly RN - 05/26/2024 11:15 AM EST Patient requesting to change PCP. Per patient, does not feel satisfied with care. Patient can be contacted at [phone]. documented in this encounter Plan of Treatment Upcoming Encounters Date Type Department Care Team ([facility] st Contact Info) Description 07/27/2024 2:30 PM EDT Office Visit [facility] OPT[facility] [address] [place] [address] Serena Daniel, OD [address] [place] [address] documented as of this encounter Visit Diagnoses Not on filedocumented in this encounter Additional Health Concerns Assessment Noted Time PHQ-9 Depression Total Score: 6 11/27/19 24 9:34 AM EDT documented as of this encounter Care Teams Associate Creative Director Relationship Specialty Start Date End Date María Elena Zuleta MD [address] [place] [address] PCP - General Family Medicine 06/13/17 Seven Ly RN [address] [place] [address] Living ManagerConfiguration Release Manager 05/26/24 documented as of this encounter
--- OUTSIDE RECORDS SUMMARY | 2024-06-18 11:52 | XMS_ITS | Encounter Summary ---
Author Organization [employer] Address [address] [facility] [address] [address] Care Team Providers Care Color Maker Name Role Phone María Elena Zuleta MD Primary Care Provider + Reason for Visit * Reason Onset Date Comments Results 05/14/2024 Encounter Details Date Type Department Care Team ([facility] st Contact Info) Description 05/14/2024 Telephone [facility] MEDICINE [address] [place], [place] [phone] María Elena Zuleta MD [address] [place], [place] [phone] Results Social History Tobacco Use Types Packs/Day [...] 10:21 AM EST TC placed to patient [phone] in regards to below message. Patient verbalized understanding brenda she is currently at [facility] ED d/t continued symptoms post abx completion. Patient reports continued back pain and continued pelvic pain. Patient continues with pain with urination and post urination as well. Patient advised to stay at [facility] ED to be evaluated and to follow their POC. Patient advised she may be Rx'd abx again which she should take in their entirety and if her s/s do not improveagain then she should call [facility] for a f/u appointment/re-evaluation. Patient verbalized understanding. [...] nurse regarding prior message. Contact pt at [phone] * Telephone Encounter - Viviane Go RN [...] Urinalysis, Complete, Date when done: 05/13 Facility: [facility] documented in this encounter Plan of Treatment Upcoming Encounters Date Type Department Care Team (Late st Contact Info) Description 07/27/2024 2:30 PM EDT Office Visit [facility] OPTOMETRY [address] [place] [address] Serena Daniel, OD [address] [place] [address] documented as of this encounter Visit Diagnoses Diagnosis Recurrent UTI- Primary Urinary tract infection, site not specified documented in this encounter Additional Health Concerns Assessment Noted Time PHQ-9 Depression Total Score: 6 11/27/19 24 9:34 AM EDT documented as of this encounter Care Teams Color Maker Relationship Specialty Start Date End Date María Elena Zuleta MD [address] [place] [address] PCP - General Family Medicine 06/13/17 documented as of this encounter
--- OUTSIDE RECORDS SUMMARY | 2024-06-18 11:52 | XMS_ITS | Clinical Summary ---
Author Organization [employer] Address 75 [facility] 7 [place] [address] Care Team Providers Care Roll On Worker Name Role Phone María Elena Zuleta MD Primary Care Provider + Seven Ly RN Unavailable [phone] Allergies Active Allergy Reactions Criticality Noted Date Comments Penicillin V 07/10/2010 Other reaction(s): rash Medications norelgestromi n-ethinyl estradiol (Xulane) 150-35 MCG/24HR APPLY 1 PATCH EACH WEEK FOR 3 WEEKS, THEN HAVE NO PATCH FOR 1 WEEK. REPEAT 9 patch 05/13/19 25 Active ibuprofen 400 MG tablet TAKE 1 TO 2 TABLETS BY MOUTH EVERY 6 TO 8 HOURS NEEDED FOR PAIN 12/18/19 24 Active pantoprazole (ProtoNix) 20 MG EC tablet TAKE 1 TABLET BY MOUTH TWICE A DAY FOR 2 WEEKS 12/26/19 24 Active metroNIDAZOLE (Metrogel) 0.75 % vaginal gel One applicatorful twice a week for 12 weeks. Use Boric Acid as directed x 2-3 weeks after that 70 g 4 06/02/19 25 Active omeprazole (PriLOSEC) [address] capsuleIndica tions:Coffee ground emesis Take 1 capsule (40 mg) by mouth 2 times daily. Do not crush or chew. 60 capsule 11 12/09/19 24 2024 Discontinued(T herapy completed) sulfamethoxaz ole-trimethop rim (Bactrim DS) 800-160 MG tablet Take 1 tablet by mouth 2 times daily for 5 days. 10 tablet 05/14/19 25 2024 metroNIDAZOLE (Metrogel) 0.75 % vaginal gel USE 1 APPLICATORFUL VAGINALLY AT BEDTIME FOR 5 DAYS 05/23/192024 Discontinued fluconazole (Diflucan) 150 MG tablet Take 1 tablet (150 mg) by mouth 1 (one) time for 1 dose. 1 tablet 06/02/192024 Active Problems Problem Noted Date Diagnosed Date [...] starts themedication FU w PrEP team in Assessment & Plan (10/30/2022 11:25 AM EDT): [...] Encounters Date Type Department Care Team Description 06/12/2024 [facility] Information Management [address] [place] [address] Emani Bird MD 06/12/[address] [address] Karuna Slade RN Results 06/05/2024 [facility] Information [address] [address] Emani Bird MD 06/04/[address] [address] María Elena Zuleta MD Nurse Triage 06/04/[address] [address] Seven Ly, RN Care Management (C3CM- f/u call) 06/04/2024 [facility] Information [address] [address] Emani Bird MD 06/03/2024 Patient Outreach [address] [address] María Elena Zuleta MD Care Coordination (SDOH/mail) 06/02/2024 3:15 PM EST Office Visit [address] [address] Sanju Quijano CNM Vaginal discharge (Primary Dx); Abnormal uterine bleeding (AUB) 06/02/[address] [address] María Elena Zuleta MD telephone call 06/02/2024 Travel 06/02/[address] [address] María Elena Zuleta MD Call Back Request 06/01/2024 Patient Outreach [address] [place] [address] María Elena Zuleta MD Care Coordination (SDOH) 05/27/2024 3:30 PM EST Office Visit [address] [place] [address] Emani Bird MD Rupture of cyst of right ovary (Primary Dx); IPMN (intraductal papillary mucinous neoplasm) 05/27/2024 Travel 05/26/[address] [address] Seven Ly RN 05/26/[address] [address] Seven Ly, RN Care Management (C3CM- initial assessment/ enrollment) 05/22/2024 Patient Outreach [address] [address] María Elena Zuleta MD Care Coordination (CM/CHW appt reminder) 05/22/2024 Travel 05/21/2024 Patient Outreach [address] [address] María Elena Zuleta MD Care Coordination (CM/CHW outreach) 05/21/[address] [address] María Elena Zuleta MD ER Follow-up 05/21/[address] [phone] Seven Ly, RN 05/19/[address] [address] María Elena Zuleta MD Nurse Triage 05/15/2024 Telephone [facility] OPTOMETRY [address] [place] [address] Serena Daniel OD 05/14/[address] [address] María Elena Zuleta MD Results 05/13/2024 10:30 AM EST Office Visit [address] [address] María Elena Zuleta MD Visit for preventive health examination (Primary Dx); UTI symptoms; Encounter for immunization 05/13/2024 Orders Only [address] [address] María Elena Zuleta MD 05/13/2024 Travel 05/12/[address] [address] Graciela Weber MA Chart prep 05/07/2024 Patient Outreach [address] [address] María Elena Zuleta MD Pre-visit Planning 04/23/[address] [address] Julius Tamayo, JACKIE 04/01/[address] [address] María Elena Zuleta MD Nurse Triage from Last 3 Months Immunizations Name Administration [...] 45 AM EST Sexual Orientation Straight 05/22/2024 8 :45 AM EST Last Filed Vital Signs Vital [...] Mass Index 23.74 06/02/2024 3:36 PM EST Plan of Treatment Upcoming Encounters Date Type Department Care Team (Late st Contact Info) Description 07/27/2024 2:30 PM EDT Office Visit [facility] [address] [place], [place] [phone] Serena Daniel, OD [address] [place] [address] Health Maintenance Due Date Last Done Comments Dental Oral Exam 1995 Dental Prophylaxis 1995 Dental X-Ray: Bitewings 1995 Dental X-Ray: Full Mouth 1995 Alcohol/Substance Use Screening 2007 COVID-19 Vaccine ( season) 2024 02/28/2022, 02/07/2022 Influenza Vaccine (#1) 2024 7, 01/03/2012, 02/07/2007 HPV/Cotest 01/10/2024 01/09/2023, 03, 08/02/2021 Pap Smear 01/10/2024 01/09/2023, 09/02/2020 Depression Screening 05/13/2025 05/13/2024, 11/27/19 24 SDOH Screening 06/01/2025 06/01/2024 Family Planning (PISQ) 06/02/2025 06/02/2024 Tobacco Screening 06/02/2025 06/02/2024 DTaP/Tdap/Td Vaccines (9 - Td or Tdap) 05/13/2034 05/13/2024, 02/13/2017, 2009, Additional history exists Zoster Vaccines (1 of 2) 08/10/2045 RSV Patients and Patients Aged 60 years or older (1 - 1-dose 75+ series) 08/10/2070 IPV Vaccines Completed 12/03/1996, 11/1995, 1995, Additional history exists Pneumococcal Vaccine: Pediatrics (0 to 5 Years) and At-Risk Patients (6 to 49) Years) Aged Out 04/18/2001, 04/18/2001 No longer [...] Routine 06/02/2024 3:51 PM EST Vaginal discharge CBC WITH AUTO DIFFERENTIAL Routine 05/27/2024 4:01 PM EST Rupture of cyst of right ovary URINALYSIS, COMPLETE, WITH REFLEX TO CULTURE Routine 05/13/2024 1:09 PM EST CULTURE, URINE, ROUTINE Routine 05/13/2024 1:09 PM EST T-SPOT(R).TB Routine 05/13/2024 11:57 AM EST Visit for preventive health examination HIV ANTIBODY/ANTIGEN ([place] DPH) Routine 04/10/2024 HEPATITIS C ANTIBODY ([place] DPH) Routine 04/10/2024 SYPHILIS ABS ([place] DPH) Routine 04/10/2024 CHLAMYDIA/GONORRHEA THROAT SWAB ([place] DPH) Routine 04/10/2024 CHLAMYDIA/GONORRHEA VAGINAL SWAB ([place] DPH) Routine 04/10/2024 HPV MRNA E6/E7 REFLEX TO HPV 16, 18/45 Routine 01/09/2023 12:03 PM EDT Vaginal discharge PAP SMEAR Routine 01/09/2023 12:03 PM EDT Vaginal discharge from Last 3 Months or Most Recently Relevant to Health Maintenance Results * POCT fern test, vaginal fluid manually resulted (06/02/2024 4:25 PM EST) JOSI Prep Positive Comment:pH 4.5, neg whiff, n eg clue, neg trich, neg wbc, pos yeast Vaginal Fluid Vaginal structure / Unknown 06/02/2024 4:25 PM EST Impressions Sanju Quijano CNM - 06/02/2024 4:25 PM EST Vulvovaginal candidiasis Sanju Quijano CNM POINT OF CARE TEST ENTER/ EDIT ORDERABLES Final Result * POCT , urine manually resulted (06/02/2024 4:07 PM EST) Preg Test, Ur Negative Negative, Indeterminate, None Detected, Invalid, Specimen unsatisfactory for evaluation, Weakly Positive QC Media Lot # [id number] Lot# Expiration Date [id number] Urine 06/02/2024 4:07 PM EST Sanju Quijano BRI POINT OF CARE TEST ENTER/ EDIT ORDERABLES Final Result * Chlamydia/N. Gonorrhoeae RNA, TMA, Urogenitial (06/02/2024 3:51 PM EST) CT PCR NOT DETECTED Not Detect. [facility] Comment:A not detected test result [...] psychologicalconsequences. NG PCR NOT DETECTED Not Detect. [facility] Comment:A not detected test result [...] PM EST 06/02/2024 5:48 PM EST Narrative [facility] - 06/03/2024 6:16 AM EST Vaginal Sanju LANDIS LAB MICROBIOLOGY - GENERA L ORDERABLES Final Result [facility] [address] [place] [address] [phone] * (ABNORMAL) CBC auto differential (05/27/2024 4:01 PM EST) White Blood Count 10.8 4.8 - 10.8 X10*3/uL [facility] Red Blood Count 3.96(L) 4.20 - 5.50 X10*6/uL [facility] Hemoglobin 11.1(L) 12.0 - 16.0 g/dl [facility] Hematocrit 32.8(L) 37.0 - 47.0 % [facility] Mean Corpuscular Volume 82.8 80.0 - 98.0 fL [facility] Mean Corpuscular Hemoglobin 28.0 27.0 - 33.0 pg [facility] Mean Corpuscular HGB Conc 33.8 31.0 - 35.0 g/dl [facility] Red Cell Distribution Width 14.0 11.0 - 16.0 % [facility] Platelet Count 316 160 - 400 X10*3/uL [facility] Mean Platelet Volume 10.9 9.4 - 12.3 fL [facility] Neutrophils Percent Auto 60.5 45 - 73 % [facility] Imm Gran Pct Auto 0.4 0.0 - 0.4 % [facility] Lymphocytes Percent Auto 24.2 20 - 40 % [facility] Monocytes Percent Auto 9.9 2 - 11 % [facility] Eosinophils Percent Auto 4.4(H) 0 - 4 % [facility] Basophils Percent Auto 0.6 0 - 2 % [facility] NRBC Pct Auto 0.0 0.0 - 0.2 /100WBC [facility] Neutrophils Absolute Auto 6.5 2.0 - 8.3 x10*3/uL [facility] Imm Gran Abs Auto 0.04(H) 0.00 - 0.03 X10*3/uL [facility] Lymphocytes Absolute Auto 2.6 1.2 - 4.9 X10*3/uL [facility] Monocytes Absolute Auto 1.1 0.1 - 1.2 X10*3/uL [facility] Eosinophils Absolute Auto 0.5(H) 0.0 - 0.4 X10*3/uL [facility] Basophils Absolute Auto 0.1 0.0 - 0.2 X10*3/uL [facility] NRBC Abs Auto 0.000 0.0 - 0.012 X10*3/uL [facility] Blood Venous blood specimen / Unknown 05/27/2024 4:01 PM EST 05/27/2024 5:35 PM EST us Emani Bird MD LAB BLOOD ORDERABLES Final Res ult [facility] [address] [place] [address] [phone] * (ABNORMAL) Urinalysis, Complete, with Reflex to Culture (05/13/2024 1:09 PM EST) Color Urine Yellow [facility] Appearance Urine Clear [facility] PH 6.5 5.0 - 9.0 [facility] Glucose Urine UA Negative Negative mg/dL [facility] Urine Blood Negative Negative [facility] Specific [place] - Urine 1.025 1.005 - 1.025 [facility] Urine Protein Negative Neg-Trace mg/dL [facility] Urine Ketones Negative Negative mg/dL [facility] Nitrite Urine Negative Negative [facility] Leukocyte Esterase Urine Small (1+)(A) Negative [facility] RBC Urine 0-2 0 - 2 /HPF [facility] Urine WBC 11-20(A) 0 - 5 /HPF [facility] Urine Squamous Epithelial Cell 6-10 0 - 2 /HPF [facility] Urine Bacteria 1+ None Seen [facility] Hyaline Casts, Urine 0-2 0 - 2 /LPF [facility] 05/13/2024 1:09 PM EST 05/13/2024 4:07 PM EST Narrative [facility] - 05/13/2024 4:38 PM EST Urine, Clean Catch us María Elena Zuleta MD LAB URINE ORDERABLES Fin al Result Performing Organization Address City/[facility]/ZIP Co de Phone Number [facility] [address] [place] [address] [phone] * Culture, Urine, Routine (05/13/2024 1:09 PM EST) Urine Urine specimen obtained by clean catch procedure / Unknown 05/13/2024 1:09 PM EST 05/13/2024 4:41 PM EST Comment:UACC Narrative [facility] - 05/17/2024 8:22 AM EST Viridans streptococcus group Quant > 100,000 cfu/mL Susc N/A Susceptibility not routinely performed on this isolate. Specimen Source: Urine clean catch us María Elena Zuleta MD LAB MICROBIOLOGY - GENER AL ORDERABLES Final Result Performing Organization Address [facility] Co de Phone Number [facility] [address] [place] [phone] * T-SPOT??.TB (05/13/2024 11:57 AM EST) T Spot TB Negative Negative [facility] Comment:A negative test resu lt [...] as aquantitative test. TS PANEL A 0 [facility] TS PANEL B 0 [facility] Negative Control Passed [facility] Positive Control Passed [facility] Comment:For additional infor mation, please refer tohttp://education.2,10E+07/faq/RSP600(This link is being provided for informational/educational purposes only.)THIS TEST WAS PERFORMED AT:[employer] [id number] [place] [id number] GOMEZ MD,PHD 05/13/2024 11:5 7 AM EST 05/13/2024 1:05 PM EST María Elena Zuleta MD LAB BLOOD ORDERABLES Fin al Result [facility] [address] [place] [phone] * Chlamydia/Gonorrhea Vaginal Swab ([place] DPH) (04/10/2024) Chlamydia Vaginal Swab Negative Negative, Indeterminate, None Detected, Invalid, Specimen unsatisfactory for evaluation, Weakly Positive Gonorrhea Vaginal Swab Negative Negative, Indeterminate, None Detected, Invalid, Specimen unsatisfactory for evaluation, Weakly Positive Swab Vaginal structure / Unknown 04/10/2024 Historical Provider LAB MICROBIOLOGY - GENERA L ORDERABLES Final Result * Chlamydia/Gonorrhea Throat Swab ([place] DPH) (04/10/2024) Chlamydia Throat Swab Negative Gonorrhea Throat Swab Negative Swab 04/10/2024 Historical Provider MD LAB MICROBIOLOGY - GENERA L ORDERABLES Final Result * Syphilis Antibodies (DPH) (04/10/2024) Pathologist [facility] Syphilis Abs Nonreactive Borderline, Nonreactive, Weakly Reactive, Inconclusive, Specimen unsatisfactory for evaluation Blood Venous blood specimen / Unknown 04/10/2024 Result [facility] Provider MD LAB BLOOD ORDERABLES Teri l Result * Hepatitis C Antibody ([place] DP) (04/10/2024) Pathologist [facility] Hepatitis C Ab Nonreactive Blood 04/10/2024 Result [facility] MD LAB BLOOD ORDERABLES Teri l Result * HIV Ab/Ag ([place] DP) (04/10/2024) Pathologist [facility] HIV Ag/Ab Nonreactive Blood 04/10/2024 Result [facility] MD LAB BLOOD ORDERABLES Edit ed Result - Final * HPV mRNA E6/E7 w/Reflex to HPV Genotypes 16, 18/45 (01/09/2023 12:03 PM EDT) [facility] HPV nRNA E6/E7 Not Detected Not Detected [facility] Comment:Methodology: Transcr iption-Mediated AmplificationThis assay detects E6/E7 viral messenger RNA (mRNA) from 14high-risk HPV types (16,18,31,33,35,39,45,51,52,56,58,59,66,68).Cervical sources are required for HPV testing.If a vaginal source from a patient who has had atotal hysterectomy with removal of cervix wassubmitted, please contact the testing laboratoryfor alternative testing options.For additional information, please refer tohttp://education.2,10E+07/faq/KTE475s0(This link if provided for information/educational purposes only.)THIS TEST WAS PERFORMED AT:[employer] [place] [id number] RASHID MD HPV mRNA E6/E7 TNP [facility] HPV 16 RNA TNP [facility] HPV 18/45 RNA TNP [facility] 01/09/2023 12:0 3 PM EDT 01/10/2023 9:15 AM EDT Sanju Quijano CNM LAB CYTOLOGY ORDERABLES F inal Result [facility] [address] [place] [phone] * Pap Smear (01/09/2023 12:03 PM EDT) 01/09/2023 12:0 3 PM EDT 01/10/2023 9:15 AM EDT Narrative [facility] - 01/22/2023 10:48 AM EDT ----- ------- Name: Vilma Mendez ?Age/Sex: 27/F ? : 1995 Unit#: [id number] ?? Attend Dr: SANJU QUIJANO CNM ?Re01/09/23 ?Status: DEP REF ? Location: [facility] ? Disch: ? ----- ------- SPEC : [id number] ?RECD: 01/10/23 ? STATUS: ??SOUT ? REQ NUM: [id number] ? DEVON: 01/09/23-1203 ? SUBM DR: SANJU QUIJANO CNM ? ENTERED: ??01/10/23 ?SP TYPE: Pap Smr ?OTHR : ? [...] 66, 68) ?? HPV testing performed by [facility], [place], [place]. ??See reference laboratory ?? pion of the EMR for entire report. ?Clinical Information LMP: 12/29/2022 Previous PAP test:2021, [facility] HPV positive ? Material Received ?? ThinPrep-Vaginal/Cervical ----- ------- Signed (signature on file) Andres Wood MD 01/22/23 1048 ? ----- ------- ? END OF REPORT ? us Sanju Quijano [facility] LAB CYTOLOGY ORDERABLES F inal Result [facility] [address] [place] [phone] from Last 3 Months or Most Recently Relevant to Health Maintenance [place] [address] [address] [place] [address] [facility] ST[facility] AD[facility] Care Teams Roll On Worker Relationship Specialty Start Date End Date María Elena Zuleta MD [address] [place] [address] PCP - General Family Medicine 06/13/17 Seven Ly RN [address] [place] [phone] Slip Cover CutterIntake Counselor 05/26/24
--- OUTSIDE RECORDS SUMMARY | 2024-06-18 11:52 | XMS_ITS | Encounter Summary ---
Author Organization [employer] Address 75 [facility] [place] [address] Care Team Providers Care Hospital Social Worker Name Role Phone María Elena Zuleta MD Primary Care Provider + Seven Ly RN Unavailable [phone] Reason for Visit * Reason Onset Date Comments Triage 07/18/2022 Encounter Details Date Type Department Care Team (Late st Contact Info) Description 07/18/2022 Telephone [facility] MEDICINE [address] [place], [place] [phone] María Elena Zuleta MD [address] [place], [place] [phone] Triage Social History Tobacco Use Types Packs/Day [...] became very itchy, it is storm perfect [place] and is a blood worm per Pt description which is found on google . Advised Pt tocome to [facility] today to be seen by provider and [...] accepted this outcome Please contact pt at [phone] documented in this encounter Plan of Treatment Upcoming Encounters Date Type Department Care Team (Late st Contact Info) Description 07/27/2024 2:30 PM EDT Office Visit [facility] OPTOMETRY [address] [place] [address] Serena Daniel, OD [address] [place] [address] documented as of this encounter Visit Diagnoses Not on filedocumented in this encounter Care Teams Hospital Social Worker Relationship Specialty Start Date End Date María Elena Zuleta MD [address] [place] [address] PCP - General Family Medicine 06/13/17 Seven Ly RN [address] [place] [phone] Rn GastroenterologyBoat Designer 05/26/24 documented as of this encounter
--- OUTSIDE RECORDS SUMMARY | 2024-06-18 11:52 | XMS_ITS | Encounter Summary ---
Author Organization [employer] Address [address] [employer] 7t [place] [address] Care Team Providers Care Facilities Plant Engineer Name Role Phone María Elena Zuleta MD Primary Care Provider + Encounter Details Date Type Department Care Team ([facility] st Contact Info) Description 05/21/2024 Telephone [facility] MEDICINE [address] [place], [place] [phone] Seven Ly RN [address] [place] [address] Social History Tobacco Use Types Packs/Day Years [...] corporis, and H. Pylori infection. Specialists include [facility] Dental, Optometry, [facility] GI, ROTO MIXER OPERATOR, andOphthalmology. ED visits within the last 12 months include [facility] ED 05/20/24, [facility] ED 05/02/24, [facility] 12/08/23, and [facility] ED 10/10/23. Last appointment in PCP office on 05/13/24. Next appointment scheduled for 07/27/24 at 2:30pm with [facility] Optometry. documented in this encounter Plan of Treatment Upcoming Encounters Date Type Department Care Team (Late st Contact Info) Description 07/27/2024 2:30 PM EDT Office Visit [facility] OPTOMETRY [address] [place] [address] Serena Daniel, DARIN [address] [place] [address] documented as of this encounter Visit Diagnoses Not on filedocumented in this encounter Additional Health Concerns Assessment Noted Time PHQ-9 Depression Total Score: 6 11/27/19 24 9:34 AM EDT documented as of this encounter Care Teams Facilities Plant Engineer Relationship Specialty Start Date End Date María Elena Zuleta MD [address] [place] [phone] PCP - General Family Medicine 06/13/17 documented as of this encounter
--- OUTSIDE RECORDS SUMMARY | 2024-06-18 11:52 | XMS_ITS | Encounter Summary ---
Author Organization [employer] Address [address] [facility] [place] [address] Care Team Providers Care Intelligence Officer Name Role Phone María Elena Zuleta MD Primary Care Provider + Seven yL RN Unavailable [phone] Reason for Visit * Reason Onset Date Comments triage 08/07/2022 Encounter Details Date Type Department Care Team (Late st Contact Info) Description 08/07/2022 Telephone [facility] MEDICINE [address] [place], [place] [phone] María Elena Zuleta MD [address] [place], [place] [phone] triage Social History Tobacco Use Types Packs/Day [...] July. Pt is advised to come to [facility] Pt requests some testing for STDs. [...] Description 07/27/2024 2:30 PM EDT Office Visit [facility] OPTOMETRY [address] [place] [address] Serena Daniel OD [address] [place] [address] documented as of this encounter Visit Diagnoses Not on filedocumented in this encounter Care Teams Intelligence Officer Relationship Specialty Start Date End Date María Elena Zuleta MD [address] [place] [address], [place] [address] PCP - General Family Medicine 06/13/17 Seven Ly RN [address] [place] [address] Elevator MechanicLeather Stamper 05/26/24 documented as of this encounter
--- OUTSIDE RECORDS SUMMARY | 2024-06-18 11:52 | XMS_ITS | Encounter Summary ---
Author Organization [employer] Address 75 [facility] 7 [place] [address] Care Team Providers Care Ebay Reseller Name Role Phone María Elena Zuleta MD Primary Care Provider + Seven yL RN Unavailable [phone] Encounter Details Date Type Department Care Team ([facility] st Contact Info) Description 11/01/2022 Orders Only [facility] MEDICINE [address] [place], [place] [phone] María Elena Zuleta MD 230 [place], [place] [phone] Vaginal discharge (Primary Dx) Social History Tobacco [...] 07/27/2024 2:30 PM EDT Office Visit [facility] OPTOMETRY [address] [place] [address] Serena Daniel, OD [address] [place] [address] documented as of this encounter Procedures Procedure Name Priority Date/Time Associated Diagnosis Comments HIV ANTIBODY/ANTIGEN ([facility]) Routine 01/09/2023 12:18 PM EDT Vaginal discharge [...] 12:18 PM EDT) HIV AB/AG Nonreactive Nonreactive [facility] Comment:HIV-1 p24 Ag and/or HIV-1/HIV-2 Ab not detected.A test result that is nonreactive does not exclude thepossibility of exposure to or infection with HIV-1 and/orHIV-2. Nonreactive results in this assay for individualswith prior exposure to HIV-1 and/or HIV-2 may be due toantigen and antibody levels that are below the limit ofdetection of this assay.The [employer] HIV Ag/Ab Combo assay result andsupplemental assay results should be interpreted inconjunction with the patient's clinical presentation,history and other laboratory results. If the results areinconsistent with clinical evidence, additional testing issuggested to confirm the result. 01/09/2023 12:1 8 PM EDT 01/09/2023 1:10 PM EDT us Sanju Quijano [facility] BLOOD ORDERABLES Teri cantu Result [facility] [address] [place] [phone] * Pap Smear (01/09/2023 12:03 PM EDT) 01/09/2023 12:0 3 PM EDT 01/10/2023 9:15 AM EDT Narrative [facility] - 01/22/2023 10:48 AM EDT ----- ------- Name: Elizabeth DarrylVilma ?Age/Sex: 27/F ? : 1995 Unit#: [id number] ?? Attend Dr: SANJU QUIJANO CNM ?Re01/09/23 ?Status: DEP REF ? Location: HO.CL ? Disch: ? ----- ------- SPEC : [id number] ?RECD: 01/10/23 ? STATUS: ??SOUT ? REQ NUM: [id number] ? DEVON: 01/09/23-1203 ? SUBM DR: SANJU [...] 66, 68) ?? HPV testing performed by [facility], [place], [place]. ??See reference laboratory ?? pion of the EMR for entire report. ?Clinical Information LMP: 12/29/2022 Previous PAP test:2021, ASCUS HPV positive ? Material Received ?? ThinPrep-Vaginal/Cervical ----- ------- Signed (signature on file) Andres Wood MD 01/22/23 1898 ? ----- ------- ? END OF REPORT ? Sanju Rhonda [facility] CYTOLOGY ORDERABLES F inal Result Performing Organization Address [facility] Co de Phone Number [facility] [address] [place], [place] [phone] * C.TRACHOMATIS/N. GONORRHOEAE DNA PROBE (01/09/2023 12:03 PM EDT) CTNG Ref Lab NOT DETECTED NOT DETECTED [facility] NG Ref Lab NOT DETECTED NOT DETECTED [facility] CTNG Ref Note SEE NOTE [facility] Comment:The analytical perfo rmance characteristics of thisassay, when used to test SurePath(TM) specimens have beendetermined by [facility]. The modifications havenot been cleared or approved by the FDA. This assay hasbeen validated pursuant to the CLIA regulations and isused for clinical purposes.For additional information, please refer tohttps://education.[employer] [facility]/faq/VZR667(This link is being provided for information/educational purposes only.)THIS TEST WAS PERFORMED AT:[facility] [place] [id number] RASHID MD 01/09/2023 12:0 3 PM EDT 01/10/2023 9:15 AM EDT Sanju Rhonda [facility] MICROBIOLOGY - GENERA L ORDERABLES Final Result Performing Organization Address [facility] Co de Phone Number [facility] [address] [place] [phone] * HPV mRNA E6/E7 w/Reflex to HPV Genotypes 16, 18/45 (01/09/2023 12:03 PM EDT) Pathologist [facility] HPV nRNA E6/E7 Not Detected Not Detected [facility] Comment:Methodology: Transcr iption-Mediated AmplificationThis assay detects E6/E7 viral messenger RNA (mRNA) from 14high-risk HPV types (16,18,31,33,35,39,45,51,52,56,58,59,66,68).Cervical sources are required for HPV testing.If a vaginal source from a patient who has had atotal hysterectomy with removal of cervix wassubmitted, please contact the testing laboratoryfor alternative testing options.For additional information, please refer tohttp://education.[facility] [facility]/faq/SLO732g9(This link if provided for information/educational purposes only.)THIS TEST WAS PERFORMED AT:[facility] [place] [id number] RASHID MD HPV mRNA E6/E7 [facility] HPV 16 RNA [facility] HPV 18/45 RNA [facility] 01/09/2023 12:0 3 PM EDT 01/10/2023 9:15 AM EDT [facility] CYTOLOG[facility] ORDERABLES F inal Result Performing Organization Address City/[facility]/ZIP Co de Phone Number [facility] [address] [place] [phone] * (ABNORMAL) Bacterial Vaginosis (01/09/2023 12:00 AM EDT) Trichomonas DNA Probe Negative Negative [facility] Gardnerella DNA Probe Positive(A) Negative [facility] Lindsey DNA Probe Positive(A) Negative [facility] 01/09/2023 01/09/2023 [facility] MICROBIOLOGY - GENERA L ORDERABLES Final Result Performing Organization Address [facility]/ZIP Co de Phone Number [facility] [address] [place] [phone] documented in this encounter Visit Diagnoses Diagnosis Vaginal discharge- Primary Leukorrhea, not specified as infective documented in this encounter Care Teams Ebay Reseller Relationship Specialty Start Date End Date María Elena Zuleta MD [address] [place] [address] PCP - General Family Medicine 06/13/17 Seven Ly RN [address] [place] [phone] Lead PrinterCalender Tender 05/26/24 documented as of this encounter
--- OUTSIDE RECORDS SUMMARY | 2024-06-18 11:52 | XMS_ITS | Encounter Summary ---
Author Organization [employer] Address 75 [facility] [address], [place] [address] Care Team Providers Care Traditional Chinese Herbalist Name Role Phone María Elena Zuleta MD Primary Care Provider + Reason for Visit * Reason Onset Date Comments Nurse Triage 07/16/2023 Encounter Details Date Type Department Care Team ([facility] st Contact Info) Description 07/16/2023 Telephone [facility] MEDICINE [address] [place], [place] [phone] María Elena Zuleta MD 230 [place], [place] [phone] Nurse Triage Social History Tobacco Use Types [...] caller accepted this outcome Please contact at [phone] documented in this encounter Plan of Treatment Upcoming Encounters Date Type Department Care Team (Late st Contact Info) Description 07/27/2024 2:30 PM EDT Office Visit [facility] OPTOMETRY [address] [place], [place] [phone] Serena Daniel, OD [address] [place] [address] documented as of this encounter Visit Diagnoses Not on filedocumented in this encounter Care Teams Traditional Chinese Herbalist Relationship Specialty Start Date End Date María Elena Zuleta MD [address] [place], [place] [phone] PCP - General Family Medicine 06/13/17 documented as of this encounter
--- OUTSIDE RECORDS SUMMARY | 2024-06-18 11:52 | XMS_ITS | Encounter Summary ---
Author Organization [employer] Address 75 [facility] 7t [place] [address] Care Team Providers Care Tie Cutter Name Role Phone María Elena Zuleta MD Primary Care Provider + Seven Ly RN Unavailable [phone] Encounter Details Date Type Department Care [...] Description 07/27/2024 2:30 PM EDT Office Visit [facility] OPTOMETRY [address] [place] [address] Serena Daniel, OD [address] [place] [address] documented as of this encounter Visit Diagnoses Not on filedocumented in this encounter Additional Health Concerns Assessment Noted Time PHQ-9 Depression Total Score: 6 11/27/19 24 9:34 AM EDT documented as of this encounter Care Teams Tie Cutter Relationship Specialty Start Date End Date María Elena Zuleta MD 230 [place] [address] PCP - General Family Medicine 06/13/17 Seven Ly RN [address] [place] [address] Phonograph Cartridge AssemblerGame Show Host 05/26/24 documented as of this encounter
--- OUTSIDE RECORDS SUMMARY | 2024-06-18 11:52 | XMS_ITS | Encounter Summary ---
Author Organization [employer] Address 75 [facility] 7[place], [place] [address] Care Team Providers Care Time Motion Analyst Name Role Phone María Elena Zuleta MD Primary Care Provider + Seven Ly RN Unavailable [phone] Encounter Details Date Type Department Care Team ([facility] st Contact Info) Description 06/05/2024 Telephone [facility] Information Management 230 [place], [place] [phone] Emani Bird MD [address] [place] [address] Social History Tobacco Use Types Packs/Day Years [...] * Telephone Encounter - Cora Andrews - 06/05/2024 9:03 AM EST Error documented in this encounter Plan of Treatment Upcoming Encounters Date Type Department Care Team (Late st Contact Info) Description 07/27/2024 2:30 PM EDT Office Visit [facility] OPTOMETRY [address] [place] [address] Serena Daniel, OD [address] [place] [address] documented as of this encounter Visit Diagnoses Not on filedocumented in this encounter Additional Health Concerns Assessment Noted Time PHQ-9 Depression Total Score: 6 11/27/19 24 9:34 AM EDT documented as of this encounter Care Teams Time Motion Analyst Relationship Specialty Start Date End Date María Elena Zuleta MD [address] [place] [address] PCP - General Family Medicine 06/13/17 Seven Ly RN [address] [place] [address] [place] [address] Granite Countertop InstallerCisco Certified Network Associate 05/26/24 documented as of this encounter
--- OUTSIDE RECORDS SUMMARY | 2024-06-18 11:52 | XMS_ITS | Encounter Summary ---
Author Organization [employer] Address 75 [facility] 7[place] [address] Care Team Providers Care Maintenance Repairer Name Role Phone María Elena Zuleta MD Primary Care Provider + Reason for Visit * Reason Comments Care Coordination CM/CHW appt reminder Encounter Details Date Type Department Care Team (Latest Contact Info) Description 05/22/2024 Patient Outreach [facility] MEDICINE [address] [place], [place] [phone] María Elena Zuleta MD 230 [place], [place] [phone] Care Coordination (CM/CHW appt reminder) Social History [...] EST CHW Ivette Nunez sent text through [employer] for Appt. reminder for initial assessment scheduled for 05/26/24 @ 103AM tele appt with JOVANNA Ly RN. documented in this encounter Plan of Treatment Upcoming Encounters Date Type Department Care Team ([facility] st Contact Info) Description 07/27/2024 2:30 PM EDT Office Visit [facility] OPTOMETRY [address] [place] [address] Tarka, Serena, OD [address] [place] [address] documented as of this encounter Visit Diagnoses Not on filedocumented in this encounter Additional Health Concerns Assessment Noted Time PHQ-9 Depression Total Score: 6 11/27/19 24 9:34 AM EDT documented as of this encounter Care Teams Maintenance Repairer Relationship Specialty Start Date End Date María Elena Zuleta MD [address] [place] [address] PCP - General Family Medicine 06/13/17 documented as of this encounter
--- OUTSIDE RECORDS SUMMARY | 2024-06-18 11:52 | XMS_ITS | Encounter Summary ---
Author Organization [employer] Address 75 [facility] 7 [place] [address] Care Team Providers Care Hot Roller Name Role Phone María Elena Zuleta MD Primary Care Provider + Seven Ly RN Unavailable [phone] Reason for Visit * Reason Onset Date Comments Care Management 05/26/2024 C3CM- initial as sessment/ enrollment Encounter Details Date Type Department Care Team ([facility] st Contact Info) Description 05/26/2024 Telephone [facility] MEDICINE 230 [place], [place] [phone] Seven Ly, RN [address] [place], [place] [phone] Care Management (C3- initial assessment/ enrollment) Social [...] Hx anxiety. Per patient, being followed by [facility] TRIMMING OPERATOR. She states she was dx with H.Pylori [...] Patient states she was previously followed by [facility] for therapy. Shestates she fell out of [...] to resources. Per patient, recently seen at [facility] and Dx with BV, UTI and pelvic cyst? She states she was prescribed several medications which she reports taking as prescribed. Per patient, symptoms have improved and deniesany pain at this time. Patient is scheduled for ED f/u tomorrow and denies any barriers to attending the visit. She states she also called [facility] TRIMMING OPERATOR and has an upcoming appt scheduled. Patient denies any immediate needs or concerns at this time. Care management program explained and contact information given. Patient verbalizes understanding, and able to repeat back to personal lines underwriter. A follow up call will be placed within 10 days, patient agrees with plan. documented in this encounter Plan of Treatment Upcoming Encounters Date Type Department Care Team ([facility] st Contact Info) Description 07/27/2024 2:30 PM EDT Office Visit [facility] OPTOMETRY [address] [place] [address] Serena Daniel, OD [address] [place] [address] documented as of this encounter Visit Diagnoses Not on filedocumented in this encounter Additional Health Concerns Assessment Noted Time PHQ-9 Depression Total Score: 6 11/27/19 24 9:34 AM EDT documented as of this encounter Care Teams Hot Roller Relationship Specialty Start Date End Date María Elena Zuleta MD [address] [place] [address] PCP - General Family Medicine 06/13/17 Seven Ly RN [address] [place] [address] Vasc TechManaged Care Provider 05/26/24 documented as of this encounter
--- OUTSIDE RECORDS SUMMARY | 2024-06-18 11:52 | XMS_ITS | Encounter Summary ---
Author Organization [employer] Address 75 [facility] 7[facility] [place] [address] Care Team Providers Care Information Services Tech Name Role Phone María Elena Zuleta MD Primary Care Provider + Seven Ly RN Unavailable [phone] Reason for Visit * Reason Comments Med Refill Encounter Details Date Type Department Care Team ([facility] st Contact Info) Description 05/24/2023 Refill [facility] MEDICINE [address] [place], [place] [phone] María Elena Zuleta MD 230 [place], [place] [phone] Social History Tobacco Use Types Packs/Day Years [...] PM EDT Office Visit [facility] OPTOMETRY [address] [place] [address] Serena Daniel, OD [address] [place] [address] documented as of this encounter Visit Diagnoses Not on filedocumented in this encounter Care Teams Information Services Tech Relationship Specialty Start Date End Date María Elena Zuleta MD [address] [place] [address] PCP - General Family Medicine 06/13/17 Seven Ly RN [address] [place] [phone] Custom Bow MakerTruss Puller Helper 05/26/24 documented as of this encounter
--- OUTSIDE RECORDS SUMMARY | 2024-06-18 11:52 | XMS_ITS | Encounter Summary ---
Author Organization [employer] Address 75 [facility] 7[facility] [place] [address] Care Team Providers Care Health And Fitness Professor Name Role Phone María Elnea Zuleta MD Primary Care Provider + Seven Ly RN Unavailable [phone] Reason for Visit * Reason Onset Date Comments Nurse Triage 06/04/2024 Encounter Details Date Type Department Care Team ([facility] st Contact Info) Description 06/04/2024 Telephone [facility] MEDICINE 230 [place], [place] [phone] María Elena Zuleta MD 230 [place], [place] [phone] Nurse Triage Social History Tobacco Use Types [...] your housing situation today? I have tricia aurora 02/18/[address] you li [...] encounter Miscellaneous Notes * Telephone Encounter - Esme Monterroso RN - 06/05/2024 10:50 AM EST Called pt to triage, spoke to pt. Pt declined triage or need for appt at this time. Pt states took the pill as prescribed 3 days ago and wants to know when she should start the vaginal cream. Advisedto start as soon as possible and as prescribed. Pt understands and agrees with plan. Pt will call back as needed. * Telephone Encounter - Nolberto Rodriguez - 06/05/2024 9:47 AM EST Tc from pt returning call regarding prior message. Pt does have a Apt at 12 so they are trying to see if its possible to get a call back before that. Contact pt at [phone] * Telephone Encounter - Truong Delarosa - 06/04/2024 2:32 PM EST Symptom: Medication Question Outcome: Schedule an urgent appointment (within 4 hours) or talk to a nurse or provider soon Reason: New prescription question The caller accepted this outcome. documented in this encounter Plan of Treatment Upcoming Encounters Date Type Department Care Team ([facility] st Contact Info) Description 07/27/2024 2:30 PM EDT Office Visit [facility] OPTOMETRY [address] [place], [place] [phone] Serena Daniel, OD [address] [place] [address] documented as of this encounter Visit Diagnoses Not on filedocumented in this encounter Additional Health Concerns Assessment Noted Time PHQ-9 Depression Total Score: 6 11/27/19 24 9:34 AM EDT documented as of this encounter Care Teams Health And Fitness Professor Relationship Specialty Start Date End Date María Eelna Zuleta MD 230 [place] [address] PCP - General Family Medicine 06/13/17 Seven Ly, JACKIE [address] [place] [address] Enamel ShaderMachine Brusher 05/26/24 documented as of this encounter
--- OUTSIDE RECORDS SUMMARY | 2024-06-18 11:52 | XMS_ITS | Encounter Summary ---
Author Organization [employer] Address 75 [facility] 7[place] [address] Care Team Providers Care Front Office Medical Assistant Name Role Phone María Elena Zuleta MD Primary Care Provider + Reason for Visit * Reason Onset Date Comments ER Follow-up 05/21/2024 Encounter Details Date Type Department Care Team ([facility] st Contact Info) Description 05/21/2024 Telephone [facility] MEDICINE 230 [place], [place] [phone] María Elena Zuleta MD [address] [place], [place] [phone] ER Follow-up Social History Tobacco Use Types [...] is attempting to transfer care to a [facility] practice in [place]. Pt reports that pcp was treating her for UTI and checking labs for STI when her pain was caused by a cyst. Pt states she was diagnosed with a UTI in ED as well. Reviewed recommendations forf/u per [facility] note. Pt reports she was discharged with Ibuprofen 600 mg prn for pain. Reports that she brought [facility] records to Recruitment Manager and is awaiting call back from that office for appointment scheduling. Advised pt f/u is also recommended for CT findings. Pt declines to schedule f/u with pcp. States sheprefers evaluation with alternate provider and does not want to wait until next available pcp appt in July. Pt agrees to f/u with team provider 05/27/24. Pt agrees to call [facility] or come to [facility] prn based on symptoms. * Telephone Encounter - Amanda Darden - 05/21/2024 12:26 PM EST Tc from pt returning call * Telephone Encounter - Pooja Moreno RN - 05/21/2024 11:27 AM EST Pt evaluated in [facility] 05/20/24 Dx: right lower ABD pain, right hemorrhagic ovarian cyst. 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 Recommendation is for repeat CT in a few months or MRI. Pt was discharged home with recommendation to f/u with [facility] Recruitment Manager. T/C to pt for status check and scheduled f/u if needed. No answer, v/m left to return call to Red team nurses. * Telephone Encounter - Jose C Nunez - 05/21/2024 9:11 AM EST Patient calling to report ED visit on : Date: 05/20/24 Hospital: [facility] Seen for: Cist in right pelvic Symptomatic No Patient advised will forward to team nurse for follow up documented in this encounter Plan of Treatment Upcoming Encounters Date Type Department Care Team (Late st Contact Info) Description 07/27/2024 2:30 PM EDT Office Visit [facility] OPTOMETRY [address] [place] [address] Serena Daniel, OD [address] [place] [address] documented as of this encounter Visit Diagnoses Not on filedocumented in this encounter Additional Health Concerns Assessment Noted Time PHQ-9 Depression Total Score: 6 11/27/19 24 9:34 AM EDT documented as of this encounter Care Teams Front Office Medical Assistant Relationship Specialty Start Date End Date María Elena Zuleta MD [address] [place] [address] PCP - General Family Medicine 06/13/17 documented as of this encounter
--- OUTSIDE RECORDS SUMMARY | 2024-06-18 11:52 | XMS_ITS | Encounter Summary ---
Author Organization [employer] Address 75 [facility] 7[facility] [place] [address] Care Team Providers Care Financial Report Service Sales Agent Name Role Phone María Elena Zuleta MD Primary Care Provider + Seven Ly RN Unavailable [phone] Reason for Visit * Reason Onset Date Comments Results 07/29/2023 Encounter Details Date Type Department Care Team ([facility] st Contact Info) Description 07/29/2023 Telephone [facility] MEDICINE 230 [place], [place] [phone] María Elena Zuleta MD 230 [place], [place] [phone] Results Social History Tobacco Use Types Packs/Day [...] labs, swab Date when done: 07/24 Facility: [facility] Please contact pt at [phone] documented in this encounter Plan of Treatment Upcoming Encounters Date Type Department Care Team (Late st Contact Info) Description 07/27/2024 2:30 PM EDT Office Visit [facility] OPTOMETRY [address] [place] [address] TarSerena barfield, OD [address] [place] [address] documented as of this encounter Visit Diagnoses Not on filedocumented in this encounter Care Teams Financial Report Service Sales Agent Relationship Specialty Start Date End Date María Elena Zuleta MD 230 [place] [address] PCP - General Family Medicine 06/13/17 Seven Ly RN [address] [place] [address] Associate BrokerSupervisor Fur Floor Worker 05/26/24 documented as of this encounter
== END 2024-06-18 11:43 | disposition home or self-care (01) ==
PROVIDERS: PCP Internal Medicine; Visit Provider Obstetrics & Gynecology
DX: N83.209 Unspecified ovarian cyst, unspecified side (principal); N89.8 Other specified noninflammatory disorders of vagina
CPT/HCPCS: 99213

== ENCOUNTER 2024-07-02 16:21 | Outpatient (REF) | payer MEDICAID, SELFPAY ==
--- NOTE | ~2024-07-02 | US_ITS ---
EXAMINATION: US PELVIS CLINICAL INFORMATION: Unspecified ovarian cyst. COMPARISON: August 01, 2023. TECHNIQUE: Ultrasound of the pelvis is performed using both transabdominal and transvaginal transducers along with Doppler. Transvaginal imaging is performed due to inadequate visualization transabdominally. FINDINGS: Uterus: The uterus is anteverted and measures 9 x 4 x 6 cm. Cervix is closed with normal echotexture. Prominent vessels within the myometrium.. The double wall endometrial thickness is 5 mm. The uterus is smooth in contour and has normal myometrial echogenicity. No visible fibroid. Adnexa: Both ovaries are visualized. There is normal color flow to the adnexa. There is no ovarian torsion. Small volume of free fluid in the cul-de-sac. Right ovary measures 3 x 3 x 2 cm. Volume: 11 cc. Scattered follicles surrounding the ovary. Left ovary measures 4 x 2 x 4 cm. Volume: 16 cc. Scattered follicles surrounding the periphery of the ovary. US/US pelvic and transvaginal IMPRESSION: No ovarian torsion or dominant ovarian cyst. Small volume of free fluid in the cul-de-sac. No gross uterine fibroids. Electronically signed by: Lake Ryder MD 07/03/2024 07:12 AM EST
--- OUTSIDE RECORDS SUMMARY | 2024-07-02 19:24 | XMS_ITS | Encounter Summary ---
Author Organization [employer] Address 75 [facility] [address] [address] Care Team Providers Care Academic Intern Name Role Phone María Elena Zuleta MD Primary Care Provider + Seven Ly RN Unavailable [phone] Encounter Details Date Type Department Care Team ([facility] st Contact Info) Description 06/04/2024 [facility] 230 [place], [place] [phone] Emani Bird MD [address] [place] [address] Social History Tobacco Use Types Packs/Day Years [...] 06/04/2024 10:31 AM EST Incoming fax from [facility] requesting MRI order to be update to MRI Abdomen WWO Contrast. Please advise! documented in this encounter Plan of Treatment Upcoming Encounters Date Type Department Care Team (Late st Contact Info) Description 07/27/2024 2:30 PM EDT Office Visit [facility] OPTOM[facility] [address] [place] [address] Serena Daniel, OD [address] [place] [address] documented as of this encounter Visit Diagnoses Not on filedocumented in this encounter Additional Health Concerns Assessment Noted Time PHQ-9 Depression Total Score: 6 11/27/19 24 9:34 AM EDT documented as of this encounter Care Teams Academic Intern Relationship Specialty Start Date End Date María Elena Zuleta MD [address] [place] [address] PCP - General Family Medicine 06/13/17 Seven Ly RN [address] [place] [address] Branch ChiefSchool Bus Inspector 05/26/24 documented as of this encounter
--- OUTSIDE RECORDS SUMMARY | 2024-07-02 19:24 | XMS_ITS | Encounter Summary ---
Author Organization [employer] Address 75 [facility] 7 [place] [address] Care Team Providers Care Engineering Programmer Name Role Phone María Elena Zuleta MD Primary Care Provider + Seven Ly RN Unavailable [phone] Reason for Visit * Reason Onset Date Comments Care Management 06/19/2024 C3CM- f/u call Encounter Details Date Type Department Care Team ([facility] st Contact Info) Description 06/19/[address] [facility] MEDICINE 230 [place], [place] [phone] Seven Ly, RN [address] [place], [place] [phone] Care Management (C3CM- f/u call) Social History [...] Telephone Encounter - Seven Ly RN - 06/19/2024 10:43 AM EST CM Seven Ly RN and CHW Ivette Nunez placed outbound call to patient. Patient's name, and address confirmed. Patient states is doing well with no recent illnesses or emergency room visits.Patient confirms attending visit with [facility] yesterday. She states the visit went well. Per patient, symptoms have resolved for the most part but she states she is still experiencing some white vaginal discharge. Patient states she was tested by [facility] and will be contacted with results/plan of care once available. Per patient, scheduled for pelvic US and f/u with [facility] [facility] on 07/02/24. She states she hastransportation and denies any barriers to attending. Patient states she is doing okay emotionally. She states she does find herself becoming overwhelmed at times due to son having several evaluationsfor autism as well as visits with [facility]N/therapy. She does decline a referral to BH at this time. CM provided education as well as resources and advised that she please f/u as needed. She agrees. Patient confirms receiving the resources that were mailed out to her by THOMAS Steele. She states she is happy and grateful for the resources that were mailed out to her. She denies having any questions or concerns at this time. No further questions or concerns. CM reinforced direct contact information or CHW for any additional questions or concerns. Education provided on Walk-In Urgent Care located in [facility] of [facility]. Patient provided with after-hours line for [facility], , which offer night time triage service and option to transfer to gas pumping station helper provider if needed. Patient verbalizes understanding, and able to repeat back to underwriter solicitation director. A follow up call will be placed within 10 days, patientagrees with plan. documented in this encounter Plan of Treatment Upcoming Encounters Date Type Department Care Team ([facility] st Contact Info) Description 07/27/2024 2:30 PM EDT Office Visit [facility] OPTOMETRY [address] [place], [place] [phone] Serena Daniel, OD [address] [place] [address] documented as of this encounter Visit Diagnoses Not on filedocumented in this encounter Additional Health Concerns Assessment Noted Time PHQ-9 Depression Total Score: 6 11/27/19 24 9:34 AM EDT documented as of this encounter Care Teams Engineering Programmer Relationship Specialty Start Date End Date María Elena Zuleta MD [address] [place], [place] [phone] PCP - General Family Medicine 06/13/17 Seven Ly, JACKIE [address] [place] [address] Chemical Research TechnicianEvent Staff Member 05/26/24 documented as of this encounter
--- OUTSIDE RECORDS SUMMARY | 2024-07-02 19:24 | XMS_ITS | Encounter Summary ---
Author Organization [employer] Address 75 [facility] [place] [address] Care Team Providers Care Automation Lead Name Role Phone María Elena Zuleta MD Primary Care Provider + Seven Ly RN Unavailable [phone] Reason for Visit * Reason Onset Date Comments Nurse Triage 06/04/2024 Encounter Details Date Type Department Care Team ([facility] st Contact Info) Description 06/04/2024 Telephone [facility] 230 [place], [place] [phone] María Elena Zuleta MD 230 [place], [place] [phone] Nurse Triage Social History Tobacco Use Types [...] call back before that. Contact pt at [phone] * Telephone Encounter - Truong Delarosa - 06/04/2024 2:32 PM EST Symptom: Medication Question Outcome: Schedule an urgent appointment (within 4 hours) or talk to a nurse or provider soon Reason: New prescription question The caller accepted this outcome. documented in this encounter Plan of Treatment Upcoming Encounters Date Type Department Care Team ([facility] st Contact Info) Description 07/27/2024 2:30 PM EDT Office Visit [facility] [address] [place], [place] [phone] Serena Daniel, OD [address] [place] [address] documented as of this encounter Visit Diagnoses Not on filedocumented in this encounter Additional Health Concerns Assessment Noted Time PHQ-9 Depression Total Score: 6 11/27/19 24 9:34 AM EDT documented as of this encounter Care Teams Automation Lead Relationship Specialty Start Date End Date María Elena Zuleta MD [address] [place] [address] PCP - General Family Medicine 06/13/17 Seven Ly, JACKIE [address] [place] [address] Injection Molding Process TechnicianHose Maker 05/26/24 documented as of this encounter
--- OUTSIDE RECORDS SUMMARY | 2024-07-02 19:24 | XMS_ITS | Encounter Summary ---
Author Organization [employer] Address 75 [facility] [address] [address] Care Team Providers Care Postbed Stitcher Name Role Phone María Elena Zuleta MD Primary Care Provider + Seven Ly RN Unavailable [phone] Encounter Details Date Type Department Care Team ([facility] st Contact Info) Description 06/12/2024 Telephone [employer] [facility] Information Management 230 [place], [place] [phone] Emani Bird MD 230 [place] [address] Social History Tobacco Use Types Packs/Day Years [...] 06/12/2024 3:24 PM EST Incoming fax from [facility] requesting MRI order to be update to MRI Abdomen WWO Contrast. Please advise! documented in this encounter Plan of Treatment Upcoming Encounters Date Type Department Care Team (Late st Contact Info) Description 07/27/2024 2:30 PM EDT Office Visit [facility] OPT[facility] [address] [place] [address] Serena Daniel, OD [address] [place] [address] documented as of this encounter Visit Diagnoses Not on filedocumented in this encounter Additional Health Concerns Assessment Noted Time PHQ-9 Depression Total Score: 6 11/27/19 24 9:34 AM EDT documented as of this encounter Care Teams Postbed Stitcher Relationship Specialty Start Date End Date María Elena Zuleta MD 230 [place] [address] PCP - General Family Medicine 06/13/17 Seven Ly RN [address] [place] [address] Power Press OperatorTorpedo Shooter 05/26/24 documented as of this encounter
--- OUTSIDE RECORDS SUMMARY | 2024-07-02 19:24 | XMS_ITS | Encounter Summary ---
Author Organization [employer] Address 75 [facility] [address] [address] Care Team Providers Care Record Pressman Name Role Phone María Elena Zuleta MD Primary Care Provider + Seven Ly RN Unavailable [phone] Reason for Visit * Reason Comments Care Coordination SDOH f/u Encounter Details Date Type Department Care Team (Latest Contact Info) Description 07/02/2024 Patient Outreach [facility] MEDICINE [address] [place], [place] [phone] María Elena Zuleta MD 230 [place] [address] Care Coordination (SDOH f/u) Social History Tobacco Use Types Packs/Day Years [...] encounter Progress Notes * Ivette Nunez - 07/02/2024 1:13 PM EST CHW Ivette Nunez/JOVANNA Ly RN placed outbound call to patient to follow up on SDOH needs.Patient's name, and address confirmed. Patient states is doing well. No further questions or concerns. CHW reinforced direct contact information or CM for any additional questions or concerns and extended clinic hours on Mondays and Wednesdays, and Walk-In Urgent Care Located in [facility]. Patient provided with after-hours line for [facility], , which offer night time triage service and option to transfer to ammunition storage superintendent provider if needed. Patient verbalizes understanding, and able to repeat back to grant writer. A follow up call willbe placed within 10 days, patient agrees with plan. documented in this encounter Plan of Treatment Upcoming Encounters Date Type Department Care Team ([facility] st Contact Info) Description 07/27/2024 2:30 PM EDT Office Visit [facility] OPTOMETRY [address] [place] [address] Nimcocarolyne Serena, OD [address] [place] [address] documented as of this encounter Visit Diagnoses Not on filedocumented in this encounter Additional Health Concerns Assessment Noted Time PHQ-9 Depression Total Score: 6 11/26/ 24 9:34 AM EDT documented as of this encounter Care Teams Record Pressman Relationship Specialty Start Date End Date María Elena Zuleta MD [address] [place] [address] PCP - General Family Medicine 06/13/17 Seven Ly RN [address] [place] [phone] Clerical ProofreaderStitch Cleaner 05/26/24 documented as of this encounter
--- OUTSIDE RECORDS SUMMARY | 2024-07-02 19:24 | XMS_ITS | Encounter Summary ---
Author Organization [employer] Address 75 [facility] 7t [place] [address] Care Team Providers Care Coding Clerks Supervisor Name Role Phone María Elena Zuleta MD Primary Care Provider + Seven Ly RN Unavailable [phone] Encounter Details Date Type Department Care Team (Late st Contact Info) Description 06/18/2024 Orders Only GENERIC EXTERNAL DATA DEPARTMENT Provider, Generic External Data Social History Tobacco Use Types Packs/Day Years [...] t he electric, gas, oil or water X BODY threatened to shut off services in your [...] 07/27/2024 2:30 PM EDT Office Visit [facility] OPTOMETRY [address] [place] [address] Serena Daniel, OD [address] [place] [address] documented as of this encounter Procedures Procedure Name Priority Date/Time Associated Diagnosis Comments BACTERIAL VAGINOSIS PANEL Routine 06/18/2024 11:12 AM EST CHLAMYDIA/N. GONORRHOEAE RNA, TMA, UROGENITAL Routine 06/18/2024 11:12 AM EST documented in this encounter Results * Chlamydia/N. Gonorrhoeae RNA, TMA, Urogenitial (06/18/2024 11:12 AM EST) CT PCR NOT DETECTED Not Detect. [facility] Comment:A not detected test result [...] psychologicalconsequences. NG PCR NOT DETECTED Not Detect. [facility] Comment:A not detected test result [...] lead to adverse medical, social or psychologicalconsequences. 06/18/2024 11:1 2 AM EST 06/18/2024 3:37 PM EST Narrative [facility] - 06/19/2024 1:58 PM EST Vaginal us Generic External Data Provider LAB MICROBIOLOGY - GENERAL ORDERABLES Final Result [facility] [address] [place] [phone] * Bacterial Vaginosis (06/18/2024 11:12 AM EST) TRICHOMONAS VAGINALIS DETECTION BY PCR NOT DETECTED Not Detect [facility] BACTERIAL VAGINOSIS DETECTION BY PCR NEGATIVE Negative [facility] Comment:The BV organism targ ets of the Xpert Xpress MVP test can becommensal in women; Xpert Xpress MVP positive results forbacterial vaginosis should be considered in conjunction withother clinical and patient information to determine thedisease status. Organisms that are not detected by the XpertXpress MVP test have also been reported to be associatedwith BV and aerobic vaginitis.The Xpert Xpress MVP test performance has not been evaluatedin patients under the age of 14. LINDSE[employer] DETECTION BY PCR NOT DETECTED Not Detect [facility] Lindsey glab krusei PCR NOT DETECTED Not Detect [facility] 06/18/2024 11:1 2 AM EST 06/18/2024 3:37 PM EST us Generic External Data Provider LAB MICROBIOLOGY - GENERAL ORDERABLES Final Result [facility] [address] [place] [address] [phone] documented in this encounter Visit Diagnoses Not on filedocumented in this encounter Additional Health Concerns Assessment Noted Time PHQ-9 Depression Total Score: 6 11/26/ 24 9:34 AM EDT documented as of this encounter Care Teams Coding Clerks Supervisor Relationship Specialty Start Date End Date María Elena Zuleta MD [address] [place] [address] PCP - General Family Medicine 06/13/17 Seven Ly RN [address] [place] [phone] Civil Geotechnical EngineerBoat Oar Maker 05/26/24 documented as of this encounter
--- OUTSIDE RECORDS SUMMARY | 2024-07-02 19:24 | XMS_ITS | Encounter Summary ---
Author Organization [employer] Address 75 [facility] 7[place] [address] Care Team Providers Care Administrative Fellow Name Role Phone María Elena Zuleta MD Primary Care Provider + Seven Ly RN Unavailable [phone] Reason for Visit * Reason Comments Care Coordination SDOH/mail Encounter Details Date Type Department Care Team (Latest Contact Info) Description 06/03/2024 Patient Outreach [facility] MEDICINE [address] [place], [place] [phone] María Elena Zuleta MD [address] [place], [place] [phone] Care Coordination (SDOH/mail) Social History Tobacco Use [...] Visit [facility] OPTOMETRY [address] [place], [place] [phone] Serena Daniel, OD [address] [place] [address] documented as of this encounter Visit Diagnoses Not on filedocumented in this encounter Additional Health Concerns Assessment Noted Time PHQ-9 Depression Total Score: 6 11/27/19 24 9:34 AM EDT documented as of this encounter Care Teams Administrative Fellow Relationship Specialty Start Date End Date María Elena Zuleta MD [address] [place] [address] PCP - General Family Medicine 06/13/17 Seven Ly RN [address] [place] [address] RiveterExchange Mechanic 05/26/24 documented as of this encounter
--- OUTSIDE RECORDS SUMMARY | 2024-07-02 19:24 | XMS_ITS | Encounter Summary ---
Author Organization [employer] Address 75 [facility] [place] [address] Care Team Providers Care Clock Mechanic Name Role Phone María Elena Zuleta MD Primary Care Provider + Seven Ly RN Unavailable [phone] Encounter Details Date Type Department Care Team ([facility] st Contact Info) Description 06/02/2024 3:15 PM EST Office Visit [facility]IC[facility] [address] [place], [place] [phone] Esmer Ellis CNM [address] [place], [place] [phone] Vaginal discharge (Primary Dx); Abnormal uterine bleeding [...] Due for cotesting 01/2024. Has followup with [facility] 06/18. Would like to do pap there. [...] x 12 weeks. Go to commercial pharmacy ([email or web address]) and get Boric Acid 600mg vaginal capsules. [...] Office Visit [facility] OPTOMETRY [address] [place], [place] [phone] TarSerena barfield, OD [address] [place] [address] documented as of this encounter Procedures Procedure [...] 4:25 PM EST Vulvovaginal candidiasis Esmer Ellis [facility] POINT OF CARE TEST ENTER/ EDIT ORDERABLES Final Result * POCT , urine manually resulted (06/02/2024 4:07 PM EST) Pathologist [facility] Preg Test, Ur Negative Negative, Indeterminate, None Detected, Invalid, Specimen unsatisfactory for evaluation, Weakly Positive QC Media Lot # [id number] Lot# Expiration Date [id number] Urine 06/02/2024 4:07 PM EST Esmer Ellis [facility] POINT OF CARE TEST ENTER/ EDIT ORDERABLES Final Result * Chlamydia/N. Gonorrhoeae RNA, TMA, Urogenitial (06/02/2024 3:51 PM EST) Pathologist [facility] CT PCR NOT DETECTED Not Detect. [facility] Comment:A not detected test result [...] psychologicalconsequences. NG PCR NOT DETECTED Not Detect. [facility] Comment:A not detected test result [...] PM EST 06/02/2024 5:48 PM EST Narrative [facility] - 06/03/2024 6:16 AM EST Vaginal Esmer Ellis CNM LAB MICROBIOLOGY - GENERA L ORDERABLES Final Result [facility] [address] [place] [address] [phone] documented in this encounter Visit Diagnoses Diagnosis Vaginal discharge- Primary Leukorrhea, not specified as infective Abnormal uterine bleeding (AUB) documented in this encounter Additional Health Concerns Assessment Noted Time PHQ-9 Depression Total Score: 6 11/27/19 24 9:34 AM EDT documented as of this encounter Care Teams Clock Mechanic Relationship Specialty Start Date End Date María Elena Zuleta MD 230 [place] [address] PCP - General Family Medicine 06/13/17 Seven Ly RN [address] [place] [phone] Pin Inserter RegulatorIntegrated Circuit Ic Layout Designer 05/26/24 documented as of this encounter
--- OUTSIDE RECORDS SUMMARY | 2024-07-02 19:24 | XMS_ITS | Encounter Summary ---
Author Organization [employer] Address 75 [facility] [place] [address] Care Team Providers Care Utility Mechanic Name Role Phone María Elena Zuleta MD Primary Care Provider + Seven Ly RN Unavailable [phone] Reason for Visit * Reason Onset Date Comments Care Management 07/02/2024 C3CM- f/u call Encounter Details Date Type Department Care Team ([facility] st Contact Info) Description 07/02/2024 Telephone [facility] MEDICINE 230 [place], [place] [phone] María Elena Zuleta MD [address] [place], [place] [phone] Care Management (C3CM- f/u call) Social History [...] Telephone Encounter - Seven Ly RN - 07/02/2024 1:30 PM EST CM Seven Ly RN and JANNW Ivette Nunez placed outbound call to patient. Patient's name, and address confirmed. Patient states is doing well with no recent illnesses or emergency room visits.Patient states she is scheduled for the US pelvis/transvaginal this afternoon. She denies any barriers to attending the visit. Per patient, doing okay emotionally today. She states, I could be better, but I am okay. Per patient, just got a call from her older child's school stating her child has been misbehaving. CM reminded patient of her scheduled MRI on 07/04/24 at 1:45pm. Patient states she is aware. She is also aware of her scheduled CONTACT OFFICER f/u appt on 07/20/24 at 3:00pm. Patient denies any imm ediate needs or concerns at this time. Based on CM assessment, patient does not need LTSS referral at this time. CM will continue to re- evaluate patient during subsequent telephone call and place a referral if needed. No further questions or concerns. CM reinforced direct contact information or CHW for any additional questions or concerns. Education provided on Walk-In Urgent Care located in [facility] of [facility]. Patient provided with after-hours line for [facility], , which offer night time triage service and option to transfer to hot pond operator provider if needed. Patient verbalizes understanding, and able to repeat back to show card writer. A follow up call will be placed within 10 days, patient agrees with plan. documented in this encounter Plan of Treatment Upcoming Encounters Date Type Department Care Team ([facility] Contact Info) Description 07/27/2024 2:30 PM EDT Office Visit [facility] OPTOMETRY [address] [place], [place] [phone] TarSerena barfield, OD [address] [place], [place] [phone] documented as of this encounter Visit Diagnoses Not on filedocumented in this encounter Additional Health Concerns Assessment Noted Time PHQ-9 Depression Total Score: 6 11/27/19 24 9:34 AM EDT documented as of this encounter Care Teams Utility Mechanic Relationship Specialty Start Date End Date María Elena Zuleta MD [address] [place] [address] PCP - General Family Medicine 06/13/17 Seven Ly RN [address] [place] [phone] Screen Room OperatorBrooch Maker Novelty 05/26/24 documented as of this encounter
--- OUTSIDE RECORDS SUMMARY | 2024-07-02 19:24 | XMS_ITS | Encounter Summary ---
Author Organization [employer] Address 75 [facility] 7t [place] [address] Care Team Providers Care Link Trainer Name Role Phone María Elena Zuleta MD Primary Care Provider + Seven Ly RN Unavailable [phone] Reason for Visit * Reason Onset Date Comments Results 06/12/2024 Encounter Details Date Type Department Care Team ([facility] st Contact Info) Description 06/12/2024 Telephone [facility] MEDICINE 230 [place] [address] Karuna Slade, JACKIE Results Social History Tobacco [...] beans, leafy vegetables. Does she have a small arms repairer appointment scheduled to f/u on the ovarian cyst? documented in this encounter Plan of Treatment Upcoming Encounters Date Type Department Care Team (Late st Contact Info) Description 07/27/2024 2:30 PM EDT Office Visit [facility] OPTOMETRY [address] [place] [address] Nimcocarolyne Serena, OD [address] [place] [address] documented as of this encounter Visit Diagnoses Not on filedocumented in this encounter Additional Health Concerns Assessment Noted Time PHQ-9 Depression Total Score: 6 11/26/ 24 9:34 AM EDT documented as of this encounter Care Teams Link Trainer Relationship Specialty Start Date End Date María Elena Zuleta MD [address] [place] [address] PCP - General Family Medicine 06/13/17 Seven Ly RN [address] [place] [address] Lead Business AnalystDiet Aid 05/26/24 documented as of this encounter
--- OUTSIDE RECORDS SUMMARY | 2024-07-02 19:24 | XMS_ITS | Encounter Summary ---
Author Organization [employer] Address 75 [facility] [address] [address] Care Team Providers Care Physician Pediatrician Name Role Phone María Elena Zuleta MD Primary Care Provider + Seven Ly RN Unavailable [phone] Encounter Details Date Type Department Care Team ([facility] st Contact Info) Description 06/05/2024 Telephone [facility] 230 [place], [place] [phone] Emani Bird MD 230 [place] [address] Social History Tobacco Use Types Packs/Day Years [...] 07/27/2024 2:30 PM EDT Office Visit [facility] OPTOMETRY 267 [place] [address] Serena Daniel, OD 267 [place] [address] documented as of this encounter Visit Diagnoses Not on filedocumented in this encounter Additional Health Concerns Assessment Noted Time PHQ-9 Depression Total Score: 6 11/27/19 24 9:34 AM EDT documented as of this encounter Care Teams Physician Pediatrician Relationship Specialty Start Date End Date María Elena Zuleta MD 230 [place] [address] PCP - General Family Medicine 06/13/17 Seven Ly RN [address] [place] [address] [place] [address] Materials Handling Equipment OperatorWaitangi Tribunal Member 05/26/24 documented as of this encounter
--- OUTSIDE RECORDS SUMMARY | 2024-07-02 19:24 | XMS_ITS | Encounter Summary ---
Author Organization [employer] Address 75 [facility] [place] [address] Care Team Providers Care Electrolysis Operator Name Role Phone María Elena Zuleta MD Primary Care Provider + Seven Ly RN Unavailable [phone] Reason for Visit * Reason Onset Date Comments Call Back Request 06/02/2024 Encounter Details Date Type Department Care Team ([facility] st Contact Info) Description 06/02/2024 Telephone [facility] MEDICINE 230 [place], [place] [phone] María Elena Zuleta MD [address] [place], [place] [phone] Call Back Request Social History Tobacco Use [...] Pt reports she has an appointment at [facility] on February 13th, but is currently [...] 07/27/2024 2:30 PM EDT Office Visit [facility] OPTOMETRY [address] [place] [address] Serena Daniel, OD 267 [place] [address] documented as of this encounter Visit Diagnoses Not on filedocumented in this encounter Additional Health Concerns Assessment Noted Time PHQ-9 Depression Total Score: 6 11/27/19 24 9:34 AM EDT documented as of this encounter Care Teams Electrolysis Operator Relationship Specialty Start Date End Date María Elena Zuleta MD 230 [place] [address] PCP - General Family Medicine 06/13/17 Seven Ly RN 505 [place] [address] Head Of Maintenance1St Grade Teacher 05/26/24 documented as of this encounter
--- OUTSIDE RECORDS SUMMARY | 2024-07-02 19:24 | XMS_ITS | Encounter Summary ---
Author Organization [employer] Address 75 [facility] 7t [place] [address] Care Team Providers Care Cartography Professor Name Role Phone María Elena Zuleta MD Primary Care Provider + Seven Ly RN Unavailable Reason for Referral * Imaging (Routine) - Authorized Specialty Diagnoses / Procedures Referred By Contac t Referred To Contact Radiology Diagnoses Abnormal abdominal CT scan Procedures MR Abdomen w/ and w/o Contrast Emani Bird MD [address] [place] [address] Phone: tel: fax: [address] Phone: tel: fax: Referral ID Status Reason Start Date Expiration Date V isits Requested Visits Authorized [id number] Authorized 06/29/2024 06/29/2025 1 1 Encounter Details Date Type Department Care Team (Late st Contact Info) Description 06/29/2024 Orders Only [facility] MEDICINE 230 [place], [place] [phone] Emani Bird MD 230 [place], [place] [phone] Abnormal abdominal CT scan (Primary Dx) Social History Tobacco Use Types [...] PM EDT Office Visit C OPTOMETRY 267 [place] [address] Serena Daniel, OD 267 [place] [address] Scheduled Orders Name Type Priority Associated Diagnoses Orde r Schedule MR Abdomen w/ and w/o Contrast Imaging Routine Abnormal abdominal CT scan Expected: 06/29/2024, Expires: 06/29/2025 documented as of this encounter Visit Diagnoses Diagnosis Abnormal abdominal CT scan- Primary Nonspecific (abnormal) findings on radiological and other examination of abdominal area, including retroperitoneum documented in this encounter Additional Health Concerns Assessment Noted Time PHQ-9 Depression Total Score: 6 11/27/19 24 9:34 AM EDT documented as of this encounter Care Teams Cartography Professor Relationship Specialty Start Date End Date María Elena Zuleta MD [address] [place] [address] PCP - General Family Medicine 06/13/17 Seven Ly RN [address] [place] [address] Checkering Machine OperatorDrop Man 05/26/24 documented as of this encounter
--- OUTSIDE RECORDS SUMMARY | 2024-07-02 19:24 | XMS_ITS | Encounter Summary ---
Author Organization [employer] Address 75 [facility] [place] [address] Care Team Providers Care Spark Plug Tester Name Role Phone María Elena Zuleta MD Primary Care Provider + Seven Ly RN Unavailable [phone] Reason for Visit * Reason Onset Date Comments telephone call 06/02/2024 Encounter Details Date Type Department Care Team ([facility] st Contact Info) Description 06/02/2024 Telephone [facility] MEDICINE 230 [place], [place] [phone] María Elena Zuleta MD 230 [place], [place] [phone] telephone call Social History Tobacco Use Types [...] 2:30 PM EDT Office Visit [facility] OPTOMETRY 267 [place], [place] [phone] Serena Daniel OD 267 [place] [address] documented as of this encounter Visit Diagnoses Not on filedocumented in this encounter Additional Health Concerns Assessment Noted Time PHQ-9 Depression Total Score: 6 11/27/19 9:34 AM EDT documented as of this encounter Care Teams Spark Plug Tester Relationship Specialty Start Date End Date María Elena Zuleta MD 230 [place] [address] PCP - General Family Medicine 06/13/17 Seven Ly RN 505 [place] [address] Photo Booth OperatorNurse 05/26/24 documented as of this encounter
--- OUTSIDE RECORDS SUMMARY | 2024-07-02 19:24 | XMS_ITS | Encounter Summary ---
Author Organization [employer] Address 75 [facility] 7t [place] [address] Care Team Providers Care Adult Psychiatrist Name Role Phone María Elena Zuleta MD Primary Care Provider + Seven Ly RN Unavailable [phone] Encounter Details Date Type Department Care [...] PM EDT Office Visit [facility] OPTOMETRY 267 [place] [address] TarSerena barfield, OD 267 [place] [address] documented as of this encounter Visit Diagnoses Not on filedocumented in this encounter Additional Health Concerns Assessment Noted Time PHQ-9 Depression Total Score: 6 11/27/19 24 9:34 AM EDT documented as of this encounter Care Teams Adult Psychiatrist Relationship Specialty Start Date End Date María Elena Zuleta MD 230 [place] [address] PCP - General Family Medicine 06/13/17 Seven Ly RN [address] [place] [address] Cook TortillaCommercial Food Instructor 05/26/24 documented as of this encounter
--- OUTSIDE RECORDS SUMMARY | 2024-07-02 19:24 | XMS_ITS | Encounter Summary ---
Author Organization [employer] Address 75 [facility] 7 [place] [address] Care Team Providers Care Weapons And Tactics Instructor Name Role Phone María Elena Zuleta MD Primary Care Provider + Seven Ly RN Unavailable [phone] Reason for Visit * Reason Onset Date Comments Care Management 06/04/2024 C3CM- f/u call Encounter Details Date Type Department Care Team ([facility] st Contact Info) Description 06/04/[address] [facility] MEDICINE 230 [place], [place] [phone] Seven Ly, RN 505 [place], [place] [phone] Care Management (C3CM- f/u call) Social History [...] Per patient, has a f/u scheduled with TIE MILL OPERATOR on 06/18/24. Shealso states she called GI and has an appt scheduled on 06/29 or 06/30. Patient denies any immediate needs or concerns at this time. No further questions or concerns. CM reinforced direct contact information for any additional questions or concerns. Education provided on [facility] Ur[facility] located in [facility]. Patient provided with after-hours line for [facility], , which offer night time triage service and option to transfer to hot pond operator provider if needed. Patient verbalizes understanding, and able to r epeat back to loan underwriter. A follow up call will be placed within 10 days, patient agrees with plan. documented in this encounter Plan of Treatment Upcoming Encounters Date Type Department Care Team (Late st Contact Info) Description 07/27/2024 2:30 PM EDT Office Visit [facility] OPTOMETRY 267 [place], [place] [phone] Serena Daniel, OD 267 [place], [place] [phone] documented as of this encounter Visit Diagnoses Not on filedocumented in this encounter Additional Health Concerns Assessment Noted Time PHQ-9 Depression Total Score: 6 11/27/19 24 9:34 AM EDT documented as of this encounter Care Teams Weapons And Tactics Instructor Relationship Specialty Start Date End Date María Elena Zuleta MD 230 [place], [place] [phone] PCP - General Family Medicine 06/13/17 Seven Ly RN 505 [place] [address] Acid Washer OperatorMachine Folder 05/26/24 documented as of this encounter
--- OUTSIDE RECORDS SUMMARY | 2024-07-02 19:25 | XMS_ITS | Encounter Summary ---
Author Organization [employer] Address 75 [facility] 7[facility] [place] [address] Care Team Providers Care Plastic Die Maker Apprentice Name Role Phone María Elena Zuleta MD Primary Care Provider + Seven Ly RN Unavailable [phone] Reason for Visit * Reason Onset Date Comments Triage 07/18/2022 Encounter Details Date Type Department Care Team (Late st Contact Info) Description 07/18/2022 Telephone [facility] MEDICINE 230 [place], [place] [phone] María Elena Zuleta MD 230 [place], [place] [phone] Triage Social History Tobacco Use Types Packs/Day [...] became very itchy, it is storm perfect deering and is a blood worm per Pt [...] accepted this outcome Please contact pt at [phone] documented in this encounter Plan of Treatment Upcoming Encounters Date Type Department Care Team (Late st Contact Info) Description 07/27/2024 2:30 PM EDT Office Visit [facility] OPTOMETRY 267 [place] [address] Serena Daniel, OD 267 [place] [address] documented as of this encounter Visit Diagnoses Not on filedocumented in this encounter Care Teams Plastic Die Maker Apprentice Relationship Specialty Start Date End Date María Elena Zuleta MD 230 [place] [address] PCP - General Family Medicine 06/13/17 Seven Ly RN [address] [place] [address] Lunch Truck OperatorDecal Cutter 05/26/24 documented as of this encounter
--- OUTSIDE RECORDS SUMMARY | 2024-07-02 19:25 | XMS_ITS | Encounter Summary ---
Author Organization [employer] Address 75 [facility] 7 [place] [address] Care Team Providers Care Shareholder Name Role Phone María Elena Zuleta MD Primary Care Provider + Seven Ly RN Unavailable [phone] Encounter Details Date Type Department Care Team ([facility] st Contact Info) Description 11/01/2022 Orders Only [facility] MEDICINE 230 [place], [place] [phone] María Elena Zuleta MD 230 [place], [place] [phone] Vaginal discharge (Primary Dx) Social History Tobacco [...] [facility] OPT[facility]RY 267 [place] [address] Serena Daniel, OD 267 [place] [address] documented as of this encounter Procedures Procedure Name Priority Date/Time Associated Diagnosis Comments HIV ANTIBODY/ANTIGEN ([facility]) Routine 01/09/2023 12:18 PM EDT Vaginal [...] 12:18 PM EDT) HIV AB/AG Nonreactive Nonreactive [facility] Comment:HIV-1 p24 Ag and/or HIV-1/HIV-2 Ab not detected.A test result that is nonreactive does not exclude thepossibility of exposure to or infection with HIV-1 and/orHIV-2. Nonreactive results in this assay for individualswith prior exposure to HIV-1 and/or HIV-2 may be due toantigen and antibody levels that are below the limit ofdetection of this assay.The Fiiiling HIV Ag/Ab Combo assay result andsupplemental assay results should be interpreted inconjunction with the patient's clinical presentation,history and other laboratory results. If the results areinconsistent with clinical evidence, additional testing issuggested to confirm the result. 01/09/2023 12:1 8 PM EDT 01/09/2023 1:10 PM EDT us Sanju Quijano [facility] BLOOD ORDERABLES Teri cantu Result [facility] [address] [place] [phone] * Pap Smear (01/09/2023 12:03 PM EDT) 01/09/2023 12:0 3 PM EDT 01/10/2023 9:15 AM EDT Narrative [facility] - 01/22/2023 10:48 AM EDT ----- ------- Name: Elizabeth DarrylVilma ?Age/Sex: 27/F ? : 1995 Unit#: [id number] ?? Attend Dr: SANJU QUIJANO CNM ?Re01/09/23 ?Status: DEP REF ? Location: [facility] ? Disch: ? ----- ------- SPEC : [id number] ?RECD: 01/10/23 ? STATUS: ??SOUT ? REQ NUM: [id number] ? DEVON: 01/09/23-1203 ? SUBM DR: SANJU [...] 66, 68) ?? HPV testing performed by [facility], [place], [place]. ??See reference laboratory ?? pion of the EMR for entire report. ?Clinical Information LMP: 12/29/2022 Previous PAP test:2021, ASCUS HPV positive ? Material Received ?? ThinPrep-Vaginal/Cervical ----- ------- Signed (signature on file) Andres Wood MD 01/22/23 1118 ? ----- ------- ? END OF REPORT ? Sanju Rhonda [facility] CYTOLOGY ORDERABLES F inal Result Performing Organization Address [facility] Co de Phone Number [facility] [address] [place], [place] [phone] * C.TRACHOMATIS/N. GONORRHOEAE DNA PROBE (01/09/2023 12:03 PM EDT) CTNG Ref Lab NOT DETECTED NOT DETECTED [facility] NG Ref Lab NOT DETECTED NOT DETECTED [facility] CTNG Ref Note SEE NOTE [facility] Comment:The analytical perfo rmance characteristics of thisassay, when used to test SurePath(TM) specimens have beendetermined by [facility]. The modifications havenot been cleared or approved by the FDA. This assay hasbeen validated pursuant to the CLIA regulations and isused for clinical purposes.For additional information, please refer tohttps://education.Coravin/faq/CPT122(This link is being provided for information/educational purposes only.)THIS TEST WAS PERFORMED AT:[facility] [place] [id number] RASHID MD 01/09/2023 12:0 3 PM EDT 01/10/2023 9:15 AM EDT Sanju Rhonda [facility] MICROBIOLOGY - GENERA L ORDERABLES Final Result Performing Organization Address [facility] Co de Phone Number [facility] [address] [place] [phone] * HPV mRNA E6/E7 w/Reflex to HPV Genotypes 16, 18/45 (01/09/2023 12:03 PM EDT) Pathologist [facility] HPV nRNA E6/E7 Not Detected Not Detected [facility] Comment:Methodology: Transcr iption-Mediated AmplificationThis assay detects E6/E7 viral messenger RNA (mRNA) from 14high-risk HPV types (16,18,31,33,35,39,45,51,52,56,58,59,66,68).Cervical sources are required for HPV testing.If a vaginal source from a patient who has had atotal hysterectomy with removal of cervix wassubmitted, please contact the testing laboratoryfor alternative testing options.For additional information, please refer tohttp://education.Coravin/faq/HIG484d5(This link if provided for information/educational purposes only.)THIS TEST WAS PERFORMED AT:[facility] [place] [id number] RASHID MD HPV mRNA E6/E7 [facility] HPV 16 RNA [facility] HPV 18/45 RNA [facility] 01/09/2023 12:0 3 PM EDT 01/10/2023 9:15 AM EDT [facility] CYTOLOGY ORDERABLES F inal Result Performing Organization Address City/[facility]/ZIP Co de Phone Number [facility] [address] [place] [phone] * (ABNORMAL) Bacterial Vaginosis (01/09/2023 12:00 AM EDT) Trichomonas DNA Probe Negative Negative [facility] Gardnerella DNA Probe Positive(A) Negative [facility] Lindsey DNA Probe Positive(A) Negative [facility] 01/09/2023 01/09/2023 [facility]na [facility] MICROBIOLOGY - GENERA L ORDERABLES Final Result Performing Organization Address [facility]/ZIP Co de Phone Number [facility] [address] [place] [phone] documented in this encounter Visit Diagnoses Diagnosis Vaginal discharge- Primary Leukorrhea, not specified as infective documented in this encounter Care Teams Shareholder Relationship Specialty Start Date End Date María Elena Zuleta MD 230 [place] [address] PCP - General Family Medicine 06/13/17 Seven Ly RN [address] [place] [address] Capability LeadBehavioral Health Technician 05/26/24 documented as of this encounter
--- OUTSIDE RECORDS SUMMARY | 2024-07-02 19:25 | XMS_ITS | Encounter Summary ---
Author Organization [employer] Address 75 [facility] [address] Care Team Providers Care Enrichment Director Name Role Phone María Elena Zuleta MD Primary Care Provider + Seven Ly RN Unavailable [phone] Reason for Visit * Reason Onset Date Comments Results 07/29/2023 Encounter Details Date Type Department Care Team ([facility] st Contact Info) Description 07/29/2023 Telephone [facility] MEDICINE 230 [place], [place] [phone] María Elena Zuleta MD 230 [place], [place] [phone] Results Social History Tobacco Use Types Packs/Day [...] labs, swab Date when done: 07/24 Facility: [facility] Please contact pt at [phone] documented in this encounter Plan of Treatment Upcoming Encounters Date Type Department Care Team (Late st Contact Info) Description 07/27/2024 2:30 PM EDT Office Visit [facility] OPTOMETRY [address] [place] [address] TarSerena barfield, OD [address] [place] [address] documented as of this encounter Visit Diagnoses Not on filedocumented in this encounter Care Teams Enrichment Director Relationship Specialty Start Date End Date María Elena Zuleta MD 230 [place] [address] PCP - General Family Medicine 06/13/17 Seven Ly RN 505 [place] [address] Raw Material HandlerField Support Engineer 05/26/24 documented as of this encounter
--- OUTSIDE RECORDS SUMMARY | 2024-07-02 19:25 | XMS_ITS | Encounter Summary ---
Author Organization [employer] Address 75 [facility] [place] [address] Care Team Providers Care Disk Recoater Name Role Phone María Elena Zuleta MD Primary Care Provider + Seven Ly RN Unavailable [phone] Reason for Visit * Reason Onset Date Comments triage 08/07/2022 Encounter Details Date Type Department Care Team (Late st Contact Info) Description 08/07/2022 Telephone [facility] MEDICINE 230 [place], [place] [phone] María Elena Zuleta MD 230 [place], [place] [phone] triage Social History Tobacco Use Types Packs/Day [...] July. Pt is advised to come to [facility] Pt requests some testing for STDs. Pt [...] become worse. * Telephone Encounter - Charan Valinete - 08/07/2022 9:26 AM EDT Symptom: Abdominal Pain - Female - Not Outcome: Talk to a nurse or provider within 15 minutes Reason: Severe pain now The caller accepted this outcome documented in this encounter Plan of Treatment Upcoming Encounters Date Type Department Care Team (Late st Contact Info) Description 07/27/2024 2:30 PM EDT Office Visit [facility] OPTOMETRY [address] [place] [address] Serena Daniel OD 267 [place] [address] documented as of this encounter Visit Diagnoses Not on filedocumented in this encounter Care Teams Disk Recoater Relationship Specialty Start Date End Date María Elena Zuleta MD [address] [place] [address], [place] [address] PCP - General Family Medicine 06/13/17 eSven Ly RN [address] [place] [address] Gauger DeliveryKettle Skimmer 05/26/24 documented as of this encounter
--- OUTSIDE RECORDS SUMMARY | 2024-07-02 19:25 | XMS_ITS | Encounter Summary ---
Author Organization [employer] Address 75 [facility] 7[facility] [place] [address] Care Team Providers Care Agents' Records Clerk Name Role Phone María Elena Zuleta MD Primary Care Provider + Seven Ly RN Unavailable [phone] Reason for Visit * Reason Comments Med Refill Encounter Details Date Type Department Care Team ([facility] st Contact Info) Description 05/24/2023 Refill [facility] MEDICINE 230 [place], [place] [phone] María Elena Zuleta MD 230 [place], [place] [phone] Social History Tobacco Use Types Packs/Day Years [...] PM EDT Office Visit [facility] OPTOMETRY [address] [place] [address] Serena Daniel, OD [address] [place] [address] documented as of this encounter Visit Diagnoses Not on filedocumented in this encounter Care Teams Agents' Records Clerk Relationship Specialty Start Date End Date María Elena Zuleta MD 230 [place] [address] PCP - General Family Medicine 06/13/17 Seven Ly RN [address] [place] [address] Keg InspectorThird Mate 05/26/24 documented as of this encounter
--- OUTSIDE RECORDS SUMMARY | 2024-07-02 19:25 | XMS_ITS | Clinical Summary ---
Author Organization [employer] Address [address] [facility] [address] [place] [address] Care Team Providers Care Television Schedule Coordinator Name Role Phone María Elena Zuleta MD Primary Care Provider + Seven Ly RN Unavailable Allergies Active Allergy Reactions Criticality Noted Date Comments Penicillin V 07/10/2010 Other reaction(s): rash Medications norelgestromin -ethinyl estradiol (Xulane) 150-35 MCG/24HR APPLY 1 PATCH EACH WEEK FOR 3 WEEKS, THEN HAVE NO PATCH FOR 1 WEEK. REPEAT 9 patch 5 Active ibuprofen 400 MG tablet TAKE 1 TO 2 TABLETS BY MOUTH EVERY 6 TO 8 HOURS NEEDED FOR PAIN 4 Active pantoprazole (ProtoNix) 20 MG EC tablet TAKE 1 TABLET BY MOUTH TWICE A DAY FOR 2 WEEKS 4 Active metroNIDAZOLE (Metrogel) 0.75 % vaginal gel One applicatorful twice a week for 12 weeks. Use Boric Acid as directed x 2-3 weeks after that 70 g 4 5 Active fluconazole (Diflucan) 150 MG tablet Take 1 tablet (150 mg) by mouth 1 (one) time for 1 dose. 1 tablet 5 025 Active Problems Problem Noted Date Diagnosed Date Visit for preventive health examination 05/13/19 25 Assessment & Plan (05/13/2024 1:43 PM EST): [...] Encounters Date Type Department Care Team Description 07/02/2024 Telephone [facility] [address] [place] [address] María Elena Zuleta MD Care Management (C3CM- f/u call) 07/02/2024 Patient Outreach [facility] [address] [place] [address] María Elena Zuleta MD Care Coordination (SDOH f/u) 06/29/2024 Orders Only [facility] [address] [place] [address] Emani Bird MD Abnormal abdominal CT scan (Primary Dx) 06/19/[address] [address] Seven Ly RN Care Management (C3CM- f/u call) 06/18/2024 Orders Only GENERIC EXTERNAL DATA DEPARTMENT Provider, Generic External Data 06/12/2024 Telephone [facility] [address] [place] [phone] Emani Bird MD 06/12/[address] [address] Karuna Slade RN Results 06/05/2024 Telephone [facility] [address] [place] [address] Emani Bird MD 06/04/[address] [address] María Elena Zuleta MD Nurse Triage 06/04/[address] [address] Seven Ly, JACKIE Care Management (C3CM- f/u call) 06/04/2024 Telephone [facility] [address] [place] [address] Emani Bird MD 06/03/2024 Patient Outreach [address] [address] María Elena Zuleta MD Care Coordination (SDOH/mail) 06/02/2024 3:15 PM EST Office Visit [address] [address] Sanju Quijano CNM Vaginal discharge (Primary Dx); Abnormal uterine bleeding (AUB) 06/02/[address] [address] María Elena Zuleta MD telephone call 06/02/2024 Travel 06/02/[address] [address] María Elena Zuleta MD Call Back Request 06/01/2024 Patient Outreach [address] [address] María Elena Zuleta MD Care Coordination (SDOH) 05/27/2024 3:30 PM EST Office Visit [address] [address] Emani Bird MD Rupture of cyst of right ovary (Primary Dx); IPMN (intraductal papillary mucinous neoplasm) 05/27/2024 Travel 05/26/[address] [address] Seven Ly, RN 05/26/[address] [address] Seven Ly, RN Care Management (C3CM- initial assessment/ enrollment) 05/22/2024 Patient Outreach [address] [address] María Elena Zuleta MD Care Coordination (CM/CHW appt reminder) 05/22/2024 Travel 05/21/2024 Patient Outreach [address] [address] María Elena Zuleta MD Care Coordination (CM/CHW outreach) 05/21/[address] [address] María Elena Zuleta MD ER Follow-up 05/21/[address] [address] Seven Ly, RN 05/19/[address] [phone] María Elena Zuleta MD Nurse Triage 05/15/2024 Telephone [facility]RY [address] [place] [address] Serena Daniel OD 05/14/2024 Telephone [facility] [address] [place] [phone] María Elena Zuleta MD Results 05/13/2024 10:30 AM EST Office Visit [address] [address] María Elena Zuleta MD Visit for preventive health examination (Primary Dx); UTI symptoms; Encounter for immunization 05/13/2024 Orders Only [address] [address] María Elena Zuleta MD 05/13/2024 Travel 05/12/[address] [address] Graciela Weber MA Chart prep 05/07/2024 Patient Outreach [address] [address] María Elena Zuleta MD Pre-visit Planning 04/23/[address] [address] Julius Tamayo, JACKIE 04/01/[address] [address] María Elena Zuleta MD Nurse Triage from [...] Description 07/27/2024 2:30 PM EDT Office Visit [facility] OPT[facility] [address] [place] [address] TarkaSerena, OD [address] [place] [address] Health Maintenance Due Date Last Done Comments Dental Oral Exam 1995 Dental Prophylaxis 1995 Dental X-Ray: Bitewings 1995 Dental X-Ray: Full Mouth 1995 Alcohol/Substance Use Screening 2007 COVID-19 Vaccine ( season) 2024 02/28/2022, 02/07/2022 Influenza Vaccine (#1) 2024 7, 01/03/2012, 02/07/2007 HPV/Cotest 01/10/2024 01/09/2023, 07/06, 08/02/2021 Pap Smear 01/10/2024 01/09/2023, 09/02/2020 Depression [...] Procedure Name Priority Date/Time Associated Diagnosis Comments CHLAMYDIA/N. GONORRHOEAE RNA, TMA, UROGENITAL Routine 06/18/2024 11:12 AM EST BACTERIAL VAGINOSIS PANEL Routine 06/18/2024 11:12 AM EST POCT WET MOUNT/JOSI Routine 06/02/2024 4: 25 [...] Recently Relevant to Health Maintenance Results * Bacterial Vaginosis (06/18/2024 11:12 AM EST) TRICHOMONAS VAGINALIS DETECTION BY PCR NOT DETECTED Not Detect [facility] BACTERIAL VAGINOSIS DETECTION BY PCR NEGATIVE Negative [facility] Comment:The BV organism targ ets [...] DETECTION BY PCR NOT DETECTED Not Detect [facility] Lindsey glab krusei PCR NOT DETECTED Not Detect [facility] 06/18/2024 11:1 2 AM EST 06/18/2024 3:37 PM EST us Generic External Data Provider LAB MICROBIOLOGY - GENERAL ORDERABLES Final Result [facility] [address] [place] [phone] * Chlamydia/N. Gonorrhoeae RNA, TMA, Urogenitial (06/18/2024 11:12 AM EST) Only the most recent of2 resultswithin the time period is included. CT PCR NOT DETECTED Not Detect. [facility] Comment:A not detected test result [...] psychologicalconsequences. NG PCR NOT DETECTED Not Detect. [facility] Comment:A not detected test result [...] AM EST 06/18/2024 3:37 PM EST Narrative [facility] - 06/19/2024 1:58 PM EST Vaginal us Generic External Data Provider LAB MICROBIOLOGY - GENERAL ORDERABLES Final Result Performing Organization Address City/State/[facility] Co de Phone Number [facility] [address] [place] [phone] * POCT fern test, vaginal fluid manually resulted (06/02/2024 4:25 PM EST) JOSI Prep Positive Comment:pH 4.5, neg whiff, n eg clue, neg trich, neg wbc, pos yeast Vaginal Fluid Vaginal structure / Unknown 06/02/2024 4:25 PM EST Shadis Sanju Quijano CNM - 06/02/2024 4:25 PM EST Vulvovaginal candidiasis Sanju Quijano CNM POINT OF CARE TEST ENTER/ EDIT ORDERABLES Final Result * POCT , urine manually resulted (06/02/2024 4:07 PM EST) Preg Test, Ur Negative Negative, Indeterminate, None Detected, Invalid, Specimen unsatisfactory for evaluation, Weakly Positive QC Media Lot # [id number] Lot# Expiration Date [id number] Urine 06/02/2024 4:07 PM EST Sanju Quijano SABIHAPérez POINT OF CARE TEST ENTER/ EDIT ORDERABLES Final Result * (ABNORMAL) CBC auto differential (05/27/2024 4:01 PM EST) White Blood Count 10.8 4.8 - 10.8 X10*3/uL [facility] Red Blood Count 3.96(L) 4.20 - 5.50 X10*6/uL [facility] Hemoglobin 11.1(L) 12.0 - 16.0 g/dl [facility] Hematocrit 32.8(L) 37.0 - 47.0 % [facility] Mean Corpuscular Volume 82.8 80.0 - 98.0 fL [facility] Mean Corpuscular Hemoglobin 28.0 27.0 - 33.0 pg [facility] Mean Corpuscular HGB Conc 33.8 31.0 - 35.0 g/dl [facility] Red Cell Distribution Width 14.0 11.0 - 16.0 % [facility] Platelet Count 316 160 - 400 X10*3/uL [facility] Mean Platelet Volume 10.9 9.4 - 12.3 fL [facility] Neutrophils Percent Auto 60.5 45 - 73 % [facility] Imm Gran Pct Auto 0.4 0.0 - 0.4 % [facility] Lymphocytes Percent Auto 24.2 20 - 40 % [facility] Monocytes Percent Auto 9.9 2 - 11 % [facility] Eosinophils Percent Auto 4.4(H) 0 - 4 % [facility] Basophils Percent Auto 0.6 0 - 2 % [facility] NRBC Pct Auto 0.0 0.0 - 0.2 /100WBC [facility] Neutrophils Absolute Auto 6.5 2.0 - 8.3 x10*3/uL [facility] Imm Gran Abs Auto 0.04(H) 0.00 - 0.03 X10*3/uL [facility] Lymphocytes Absolute Auto 2.6 1.2 - 4.9 X10*3/uL [facility] Monocytes Absolute Auto 1.1 0.1 - 1.2 X10*3/uL [facility] Eosinophils Absolute Auto 0.5(H) 0.0 - 0.4 X10*3/uL [facility] Basophils Absolute Auto 0.1 0.0 - 0.2 X10*3/uL [facility] NRBC Abs Auto 0.000 0.0 - 0.012 X10*3/uL [facility] Blood Venous blood specimen / Unknown 05/27/2024 4:01 PM EST 05/27/2024 5:35 PM EST us Emani Bird MD LAB BLOOD ORDERABLES Final Res ult [facility] [address] [place] [phone] [phone] * (ABNORMAL) Urinalysis, Complete, with Reflex to Culture (05/13/2024 1:09 PM EST) Color Urine Yellow [facility] Appearance Urine Clear [facility] PH 6.5 5.0 - 9.0 [facility] Glucose Urine UA Negative Negative mg/dL [facility] Urine Blood Negative Negative [facility] Specific [place] - Urine 1.025 1.005 - 1.025 [facility] Urine Protein Negative Neg-Trace mg/dL [facility] Urine Ketones Negative Negative mg/dL [facility] Nitrite Urine Negative Negative [facility] Leukocyte Esterase Urine Small (1+)(A) Negative [facility] RBC Urine 0-2 0 - 2 /HPF [facility] Urine WBC 11-20(A) 0 - 5 /HPF [facility] Urine Squamous Epithelial Cell 6-10 0 - 2 /HPF [facility] Urine Bacteria 1+ None Seen [facility] Hyaline Casts, Urine 0-2 0 - 2 /LPF [facility] 05/13/2024 1:09 PM EST 05/13/2024 4:07 PM EST [facility] - 05/13/2024 4:38 PM EST Urine, Clean Catch María Elena Zuleta MD LAB URINE ORDERABLES Fin al Result Performing Organization Address [facility] de Phone Number [facility] [address] [place] [phone] * Culture, Urine, Routine (05/13/2024 1:09 PM EST) Urine Urine specimen obtained by clean catch procedure / Unknown 05/13/2024 1:09 PM EST 05/13/2024 4:41 PM EST [facility] 05/17/2024 8:22 AM EST Viridans streptococcus group Quant > 100,000 cfu/mL Susc N/A Susceptibility not routinely performed on this isolate. Specimen Source: Urine clean catch María Elena Zuleta MD LAB MICROBIOLOGY - GENER AL ORDERABLES Final Result Performing Organization Address [facility] de Phone Number [facility] [address] [place] [phone] * T-SPOT??.TB (05/13/2024 11:57 AM EST) [facility] T Spot TB Negative Negative [facility] Comment:A negative test resu lt [...] as aquantitative test. TS PANEL A 0 [facility] TS PANEL B 0 [facility] Negative Control Passed [facility] Positive Control Passed [facility] Comment:For additional infor filemon, please refer tohttp://education.Muse/faq/QBF332(This link is being provided for informational/educational purposes only.)THIS TEST WAS PERFORMED AT:[employer] [id number] [place] [id number] Delano GOMEZ MD,PHD 05/13/2024 11:5 7 AM EST 05/13/2024 1:05 PM EST María Elena Zuleta MD LAB BLOOD ORDERABLES Fin al Result [facility] [address] [place] [phone] * Chlamydia/Gonorrhea Vaginal Swab ([place] [facility]) (04/10/2024) Chlamydia Vaginal Swab Negative Negative, Indeterminate, None Detected, Invalid, Specimen unsatisfactory for evaluation, Weakly Positive Gonorrhea Vaginal Swab Negative Negative, Indeterminate, None Detected, Invalid, Specimen unsatisfactory for evaluation, Weakly Positive Swab Vaginal structure / Unknown 04/10/2024 Historical Provider LAB MICROBIOLOGY - GENERA L ORDERABLES Final Result * Chlamydia/Gonorrhea Throat Swab ([place] [facility]) (04/10/2024) Chlamydia Throat Swab Negative Gonorrhea Throat Swab Negative Swab 04/10/2024 Historical Provider LAB MICROBIOLOGY - GENERA L ORDERABLES Final Result * Syphilis Antibodies (DPH) (04/10/2024) Syphilis Abs Nonreactive Borderline, Nonreactive, Weakly Reactive, Inconclusive, Specimen unsatisfactory for evaluation Blood Venous blood specimen / Unknown 04/10/2024 Historical Provider MD LAB BLOOD ORDERABLES Teri l Result * Hepatitis C Antibody ([facility]) (04/10/2024) [facility] Hepatitis C Ab Nonreactive Blood 04/10/2024 [facility] Provider MD LAB BLOOD ORDERABLES Teri l Result * HIV Ab/Ag ([facility]) (04/10/2024) [facility] HIV Ag/Ab Nonreactive Blood 04/10/2024 Result [facility] Provider LAB BLOOD ORDERABLES Edit ed Result - Final * HPV mRNA E6/E7 w/Reflex to HPV Genotypes 16, 18/45 (01/09/2023 12:03 PM EDT) [facility] HPV nRNA E6/E7 Not Detected Not Detected [facility] Comment:Methodology: Transcr iption-Mediated AmplificationThis assay detects E6/E7 viral messenger RNA (mRNA) from 14high-risk HPV types (16,18,31,33,35,39,45,51,52,56,58,59,66,68).Cervical sources are required for HPV testing.If a vaginal source from a patient who has had atotal hysterectomy with removal of cervix wassubmitted, please contact the testing laboratoryfor alternative testing options.For additional information, please refer tohttp://education.Muse/faq/FTN938d0(This link if provided for information/educational purposes only.)THIS TEST WAS PERFORMED AT:[employer] [place] [id number] RASHID MD HPV mRNA E6/E7 [facility] HPV 16 RNA [facility] HPV 18/45 RNA [facility] 01/09/2023 12:0 3 PM EDT 01/10/2023 9:15 AM EDT us Sanju Quijano [facility] CYTOLOGY ORDERABLES F inal Result [facility] [address] [place] [phone] * Pap Smear (01/09/2023 12:03 PM EDT) 01/09/2023 12:0 3 PM EDT 01/10/2023 9:15 AM EDT Narrative [facility] - 01/22/2023 10:48 AM EDT ----- ------- Name: Vilma Mendez ?Age/Sex: 27/F ? : 1995 Unit#: [id number] ?? Attend Dr: SANJU QUIJANO CNM ?Re01/09/23 ?Status: DEP REF ? Location: [facility] ? Disch: ? ----- ------- SPEC : [id number] ?RECD: 01/10/23 ? STATUS: ??SOUT ? REQ NUM: [id number] ? DEVON: 01/09/23-3 ? SUBM DR: SANJU QUIJANO CNM ? ENTERED: ??01/10/23 ?SP TYPE: Pap Smr ?OTHR DR: ? ORDERED: ??Pap Smear ? Interpretation ?? [...] 66, 68) ?? HPV testing performed by [employer], [place], [place]. ??See reference laboratory ?? pion of the EMR for entire report. ?Clinical Information LMP: 12/29/2022 Previous PAP test:2021, [facility] HPV positive ? Material Received ?? ThinPrep-Vaginal/Cervical ----- ------- Signed (signature on file) Andres Wood MD 01/22/23 1048 ? ----- ------- ? END OF REPORT ? Sanju Quijano [facility] CYTOLOGY ORDERABLES F inal Result [facility] [address] [place] [address] [phone] from Last 3 Months or Most Recently Relevant to Health Maintenance Insurance [facility] [employer] [place] Care Teams Television Schedule Coordinator Relationship Specialty Start Date End Date María Elena Zuleta MD [address] [place] [phone] PCP - General Family Medicine 06/13/17 Seven Ly RN [address] [place] [phone] Piano StringerInsulation Worker Furnace Installer 05/26/24
== END 2024-07-02 16:22 | disposition home or self-care (01) ==
LOC: HO.US 16:21
PROVIDERS: PCP Internal Medicine; Visit Provider Obstetrics & Gynecology
DX: N83.209 Unspecified ovarian cyst, unspecified side (principal)
CPT/HCPCS: 76830; 76856

== ENCOUNTER → 2024-07-02 16:25 | Outpatient (BNV) | payer MEDICAID, SELFPAY | PROVIDERS: PCP Internal Medicine; Visit Provider Radiology Diagnostic Radiology | DX: N83.209 Unspecified ovarian cyst, unspecified side (principal) | CPT/HCPCS: 76830; 76856 ==

== ENCOUNTER 2024-07-04 10:11 | Outpatient (REF) | payer MEDICAID, SELFPAY ==
--- NOTE | ~2024-07-04 | MR_ITS ---
EXAMINATION: MRI Abdomen without and with contrast HISTORY: ? IPMN COMPARISON: Comparison is made with a CT of the abdomen with contrast dated 12/08/2023. Correlation is also made with the report of an outside CT of the abdomen dated 05/20/2024. TECHNIQUE: Axial in and out of phase T1-weighted gradient echo, axial diffusion weighted, and axial and coronal HASTE T2 with fat saturation images were obtained through the abdomen. Subsequently, fat suppressed axial and coronal T1-weighted images were obtained after the intravenous administration of 6 mL Gadavist. FINDINGS: There is no significant loss of signal intensity within the liver on opposed phase imaging to suggest steatosis. There is no enhancing liver mass. The hepatic and portal veins are patent. There is no intra or extrahepatic biliary ductal dilatation. The gallbladder is unremarkable. The pancreas is normal in size. There are numerous (at least 12) T2 hyperintense foci in and adjacent to the pancreas measuring up to 13 mm in size. Several of these appear smaller than on the prior CT scan. There is no associated wall thickening or contrast enhancement. The pancreatic duct is normal in caliber. The spleen, adrenals, and kidneys are unremarkable. No retroperitoneal lymphadenopathy or ascites is identified in the upper abdomen. The visualized bones demonstrate normal signal intensity. MR/MR abdomen wo/w con IMPRESSION: Multiple pancreatic and peripancreatic cysts without evidence of wall thickening or contrast enhancement. Follow-up is recommended. Electronically signed by: Javier Navarrete MD 07/06/2024 08:25 AM [facility]
--- OUTSIDE RECORDS SUMMARY | 2024-07-04 10:20 | XMS_ITS | Encounter Summary ---
Author Organization [employer] Address [address] [facility] [address] [place] [address] Care Team Providers Care Lead Dental Assistant Name Role Phone María Elena Zuleta MD Primary Care Provider + Seven Ly RN Unavailable [phone] Reason for Visit * Reason Comments Care Coordination SDOH f/u Encounter Details Date Type Department Care Team (Latest Contact Info) Description 07/02/2024 Patient Outreach [facility] [address] [place], [place] [phone] María Elena Zuleta MD [address] [place] [address] Care Coordination (SDOH f/u) Social History Tobacco [...] Wednesdays, and Walk-In Urgent Care Located in [facility]. Patient provided with after-hours line for [facility], , which offer night time triage service and option to transfer to conservation officer provider if needed. Patient verbalizes understanding, and able to repeat back to residential mortgage underwriter. A follow up call willbe placed within 10 days, patient agrees with plan. documented in this encounter Plan of Treatment Upcoming Encounters Date Type Department Care Team ([facility] st Contact Info) Description 07/27/2024 2:30 PM EDT Office Visit [facility] OPTOMETRY [address] [place] [address] Nimcocarolyne Serena, OD [address] [place] [address] documented as of this encounter Visit Diagnoses Not on filedocumented in this encounter Additional Health Concerns Assessment Noted Time PHQ-9 Depression Total Score: 6 11/26/ 24 9:34 AM EDT documented as of this encounter Care Teams Lead Dental Assistant Relationship Specialty Start Date End Date María Elena Zuleta MD [address] [place] [phone] PCP - General Family Medicine 06/13/17 Seven Ly RN [address] [place] [phone] Systems NavigatorBoating Safety Officer 05/26/24 documented as of this encounter
--- OUTSIDE RECORDS SUMMARY | 2024-07-04 10:20 | XMS_ITS | Encounter Summary ---
Author Organization [employer] Address [address] [facility] 7t [place] [address] Care Team Providers Care Flame Cutting Supervisor Name Role Phone María Elena Zuleta MD Primary Care Provider + Seven Ly RN Unavailable [phone] Reason for Visit * Reason Onset Date Comments Results 06/12/2024 Encounter Details Date Type Department Care Team ([facility] st Contact Info) Description 06/12/2024 Telephone [facility] [address] [place] [address] Karuna Slade, JACKIE Results Social History Tobacco [...] beans, leafy vegetables. Does she have a precision instrument maker and repairer appointment scheduled to f/u on the ovarian cyst? documented in this encounter Plan of Treatment Upcoming Encounters Date Type Department Care Team (Late st Contact Info) Description 07/27/2024 2:30 PM EDT Office Visit [facility] OPTOMETRY [address] [place] [address] Nimcocarolyne Serena, OD [address] [place] [address] documented as of this encounter Visit Diagnoses Not on filedocumented in this encounter Additional Health Concerns Assessment Noted Time PHQ-9 Depression Total Score: 6 11/26/ 24 9:34 AM EDT documented as of this encounter Care Teams Flame Cutting Supervisor Relationship Specialty Start Date End Date María Elena Zuleta MD [address] [place] [phone] PCP - General Family Medicine 06/13/17 Seven Ly RN [address] [place] [phone] Nurse Practitioner AdultBoiler Plant Operator 05/26/24 documented as of this encounter
--- OUTSIDE RECORDS SUMMARY | 2024-07-04 10:20 | XMS_ITS | Encounter Summary ---
Author Organization [employer] Address [address] [facility] 7t [place] [address] Care Team Providers Care Intelligence Specialist Name Role Phone María Elena Zuleta MD Primary Care Provider + Seven Ly RN Unavailable [phone] Reason for Referral * Imaging (Routine) - Authorized Specialty Diagnoses / Procedures Referred By Contac t Referred To Contact Radiology Diagnoses Abnormal abdominal CT scan Procedures MR Abdomen w/ and w/o Contrast Emani Bird MD [address] [place] [address] Phone: tel: fax: [address] Phone: tel: fax: Referral ID Status Reason Start Date Expiration Date V isits Requested Visits Authorized [id number] Authorized 06/29/2024 06/29/2025 1 1 Encounter Details Date Type Department Care Team (Late st Contact Info) Description 06/29/[address] [facility] [address] [place], [place] [phone] Emani Bird MD [address] [place], [place] [phone] Abnormal abdominal CT scan (Primary Dx) Social [...] PM EDT Office Visit [facility] OPTOMETRY [address] [place] [address] Serena Daniel, OD [address] [place] [address] Scheduled Orders Name Type Priority Associated Diagnoses [...] documented as of this encounter Care Teams Intelligence Specialist Relationship Specialty Start Date End Date María Elena Zuleta MD [address] [place] [phone] PCP - General Family Medicine 06/13/17 Seven Ly RN [address] [place] [phone] Photographic ProcessorSpray Gun Operator 05/26/24 documented as of this encounter
--- OUTSIDE RECORDS SUMMARY | 2024-07-04 10:20 | XMS_ITS | Encounter Summary ---
Author Organization [employer] Address [address] [facility] [address] [place] [address] Care Team Providers Care Cardiopulmonary Technician Name Role Phone María Elena Zuleta MD Primary Care Provider + Seven Ly RN Unavailable [phone] Encounter Details Date Type Department Care [...] t he electric, gas, oil or water Lánzanos threatened to shut off services in your [...] Description 07/27/2024 2:30 PM EDT Office Visit [facility] [address] [place] [address] Serena Daniel, OD [address] [place] [address] documented as of this encounter Procedures Procedure Name Priority Date/Time Associated Diagnosis Comments BACTERIAL VAGINOSIS PANEL Routine 06/18/2024 11:12 AM EST CHLAMYDIA/N. GONORRHOEAE RNA, TMA, UROGENITAL Routine 06/18/2024 11:12 AM EST documented in this encounter Results * Chlamydia/N. Gonorrhoeae RNA, TMA, Urogenitial (06/18/2024 11:12 AM EST) CT PCR NOT DETECTED Not Detect. [facility] Comment:A not detected test result [...] psychologicalconsequences. NG PCR NOT DETECTED Not Detect. [facility] Comment:A not detected test result [...] AM EST 06/18/2024 3:37 PM EST Narrative [facility] - 06/19/2024 1:58 PM EST Vaginal us Generic External Data Provider LAB MICROBIOLOGY - GENERAL ORDERABLES Final Result [facility] [address] [place] [phone] * Bacterial Vaginosis (06/18/2024 11:12 AM EST) TRICHOMONAS VAGINALIS DETECTION BY PCR NOT DETECTED Not Detect [facility] BACTERIAL VAGINOSIS DETECTION BY PCR NEGATIVE Negative [facility] Comment:The BV organism targ ets [...] DETECTION BY PCR NOT DETECTED Not Detect [facility] Lindsey glab krusei PCR NOT DETECTED Not Detect [facility] 06/18/2024 11:1 2 AM EST 06/18/2024 3:37 PM EST us Generic External Data Provider LAB MICROBIOLOGY - GENERAL ORDERABLES Final Result [facility] [address] [place] [phone] documented in this encounter Visit Diagnoses Not on filedocumented in this encounter Additional Health Concerns Assessment Noted Time PHQ-9 Depression Total Score: 6 11/26/ 24 9:34 AM EDT documented as of this encounter Care Teams Cardiopulmonary Technician Relationship Specialty Start Date End Date María Elena Zuleta MD [address] [place] [address] PCP - General Family Medicine 06/13/17 Seven Ly RN [address] [place] [phone] Shipping WeigherLog Sawyer 05/26/24 documented as of this encounter
--- OUTSIDE RECORDS SUMMARY | 2024-07-04 10:20 | XMS_ITS | Encounter Summary ---
Author Organization [employer] Address [address] [facility] [address] [place] [address] Care Team Providers Care Seafood Packer Name Role Phone María Elena Zuleta MD Primary Care Provider + Seven Ly RN Unavailable [phone] Reason for Visit * Reason Onset Date Comments Care Management 06/19/2024 C3CM- f/u call Encounter Details Date Type Department Care Team ([facility] st Contact Info) Description 06/19/2024 Telephone [facility] MEDICINE [address] [place], [place] [phone] Seven Ly, RN [address] [place], [place] [phone] Care Management (C3CM- f/u call) Social History [...] emergency room visits.Patient confirms attending visit with [facility] STUDENT RECRUITER yesterday. She states the visit went well. Per patient, symptoms have resolved for the most part but she states she is still experiencing some white vaginal discharge. Patient states she was tested by STUDENT RECRUITER and will be contacted with results/plan of care once available. Per patient, scheduled for pelvic US and f/u with STUDENT RECRUITER on 07/02/24. She states she hastransportation and [...] provided on [facility] located in [facility] of [facility]. Patient provided with after-hours line for [facility], , which offer night time triage service and option to transfer to police detention attendant provider if needed. Patient verbalizes understanding, and able to repeat back to scientific writer. A follow up call will be placed within 10 days, patientagrees with plan. documented in this encounter Plan of Treatment Upcoming Encounters Date Type Department Care Team ([facility] st Contact Info) Description 07/27/2024 2:30 PM EDT Office Visit [facility] OPTOMETRY [address] [place], [place] [phone] Serena Daniel, OD [address] [place] [address] documented as of this encounter Visit Diagnoses Not on filedocumented in this encounter Additional Health Concerns Assessment Noted Time PHQ-9 Depression Total Score: 6 11/27/19 24 9:34 AM EDT documented as of this encounter Care Teams Seafood Packer Relationship Specialty Start Date End Date María Elena Zuleta MD [address] [place], [place] [phone] PCP - General Family Medicine 06/13/17 Seven Ly, JACKIE [address] [place] [address] Facing Machine OperatorArt Installer 05/26/24 documented as of this encounter
--- OUTSIDE RECORDS SUMMARY | 2024-07-04 10:20 | XMS_ITS | Clinical Summary ---
Author Organization [employer] Address 75 [facility] 7t [place] [address] Care Team Providers Care Superintendent Stations Name Role Phone María Elena Zuleta MD Primary Care Provider + Seven Ly RN Unavailable [phone] Allergies Active Allergy Reactions Criticality Noted [...] after that 70 g 4 5 Active Active Problems Problem Noted Date Diagnosed Date [...] Date Type Department Care Team Description 07/02/2024 Orders Only [facility] External Provider, [employer] 07/02/2024 Telephone [facility] [address] [place] [phone] María Elena Zuleta MD Care Management (C3- f/u call) 07/02/2024 Patient Outreach [address] [address] María Elena Zuleta MD Care Coordination ([facility] f/u) 06/29/2024 Orders Only [address] [address] Emani Bird MD Abnormal abdominal CT scan (Primary Dx) 06/19/[address] [address] Seven Ly RN Care Management (C3- f/u call) 06/18/2024 Orders Only GENERIC EXTERNAL DATA DEPARTMENT Provider, Generic External Data 06/12/2024 Telephone [facility] Information [address] [address] Emani Bird MD 06/12/[address] [address] Karuna Slade, RN Results 06/05/2024 [facility] Health Information Management [address] [place] [address] Emani Bird MD 06/04/[address] [address] María Elena Zuleta MD Nurse Triage 06/04/[address] [address] Seven Ly, JACKIE Care Management (C3- f/u call) 06/04/2024 Telephone [place] [facility] [address] [place] [phone] Emani Bird MD 06/03/2024 Patient Outreach [address] [address] María Elena Zuleta MD Care Coordination ([facility]/mail) 06/02/2024 3:15 PM EST Office Visit [address] [address] Sanju Quijano CNM Vaginal discharge (Primary Dx); Abnormal uterine bleeding (AUB) 06/02/[address] [address] María Elena Zuleta MD telephone call 06/02/2024 Travel 06/02/[address] [address] María Elena Zuleta MD Call Back Request 06/01/2024 Patient Outreach [address] [address] María Elena Zuleta MD Care Coordination (SDNE) 05/27/2024 3:30 PM EST Office Visit [address] [address] Emani Bird MD Rupture of cyst of right ovary (Primary Dx); IPMN (intraductal papillary mucinous neoplasm) 05/27/2024 Travel 05/26/[address] [address] Seven Ly RN 05/26/[address] [address] Seven Ly, RN Care Management (C3CM- initial assessment/ enrollment) 05/22/2024 Patient Outreach [address] [address] María Elena Zuleta MD Care Coordination (CM/CHW appt reminder) 05/22/2024 Travel 05/21/2024 Patient Outreach [address] [address] María Elena Zuleta MD Care Coordination (CM/CHW outreach) 05/21/[address] [address] María Elena Zuleta MD ER Follow-up 05/21/[address] [phone] Seven Ly, RN 05/19/[address] [address] María Elena Zuleta MD Nurse Triage 05/15/2024 Telephone [facility] [address] [place] [address] [place] [address] Serena Daniel OD 05/14/2024 Telephone [facility] [address] [place] [address] María Elena Zuleta MD Results 05/13/2024 10:30 AM EST Office Visit [address] [address] María Elena Zuleta MD Visit for preventive health examination (Primary Dx); UTI symptoms; Encounter for immunization 05/13/2024 Orders Only [facility] [address] [place] [phone] María Elena Zuleta MD 05/13/2024 Travel 05/12/[address] [address] Graciela Weber MA Chart prep 05/07/2024 Patient Outreach [address] [address] María Elena Zuleta MD Pre-visit Planning 04/23/[address] [address] Julius Tamayo RN from Last 3 Months Immunizations Name Administration [...] PM EDT Office Visit [facility] [address] [place], [place] [phone] Serena Daniel, OD [address] [place] [address] Health Maintenance Due Date Last Done Comments [...] Procedure Name Priority Date/Time Associated Diagnosis Comments US PELVIS TRANSVAGINAL Routine 07/02/2024 4:38 PM EST CHLAMYDIA/N. GONORRHOEAE RNA, TMA, UROGENITAL Routine [...] Recently Relevant to Health Maintenance Results * US Pelvis Transvaginal (07/02/2024 4:38 PM EST) Anatomical Region Laterality Modality Pelvis Ultrasound 07/02/2024 4:38 PM EST Narrative 07/03/2024 7:15 AM EST ? [facility] ?[address] ?[place] [address] ? Ultrasound Report ? Signed ? Patient: Elizabeth Andrews,Vilma ?MR#: [id number] ?? [id number] ? : 1995 ?Acct:[id number] ? Age/Sex: 28 / F ?ADM Date: 07/02/24 ? Loc: HO.US ? Attending Dr: Jose Raul Bustamante MD ? Ordering Physician: Jose Raul Bustamante MD ?? Date of Service: 07/02/24 ?? Procedure(s): US pelvic and transvaginal ?? Accession Number(s): [id number] ? cc: María Elena Zuleta MD; Jose Raul Bustamante MD ? EXAMINATION: ? US PELVIS ? CLINICAL INFORMATION: ? Unspecified ovarian cyst. ? COMPARISON: ?? August 01, 2023. ? TECHNIQUE: ?? Ultrasound of the pelvis is performed using both transabdominal and ?? transvaginal transducers along with Doppler. Transvaginal imaging is ?? performed due to inadequate visualization transabdominally. ? FINDINGS: ?? Uterus: ?? The uterus is anteverted and measures 9 x 4 x 6 cm. ??Cervix is closed ?? with normal echotexture. Prominent vessels within the myometrium.. ? The double wall endometrial thickness is 5 mm. ? The uterus is smooth in contour and has normal myometrial echogenicity. ?No visible fibroid. ? Adnexa: ?? Both ovaries are visualized. There is normal color flow to the adnexa. ?? There is no ovarian torsion. ??Small volume of free fluid in the ?? cul-de-sac. ? Right ovary measures 3 x 3 x 2 cm. Volume: 11 cc. Scattered follicles ?? surrounding the ovary. ? Left ovary measures 4 x 2 x 4 cm. Volume: 16 cc. Scattered follicles ?? surrounding the periphery of the ovary. ? US/US pelvic and transvaginal ?? IMPRESSION: ?? No ovarian torsion or dominant ovarian cyst. ?? Small volume of free fluid in the cul-de-sac. ?? No gross uterine fibroids. ? Electronically signed by: ??[place] Ryder MD ??07/03/2024 07:12 AM ?? EST RP ? Dictated By: ?L[place] Lamb MD ? Signed By: ?<Electronically signed by [place] MD in OV> ? 07/03/24 0712 ? DD/ 1638 ? TD/TT: 07/02/24 1651 ? News Photographer: ? Procedure Note Donotuseinterpreter, Image - 07/03/2024 [place] [address] Ultrasound Report Signed Patient: Amber Mendez#: [id number] : 1995Acct:[id number] Age/Sex: Date: 07/02/24 Loc: HO.US Attending Dr: Jose Raul Bustamante MD Ordering Physician: Jose Raul Bustamante MD Date of Service: 07/02/24 Procedure(s): US pelvic and transvaginal Accession Number(s): [id number] cc: María Elena Zuleta MD; Jose Raul Bustamante MD EXAMINATION: US PELVIS CLINICAL INFORMATION: Unspecified ovarian cyst. COMPARISON: August 01, 2023. TECHNIQUE: Ultrasound of the pelvis is performed using both transabdominal and transvaginal transducers along with Doppler. Transvaginal imaging is performed due to inadequate visualization transabdominally. FINDINGS: Uterus: The uterus is anteverted and measures 9 x 4 x 6 cm. Cervix is closed with normal echotexture. Prominent vessels within the myometrium.. The double wall endometrial thickness is 5 mm. The uterus is smooth in contour and has normal myometrial echogenicity. No visible fibroid. Adnexa: Both ovaries are visualized. There is normal color flow to the adnexa. There is no ovarian torsion. Small volume of free fluid in the cul-de-sac. Right ovary measures 3 x 3 x 2 cm. Volume: 11 cc. Scattered follicles surrounding the ovary. Left ovary measures 4 x 2 x 4 cm. Volume: 16 cc. Scattered follicles surrounding the periphery of the ovary. US/US pelvic and transvaginal IMPRESSION: No ovarian torsion or dominant ovarian cyst. Small volume of free fluid in the cul-de-sac. No gross uterine fibroids. Electronically signed by: Lake Ryder MD 07/03/2024 07:12 AM [facility] Dictated By: [place] Lamb MD Signed By: <Electronically signed by [place] MDin OV> 07/03/24 0712 DD/ 1638 TD/TT: 07/02/24 1651 News Photographer: [facility] External Provider IMG US PROCEDURES Final Result * Bacterial Vaginosis (06/18/2024 11:12 AM EST) TRICHOMONAS VAGINALIS DETECTION BY PCR NOT DETECTED Not Detect [facility] BACTERIAL VAGINOSIS DETECTION BY PCR NEGATIVE Negative [facility] Comment:The BV organism targ ets [...] DETECTION BY PCR NOT DETECTED Not Detect [facility] Lindsey glab krusei PCR NOT DETECTED Not Detect [facility] 06/18/2024 11:1 2 AM EST 06/18/2024 3:37 PM EST Generic External Data Provider LAB MICROBIOLOGY - GENERAL ORDERABLES Final Result Performing Organization Address City/State/[facility] Co de Phone Number [facility] [address] [place] [phone] * Chlamydia/N. Gonorrhoeae RNA, TMA, Urogenitial (06/18/2024 11:12 AM EST) Only the most recent of2 resultswithin the time period is included. CT PCR NOT DETECTED Not Detect. [facility] Comment:A not detected test result [...] psychologicalconsequences. NG PCR NOT DETECTED Not Detect. [facility] Comment:A not detected test result [...] AM EST 06/18/2024 3:37 PM EST Narrative [facility] - 06/19/2024 1:58 PM EST Vaginal us Generic External Data Provider LAB MICROBIOLOGY - GENERAL ORDERABLES Final Result [facility] [address] [place] [phone] * POCT fern test, vaginal fluid manually resulted (06/02/2024 4:25 PM EST) JOSI Prep Positive Comment:pH 4.5, neg whiff, n eg clue, neg trich, neg wbc, pos yeast Vaginal Fluid Vaginal structure / Unknown 06/02/2024 4:25 PM EST Impressions Sanju Quijano, BRI - 06/02/2024 4:25 PM EST Vulvovaginal candidiasis Sanju Quijano [facility] POINT OF CARE TEST ENTER/ EDIT ORDERABLES Final Result * POCT , urine manually resulted (06/02/2024 4:07 PM EST) Preg Test, Ur Negative Negative, Indeterminate, None Detected, Invalid, Specimen unsatisfactory for evaluation, Weakly Positive QC Media Lot # [id number] Lot# Expiration Date [id number] Urine 06/02/2024 4:07 PM EST Sanju Quijano [facility] POINT OF CARE TEST ENTER/ EDIT ORDERABLES Final Result * (ABNORMAL) CBC auto differential (05/27/2024 4:01 PM EST) Pathologist [facility] White Blood Count 10.8 4.8 - 10.8 X10*3/uL [facility] Red Blood Count 3.96(L) 4.20 - 5.50 X10*6/uL [facility] Hemoglobin 11.1(L) 12.0 - 16.0 g/dl [facility] Hematocrit 32.8(L) 37.0 - 47.0 % [facility] Mean Corpuscular Volume 82.8 80.0 - 98.0 fL [facility] Mean Corpuscular Hemoglobin 28.0 27.0 - 33.0 pg [facility] Mean Corpuscular HGB Conc 33.8 31.0 - 35.0 g/dl [facility] Red Cell Distribution Width 14.0 11.0 - 16.0 % [facility] Platelet Count 316 160 - 400 X10*3/uL [facility] Mean Platelet Volume 10.9 9.4 - 12.3 fL [facility] Neutrophils Percent Auto 60.5 45 - 73 % [facility] Imm Gran Pct Auto 0.4 0.0 - 0.4 % [facility] Lymphocytes Percent Auto 24.2 20 - 40 % [facility] Monocytes Percent Auto 9.9 2 - 11 % [facility] Eosinophils Percent Auto 4.4(H) 0 - 4 % [facility] Basophils Percent Auto 0.6 0 - 2 % [facility] NRBC Pct Auto 0.0 0.0 - 0.2 /100WBC [facility] Neutrophils Absolute Auto 6.5 2.0 - 8.3 x10*3/uL [facility] Imm Gran Abs Auto 0.04(H) 0.00 - 0.03 X10*3/uL [facility] Lymphocytes Absolute Auto 2.6 1.2 - 4.9 X10*3/uL [facility] Monocytes Absolute Auto 1.1 0.1 - 1.2 X10*3/uL [facility] Eosinophils Absolute Auto 0.5(H) 0.0 - 0.4 X10*3/uL [facility] Basophils Absolute Auto 0.1 0.0 - 0.2 X10*3/uL [facility] NRBC Abs Auto 0.000 0.0 - 0.012 X10*3/uL [facility] Blood Venous blood specimen / Unknown 05/27/2024 4:01 PM EST 05/27/2024 5:35 PM EST us Emani Bird MD LAB BLOOD ORDERABLES Final Res ult [facility] [address] [place] [phone] * (ABNORMAL) Urinalysis, Complete, with Reflex to Culture (05/13/2024 1:09 PM EST) Color Urine Yellow [facility] Appearance Urine Clear [facility] PH 6.5 5.0 - 9.0 [facility] Glucose Urine UA Negative Negative mg/dL [facility] Urine Blood Negative Negative [facility] Specific [place] - Urine 1.025 1.005 - 1.025 [facility] Urine Protein Negative Neg-Trace mg/dL [facility] Urine Ketones Negative Negative mg/dL [facility] Nitrite Urine Negative Negative [facility] Leukocyte Esterase Urine Small (1+)(A) Negative [facility] RBC Urine 0-2 0 - 2 /HPF [facility] Urine WBC 11-20(A) 0 - 5 /HPF [facility] Urine Squamous Epithelial Cell 6-10 0 - 2 /HPF [facility] Urine Bacteria 1+ None Seen [facility] Hyaline Casts, Urine 0-2 0 - 2 /LPF [facility] 05/13/2024 1:09 PM EST 05/13/2024 4:07 PM EST Narrative [facility] - 05/13/2024 4:38 PM EST Urine, Clean Catch María Elena Zuleta MD LAB URINE ORDERABLES Fin al Result Performing Organization Address [facility]/ZIP Co de Phone Number [facility] [address] [place] [phone] * Culture, Urine, Routine (05/13/2024 1:09 PM EST) Urine Urine specimen obtained by clean catch procedure / Unknown 05/13/2024 1:09 PM EST 05/13/2024 4:41 PM EST Comment:[facility] Narrative [facility] - 05/17/2024 8:22 AM EST Viridans streptococcus group Quant > 100,000 cfu/mL Susc N/A Susceptibility not routinely performed on this isolate. Specimen Source: Urine clean catch us María Elena Zuleta MD LAB MICROBIOLOGY - GENER AL ORDERABLES Final Result Performing Organization Address [facility]/ZIP Co de Phone Number [facility] [address] [place] [phone] * T-SPOT??.TB (05/13/2024 11:57 AM EST) T Spot TB Negative Negative [facility] Comment:A negative test resu lt [...] as aquantitative test. TS PANEL A 0 [facility] TS PANEL B 0 [facility] Negative Control Passed [facility] Positive Control Passed [facility] Comment:For additional infor mation, please refer tohttp://education.BioSET/faq/ULY380(This link is being provided for informational/educational purposes only.)THIS TEST WAS PERFORMED AT:[employer] [id number] [place] [address]VKCQTAEROBERTH GOMEZ MD,PHD 05/13/2024 11:5 7 AM EST 05/13/2024 1:05 PM EST María Elena Zuleta MD LAB BLOOD ORDERABLES Fin al Result [facility] [address] [place] [phone] * Chlamydia/Gonorrhea Vaginal Swab ([facility]) (04/10/2024) Chlamydia Vaginal Swab Negative Negative, Indeterminate, None Detected, Invalid, Specimen unsatisfactory for evaluation, Weakly Positive Gonorrhea Vaginal Swab Negative Negative, Indeterminate, None Detected, Invalid, Specimen unsatisfactory for evaluation, Weakly Positive Swab Vaginal structure / Unknown 04/10/2024 Historical Provider MD LAB MICROBIOLOGY - GENERA L ORDERABLES Final Result * Chlamydia/Gonorrhea Throat Swab ([place] [facility]) (04/10/2024) Pathologist [facility] Chlamydia Throat Swab Negative Gonorrhea Throat Swab Negative Swab 04/10/2024 Result [facility] MD LAB MICROBIOLOGY - GENERA L ORDERABLES Final Result * Syphilis Antibodies ([facility]) (04/10/2024) Pathologist [facility] Syphilis Abs Nonreactive Borderline, Nonreactive, Weakly Reactive, Inconclusive, Specimen unsatisfactory for evaluation Blood Venous blood specimen / Unknown 04/10/2024 Result [facility] MD LAB BLOOD ORDERABLES Teri l Result * Hepatitis C Antibody ([place] [facility]) (04/10/2024) [facility] Hepatitis C Ab Nonreactive Blood 04/10/2024 Result [facility] MD LAB BLOOD ORDERABLES Teri l Result * HIV Ab/Ag ([place] [facility]) (04/10/2024) [facility] HIV Ag/Ab Nonreactive Blood 04/10/2024 Result [facility] MD LAB BLOOD ORDERABLES Edit ed Result - Final * HPV mRNA E6/E7 w/Reflex to HPV Genotypes 16, 18/45 (01/09/2023 12:03 PM EDT) Pathologist [facility] HPV nRNA E6/E7 Not Detected Not Detected [facility] Comment:Methodology: Transcr iption-Mediated AmplificationThis assay detects E6/E7 viral messenger RNA (mRNA) from 14high-risk HPV types (16,18,31,33,35,39,45,51,52,56,58,59,66,68).Cervical sources are required for HPV testing.If a vaginal source from a patient who has had atotal hysterectomy with removal of cervix wassubmitted, please contact the testing laboratoryfor alternative testing options.For additional information, please refer tohttp://education.BioSET/faq/GNN607p5(This link if provided for information/educational purposes only.)THIS TEST WAS PERFORMED AT:[employer] [place] [id number] RASHID MD HPV mRNA E6/E7 TNP [facility] HPV 16 RNA TNP [facility] HPV 18/45 RNA TNP [facility] 01/09/2023 12:0 3 PM EDT 01/10/2023 9:15 AM EDT Sanju Quijano CNM LAB CYTOLOGY ORDERABLES F inal Result [facility] [address] [place] [phone] * Pap Smear (01/09/2023 12:03 PM EDT) 01/09/2023 12:0 3 PM EDT 01/10/2023 9:15 AM EDT Narrative [facility] - 01/22/2023 10:48 AM EDT ----- ------- Name: Vilma Mendez ?Age/Sex: 27/F ? : 1995 Unit#: [id number] ?? Attend Dr: SANJU QUIJANO CNM ?Re01/09/23 ?Status: DEP REF ? Location: HO.HHCL ? Disch: ? ----- ------- SPEC : [id number] ?RECD: 01/10/23 ? STATUS: ??SOUT ? REQ NUM: [id number] ? DEVON: 01/09/233 ? SUBM DR: SANJU QUIJANO CNPérez ? ENTERED: ??01/10/23 ?SP TYPE: Pap Smr [...] 66, 68) ?? HPV testing performed by [facility], [place], [place]. ??See reference laboratory ?? pion of the EMR for entire report. ?Clinical Information LMP: 12/29/2022 Previous PAP test:2021, [facility] HPV positive ? Material Received ?? ThinPrep-Vaginal/Cervical ----- ------- Signed (signature on file) Andres Wood MD 01/22/23 1048 ? ----- ------- ? END OF REPORT ? us Sanju Quijano [facility] CYTOLOGY ORDERABLES F inal Result [facility] [address] [place] [phone] from Last 3 Months or Most Recently Relevant to Health Maintenance Insurance [facility] [employer]ANDARD [facility]ENT[facility] MEDICAID STAND ADULT Care Teams Superintendent Stations Relationship Specialty Start Date End Date María Elena Zuleta MD [address] [place] [phone] PCP - General Family Medicine 06/13/17 Seven Ly RN [address] [place] [phone] Data Processing ClerkKiln Stacker 05/26/24
--- OUTSIDE RECORDS SUMMARY | 2024-07-04 10:20 | XMS_ITS | Encounter Summary ---
Author Organization [employer] Address [address] [facility] [address] [place] [address] Care Team Providers Care Distance Education Teacher Name Role Phone María Elena Zuleta MD Primary Care Provider + Seven Ly RN Unavailable [phone] Reason for Visit * Reason Onset Date Comments Nurse Triage 06/04/2024 Encounter Details Date Type Department Care Team ([facility] st Contact Info) Description 06/04/2024 Telephone [facility] [address] [place], [place] [phone] María Elena Zuleta MD [address] [place], [place] [phone] Nurse Triage Social History Tobacco Use Types [...] call back before that. Contact pt at [phone] * Telephone Encounter - Truong Delarosa - 06/04/2024 2:32 PM EST Symptom: Medication Question Outcome: Schedule an urgent appointment (within 4 hours) or talk to a nurse or provider soon Reason: New prescription question The caller accepted this outcome. documented in this encounter Plan of Treatment Upcoming Encounters Date Type Department Care Team ([facility] st Contact Info) Description 07/27/2024 2:30 PM EDT Office Visit [facility] [address] [place], [place] [phone] Serena Daniel, OD [address] [place] [address] documented as of this encounter Visit Diagnoses Not on filedocumented in this encounter Additional Health Concerns Assessment Noted Time PHQ-9 Depression Total Score: 6 11/27/19 24 9:34 AM EDT documented as of this encounter Care Teams Distance Education Teacher Relationship Specialty Start Date End Date María Elena Zuleta MD [address] [place] [address] PCP - General Family Medicine 06/13/17 Seven Ly, JACKIE [address] [place] [address] Manager FrontExplosive Ordnance Disposal Specialist 05/26/24 documented as of this encounter
--- OUTSIDE RECORDS SUMMARY | 2024-07-04 10:20 | XMS_ITS | Encounter Summary ---
Author Organization [employer] Address 75 [facility] [place] [address] Care Team Providers Care Auditor/Quality Name Role Phone María Elena Zuleta MD Primary Care Provider + Seven Ly RN Unavailable [phone] Reason for Visit * Reason Comments Med Refill Encounter Details Date Type Department Care Team ([facility] st Contact Info) Description 05/24/2023 Refill [facility] [address] [place], [place] [phone] María Elena Zuleta MD [address] [place], [place] [phone] Social History Tobacco Use Types Packs/Day Years [...] PM EDT Office Visit [facility] [address] [place] [address] Serena Daniel, OD [address] [place] [address] documented as of this encounter Visit Diagnoses Not on filedocumented in this encounter Care Teams Auditor/Quality Relationship Specialty Start Date End Date María Elena Zuleta MD [address] [place] [address] PCP - General Family Medicine 06/13/17 Seven Ly RN [address] [place] [phone] Irrigation TechnicianConstruction Accountant 05/26/24 documented as of this encounter
--- OUTSIDE RECORDS SUMMARY | 2024-07-04 10:20 | XMS_ITS | Encounter Summary ---
Author Organization [employer] Address [address] [facility] [address] [place] [address] Care Team Providers Care Grading Clerk Name Role Phone María Elena Zuleta MD Primary Care Provider + Sevne Ly RN Unavailable [phone] Reason for Visit * Reason Onset Date Comments Care Management 07/02/2024 C3CM- f/u call Encounter Details Date Type Department Care Team ([facility] st Contact Info) Description 07/02/2024 Telephone [facility] MEDICINE 230 [place], [place] [phone] María Elena Zuleta MD 230 [place], [place] [phone] Care Management (C3CM- f/u call) Social History [...] your housing situation today? 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 Patient [...] provided on Walk-In Urgent Care located in [facility] of [facility]. Patient provided with after-hours line for [facility], , which offer night time triage service and option to transfer to irrigation worker provider if needed. Patient verbalizes understanding, and able to repeat back to filing writer. A follow up call will be placed within 10 days, patient agrees with plan. documented in this encounter Plan of Treatment Upcoming Encounters Date Type Department Care Team ([facility] Contact Info) Description 07/27/2024 2:30 PM EDT Office Visit [facility] OPTOMETRY [address] [place], [place] [phone] TarSerena barfield, OD [address] [place], [place] [phone] documented as of this encounter Visit Diagnoses Not on filedocumented in this encounter Additional Health Concerns Assessment Noted Time PHQ-9 Depression Total Score: 6 11/27/19 24 9:34 AM EDT documented as of this encounter Care Teams Grading Clerk Relationship Specialty Start Date End Date María Elena Zuleta MD 230 [place] [address] PCP - General Family Medicine 06/13/17 Seven Ly RN [address] [place] [address] Speech ProfessorSubassembly Supervisor 05/26/24 documented as of this encounter
--- OUTSIDE RECORDS SUMMARY | 2024-07-04 10:20 | XMS_ITS | Encounter Summary ---
Author Organization [employer] Address [address] [facility] [place] [address] Care Team Providers Care Clinical Transformation Specialist Name Role Phone María Elena Zuleta MD Primary Care Provider + Seven Ly RN Unavailable [phone] Encounter Details Date Type Department Care Team ([facility] st Contact Info) Description 06/05/2024 Telephone [employer] [facility] [address] [place], [place] [phone] Emani Bird MD 230 [place] [address] Social History Tobacco Use Types Packs/Day Years [...] Office Visit [facility] OPTOMETRY 267 [place] [address] Serena Daniel, OD 267 [place] [address] documented as of this encounter Visit Diagnoses Not on filedocumented in this encounter Additional Health Concerns Assessment Noted Time PHQ-9 Depression Total Score: 6 11/27/19 24 9:34 AM EDT documented as of this encounter Care Teams Clinical Transformation Specialist Relationship Specialty Start Date End Date María Elena Zuleta MD 230 [place] [address] PCP - General Family Medicine 06/13/17 Seven Ly RN [address] [place] [address] [place] [address] Printing And Stamping SupervisorColor Drum Worker 05/26/24 documented as of this encounter
--- OUTSIDE RECORDS SUMMARY | 2024-07-04 10:20 | XMS_ITS | Encounter Summary ---
Author Organization [employer] Address [address] [facility] [place] [address] Care Team Providers Care Set Up Mold Technician Name Role Phone María Elena Zuleta MD Primary Care Provider + Seven Ly RN Unavailable [phone] Reason for Visit * Reason Onset Date Comments Results 07/29/2023 Encounter Details Date Type Department Care Team ([facility] st Contact Info) Description 07/29/2023 Telephone [facility] MEDICINE 230 [place], [place] [phone] María Elena Zuleta MD 230 [place], [place] [phone] Results Social History Tobacco Use Types Packs/Day [...] labs, swab Date when done: 07/24 Facility: [facility] Please contact pt at [phone] documented in this encounter Plan of Treatment Upcoming Encounters Date Type Department Care Team (Late st Contact Info) Description 07/27/2024 2:30 PM EDT Office Visit [facility] OPTOMETRY [address] [place] [address] TarSerena barfield, OD [address] [place] [address] documented as of this encounter Visit Diagnoses Not on filedocumented in this encounter Care Teams Set Up Mold Technician Relationship Specialty Start Date End Date María Elena Zuleta MD 230 [place] [address] PCP - General Family Medicine 06/13/17 Seven Ly RN 505 [place] [address] Development SpecClient Experience Administrator 05/26/24 documented as of this encounter
--- OUTSIDE RECORDS SUMMARY | 2024-07-04 10:20 | XMS_ITS | Encounter Summary ---
Author Organization [employer] Address 75 [facility] 7t [place] [address] Care Team Providers Care Oil Pipeline Operator Name Role Phone María Elena Zuleta MD Primary Care Provider + Seven Ly RN Unavailable [phone] Encounter Details Date Type Department Care Team ([facility] st Contact Info) Description 11/01/2022 Orders Only [facility] MEDICINE 230 [place], [place] [phone] María Elena Zuleta MD 230 [place], [place] [phone] Vaginal discharge (Primary Dx) Social History Tobacco [...] [facility] OPT[facility] 267 [place] [address] Serena Daniel, OD 267 [place] [address] documented as of this encounter Procedures Procedure Name Priority Date/Time Associated Diagnosis Comments HIV ANTIBODY/ANTIGEN ([facility]) Routine 01/09/2023 12:18 PM EDT [...] 12:18 PM EDT) HIV AB/AG Nonreactive Nonreactive [facility] Comment:HIV-1 p24 Ag and/or HIV-1/HIV-2 Ab not detected.A test result that is nonreactive does not exclude thepossibility of exposure to or infection with HIV-1 and/orHIV-2. Nonreactive results in this assay for individualswith prior exposure to HIV-1 and/or HIV-2 may be due toantigen and antibody levels that are below the limit ofdetection of this assay.The [employer] HIV Ag/Ab Combo assay result andsupplemental assay results should be interpreted inconjunction with the patient's clinical presentation,history and other laboratory results. If the results areinconsistent with clinical evidence, additional testing issuggested to confirm the result. 01/09/2023 12:1 8 PM EDT 01/09/2023 1:10 PM EDT us Sanju Quijano [facility] BLOOD ORDERABLES Teri cantu Result [facility] [address] [place] [phone] * Pap Smear (01/09/2023 12:03 PM EDT) 01/09/2023 12:0 3 PM EDT 01/10/2023 9:15 AM EDT Narrative [facility] - 01/22/2023 10:48 AM EDT ----- ------- Name: Elizabeth DarrylVilma ?Age/Sex: 27/F ? : 1995 Unit#: [id number] ?? Attend Dr: SANJU QUIJANO CNM ?Re01/09/23 ?Status: DEP REF ? Location: HO.CL ? Disch: ? ----- ------- SPEC : [id number] ?RECD: 01/10/23 ? STATUS: ??SOUT ? REQ NUM: [id number] ? DEVON: 01/09/23-1203 ? SUBM DR: SANJU [...] 66, 68) ?? HPV testing performed by [facility], [place], [place]. ??See reference laboratory ?? pion of the EMR for entire report. ?Clinical Information LMP: 12/29/2022 Previous PAP test:2021, ASCUS HPV positive ? Material Received ?? ThinPrep-Vaginal/Cervical ----- ------- Signed (signature on file) Andres Wood MD 01/22/23 1878 ? ----- ------- ? END OF REPORT ? Sanju Rhonda [facility] CYTOLOGY ORDERABLES F inal Result Performing Organization Address [facility] Co de Phone Number [facility] [address] [place], [place] [phone] * C.TRACHOMATIS/N. GONORRHOEAE DNA PROBE (01/09/2023 12:03 PM EDT) CTNG Ref Lab NOT DETECTED NOT DETECTED [facility] NG Ref Lab NOT DETECTED NOT DETECTED [facility] CTNG Ref Note SEE NOTE [facility] Comment:The analytical perfo rmance characteristics of thisassay, when used to test SurePath(TM) specimens have beendetermined by [facility]. The modifications havenot been cleared or approved by the FDA. This assay hasbeen validated pursuant to the CLIA regulations and isused for clinical purposes.For additional information, please refer tohttps://education.Step-In/faq/HMI037(This link is being provided for information/educational purposes only.)THIS TEST WAS PERFORMED AT:[facility] [place] [id number] RASHID MD 01/09/2023 12:0 3 PM EDT 01/10/2023 9:15 AM EDT Sanju Rhonda [facility] MICROBIOLOGY - GENERA L ORDERABLES Final Result Performing Organization Address [facility] Co de Phone Number [facility] [address] [place] [phone] * HPV mRNA E6/E7 w/Reflex to HPV Genotypes 16, 18/45 (01/09/2023 12:03 PM EDT) Pathologist [facility] HPV nRNA E6/E7 Not Detected Not Detected [facility] Comment:Methodology: Transcr iption-Mediated AmplificationThis assay detects E6/E7 viral messenger RNA (mRNA) from 14high-risk HPV types (16,18,31,33,35,39,45,51,52,56,58,59,66,68).Cervical sources are required for HPV testing.If a vaginal source from a patient who has had atotal hysterectomy with removal of cervix wassubmitted, please contact the testing laboratoryfor alternative testing options.For additional information, please refer tohttp://education.Step-In/faq/QMS494k8(This link if provided for information/educational purposes only.)THIS TEST WAS PERFORMED AT:[facility] [place] [phone] RASHID MD HPV mRNA E6/E7 [facility] HPV 16 RNA [facility] HPV 18/45 RNA [facility] 01/09/2023 12:0 3 PM EDT 01/10/2023 9:15 AM EDT [facility] ORDERABLES F inal Result Performing Organization Address City/[facility]/ZIP Co de Phone Number [facility] [address] [place] [phone] * (ABNORMAL) Bacterial Vaginosis (01/09/2023 12:00 AM EDT) Trichomonas DNA Probe Negative Negative [facility] Gardnerella DNA Probe Positive(A) Negative [facility] Lindsey DNA Probe Positive(A) Negative [facility] 01/09/2023 01/09/2023 [facility]CRO[facility]OLOG[facility] - GENERA L ORDERABLES Final Result Performing Organization Address [facility]/ZIP Co de Phone Number [facility] [address] [place] [phone] documented in this encounter Visit Diagnoses Diagnosis Vaginal discharge- Primary Leukorrhea, not specified as infective documented in this encounter Care Teams Oil Pipeline Operator Relationship Specialty Start Date End Date María Elena Zuleta MD 230 [place] [address] PCP - General Family Medicine 06/13/17 Seven Ly RN [address] [place] [address] Front ClerkMail Handler 05/26/24 documented as of this encounter
--- OUTSIDE RECORDS SUMMARY | 2024-07-04 10:20 | XMS_ITS | Encounter Summary ---
Author Organization [employer] Address [address] [facility] 7[facility] [place] [address] Care Team Providers Care Nuclear Test Technician Name Role Phone María Elena Zuleta MD Primary Care Provider + Seven Ly RN Unavailable [phone] Reason for Visit * Reason Onset Date Comments Triage 07/18/2022 Encounter Details Date Type Department Care Team (Late st Contact Info) Description 07/18/2022 Telephone [facility] MEDICINE 230 [place], [place] [phone] María Elena Zuleta MD 230 [place], [place] [phone] Triage Social History Tobacco Use Types Packs/Day [...] became very itchy, it is storm perfect [place] and is a blood worm per Pt description which is found on google . Advised Pt to[facility] to [facility] today to be seen by provider [...] accepted this outcome Please contact pt at [phone] documented in this encounter Plan of Treatment Upcoming Encounters Date Type Department Care Team (Late st Contact Info) Description 07/27/2024 2:30 PM EDT Office Visit [facility] OPTOMETRY 267 [place] [address] Serena Daniel, OD 267 [place] [address] documented as of this encounter Visit Diagnoses Not on filedocumented in this encounter Care Teams Nuclear Test Technician Relationship Specialty Start Date End Date María Elena Zuleta MD 230 [place] [address] PCP - General Family Medicine 06/13/17 Seven Ly RN [address] [place] [address] Clarifier OperatorSolar Photovoltaic Installer 05/26/24 documented as of this encounter
--- OUTSIDE RECORDS SUMMARY | 2024-07-04 10:20 | XMS_ITS | Encounter Summary ---
Author Organization [employer] Address [address] [facility] 7[place], [place] [address] Care Team Providers Care Biochemistry Professor Name Role Phone María Elena Zuleta MD Primary Care Provider + Seven Ly RN Unavailable [phone] Encounter Details Date Type Department Care Team ([facility] st Contact Info) Description 06/04/2024 [employer] Information Management 230 [place], [place] [phone] Emani Bird MD 230 [place] [address] Social History Tobacco Use Types Packs/Day Years [...] 06/04/2024 10:31 AM EST [place] [facility] [place] order to be update to MRI Abdomen WWO Contrast. Please advise! documented in this encounter Plan of Treatment Upcoming Encounters Date Type Department Care Team (Late st Contact Info) Description 07/27/2024 2:30 PM EDT Office Visit [facility] OPTOMETRY 267 [place] [address] Serena Daniel, OD 267 [place] [address] documented as of this encounter Visit Diagnoses Not on filedocumented in this encounter Additional Health Concerns Assessment Noted Time PHQ-9 Depression Total Score: 6 11/27/19 24 9:34 AM EDT documented as of this encounter Care Teams Biochemistry Professor Relationship Specialty Start Date End Date María Elena Zuleta MD 230 [place] [address] PCP - General Family Medicine 06/13/17 Seven Ly RN [address] [place] [address] Compliance Program ManagerCardiac Cath Technician 05/26/24 documented as of this encounter
--- OUTSIDE RECORDS SUMMARY | 2024-07-04 10:20 | XMS_ITS | Encounter Summary ---
Author Organization [employer] Address 75 [facility] 7t [place] [address] Care Team Providers Care Congressional District Aide Name Role Phone María Elena Zuleta MD Primary Care Provider + Seven Ly RN Unavailable [phone] Encounter Details Date Type Department Care Team ([facility] st Contact Info) Description 07/02/2024 Orders Only [facility] External Provider, [facility] Social History Tobacco Use Types Packs/Day Years [...] Upcoming Encounters Date Type Department Care Team ([facility] st Contact Info) Description 07/27/2024 2:30 PM EDT Office Visit C OPTOMETRY 267 [place] [address] Serena Daniel, OD 267 [place] [address] documented as of this encounter Procedures Procedure Name Priority Date/Time Associated Diagnosis Comments US PELVIS TRANSVAGINAL Routine 07/02/2024 4:38 PM EST documented in this encounter Results * US Pelvis Transvaginal (07/02/2024 4:38 PM EST) Anatomical Region Laterality Modality Pelvis Ultrasound 07/02/2024 4:38 PM EST Narrative 07/03/2024 7:15 AM EST ? [facility] ?[address] ?[place] [address] ? Ultrasound Report ? Signed ? Patient: Elizabeth Andrews,Vilma ?MR#: [id number] ? : 1995 ?Acct:[id number] ? Age/Sex: 28 / F ?ADM Date: 02/27/25 ? Loc: HO.US ? Attending Dr: Jose Raul Bustamante MD ? Ordering Physician: Jose Raul Bustamante MD ?? Date of Service: 07/02/24 ?? Procedure(s): US pelvic and transvaginal ?? Accession Number(s): [id number] ? cc: María Elena Zuleta MD; Jose [...] DD/ 1638 ? TD/TT: 07/02/24 1651 ? Cement Railroad Car Loader: ? Procedure Note Juarez, Image - 07/03/[address] [address] Ultrasound Report Signed Patient: Amber Mendez#: [id number] : 1995Acct:[id number] Age/Sex: Date: 07/02/24 Loc: HO.US Attending Dr: Jose Raul Bustamante MD Ordering Physician: Jose Raul Bustamante MD Date of Service: 07/02/24 Procedure(s): US pelvic and transvaginal Accession Number(s): [id number] cc: María Elena Zuleta MD; Jose Raul [...] by: Lake Ryder MD 07/03/2024 07:12 AM EST Dictated By: Lake Lamb MD Signed By: <Electronically signed by Lake Warren MDin OV> 07/03/24 0712 DD/ 1638 TD/TT: 07/02/24 1651 Cement Railroad Car Loader: [facility] External Provider IMG US PROCEDURES Final Result documented in this encounter Visit Diagnoses Not on filedocumented in this encounter Additional Health Concerns Assessment Noted Time PHQ-9 Depression Total Score: 6 11/27/19 24 9:34 AM EDT documented as of this encounter Care Teams [place] Aide Relationship Specialty Start Date End Date María Elena Zuleta MD 230 [place] [address] PCP - General Family Medicine 06/13/17 Seven Ly RN [address] [place] [address] Route Delivery ManagerMotor Grader Operator 05/26/24 documented as of this encounter
--- OUTSIDE RECORDS SUMMARY | 2024-07-04 10:20 | XMS_ITS | Encounter Summary ---
Author Organization [employer] Address [address] [facility] 7[place] [address] Care Team Providers Care Aluminum Fabrication Supervisor Name Role Phone María Elena Zuleta MD Primary Care Provider + Seven Ly RN Unavailable [phone] Encounter Details Date Type Department Care Team ([facility] st Contact Info) Description 06/12/2024 Telephone [employer] Health Information Management 230 [place], [place] [phone] Emani Bird MD 230 [place] [address] Social History Tobacco Use Types Packs/Day Years [...] 06/12/2024 3:24 PM EST Incoming fax from [facility] requesting MRI order to be update to MRI Abdomen WWO Contrast. Please advise! documented in this encounter Plan of Treatment Upcoming Encounters Date Type Department Care Team (Late st Contact Info) Description 07/27/2024 2:30 PM EDT Office Visit [facility] OPTOMETRY [address] [place] [address] Serena Daniel, OD 267 [place] [address] documented as of this encounter Visit Diagnoses Not on filedocumented in this encounter Additional Health Concerns Assessment Noted Time PHQ-9 Depression Total Score: 6 11/27/19 24 9:34 AM EDT documented as of this encounter Care Teams Aluminum Fabrication Supervisor Relationship Specialty Start Date End Date María Elena Zuleta MD 230 [place] [address] PCP - General Family Medicine 06/13/17 Seven Ly RN [address] [place] [address] Plant Attendant Or Assistant OperatorHuman Resources Generalist 05/26/24 documented as of this encounter
--- OUTSIDE RECORDS SUMMARY | 2024-07-04 10:20 | XMS_ITS | Encounter Summary ---
Author Organization [employer] Address 75 [facility] 7 [place] [address] Care Team Providers Care Rough Rounder Machine Name Role Phone María Elena Zuleta MD Primary Care Provider + Seven Ly RN Unavailable [phone] Reason for Visit * Reason Onset Date Comments Care Management 06/04/2024 C3CM- f/u call Encounter Details Date Type Department Care Team ([facility] st Contact Info) Description 06/04/2024 Telephone [facility] MEDICINE 230 [place], [place] [phone] Seven Ly, RN [address] [place], [place] [phone] Care Management (C3CM- f/u call) Social History [...] Per patient, has a f/u scheduled with GREY IRON MOLDER on 06/18/24. Shealso states she called GI and has an appt scheduled on 06/29 or 06/30. Patient denies any immediate needs or concerns at this time. No further questions or concerns. CM reinforced direct contact information for any additional questions or concerns. Education provided on Walk-In Urgent Care located in [facility]. Patient provided with after-hours line for [facility], , which offer night time triage service and option to transfer to hotel controller provider if needed. Patient verbalizes understanding, and able to r epeat back to principal technical writer. A follow up call will be placed within 10 days, patient agrees with plan. documented in this encounter Plan of Treatment Upcoming Encounters Date Type Department Care Team (Late st Contact Info) Description 07/27/2024 2:30 PM EDT Office Visit [facility] OPTOMETRY [address] [place], [place] [phone] Serena Daniel, OD [address] [place], [place] [phone] documented as of this encounter Visit Diagnoses Not on filedocumented in this encounter Additional Health Concerns Assessment Noted Time PHQ-9 Depression Total Score: 6 11/27/19 24 9:34 AM EDT documented as of this encounter Care Teams Rough Rounder Machine Relationship Specialty Start Date End Date María Elena Zuleta MD 230 [place], [place] [phone] PCP - General Family Medicine 06/13/17 Seven Ly RN [address] [place] [address] Telemarketing AgentParachute Officer 05/26/24 documented as of this encounter
--- OUTSIDE RECORDS SUMMARY | 2024-07-04 10:20 | XMS_ITS | Encounter Summary ---
Author Organization [employer] Address [address] [facility] 7[facility] [place] [address] Care Team Providers Care Tower Watchman Name Role Phone María Elena Zuleta MD Primary Care Provider + Seven Ly RN Unavailable [phone] Reason for Visit * Reason Onset Date Comments triage 08/07/2022 Encounter Details Date Type Department Care Team (Late st Contact Info) Description 08/07/2022 Telephone [facility] MEDICINE 230 [place], [place] [phone] María Elena Zuleta MD 230 [place], [place] [phone] triage Social History Tobacco Use Types Packs/Day [...] July. Pt is advised to come to [facility] Pt requests some testing for [...] EDT Office Visit [facility] OPTOMETRY 267 [place] [address] Serena Daniel OD 267 [place] [address] documented as of this encounter Visit Diagnoses Not on filedocumented in this encounter Care Teams Tower Watchman Relationship Specialty Start Date End Date María Elena Zuleta MD [address] [place] [address], [place] [address] PCP - General Family Medicine 06/13/17 Seven Ly RN [address] [place] [address] Manager DishCollection Card Clerk 05/26/24 documented as of this encounter
[2024-07-04] MEDS: gadobutroL 7.5 ML VIAL IVPUSH (10:53)
== END 2024-07-04 10:12 | disposition home or self-care (01) ==
LOC: HO.MRI 10:11
PROVIDERS: PCP Internal Medicine; Visit Provider General Practice
DX: D49.0 Neoplasm of unspecified behavior of digestive system (principal); R93.5 Abnormal findings on diagnostic imaging of other abdominal regions, including retroperitoneum
CPT/HCPCS: 74183; A9585

== ENCOUNTER → 2024-07-04 10:21 | Outpatient (BNV) | payer MEDICAID, SELFPAY | PROVIDERS: PCP Internal Medicine; Visit Provider Radiology Diagnostic Radiology | DX: K86.2 Cyst of pancreas (principal) | CPT/HCPCS: 74183 ==

== ENCOUNTER 2024-07-06 15:39 | Outpatient (AMB) | payer MEDICAID, SELFPAY ==
--- NOTE | 2024-07-06 15:39 | A.OFFVIS_ITS ---
Intake Visit Reasons: u/s results Allergies No Known Allergies Allergy (Verified 12/25/23 15:54) HPI Comments Details: The patient is scheduled tele health visit to discuss the results the ultrasound which showed the following: IMPRESSION: No ovarian torsion or dominant ovarian cyst. Small volume of free fluid in the cul-de-sac. No gross uterine fibroids. [facility] Medical History Constipation Nausea & vomiting Family History Mother Diabetes mellitus H/O cancer of uterus H/O: hysterectomy Bipolar 1 disorder, mixed Maternal Grandmother Diabetes mellitus Family/Other Breast CA Sister Autism Brother Autism Bipolar 1 disorder, mixed Social History Household Members: Children Both parents involved: Yes Caregiver staying overnight: No Housing: Apartment Are you a primary residential care officer to a significant other at home: No Do you presently have visiting nurse or other home services: No 75 years or older and lives alone: No Alcohol intake: never Patient Tobacco Use Status: Never used Tobacco Substance Use Type: Marijuana Agree to transfusion: Yes service: No Current occupational status: unemployed Sexual orientation: Straight/Heterosexual Gender identity: Female Cognitive needs: No Hearing needs: No Vision needs: No Female Reproductive History Menstrual Age of Menarche: 10 Review of Systems Const All systems reviewed & are unremarkable except as noted in HPI and below Reports as per HPI and Reports no additional complaints GI Reports no additional complaints Reports no additional complaints Telehealth Telehealth Telehealth Platform: Telephone Location of provider rendering services: practice address Location of patient: address on file Patient Identification confirmed using: Name, : Yes Telehealth method: video Patient verbally consented to treatment: Yes Patient verbally consented to billing insurance company: Yes Patient informed of any privacy concerns related to visit: Yes Minutes spent on Phone/Video with Pt.: 3 Assessment & Plan Assessment & Plan (1) Ovarian cyst: Comment: Resolved Code(s): N83.209 - Unspecified ovarian cyst, unspecified side Category: Medical Plan: Discussed with the patient ultrasound findings showing no evidence of ovarian cyst that was identified in the ED according to patient, probably has resolved. The patient was instructed to call if symptoms recur. All questions were answered the patient verbalized understanding. I spent a total of 20 minutes reviewing the chart, talking to the patient via video and documenting in the medical record. Coding Level of Care Code Tele Est Pt Level 3 (80234) Diagnoses Ovarian cyst N83.209
--- OUTSIDE RECORDS SUMMARY | 2024-07-06 18:27 | XMS_ITS | Encounter Summary ---
Author Organization [employer] Address [address] [facility] [place] [address] Care Team Providers Care Videotape Operator Name Role Phone María Elena Zuleta MD Primary Care Provider + Seven Ly RN Unavailable [phone] Reason for Visit * Reason Comments Care Coordination SDOH f/u Encounter Details Date Type Department Care Team (Latest Contact Info) Description 07/02/[address] [facility] MED[facility]INE [address] [place], [place] [phone] María Elena Zuleta MD [address] [place] [address] Care Coordination (SDOH f/u) Social History Tobacco [...] Wednesdays, and Walk-In Urgent Care Located in [facility]. Patient provided with after-hours line for [facility], , which offer night time triage service and option to transfer to mooner provider if needed. Patient verbalizes understanding, and able to repeat back to senior underwriter. A follow up call willbe placed within 10 days, patient agrees with plan. documented in this encounter Plan of Treatment Upcoming Encounters Date Type Department Care Team ([facility] st Contact Info) Description 07/27/2024 2:30 PM EDT Office Visit [facility] OPTOMETRY [address] [place] [address] Nimcocarolyne Serena, OD [address] [place] [address] documented as of this encounter Visit Diagnoses Not on filedocumented in this encounter Additional Health Concerns Assessment Noted Time PHQ-9 Depression Total Score: 6 11/26/ 24 9:34 AM EDT documented as of this encounter Care Teams Videotape Operator Relationship Specialty Start Date End Date María Elena Zuleta MD [address] [place] [address] PCP - General Family Medicine 06/13/17 Seven Ly RN [address] [place] [address] Electric Motor Repairing SupervisorEntry Level Accountant 05/26/24 documented as of this encounter
--- OUTSIDE RECORDS SUMMARY | 2024-07-06 18:27 | XMS_ITS | Encounter Summary ---
Author Organization [employer] Address [address] [facility] [place] [address] Care Team Providers Care Para Machine Operator Name Role Phone María Elena Zuleta MD Primary Care Provider + Seven Ly RN Unavailable [phone] Encounter Details Date Type Department Care Team ([facility] st Contact Info) Description 06/12/2024 Telephone [employer] [facility] Management [address] [place], [place] [phone] Emani Bird MD [address] [place] [address] Social History Tobacco Use Types Packs/Day Years [...] 3:24 PM EST [facility]coming fax from [facility] [place] order to be update to MRI Abdomen WWO Contrast. Please advise! documented in this encounter Plan of Treatment Upcoming Encounters Date Type Department Care Team (Late st Contact Info) Description 07/27/2024 2:30 PM EDT Office Visit [facility] OPTOMETRY [address] [place] [address] Serena Daniel, OD [address] [place] [address] documented as of this encounter Visit Diagnoses Not on filedocumented in this encounter Additional Health Concerns Assessment Noted Time PHQ-9 Depression Total Score: 6 11/27/19 24 9:34 AM EDT documented as of this encounter Care Teams Para Machine Operator Relationship Specialty Start Date End Date María Elena Zuleta MD [address] [place] [address] PCP - General Family Medicine 06/13/17 Seven Ly RN [address] [place] [address] Elastic Attacher OverlockFlange Turner 05/26/24 documented as of this encounter
--- OUTSIDE RECORDS SUMMARY | 2024-07-06 18:27 | XMS_ITS | Encounter Summary ---
Author Organization [employer] Address 75 [facility] [address] [place] [address] Care Team Providers Care Pig Iron Loader Name Role Phone María Elena Zuleta MD Primary Care Provider + Seven Ly RN Unavailable [phone] Reason for Visit * Reason Onset Date Comments Care Management 07/02/2024 C3CM- f/u call Encounter Details Date Type Department Care Team ([facility] st Contact Info) Description 07/02/2024 Telephone [facility] MEDICINE [address] [place], [place] [phone] María Elena Zuleta MD [address] [place], [place] [phone] Care Management (C3CM- f/u call) Social History [...] She is also aware of her scheduled ARTICULATION OFFICER f/u appt on 07/20/24 at 3:00pm. [...] provided on Walk-In Urgent Care located in [facility]. Patient provided with after-hours line for [facility], , which offer night time triage service and option to transfer to director of restaurant operations provider if needed. Patient verbalizes understanding, and able to repeat back to lyric writer. A follow up call will be placed within 10 days, patient agrees with plan. documented in this encounter Plan of Treatment Upcoming Encounters Date Type Department Care Team ([facility] Contact Info) Description 07/27/2024 2:30 PM EDT Office Visit [facility] OPTOMETRY [address] [place], [place] [phone] TarSerena barfield, OD [address] [place], [place] [phone] documented as of this encounter Visit Diagnoses Not on filedocumented in this encounter Additional Health Concerns Assessment Noted Time PHQ-9 Depression Total Score: 6 11/27/19 24 9:34 AM EDT documented as of this encounter Care Teams Pig Iron Loader Relationship Specialty Start Date End Date María Elena Zuleta MD [address] [place] [address] PCP - General Family Medicine 06/13/17 Seven Ly RN [address] [place] [address] Energy Conservation DirectorEducational Technology Coordinator 05/26/24 documented as of this encounter
--- OUTSIDE RECORDS SUMMARY | 2024-07-06 18:27 | XMS_ITS | Encounter Summary ---
Author Organization [employer] Address 75 [facility] 7t [place] [address] Care Team Providers Care Table Games Dealer Name Role Phone María Elena Zuleta MD Primary Care Provider + Seven Ly RN Unavailable [phone] Encounter Details Date Type Department Care [...] t he electric, gas, oil or water Regenerate threatened to shut off services in your [...] 2:30 PM EDT Office Visit [facility] OPTOMETRY [address] [place] [address] Serena Daniel, OD [address] [place] [address] documented as of this encounter Procedures Procedure Name Priority Date/Time Associated Diagnosis Comments BACTERIAL VAGINOSIS PANEL Routine 06/18/2024 11:12 AM EST CHLAMYDIA/N. GONORRHOEAE RNA, TMA, UROGENITAL Routine 06/18/2024 11:12 AM EST documented in this encounter Results * Chlamydia/N. Gonorrhoeae RNA, TMA, Urogenitial (06/18/2024 11:12 AM EST) CT PCR NOT DETECTED Not Detect. [facility] Comment:A not detected test [...] psychologicalconsequences. NG PCR NOT DETECTED Not Detect. [facility] Comment:A not detected test [...] AM EST 06/18/2024 3:37 PM EST Narrative [facility] - 06/19/2024 1:58 PM EST Vaginal us Generic External Data Provider LAB MICROBIOLOGY - GENERAL ORDERABLES Final Result [facility] [address] [place] [phone] * Bacterial Vaginosis (06/18/2024 11:12 AM EST) TRICHOMONAS VAGINALIS DETECTION BY PCR NOT DETECTED Not Detect [facility] BACTERIAL VAGINOSIS DETECTION BY PCR NEGATIVE Negative [facility] Comment:The BV organism targ [...] DETECTION BY PCR NOT DETECTED Not Detect [facility] Lindsey glab krusei PCR NOT DETECTED Not Detect [facility] 06/18/2024 11:1 2 AM EST 06/18/2024 3:37 PM EST us Generic External Data Provider LAB MICROBIOLOGY - GENERAL ORDERABLES Final Result [facility] [address] [place] [address] [phone] documented in this encounter Visit Diagnoses Not on filedocumented in this encounter Additional Health Concerns Assessment Noted Time PHQ-9 Depression Total Score: 6 11/26/ 24 9:34 AM EDT documented as of this encounter Care Teams Table Games Dealer Relationship Specialty Start Date End Date María Elena Zuleta MD [address] [place] [address] PCP - General Family Medicine 06/13/17 Seven Ly RN [address] [place] [address] Parts ListerDevice Repair Technician 05/26/24 documented as of this encounter
--- OUTSIDE RECORDS SUMMARY | 2024-07-06 18:27 | XMS_ITS | Encounter Summary ---
Author Organization [employer] Address 75 [facility] 7t [place] [address] Care Team Providers Care Neonatal Surgeon Name Role Phone María Elena Zuleta MD Primary Care Provider + Seven Ly RN Unavailable [phone] Reason for Referral * Imaging (Routine) - Closed Specialty Diagnoses / Procedures Referred By Contac t Referred To Contact Radiology Diagnoses Abnormal abdominal CT scan Procedures MR Abdomen w/ and w/o Contrast Emani Bird MD [address] [place] [address] Phone: tel: fax: [address] Phone: tel: fax: Referral ID Status Reason Start Date Expiration Date Visits Re quested Visits Authorized [id number] Closed 06/29/2024 06/29/2025 1 1 Encounter Details Date Type Department Care Team (Late st Contact Info) Description 06/29/2024 Orders Only [facility] MED[facility]INE [address] [place], [place] [phone] Emani Bird MD [address] [place], [place] [phone] Abnormal abdominal CT scan (Primary Dx) Social [...] PM EDT Office Visit [facility] OPTOMETRY [address] [place] [address] Serena Daniel, OD [address] [place] [address] documented as of this encounter Procedures Procedure Name Priority Date/Time Associated Diagnosis Comments MR ABDOMEN W AND WO CONTRAST Routine 07/04/2024 10:21 AM EST Abnormal abdominal CT scan documented in this encounter Results * MR Abdomen w/ and w/o Contrast (07/04/2024 10:21 AM EST) Anatomical Region Laterality Modality Abdomen Magnetic Resonan ce 07/04/2024 10:2 1 AM EST Narrative 07/06/2024 8:28 AM EST ? [facility] ?[address] ?[place] [address] ? Magnetic Resonance Report ? Signed ? Patient: Elizabeth DarrylVilma ?MR#: [id number] ?? [id number] ? : 1995 ?Acct:[id number] ? Age/Sex: 28 / F ?ADM Date: 07/04/24 ? Loc: HO.MRI ? Attending Dr: Emani Bird MD ? Ordering Physician: Emani Bird ?? Date of Service: 07/04/24 ?? Procedure(s): MR abdomen wo/w con ?? Accession Number(s): [id number] ? cc: María Elena Zuleta MD; Emani Bird ? EXAMINATION: ??MRI Abdomen without and with contrast ? HISTORY: ? IPMN ? COMPARISON: ??Comparison is made with a CT of the abdomen with contrast ?? dated 12/08/2023. Correlation is also made with the report of an outside ?? CT of the abdomen dated 05/20/2024. ? TECHNIQUE: Axial in and out of phase T1-weighted gradient echo, axial ?? diffusion weighted, and axial and coronal HASTE T2 with fat saturation ?? images were obtained through the abdomen. ?? Subsequently, fat ?? suppressed axial and coronal T1-weighted images were obtained after the ?? intravenous administration of 6 mL Gadavist. ? FINDINGS: ??There is no significant loss of signal intensity within the ?? liver on opposed phase imaging to suggest steatosis. There is no ?? enhancing liver mass. The hepatic and portal veins are patent. There is ?? no intra or extrahepatic biliary ductal dilatation. The gallbladder is ?? unremarkable. ? The pancreas is normal in size. There are numerous (at least 12) T2 ?? hyperintense foci in and adjacent to the pancreas measuring up to 13 mm ?? in size. Several of these appear smaller than on the prior CT scan. ?? There is no associated wall thickening or contrast enhancement. The ?? pancreatic duct is normal in caliber. ? The spleen, adrenals, and kidneys are unremarkable. No retroperitoneal ?? lymphadenopathy or ascites is identified in the upper abdomen. The ?? visualized bones demonstrate normal signal intensity. ? MR/MR abdomen wo/w con ?? IMPRESSION: ? Multiple pancreatic and peripancreatic cysts without evidence of wall ?? thickening or contrast enhancement. Follow-up is recommended. ? Electronically signed by: ??Javier Navarrete MD ??07/06/2024 08:25 AM EST ? Dictated By: ?Javier Navarrete MD ? Signed By: ?<Electronically signed by Javier Navarrete MD in OV> ?07/06/24 0825 ? DD/ 1021 ? TD/TT: 07/04/24 1050 ? Graduate Research Assistant: ? Procedure Note Donparaster, Image - 07/06/2024 [place] [address] Magnetic Resonance Report Signed Patient: Amber Mendez#: [id number] : 1995Acct:[id number] Age/Sex: 28 FADM Date: 07/04/24 Loc: HO.MRI Attending Dr: Emani Bird MD Ordering Physician: Emani Bird Date of Service: 07/04/24 Procedure(s): MR abdomen wo/w con Accession Number(s): [id number] cc: María Elena Zuleta MD; Emani Bird EXAMINATION: MRI Abdomen without and with contrast HISTORY: ? IPMN COMPARISON: Comparison is made with a CT of the abdomen with contrast dated 12/08/2023. Correlation is also made with the report of an outside CT of the abdomen dated 05/20/2024. TECHNIQUE: Axial in and out of phase T1-weighted gradient echo, axial diffusion weighted, and axial and coronal HASTE T2 with fat saturation images were obtained through the abdomen. Subsequently, fat suppressed axial and coronal T1-weighted images were obtained after the intravenous administration of 6 mL Gadavist. FINDINGS: There is no significant loss of signal intensity within the liver on opposed phase imaging to suggest steatosis. There is no enhancing liver mass. The hepatic and portal veins are patent. There is no intra or extrahepatic biliary ductal dilatation. The gallbladder is unremarkable. The pancreas is normal in size. There are numerous (at least 12) T2 hyperintense foci in and adjacent to the pancreas measuring up to 13 mm in size. Several of these appear smaller than on the prior CT scan. There is no associated wall thickening or contrast enhancement. The pancreatic duct is normal in caliber. The spleen, adrenals, and kidneys are unremarkable. No retroperitoneal lymphadenopathy or ascites is identified in the upper abdomen. The visualized bones demonstrate normal signal intensity. MR/MR abdomen wo/w con IMPRESSION: Multiple pancreatic and peripancreatic cysts without evidence of wall thickening or contrast enhancement. Follow-up is recommended. Electronically signed by: Javier Navarrete MD 07/06/2024 08:25 AM [facility] Dictated By: Javier Navarrete MD Signed By: <Electronically signed by Javier Navarrete MD in OV> 07/06/24 0825 DD/ 1021 TD/TT: 07/04/24 1050 Graduate Research Assistant: Emani Bird MD IM MRI PROCEDURES Final Resul t documented in this encounter Visit Diagnoses Diagnosis Abnormal abdominal CT scan- Primary Nonspecific (abnormal) findings on radiological and other examination of abdominal area, including retroperitoneum documented in this encounter Additional Health Concerns Assessment Noted Time PHQ-9 Depression Total Score: 6 11/27/19 24 9:34 AM EDT documented as of this encounter Care Teams Neonatal Surgeon Relationship Specialty Start Date End Date María Elena Zuleta MD [address] [place] [address] PCP - General Family Medicine 06/13/17 Seven Ly RN [address] [place] [address] Power Tool RepairerBail Agent 05/26/24 documented as of this encounter
--- OUTSIDE RECORDS SUMMARY | 2024-07-06 18:27 | XMS_ITS | Encounter Summary ---
Author Organization [employer] Address 75 [facility] 7 [place] [address] Care Team Providers Care Footwear Stitcher Name Role Phone María Elena Zuleta MD Primary Care Provider + Seven Ly RN Unavailable [phone] Reason for Visit * Reason Onset Date Comments Care Management 06/19/2024 C3CM- f/u call Encounter Details Date Type Department Care Team ([facility] st Contact Info) Description 06/19/2024 Telephone [facility] MEDICINE [address] [place], [place] [phone] Seven Ly, RN [address] [place], [place] [phone] Care Management (C3CM- f/u call) Social History [...] emergency room visits.Patient confirms attending visit with [facility] RESEARCH PROFESSOR yesterday. She states the visit went well. Per patient, symptoms have resolved for the most part but she states she is still experiencing some white vaginal discharge. Patient states she was tested by RESEARCH PROFESSOR and will be contacted with results/plan of care once available. Per patient, scheduled for pelvic US and f/u with RESEARCH PROFESSOR on 07/02/24. She states she hastransportation and [...] provided on Walk-In Urgent Care located in [facility]. Patient provided with after-hours line for [facility], , which offer night time triage service and option to transfer to prepared foods production team member provider if needed. Patient verbalizes understanding, and able to repeat back to commercial loan underwriter. A follow up call will be placed within 10 days, patientagrees with plan. documented in this encounter Plan of Treatment Upcoming Encounters Date Type Department Care Team ([facility] st Contact Info) Description 07/27/2024 2:30 PM EDT Office Visit [facility] OPTOMETRY [address] [place], [place] [phone] Serena Daniel, OD [address] [place] [address] documented as of this encounter Visit Diagnoses Not on filedocumented in this encounter Additional Health Concerns Assessment Noted Time PHQ-9 Depression Total Score: 6 11/27/19 24 9:34 AM EDT documented as of this encounter Care Teams Footwear Stitcher Relationship Specialty Start Date End Date María Elena Zuleta MD [address] [place], [place] [phone] PCP - General Family Medicine 06/13/17 Seven Ly, JACKIE [address] [place] [address] Yarder PuncherJanitor 05/26/24 documented as of this encounter
--- OUTSIDE RECORDS SUMMARY | 2024-07-06 18:27 | XMS_ITS | Encounter Summary ---
Author Organization [employer] Address [address] [facility] 7t [place] [address] Care Team Providers Care Sporting Goods Sales Associate Name Role Phone María Elena Zuleta MD Primary Care Provider + Seven Ly RN Unavailable [phone] Reason for Visit * Reason Onset Date Comments Results 06/12/2024 Encounter Details Date Type Department Care Team ([facility] st Contact Info) Description 06/12/2024 Telephone [facility] MED[facility]INE [address] [place] [address] Karuna Slade, JACKIE Results Social History Tobacco [...] beans, leafy vegetables. Does she have a tool and die assembler appointment scheduled to f/u on the ovarian cyst? documented in this encounter Plan of Treatment Upcoming Encounters Date Type Department Care Team (Late st Contact Info) Description 07/27/2024 2:30 PM EDT Office Visit [facility] OPTOMETRY [address] [place] [address] Nimcocarolyne Serena, OD [address] [place] [address] documented as of this encounter Visit Diagnoses Not on filedocumented in this encounter Additional Health Concerns Assessment Noted Time PHQ-9 Depression Total Score: 6 11/26/ 24 9:34 AM EDT documented as of this encounter Care Teams Sporting Goods Sales Associate Relationship Specialty Start Date End Date María Elena Zuleta MD [address] [place] [address] PCP - General Family Medicine 06/13/17 Seven Ly RN [address] [place] [address] Pulp Mill SupervisorCertified Residential Medication Aide 05/26/24 documented as of this encounter
--- OUTSIDE RECORDS SUMMARY | 2024-07-06 18:28 | XMS_ITS | Encounter Summary ---
Author Organization [employer] Address [address] [facility] 7 [place] [address] Care Team Providers Care Lumber Salvager Name Role Phone María Elena Zuleta MD Primary Care Provider + Seven Ly RN Unavailable Encounter Details Date Type Department Care Team ([facility] st Contact Info) Description 11/01/2022 Orders Only [facility] MEDICINE [address] [place], [place] [phone] María Elena Zuleta MD [address] [place], [place] [phone] Vaginal discharge (Primary Dx) Social History Tobacco [...] 07/27/2024 2:30 PM EDT Office Visit [facility] OPTOMETRY [address] [place] [address] Serena Daniel, OD [address] [place] [address] documented as of this encounter Procedures Procedure Name Priority Date/Time Associated Diagnosis Comments HIV ANTIBODY/ANTIGEN ([facility]) Routine 01/09/2023 12:18 PM EDT [...] 12:18 PM EDT) HIV AB/AG Nonreactive Nonreactive [facility] Comment:HIV-1 p24 Ag and/or HIV-1/HIV-2 Ab not detected.A test result that is nonreactive does not exclude thepossibility of exposure to or infection with HIV-1 and/orHIV-2. Nonreactive results in this assay for individualswith prior exposure to HIV-1 and/or HIV-2 may be due toantigen and antibody levels that are below the limit ofdetection of this assay.The Edgar HIV Ag/Ab Combo assay result andsupplemental assay results should be interpreted inconjunction with the patient's clinical presentation,history and other laboratory results. If the results areinconsistent with clinical evidence, additional testing issuggested to confirm the result. 01/09/2023 12:1 8 PM EDT 01/09/2023 1:10 PM EDT us Sanju Quijano [facility] BLOOD ORDERABLES Teri cantu Result [facility] [address] [place] [phone] * Pap Smear (01/09/2023 12:03 PM EDT) 01/09/2023 12:0 3 PM EDT 01/10/2023 9:15 AM EDT Narrative [facility] - 01/22/2023 10:48 AM EDT ----- ------- Name: Elizabeth DarrylVilma ?Age/Sex: 27/F ? : 1995 Unit#: [id number] ?? Attend Dr: SANJU QUIJANO CNM ?Re01/09/23 ?Status: DEP REF ? Location: HO.CL ? Disch: ? ----- ------- SPEC : [id number] ?RECD: 01/10/23 ? STATUS: ??SOUT ? REQ NUM: [id number] ? DEVON: 01/09/23-1203 ? SUBM DR: SANJU [...] 66, 68) ?? HPV testing performed by [facility], [place], [place]. ??See reference laboratory ?? pion of the EMR for entire report. ?Clinical Information LMP: 12/29/2022 Previous PAP test:2021, ASCUS HPV positive ? Material Received ?? ThinPrep-Vaginal/Cervical ----- ------- Signed (signature on file) Andres Wood MD 01/22/23 [id number] ? ----- ------- ? END OF REPORT ? Sanju Rhonda [facility] CYTOLOGY ORDERABLES F inal Result Performing Organization Address [facility] Co de Phone Number [facility] [address] [place], [place] [phone] * C.TRACHOMATIS/N. GONORRHOEAE DNA PROBE (01/09/2023 12:03 PM EDT) CTNG Ref Lab NOT DETECTED NOT DETECTED [facility] NG Ref Lab NOT DETECTED NOT DETECTED [facility] CTNG Ref Note SEE NOTE [facility] Comment:The analytical perfo rmance characteristics of thisassay, when used to test SurePath(TM) specimens have beendetermined by [facility]. The modifications havenot been cleared or approved by the FDA. This assay hasbeen validated pursuant to the CLIA regulations and isused for clinical purposes.For additional information, please refer tohttps://education.[employer]/faq/USH149(This link is being provided for information/educational purposes only.)THIS TEST WAS PERFORMED AT:[facility] [place] [id number] RASHID MD 01/09/2023 12:0 3 PM EDT 01/10/2023 9:15 AM EDT Sanju Rhonda [facility] MICROBIOLOGY - GENERA L ORDERABLES Final Result Performing Organization Address [facility] Co de Phone Number [facility] [address] [place] [phone] * HPV mRNA E6/E7 w/Reflex to HPV Genotypes 16, 18/45 (01/09/2023 12:03 PM EDT) Pathologist [facility] HPV nRNA E6/E7 Not Detected Not Detected [facility] Comment:Methodology: Transcr iption-Mediated AmplificationThis assay detects E6/E7 viral messenger RNA (mRNA) from 14high-risk HPV types (16,18,31,33,35,39,45,51,52,56,58,59,66,68).Cervical sources are required for HPV testing.If a vaginal source from a patient who has had atotal hysterectomy with removal of cervix wassubmitted, please contact the testing laboratoryfor alternative testing options.For additional information, please refer tohttp://education.[employer]/faq/SYB303w7(This link if provided for information/educational purposes only.)THIS TEST WAS PERFORMED AT:[facility] [place] [id number] RASHID MD HPV mRNA E6/E7 [facility] HPV 16 RNA [facility] HPV 18/45 RNA [facility] 01/09/2023 12:0 3 PM EDT 01/10/2023 9:15 AM EDT [facility] ORDERABLES F inal Result Performing Organization Address City/[facility]/ZIP Co de Phone Number [facility] [address] [place] [phone] * (ABNORMAL) Bacterial Vaginosis (01/09/2023 12:00 AM EDT) Trichomonas DNA Probe Negative Negative [facility] Gardnerella DNA Probe Positive(A) Negative [facility] Lindsey DNA Probe Positive(A) Negative [facility] 01/09/2023 01/09/2023 [facility] - GENERA L ORDERABLES Final Result Performing Organization Address [facility]/ZIP Co de Phone Number [facility] [address] [place] [phone] documented in this encounter Visit Diagnoses Diagnosis Vaginal discharge- Primary Leukorrhea, not specified as infective documented in this encounter Care Teams Lumber Salvager Relationship Specialty Start Date End Date María Elena Zuleta MD [address] [place] [address] PCP - General Family Medicine 06/13/17 Seven Ly RN [address] [place] [phone] Roofer ApplicatorDecay Control Operator 05/26/24 documented as of this encounter
--- OUTSIDE RECORDS SUMMARY | 2024-07-06 18:28 | XMS_ITS | Encounter Summary ---
Author Organization [employer] Address [address] [facility] [address] [place] [address] Care Team Providers Care Migration Specialist Name Role Phone María Elena Zuleta MD Primary Care Provider + Seven Ly RN Unavailable [phone] Reason for Visit * Reason Comments Med Refill Encounter Details Date Type Department Care Team ([facility] st Contact Info) Description 05/24/2023 Refill [facility] MEDICINE [address] [place], [place] [phone] María Elena Zuleta MD [address] [place], [place] [phone] Social History Tobacco Use Types Packs/Day Years [...] PM EDT Office Visit [facility] OPTOMETRY [address] [place] [address] Serena Daniel, OD [address] [place] [address] documented as of this encounter Visit Diagnoses Not on filedocumented in this encounter Care Teams Migration Specialist Relationship Specialty Start Date End Date María Elena Zuleta MD [address] [place] [address] PCP - General Family Medicine 06/13/17 Seven Ly RN [address] [place] [phone] General Office DispatcherCocoa Bean Roaster Helper 05/26/24 documented as of this encounter
--- OUTSIDE RECORDS SUMMARY | 2024-07-06 18:28 | XMS_ITS | Encounter Summary ---
Author Organization [employer] Address [address] [facility] [place] [address] Care Team Providers Care Silver Designer Name Role Phone María Elena Zuleta MD Primary Care Provider + Seven Ly RN Unavailable [phone] Reason for Visit * Reason Onset Date Comments Triage 07/18/2022 Encounter Details Date Type Department Care Team (Late st Contact Info) Description 07/18/2022 Telephone [facility] MEDICINE [address] [place], [place] [phone] María Elena Zuleta MD [address] [place], [place] [phone] Triage Social History Tobacco Use Types Packs/Day [...] became very itchy, 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 Advised Pt tocome to [facility] today to be seen by provider and [...] accepted this outcome Please contact pt at [phone] documented in this encounter Plan of Treatment Upcoming Encounters Date Type Department Care Team (Late st Contact Info) Description 07/27/2024 2:30 PM EDT Office Visit [facility] OPTOMETRY [address] [place] [address] Serena Daniel, OD [address] [place] [address] documented as of this encounter Visit Diagnoses Not on filedocumented in this encounter Care Teams Silver Designer Relationship Specialty Start Date End Date María Elena Zuleta MD [address] [place] [phone] PCP - General Family Medicine 06/13/17 Seven Ly RN [address] [place] [phone] Transportation Maintenance OperatorCable Installer Repairer 05/26/24 documented as of this encounter
--- OUTSIDE RECORDS SUMMARY | 2024-07-06 18:28 | XMS_ITS | Clinical Summary ---
Author Organization [employer] Address [address] [facility] 7t [place] [address] Care Team Providers Care Transportation Planning Engineer Name Role Phone María Elena Zuleta MD Primary Care Provider + Seven Ly RN Unavailable [phone] Allergies Active Allergy Reactions Criticality Noted [...] Department Care Team Description 07/02/2024 Orders Only [facility] External Provider, [facility] 07/02/2024 Telephone [facility] [address] [place] [phone] María Elena Zuleta MD Care Management (C3- f/u call) 07/02/2024 Patient Outreach [address] [address] María Elena Zuleta MD Care Coordination ([facility] f/u) 06/29/2024 Orders Only [address] [address] Emani Bird MD Abnormal abdominal CT scan (Primary Dx) 06/19/[address] [address] Seven Ly RN Care Management (C3- f/u call) 06/18/2024 Orders Only GENERIC EXTERNAL DATA DEPARTMENT Provider, Generic External Data 06/12/2024 Telephone [facility] [address] [address] Emani Bird MD 06/12/[address] [address] Karuna Slade, RN Results 06/05/2024 [facility] Health Information Management [address] [place] [address] Emani Bird MD 06/04/[address] [address] María Elena Zuleta MD Nurse Triage 06/04/[address] [address] Seven Ly, JACKIE Care Management (C3- f/u call) 06/04/2024 Telephone [place] [facility] [address] [place] [address] Emani Bird MD 06/03/2024 Patient Outreach [address] [address] María Elena Zuleta MD Care Coordination ([facility]/mail) 06/02/2024 3:15 PM EST Office Visit [address] [address] Sanju Quijano CNM Vaginal discharge (Primary Dx); Abnormal uterine bleeding (AUB) 06/02/[address] [address] María Elena Zuleta MD telephone call 06/02/2024 Travel 06/02/[address] [address] Mraía Elena Zuleta MD Call Back Request 06/01/2024 Patient Outreach [address] [address] María Elena Zuleta MD Care Coordination (SDSC) 05/27/2024 3:30 PM EST Office Visit [address] [address] Emani Bird MD Rupture of cyst of right ovary (Primary Dx); IPMN (intraductal papillary mucinous neoplasm) 05/27/2024 Travel 05/26/[address] [address] Seven Ly RN 05/26/[address] [address] Seven Ly, RN Care Management (C3CM- initial assessment/ enrollment) 05/22/2024 Patient Outreach [address] [address] María Elena Zuleta MD Care Coordination (CM/CHW appt reminder) 05/22/2024 Travel 05/21/2024 Patient Outreach [address] [address] María Elena Zuleta MD Care Coordination (CM/CHW outreach) 05/21/[address] [address] María Elena Zuleta MD ER Follow-up 05/21/[address] [phone] Seven Ly, RN 05/19/[address] [address] María Elena Zuleta MD Nurse Triage 05/15/2024 Telephone [facility] [address] [place] [address] [place] [address] Serena Daniel OD 05/14/2024 Telephone [facility] [address] [place] [address] María Elena Zuleta MD Results 05/13/2024 10:30 AM EST Office Visit [address] [address] María Elena Zuleta MD Visit for preventive health examination (Primary Dx); UTI symptoms; Encounter for immunization 05/13/2024 Orders Only [facility] [address] [place] [address] María Elena Zuleta MD 05/13/2024 Travel 05/12/[address] [address] Graciela Weber MA Chart prep 05/07/2024 Patient Outreach [address] [address] María Elena Zuleta MD Pre-visit Planning 04/23/[address] [address] Julius Tamayo RN from Last 3 Months [...] EDT Office Visit [facility] [address] [place], [place] [phone] Serena Daniel, OD [address] [place] [address] Health Maintenance Due Date Last Done Comments [...] 10:21 AM EST Abnormal abdominal CT scan US PELVIS TRANSVAGINAL Routine 07/02/2024 4:38 PM [...] Recently Relevant to Health Maintenance Results * MR Abdomen w/ and w/o Contrast (07/04/2024 10:21 AM EST) Anatomical Region Laterality Modality Abdomen Magnetic Resonan ce 07/04/2024 10:2 1 AM EST Narrative 07/06/2024 8:28 AM EST ? [facility] ?[address] ?[place] [address] ? Magnetic Resonance Report ? Signed ? Patient: Elizabeth Andrews,Vilma ?MR#: [id number] ?? [id number] ? : 1995 ?Acct:[id number] ? Age/Sex: 28 / F ?ADM Date: 07/04/24 ? Loc: HO.MRI ? Attending Dr: Emani Bird MD ? Ordering Physician: Emani Bird ?? Date of Service: 07/04/24 ?? Procedure(s): MR abdomen wo/w con ?? Accession Number(s): [id number] ? cc: María Elena Zuleta MD; Emani [...] ??Javier Navarrete MD ??07/06/2024 08:25 AM EST ?? RP ? Dictated By: ?Javier Navarrete MD ? Signed By: ?<Electronically signed by Javier Navarrete MD in OV> ?07/06/24 0825 ? DD/ 1021 ? TD/TT: 07/04/24 1050 ? Angledozer Operator: ? Procedure Note Donotuseinterpreter, Image - 07/06/2024 [place] [address] Magnetic Resonance Report Signed Patient: Amber Mendez#: [id number] : 1995Acct:[id number] Age/Sex: 28 FADM Date: 07/04/24 Loc: HO.MRI Attending Dr: Emani Bird MD Ordering Physician: Emani Bird Date of Service: 07/04/24 Procedure(s): MR abdomen wo/w con Accession Number(s): [id number] cc: María Elena Zuleta MD; Emani Bird [...] by: Javier Navarrete MD 07/06/2024 08:25 AM EST RP Dictated By: Javier Navarrete MD Signed By: <Electronically signed by Javier Navarrete MD in OV> 07/06/24 0825 DD/ 1021 TD/TT: 07/04/24 1050 Angledozer Operator: us Emani Bird MD IMG MRI PROCEDURES Final Resul t * US Pelvis Transvaginal (07/02/2024 4:38 PM EST) Anatomical Region Laterality Modality Pelvis Ultrasound 07/02/2024 4:38 PM EST Narrative 07/03/2024 7:15 AM EST ? [facility] ?[address] ?[place] [address] ? Ultrasound Report ? Signed ? Patient: Elizabeth Andrews,Vilma ?MR#: [id number] ?? [id number] ? : 1995 ?Acct:[id number] ? Age/Sex: 28 / F ?ADM Date: 02/27/25 ? Loc: HO.US ? Attending Dr: Jose Raul Bustamante MD ? Ordering Physician: JoseR aul Bustamante MD ?? Date of Service: 07/02/24 ?? Procedure(s): US pelvic and transvaginal ?? Accession Number(s): [id number] ? cc: María Elena Zuleta MD; Jose [...] surrounding the periphery of the ovary. ? US/ pelvic and transvaginal ?? IMPRESSION: ?? No [...] DD/ 1638 ? TD/TT: 07/02/24 1651 ? Angledozer Operator: ? Procedure Note Juarez, Image - 07/03/[address] [address] Ultrasound Report Signed Patient: Amber Mendez#: [id number] : 1995Acct:[id number] Age/Sex: 28 / FADM Date: 07/02/24 Loc: HO. Attending Dr: Jose Raul Bustamante MD Ordering Physician: Jose Raul Bustamante MD Date of Service: 07/02/24 Procedure(s): US pelvic and transvaginal Accession Number(s): [id number] cc: María Elena Zuleta MD; Jose Raul [...] 07/03/24 0712 DD/ 1638 TD/TT: 07/02/24 1651 Angledozer Operator: [facility] External Provider IMG US PROCEDURES Final Result * Bacterial Vaginosis (06/18/2024 11:12 AM EST) TRICHOMONAS VAGINALIS DETECTION BY PCR NOT DETECTED Not Detect [facility] BACTERIAL VAGINOSIS DETECTION BY PCR NEGATIVE Negative [facility] Comment:The BV organism targ ets [...] DETECTION BY PCR NOT DETECTED Not Detect [facility] Lindsey glab krusei PCR NOT DETECTED Not Detect [facility] 06/18/2024 11:1 2 AM EST 06/18/2024 3:37 PM EST us Generic External Data Provider LAB MICROBIOLOGY - GENERAL ORDERABLES Final Result [facility] [address] [place] [phone] * Chlamydia/N. Gonorrhoeae RNA, TMA, Urogenitial (06/18/2024 11:12 AM EST) Only the most recent of2 resultswithin the time period is included. CT PCR NOT DETECTED Not Detect. [facility] Comment:A not detected test result [...] psychologicalconsequences. NG PCR NOT DETECTED Not Detect. [facility] Comment:A not detected test result [...] AM EST 06/18/2024 3:37 PM EST Narrative [facility] - 06/19/2024 1:58 PM EST Vaginal Generic External Data Provider LAB MICROBIOLOGY - GENERAL ORDERABLES Final Result Performing Organization Address City/State/[facility] Co de Phone Number [facility] [address] [place] [phone] * POCT fern test, vaginal fluid [...] Media Lot # [id number] Lot# Expiration Date [id number] Urine 06/02/2024 4:07 PM EST Sanju Quijano CN POINT OF CARE TEST ENTER/ EDIT ORDERABLES Final Result * (ABNORMAL) CBC auto differential (05/27/2024 4:01 PM EST) White Blood Count 10.8 4.8 - 10.8 X10*3/uL [facility] Red Blood Count 3.96(L) 4.20 - 5.50 X10*6/uL [facility] Hemoglobin 11.1(L) 12.0 - 16.0 g/dl [facility] Hematocrit 32.8(L) 37.0 - 47.0 % [facility] Mean Corpuscular Volume 82.8 80.0 - 98.0 fL [facility] Mean Corpuscular Hemoglobin 28.0 27.0 - 33.0 pg [facility] Mean Corpuscular HGB Conc 33.8 31.0 - 35.0 g/dl [facility] Red Cell Distribution Width 14.0 11.0 - 16.0 % [facility] Platelet Count 316 160 - 400 X10*3/uL [facility] Mean Platelet Volume 10.9 9.4 - 12.3 fL [facility] Neutrophils Percent Auto 60.5 45 - 73 % [facility] Imm Gran Pct Auto 0.4 0.0 - 0.4 % [facility] Lymphocytes Percent Auto 24.2 20 - 40 % [facility] Monocytes Percent Auto 9.9 2 - 11 % [facility] Eosinophils Percent Auto 4.4(H) 0 - 4 % [facility] Basophils Percent Auto 0.6 0 - 2 % [facility] NRBC Pct Auto 0.0 0.0 - 0.2 /100WBC [facility] Neutrophils Absolute Auto 6.5 2.0 - 8.3 x10*3/uL [facility] Imm Gran Abs Auto 0.04(H) 0.00 - 0.03 X10*3/uL [facility] Lymphocytes Absolute Auto 2.6 1.2 - 4.9 X10*3/uL [facility] Monocytes Absolute Auto 1.1 0.1 - 1.2 X10*3/uL [facility] Eosinophils Absolute Auto 0.5(H) 0.0 - 0.4 X10*3/uL [facility] Basophils Absolute Auto 0.1 0.0 - 0.2 X10*3/uL [facility] NRBC Abs Auto 0.000 0.0 - 0.012 X10*3/uL [facility] Blood Venous blood specimen / Unknown 05/27/2024 4:01 PM EST 05/27/2024 5:35 PM EST us Emani Bird MD LAB BLOOD ORDERABLES Final Res ult [facility] [address] [place] [address] [phone] * (ABNORMAL) Urinalysis, Complete, with Reflex to Culture (05/13/2024 1:09 PM EST) Color Urine Yellow [facility] Appearance Urine Clear [facility] PH 6.5 5.0 - 9.0 [facility] Glucose Urine UA Negative Negative mg/dL [facility] Urine Blood Negative Negative [facility] Specific [place] - Urine 1.025 1.005 - 1.025 [facility] Urine Protein Negative Neg-Trace mg/dL [facility] Urine Ketones Negative Negative mg/dL [facility] Nitrite Urine Negative Negative [facility] Leukocyte Esterase Urine Small (1+)(A) Negative [facility] RBC Urine 0-2 0 - 2 /HPF [facility] Urine WBC 11-20(A) 0 - 5 /HPF [facility] Urine Squamous Epithelial Cell 6-10 0 - 2 /HPF [facility] Urine Bacteria 1+ None Seen [facility] Hyaline Casts, Urine 0-2 0 - 2 /LPF [facility] 05/13/2024 1:09 PM EST 05/13/2024 4:07 PM EST [facility] - 05/13/2024 4:38 PM EST Urine, Clean Catch María Elena Zuleta MD LAB URINE ORDERABLES Fin al Result Performing Organization Address [facility] Co de Phone Number [facility] [address] [place] [phone] * Culture, Urine, Routine (05/13/2024 1:09 PM EST) Urine Urine specimen obtained by clean catch procedure / Unknown 05/13/2024 1:09 PM EST 05/13/2024 4:41 PM EST Comment:UA Narrative [facility] - 05/17/2024 8:22 AM EST Viridans streptococcus group Quant > 100,000 cfu/mL Susc N/A Susceptibility not routinely performed on this isolate. Specimen Source: Urine clean catch María Elena Zuleta MD LAB MICROBIOLOGY - GENER AL ORDERABLES Final Result Performing Organization Address [facility] Co de Phone Number [facility] [address] [place] [phone] * T-SPOT??.TB (05/13/2024 11:57 AM EST) [facility] Signature T Spot TB Negative Negative [facility] Comment:A negative test resu [...] as aquantitative test. TS PANEL A 0 [facility] TS PANEL B 0 [facility] Negative Control Passed [facility] Positive Control Passed [facility] Comment:For additional infor filemon, please refer tohttp://education.Lightera/faq/GTA009(This link is being provided for informational/educational purposes only.)THIS TEST WAS PERFORMED AT:[employer] [id number] [place] [id number] GOMEZ MD,PHD 05/13/2024 11:5 7 AM EST 05/13/2024 1:05 PM EST María Elena Zuleta MD LAB BLOOD ORDERABLES Fin al Result [facility] [address] [place] [phone] * Chlamydia/Gonorrhea Vaginal Swab ([place] [facility]) (04/10/2024) Chlamydia Vaginal Swab Negative Negative, Indeterminate, None Detected, Invalid, Specimen unsatisfactory for evaluation, Weakly Positive Gonorrhea Vaginal Swab Negative Negative, Indeterminate, None Detected, Invalid, Specimen unsatisfactory for evaluation, Weakly Positive Swab Vaginal structure / Unknown 04/10/2024 Result [facility] Historical Provider LAB MICROBIOLOGY - GENERA L ORDERABLES Final Result * Chlamydia/Gonorrhea Throat Swab ([place] [facility]) (04/10/2024) Chlamydia Throat Swab Negative Gonorrhea Throat Swab Negative Swab 04/10/2024 Result [facility] Historical Provider LAB MICROBIOLOGY - GENERA L ORDERABLES Final Result * Syphilis Antibodies (DPH) (04/10/2024) Syphilis Abs Nonreactive Borderline, Nonreactive, Weakly Reactive, Inconclusive, Specimen unsatisfactory for evaluation Blood Venous blood specimen / Unknown 04/10/2024 Historical Provider LAB BLOOD ORDERABLES Teri l Result * Hepatitis C Antibody ([facility]) (04/10/2024) Pathologist [facility] Hepatitis C Ab Nonreactive Blood 04/10/2024 Historical Provider MD LAB BLOOD ORDERABLES Teri l Result * HIV Ab/Ag ([facility]) (04/10/2024) Pathologist [facility] HIV Ag/Ab Nonreactive Blood 04/10/2024 [facility] Provider LAB BLOOD ORDERABLES Edit ed Result - Final * HPV mRNA E6/E7 w/Reflex to HPV Genotypes 16, 18/45 (01/09/2023 12:03 PM EDT) Pathologist [facility] HPV nRNA E6/E7 Not Detected Not Detected [facility] Comment:Methodology: Transcr iption-Mediated AmplificationThis assay detects E6/E7 viral messenger RNA (mRNA) from 14high-risk HPV types (16,18,31,33,35,39,45,51,52,56,58,59,66,68).Cervical sources are required for HPV testing.If a vaginal source from a patient who has had atotal hysterectomy with removal of cervix wassubmitted, please contact the testing laboratoryfor alternative testing options.For additional information, please refer tohttp://education.Lightera/faq/CUL436g5(This link if provided for information/educational purposes only.)THIS TEST WAS PERFORMED AT:[employer] [place] [id number] RASHID MD HPV mRNA E6/E7 [facility] HPV 16 RNA [facility] HPV 18/45 RNA [facility] 01/09/2023 12:0 3 PM EDT 01/10/2023 9:15 AM EDT us Sanju LANDIS LAB CYTOLOGY ORDERABLES F inal Result [facility] [address] [place] [phone] * Pap Smear (01/09/2023 12:03 PM EDT) 01/09/2023 12:0 3 PM EDT 01/10/2023 9:15 AM EDT Narrative [facility] - 01/22/2023 10:48 AM EDT ----- ------- Name: Vilma Mendez ?Age/Sex: 27/F ? : 1995 Unit#: [id number] ?? Attend Dr: SANJU QUIJANO CNM ?Re01/09/23 ?Status: DEP REF ? Location: HO.HHCL ? Disch: ? ----- ------- SPEC : [id number] ?RECD: 01/10/23 ? STATUS: ??SOUT ? REQ NUM: [id number] ? DEVON: 01/09/23-1203 ? SUBM DR: SANJU QUIJANO CNPérez ? [...] 66, 68) ?? HPV testing performed by [employer], [place], [place]. ??See reference laboratory ?? pion of the EMR for entire report. ?Clinical Information LMP: 12/29/2022 Previous PAP test:2021, ASC[facility] HPV positive ? Material Received ?? ThinPrep-Vaginal/Cervical ----- ------- Signed (signature on file) Andres Wood MD 01/22/23 1048 ? ----- ------- ? END OF REPORT ? Sanju Quijano [facility] CYTOLOGY ORDERABLES F inal Result [facility] [address] [place] [address] [phone] from Last 3 Months or Most Recently Relevant to Health Maintenance Insurance [facility] [place] STAND AD[place] Care Teams Transportation Planning Engineer Relationship Specialty Start Date End Date María Elena Zuleta MD [address] [place] [phone] PCP - General Family Medicine 06/13/17 Seven Ly RN [address] [place] [phone] Template WorkerBlast Furnace Supervisor 05/26/24
--- OUTSIDE RECORDS SUMMARY | 2024-07-06 18:28 | XMS_ITS | Encounter Summary ---
Author Organization [employer] Address [address] [facility] [place] [address] Care Team Providers Care Bag Maker Name Role Phone María Elena Zuleta MD Primary Care Provider + Seven Ly RN Unavailable Reason for Visit * Reason Onset Date Comments triage 08/07/2022 Encounter Details Date Type Department Care Team (Late st Contact Info) Description 08/07/2022 Telephone [facility] [address] [place], [place] [phone] María Elena Zuleta MD [address] [place], [place] [phone] triage Social History Tobacco Use Types Packs/Day [...] July. Pt is advised to come to [facility] Pt requests some testing for [...] Visit [facility] [address] [place] [address] Serena Daniel OD [address] [place] [address] documented as of this encounter Visit Diagnoses Not on filedocumented in this encounter Care Teams Bag Maker Relationship Specialty Start Date End Date María Elena Zuleta MD [address] [place] [address], [place] [address] PCP - General Family Medicine 06/13/17 Seven Ly RN [address] [place] [phone] Sociology TeacherPrecision Crop Manager 05/26/24 documented as of this encounter
--- OUTSIDE RECORDS SUMMARY | 2024-07-06 18:28 | XMS_ITS | Encounter Summary ---
Author Organization [employer] Address 75 [facility] 7t [place] [address] Care Team Providers Care Tank House Operator Name Role Phone María Elena Zuleta MD Primary Care Provider + Seven Ly RN Unavailable [phone] Encounter Details Date Type Department Care Team ([facility] st Contact Info) Description 07/02/2024 Orders Only [facility] External Provider, [facility] Social History Tobacco Use Types Packs/Day [...] Upcoming Encounters Date Type Department Care Team ([facility] st Contact Info) Description 07/27/2024 2:30 PM EDT Office Visit [facility] OPT[facility]ETRY [address] [place] [address] Serena Daniel, OD [address] [place] [address] documented as of this encounter Procedures Procedure Name Priority Date/Time Associated Diagnosis Comments US PELVIS TRANSVAGINAL Routine 07/02/2024 4:38 PM EST documented in this encounter Results * US Pelvis Transvaginal (07/02/2024 4:38 PM EST) Anatomical Region Laterality Modality Pelvis Ultrasound 07/02/2024 4:38 PM EST Narrative 07/03/2024 7:15 AM EST ? [facility] ?[address] ?[place] [address] ? Ultrasound Report ? Signed ? Patient: Elizabeth Andrews,Vilma ?MR#: [id number] ?? [id number] ? : 1995 ?Acct:[id number] ? Age/Sex: 28 / F ?ADM Date: 02/27/25 ? Loc: HO.US ? Attending Dr: Jose Raul Bustamante MD ? Ordering Physician: Jose Raul Bustamante MD ?? Date of Service: 07/02/24 ?? Procedure(s): US pelvic and transvaginal ?? Accession Number(s): [id number] ? cc: María Elena Zuleta MD; Jose [...] DD/ 1638 ? TD/TT: 07/02/24 1651 ? Lmft: ? Procedure Note Juarez, Image - 07/03/[address] [address] Ultrasound Report Signed Patient: Amber Mendez#: [id number] : 1995Acct:[id number] Age/Sex: Date: 07/02/24 Loc: HO.US Attending Dr: Jose Raul Bustamante MD Ordering Physician: Jose Raul Bustamante MD Date of Service: 07/02/24 Procedure(s): US pelvic and transvaginal Accession Number(s): [id number] cc: María Elena Zuleta MD; Jose Raul [...] 07/03/24 0712 DD/ 1638 TD/TT: 07/02/24 1651 Lmft: [facility] External Provider IMG US PROCEDURES Final Result documented in this encounter Visit Diagnoses Not on filedocumented in this encounter Additional Health Concerns Assessment Noted Time PHQ-9 Depression Total Score: 6 11/27/19 24 9:34 AM EDT documented as of this encounter Care Teams Tank House Operator Relationship Specialty Start Date End Date María Elena Zuleta MD [address] [place] [address] PCP - General Family Medicine 06/13/17 Seven Ly RN [address] [place] [phone] Clinical PathologistHand Weaver 05/26/24 documented as of this encounter
--- OUTSIDE RECORDS SUMMARY | 2024-07-06 18:28 | XMS_ITS | Encounter Summary ---
Author Organization [employer] Address 75 [facility] [address] [place] [address] Care Team Providers Care Samples And Repairs Preparer Name Role Phone María Elena Zuleta MD Primary Care Provider + Seven Ly RN Unavailable [phone] Reason for Visit * Reason Onset Date Comments Results 07/29/2023 Encounter Details Date Type Department Care Team ([facility] st Contact Info) Description 07/29/2023 Telephone [facility] [address] [place], [place] [phone] María Elena Zuleta MD [address] [place], [place] [phone] Results Social History Tobacco Use Types Packs/Day [...] labs, swab Date when done: 07/24 Facility: [facility] Please contact pt at [phone] documented in this encounter Plan of Treatment Upcoming Encounters Date Type Department Care Team (Late st Contact Info) Description 07/27/2024 2:30 PM EDT Office Visit [facility] OPTOMETRY [address] [place] [address] TarSerena barfield, OD [address] [place] [address] documented as of this encounter Visit Diagnoses Not on filedocumented in this encounter Care Teams Samples And Repairs Preparer Relationship Specialty Start Date End Date María Elena Zlueta MD [address] [place] [address] PCP - General Family Medicine 06/13/17 Seven Ly RN [address] [place] [address] System Developer Associate ManagerArchitectural Project Manager 05/26/24 documented as of this encounter
== END 2024-07-06 16:02 | disposition home or self-care (01) ==
LOC: HO.HWS 15:39
PROVIDERS: PCP Internal Medicine; Visit Provider Obstetrics & Gynecology
DX: N83.209 Unspecified ovarian cyst, unspecified side (principal)
CPT/HCPCS: 99213

== ENCOUNTER → 2024-07-06 15:39 | Outpatient (BNVA) | payer MEDICAID, SELFPAY | PROVIDERS: PCP Internal Medicine; Visit Provider Obstetrics & Gynecology ==

== ENCOUNTER 2024-07-13 | Outpatient (REF) | payer MEDICAID, SELFPAY ==
[2024-07-14 14:07] LABS: Bacterial Vaginosis PCR NEGATIVE (Negative); Candida Group PCR NOT DETECTED (Not Detect); Candida glab krusei PCR NOT DETECTED (Not Detect); Trichomonas vaginalis PCR NOT DETECTED (Not Detect)
[2024-07-14 14:39] LABS: CT PCR NOT DETECTED (Not Detect.); NG PCR NOT DETECTED (Not Detect.)
--- OUTSIDE RECORDS SUMMARY | 2024-07-14 14:51 | XMS_ITS | Encounter Summary ---
Author Organization [employer] Address [address] [facility] 7[facility] [place] [address] Care Team Providers Care Water Project Manager Name Role Phone María Elena Zuleta MD Primary Care Provider + Seven Ly RN Unavailable [phone] Reason for Visit * Reason Comments Care Coordination SDOH f/u Encounter Details Date Type Department Care Team (Latest Contact Info) Description 07/02/2024 Patient Outreach [facility] MEDICINE [address] [place], [place] [phone] María Elena Zuleta MD [address] [place] [address] Care Coordination (SDOH f/u) Social History Tobacco [...] Wednesdays, and Walk-In Urgent Care Located in [facility]. Patient provided with after-hours line for [facility], , which offer night time triage service and option to transfer to marketing community liaison provider if needed. Patient verbalizes understanding, and able to repeat back to comic book writer. A follow up call willbe placed within 10 days, patient agrees with plan. documented in this encounter Plan of Treatment Upcoming Encounters Date Type Department Care Team ([facility] st Contact Info) Description 07/27/2024 2:30 PM EDT Office Visit [facility] [address] [place] [address] Nimcocarolyne Serena, OD [address] [place] [address] documented as of this encounter Visit Diagnoses Not on filedocumented in this encounter Additional Health Concerns Assessment Noted Time PHQ-9 Depression Total Score: 6 11/26/ 24 9:34 AM EDT documented as of this encounter Care Teams Water Project Manager Relationship Specialty Start Date End Date María Elena Zuleta MD [address] [place] [address] PCP - General Family Medicine 06/13/17 Seven Ly RN [address] [place] [address] Certified Technician SpecialistBack Tacker 05/26/24 documented as of this encounter
--- OUTSIDE RECORDS SUMMARY | 2024-07-14 14:51 | XMS_ITS | Encounter Summary ---
Author Organization [employer] Address [address] [facility] 7t [place] [address] Care Team Providers Care Benzene Still Utility Operator Name Role Phone María Elena Zuleta MD Primary Care Provider + Seven Ly RN Unavailable Reason for Referral * Consultation (Routine) - Authorized Specialty Diagnoses / Procedures Referred By Regulo huerta Referred To Contact Gastroenterology Diagnoses Pancreatic cyst María Elena Zuleta MD [address] [place] [address] Phone: tel: fax: [facility] [address] 3[address] [place], [place] Phone: tel: fax: Referral ID Status Reason Start Date Expiration Date Visits Requested Visits Authorized [id number] Authorized Specialty Services Required 07/08/2024 07/08/2025 6 6 Reason for Visit * Reason Onset Date Comments Results 07/07/2024 Encounter Details Date Type Department Care Team (Late st Contact Info) Description 07/07/2024 Telephone [facility]INE [address] [place], [place] [phone] María Elena Zuleta MD [address] [place], [place] [phone] Results Social History Tobacco Use Types Packs/Day [...] encounter Miscellaneous Notes * Telephone Encounter - María Elena Zuleta MD - 07/07/2024 7:56 PM EST MRI of the abdomen on 07/04/2024 (released on 07/06/2024) showed multiple pancreatic and peripancreaticcyst, less then 13 mm w/ no associated abnormal features and the pancreatic duct is normal. There are no other findings other lymphadenopathies. I called patient and discussed with her the findings and told her that she needed further follow-up by GI, no need for pancreatic biopsy or FNA at this time. I discussed with her the importance of close follow-up and to bring the MRI to that appointment.I will refer to GI Dr. Paniagua in [facility] and follow-up with her as scheduled. She did not have further questions and agreed with the POC * Telephone Encounter - Logan Landrys - 07/07/2024 10:54 AM EST TC from pt requesting call back regarding Results. Type of results: MRI Date when done: 07/04/2024 Facility: [facility] Pt states that she received her results on MyChart but is having trouble understanding them. Contact pt:[phone] documented in this encounter Plan of Treatment Upcoming Encounters Date Type Department Care Team (Late st Contact Info) Description 07/27/2024 2:30 PM EDT Office Visit [facility] [address] [place] [address] Serena Daniel, OD [address] [place] [address] Scheduled Referrals Name Type Priority Associated Diagnoses Order Schedule Referral to Gastroenterology Outpatient Referral Routine Pancreatic cyst Expected: 07/07/2024 (Approximate), Expires: 07/07/2025 documented as of this encounter Visit Diagnoses Diagnosis Pancreatic cyst- Primary Cyst and pseudocyst of pancreas documented in this encounter Additional Health Concerns Assessment Noted Time PHQ-9 Depression Total Score: 6 11/27/19 24 9:34 AM EDT documented as of this encounter Care Teams Benzene Still Utility Operator Relationship Specialty Start Date End Date María Elena Zuleta MD [address] [place] [address] PCP - General Family Medicine 06/13/17 Seven Ly, JACKIE [address] [place] [phone] Mechanical Engineering AdvisorJig Boring Machine Operator For Metal 05/26/24 documented as of this encounter
--- OUTSIDE RECORDS SUMMARY | 2024-07-14 14:51 | XMS_ITS | Encounter Summary ---
Author Organization [employer] Address [address] [facility] 7t [place] [address] Care Team Providers Care Bistro Server Name Role Phone María Elena Zuleta MD Primary Care Provider + Seven Ly RN Unavailable [phone] Encounter Details Date Type Department Care [...] t he electric, gas, oil or water Ph[employer] threatened to shut off services in your [...] 07/27/2024 2:30 PM EDT Office Visit [facility] [address] [place] [address] Serena Daniel, OD [address] [place] [address] documented as of this encounter Procedures Procedure Name Priority Date/Time Associated Diagnosis Comments BACTERIAL VAGINOSIS PANEL Routine 06/18/2024 11:12 AM EST CHLAMYDIA/N. GONORRHOEAE RNA, TMA, UROGENITAL Routine 06/18/2024 11:12 AM EST documented in this encounter Results * Chlamydia/N. Gonorrhoeae RNA, TMA, Urogenitial (06/18/2024 11:12 AM EST) CT PCR NOT DETECTED Not Detect. [facility] Comment:A not detected test [...] psychologicalconsequences. NG PCR NOT DETECTED Not Detect. [facility] Comment:A not detected test [...] AM EST 06/18/2024 3:37 PM EST Narrative [facility] - 06/19/2024 1:58 PM EST Vaginal us Generic External Data Provider LAB MICROBIOLOGY - GENERAL ORDERABLES Final Result [facility] [address] [place] [phone] * Bacterial Vaginosis (06/18/2024 11:12 AM EST) TRICHOMONAS VAGINALIS DETECTION BY PCR NOT DETECTED Not Detect [facility] BACTERIAL VAGINOSIS DETECTION BY PCR NEGATIVE Negative [facility] Comment:The BV organism targ ets of [...] DETECTION BY PCR NOT DETECTED Not Detect [facility] Lindsey glab krusei PCR NOT DETECTED Not Detect [facility] 06/18/2024 11:1 2 AM EST 06/18/2024 3:37 PM EST us Generic External Data Provider LAB MICROBIOLOGY - GENERAL ORDERABLES Final Result [facility] [address] [place] [phone] [phone] documented in this encounter Visit Diagnoses Not on filedocumented in this encounter Additional Health Concerns Assessment Noted Time PHQ-9 Depression Total Score: 6 11/26/ 24 9:34 AM EDT documented as of this encounter Care Teams Bistro Server Relationship Specialty Start Date End Date María Elena Zuleta MD [address] [place] [address] PCP - General Family Medicine 06/13/17 Seven Ly RN [address] [place] [address] PuncherSupervisor Production Managing 05/26/24 documented as of this encounter
--- OUTSIDE RECORDS SUMMARY | 2024-07-14 14:51 | XMS_ITS | Encounter Summary ---
Author Organization [employer] Address [address] [facility] [address] [place] [address] Care Team Providers Care Computer Systems Security Administrator Name Role Phone María Elena Zuleta MD Primary Care Provider + Seven Ly RN Unavailable [phone] Reason for Visit * Reason Onset Date Comments Care Management 07/02/2024 C3CM- f/u call Encounter Details Date Type Department Care Team ([facility] st Contact Info) Description 07/02/2024 Telephone [facility] MEDICINE [address] [place], [place] [phone] María Elena Zuleta MD [address] [place], [place] [phone] Care Management (C3CM- f/u call) Social History [...] She is also aware of her scheduled HEALTH INFORMATION TECHNICIAN f/u appt on 07/20/24 at 3:00pm. Patient [...] provided on Walk-In Urgent Care located in [facility]. Patient provided with after-hours line for [facility], , which offer night time triage service and option to transfer to recreation clerk provider if needed. Patient verbalizes understanding, and able to repeat back to copywriter. A follow up call will be placed within 10 days, patient agrees with plan. documented in this encounter Plan of Treatment Upcoming Encounters Date Type Department Care Team ([facility] Contact Info) Description 07/27/2024 2:30 PM EDT Office Visit [facility] OPT[facility] [address] [place], [place] [phone] TarSerena barfield, OD [address] [place], [place] [phone] documented as of this encounter Visit Diagnoses Not on filedocumented in this encounter Additional Health Concerns Assessment Noted Time PHQ-9 Depression Total Score: 6 11/27/19 24 9:34 AM EDT documented as of this encounter Care Teams Computer Systems Security Administrator Relationship Specialty Start Date End Date María Elena Zuleta MD [address] [place] [address] PCP - General Family Medicine 06/13/17 Seven Ly RN [address] [place] [phone] Transmission RepairerAging Department Supervisor 05/26/24 documented as of this encounter
--- OUTSIDE RECORDS SUMMARY | 2024-07-14 14:51 | XMS_ITS | Encounter Summary ---
Author Organization [employer] Address [address] [facility] 7[facility] [address] Care Team Providers Care Lollypop Machine Operator Name Role Phone María Elena Zuleta MD Primary Care Provider + Seven Ly RN Unavailable [phone] Reason for Visit * Reason Onset Date Comments Triage 07/18/2022 Encounter Details Date Type Department Care Team (Late st Contact Info) Description 07/18/[address] 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 Advised Pt tocome to [facility] today to be seen by provider [...] accepted this outcome Please contact pt at [phone] documented in this encounter Plan of Treatment Upcoming Encounters Date Type Department Care Team (Late st Contact Info) Description 07/27/2024 2:30 PM EDT Office Visit [facility] OPTOMETRY [address] [place] [address] Serena Daniel, OD [address] [place] [address] documented as of this encounter Visit Diagnoses Not on filedocumented in this encounter Care Teams Lollypop Machine Operator Relationship Specialty Start Date End Date María Elena Zuleta MD [address] [place] [address] PCP - General Family Medicine 06/13/17 Seven Ly RN [address] [place] [phone] Senior Analyst Market IntelligenceApplication Architect 05/26/24 documented as of this encounter
--- OUTSIDE RECORDS SUMMARY | 2024-07-14 14:51 | XMS_ITS | Encounter Summary ---
Author Organization [employer] Address [address] [facility] [address] [address] Care Team Providers Care Account Resolution Analyst Name Role Phone María Elena Zuleta MD Primary Care Provider + Seven Ly RN Unavailable [phone] Reason for Visit * Reason Comments Care Coordination PT1 Encounter Details Date Type Department Care Team (Latest Contact Info) Description 07/13/2024 Patient Outreach [facility] MEDICINE [address] [place], [place] [phone] María Elena Zuleta MD [address] [place] [address] Care Coordination (PT1) Social History Tobacco Use Types Packs/Day Years [...] encounter Progress Notes * Ivette Nunez - 07/13/2024 1:49 PM EDT CHW Ivette Nunez submitted PT1 to for [facility] gastroenterology in [address] [place] [address], once approved will help set up the PT1. documented in this encounter Plan of Treatment Upcoming Encounters Date Type Department Care Team (Late st Contact Info) Description 07/27/2024 2:30 PM EDT Office Visit [facility] OPT[facility] [address] [place], [place] [phone] Serena Daniel, OD [address] [place] [address] documented as of this encounter Visit Diagnoses Not on filedocumented in this encounter Additional Health Concerns Assessment Noted Time PHQ-9 Depression Total Score: 6 11/27/19 24 9:34 AM EDT documented as of this encounter Care Teams Account Resolution Analyst Relationship Specialty Start Date End Date María Elena Zuleta MD [address] [place] [address] PCP - General Family Medicine 06/13/17 Seven Ly RN [address] [place] [address] Fire Control TechnicianTenon Machine Operator 05/26/24 documented as of this encounter
--- OUTSIDE RECORDS SUMMARY | 2024-07-14 14:51 | XMS_ITS | Clinical Summary ---
Author Organization [employer] Address [address] [facility] 7[address] [place] [address] Care Team Providers Care Newspaper Deliverer Name Role Phone María Elena Zuleta MD Primary Care Provider + Seven Ly RN Unavailable [phone] Allergies Active Allergy Reactions Criticality Noted [...] Active Problems Problem Noted Date Diagnosed Date Pancreatic cyst 07/07/2024 Visit for preventive health examination 05/13/19 25 [...] Encounters Date Type Department Care Team Description 07/14/2024 Patient Outreach [facility] [address] [place] [phone] María Elena Zuleta MD Care Coordination (Appt reminder) 07/13/2024 6:00 PM EDT Office Visit [facility] [address] [place] [phone] Sruesh Calderon MD Screening examination for sexually transmitted disease (Primary Dx); Abdominal pressure 07/13/2024 Patient Outreach [address] [address] María Elena Zuleta MD Care Coordination (PT1) 07/13/[address] [address] María Elena Zuleta MD Care Management (C3CM- f/u call) 07/07/[address] [address] María Elena Zuleta MD Results 07/02/2024 Orders Only [facility] External Provider, [facility] 07/02/[address] [address] María Elena Zuleta MD Care Management (C3CM- f/u call) 07/02/2024 Patient Outreach [address] [address] María Elena Zuleta MD Care Coordination ([facility] f/u) 06/29/2024 Orders Only [address] [address] Emani Bird MD Abnormal abdominal CT scan (Primary Dx) 06/19/[address] [address] Seven Ly, JACKIE Care Management (C3CM- f/u call) 06/18/2024 Orders Only GENERIC EXTERNAL DATA DEPARTMENT Provider, Generic External Data 06/12/2024 Telephone [facility] Information [address] [address] Emani Bird MD 06/12/[address] [address] Karuna Slade, JACKIE Results 06/05/2024 Telephone [facility] Information [address] [address] Emani Bird MD 06/04/[address] [address] María Elena Zuleta MD Nurse Triage 06/04/[address] [address] Seven Ly RN Care Management (C3- f/u call) 06/04/2024 Telephone [facility] [address] [place] [phone] Emani Bird MD 06/03/2024 Patient Outreach [address] [address] María Elena Zuleta MD Care Coordination (SDOH/mail) 06/02/2024 3:15 PM EST Office Visit [address] [address] Sanju Quijano CNM Vaginal discharge (Primary Dx); Abnormal uterine bleeding (AUB) 06/02/[address] [address] María Elena Zuleta MD telephone call 06/02/2024 Travel 06/02/[address] [address] María Elena Zuleta MD Call Back Request 06/01/2024 Patient Outreach [address] [address] María Elena Zuleta MD Care Coordination (SDOH) 05/27/2024 3:30 PM EST Office Visit [address] [address] Emani Bird MD Rupture of cyst of right ovary (Primary Dx); IPMN (intraductal papillary mucinous neoplasm) 05/27/2024 Travel 05/26/[address] [address] Seven Ly RN 05/26/[address] [address] Seven Ly, JACKIE Care Management (C3- initial assessment/ enrollment) 05/22/2024 Patient Outreach [address] [address] María Elena Zuleta MD Care Coordination (CM/CHW appt reminder) 05/22/2024 Travel 05/21/2024 Patient Outreach [address] [address] María Elena Zuleta MD Care Coordination (CM/CHW outreach) 05/21/[address] [address] María Elena Zuleta MD ER Follow-up 05/21/[address] [address] Seven Ly RN 05/19/[address] [address] María Elena Zuleta MD Nurse Triage 05/15/2024 Telephone [facility] [address] [place] [address] Serena Daniel, DARIN 05/14/[address] [address] María Elena Zuleta MD Results 05/13/2024 10:30 AM EST Office Visit [address] [address] María Elena Zuleta MD Visit for preventive health examination (Primary Dx); UTI symptoms; Encounter for immunization 05/13/2024 Orders Only [address] [address] María Elena Zuleta MD 05/13/2024 Travel 05/12/[address] [address] Graciela Weber MA Chart prep 05/07/2024 Patient Outreach [address] [address] María Elena Zuleta MD Pre-visit Planning 04/23/[address] [address] Julius Tamayo, RN from Last 3 Months Immunizations Name [...] 10:16 AM EDT Sexual Orientation Bisexual 05/22/2024 8 :45 AM EST Sexual Orientation Straight 05/22/2024 8: 45 AM EST Last Filed Vital Signs Vital Sign Reading Time Taken Comments Blood Pressure 122/74 07/13/2024 5:39 PM EDT Pulse 75 07/13/2024 5:39 PM EDT Temperature 36.3 ??C (97.3 ??F) 07/13/2024 5:39 PM ED T Respiratory Rate 16 07/13/2024 5:39 PM EDT Oxygen Saturation 99% 07/13/2024 5:39 PM EDT Inhaled Oxygen Concentration - - Weight 61.1 kg (134 lb 9.6 oz) 07/13/2024 5:39 P M EDT Height 157.5 cm (5' 2 ) 07/13/2024 5:39 PM EDT Body Mass Index 24.62 07/13/2024 5:39 PM EDT Plan of Treatment Upcoming Encounters Date Type Department Care Team (Late st Contact Info) Description 07/27/2024 2:30 PM EDT Office Visit [facility] OPT[facility] [address] [place] [address] Serena Daniel, OD [address] [place] [address] Health Maintenance Due Date Last Done Comments [...] Comments CHLAMYDIA/N. GONORRHOEAE RNA, TMA, UROGENITAL Routine 07/13/2024 5:55 PM EDT Abdominal pressure BACTERIAL VAGINOSIS PANEL Routine 07/13/2024 5:55 PM EDT Abdominal pressure POCT URINALYSIS DIPSTICK Routine 07/13/2024 5:54 PM EDT Abdominal pressure MR ABDOMEN W AND WO CONTRAST Routine [...] AM EST Visit for preventive health examination HEPATITIS C ANTIBODY ([facility]) Routine 04/10/2024 HIV ANTIBODY/ANTIGEN ([facility]) Routine 04/10/2024 HPV MRNA E6/E7 REFLEX TO HPV 16, 18/45 Routine 01/09/2023 12:03 PM EDT Vaginal discharge PAP SMEAR Routine 01/09/2023 12:03 PM EDT Vaginal discharge from Last 3 Months or Most Recently Relevant to Health Maintenance Results * Bacterial Vaginosis (07/13/2024 5:55 PM EDT) Only the most recent of2 resultswithin the time period is included. TRICHOMONAS VAGINALIS DETECTION BY PCR NOT DETECTED [...] DETECTED Not Detect [facility] Swab Vaginal structure / Unknown 07/13/2024 5:55 PM EDT 07/14/2024 12:09 PM EDT us Suresh Calderon MD LAB MICROBIOLOGY - GENERAL ORDER KRISTINA Final Result [facility] [address] [place] [phone] * Chlamydia/N. Gonorrhoeae RNA, TMA, Urogenitial (07/13/2024 5:55 PM EDT) Only the most recent of3 resultswithin the time period is included. CT [...] or psychologicalconsequences. Swab Vaginal structure / Unknown 07/13/2024 5:55 PM EDT 07/14/2024 12:09 PM EDT Narrative [facility] - 07/14/2024 2:39 PM EDT Vaginal us Suresh Calderon MD LAB MICROBIOLOGY - GENERAL ORDER KRISTINA Final Result [facility] [address] [facility] [place] [address] [phone] * POCT urinalysis dipstick manually resulted (07/13/2024 5:54 PM EDT) Color, UA Yellow Clarity, UA Clear Glucose, UA Negative Bilirubin, UA Negative Ketones, UA Negative Spec Grav, UA 1.020 Blood, UA Negative Negative, None Detected pH, UA 7.0 Protein, UA Negative Urobilinogen, UA 0.2 Leukocytes, UA Negative Negative, Rare, Trace Nitrite, UA Negative Negative, None Detected Appearance, UA clear QC Media Lot # [id number] Lot# Expiration Date Urine 07/13/2024 5:54 PM EDT us Suresh Calderon MD POINT OF CARE TEST ENTER/EDIT OR DERABLES Final Result * MR Abdomen w/ and w/o Contrast (07/04/2024 10:21 AM EST) Anatomical Region Laterality Modality Abdomen Magnetic Resonan ce 07/04/2024 10:2 1 AM EST Narrative 07/06/2024 8:28 AM EST ? [facility] ?[address] ?[place] [address] ? Magnetic Resonance Report ? Signed ? Patient: Elizabeth Andrews,Vilma ?MR#: [id number] ?? [id number] ? : 1995 ?Acct:[id number] ? Age/Sex: 28 / F ?ADM Date: 07/04/24 ? Loc: HO.MRI ? Attending Dr: Emani Bird MD ? Ordering Physician: Emani Bird ?? Date of Service: 07/04/24 ?? Procedure(s): MR abdomen wo/w con ?? Accession Number(s): [id number] ? cc: María Elena Zuleta MD; Emani [...] DD/ 1021 ? TD/TT: 07/04/24 1050 ? Sales Superintendent: ? Procedure Note Brad Pizarro - 07/06/[address] [address] Magnetic Resonance Report Signed Patient: Amber Mendez#: [id number] : 1995Acct:[id number] Age/Sex: 28 / FADM Date: 07/04/24 Loc: HO.MRI Attending Dr: Emani Bird MD Ordering Physician: Emani Bird Date of Service: 07/04/24 Procedure(s): MR abdomen wo/w con Accession Number(s): [id number] cc: María Elena Zuleta MD; Emani Bird [...] by: Javier Navarrete MD 07/06/2024 08:[address] [facility] Dictated By: Javier Navarrete MD Signed By: <Electronically signed by Javier Navarrete MD in OV> 07/06/24824 DD/ 1021 TD/TT: 07/04/24 1050 Sales Superintendent: us Emani Bird MD IMG MRI PROCEDURES Final Resul t * US Pelvis Transvaginal (07/02/2024 4:38 PM EST) Anatomical Region Laterality Modality Pelvis Ultrasound 07/02/2024 4:38 PM EST Narrative 07/03/2024 7:15 AM EST ? [facility] ?[address] ?[place] [address] ? Ultrasound Report ? Signed ? Patient: Elizabeth DarrylVilma ?MR#: [id number] ?? [id number] ? : 1995 ?Acct:[id number] ? Age/Sex: 28 / F ?ADM Date: 07/02/24 ? Loc: HO.US ? Attending Dr: Jose Raul Bustamante MD ? Ordering Physician: Jose Raul Bustamante MD ?? Date of Service: 07/02/24 ?? Procedure(s): US pelvic and transvaginal ?? Accession Number(s): [id number] ? cc: María Elena Zuleta MD; Jose [...] DD/ 1638 ? TD/TT: 07/02/24 1651 ? Sales Superintendent: ? Procedure Note Donparaster, Image - 07/03/2024 [place] [address] Ultrasound Report Signed Patient: Amber Mendez#: [id number] : 1995Acct:[id number] Age/Sex: Date: 07/02/24 Loc: HO.US Attending Dr: Jose Raul Bustamante MD Ordering Physician: Jose Raul Bustamante MD Date of Service: 07/02/24 Procedure(s): US pelvic and transvaginal Accession Number(s): [id number] cc: María Elena Zuleta MD; Jose Raul [...] Lake Ryder MD 07/03/2024 07:12 AM EST RP Dictated By: Lake Lamb MD Signed By: <Electronically signed by Lake Warren MDin OV> 07/03/24 0712 DD/ 1638 TD/TT: 07/02/24 1651 Sales Superintendent: [facility] External Provider IMG US PROCEDURES Final Result * POCT fern test, vaginal fluid manually resulted (06/02/2024 4:25 PM EST) JOSI Prep Positive Comment:pH 4.5, neg whiff, n eg clue, neg trich, neg wbc, pos yeast Vaginal Fluid Vaginal structure / Unknown 06/02/2024 4:25 PM EST Impressions Sanju Quijano CNM - 06/02/2024 4:25 PM EST Vulvovaginal candidiasis Result [facility] Sanju Quijano CNM POINT OF CARE TEST ENTER/ EDIT ORDERABLES Final Result * POCT , urine manually resulted (06/02/2024 4:07 PM EST) Preg Test, Ur Negative Negative, Indeterminate, None Detected, Invalid, Specimen unsatisfactory for evaluation, Weakly Positive QC Media Lot # [id number] Lot# Expiration Date [id number] Urine 06/02/2024 4:07 PM EST Result [facility] Sanju LANDISM POINT OF CARE TEST ENTER/ EDIT ORDERABLES [...] Final Res ult [facility] [address] [place] [phone] * (ABNORMAL) Urinalysis, Complete, with Reflex to Culture (05/13/2024 1:09 PM EST) Color Urine Yellow [facility] Appearance Urine Clear [facility] PH 6.5 5.0 - 9.0 [facility] Glucose Urine UA Negative Negative mg/dL [facility] Urine Blood Negative Negative [facility] Specific [place] - Urine 1.025 1.005 - 1.025 [facility] Urine Protein Negative Neg-Trace mg/dL [facility] Urine Ketones Negative Negative mg/dL [facility] Nitrite Urine Negative Negative [facility] Leukocyte Esterase Urine Small (1+)(A) Negative [facility] RBC Urine 0-2 0 - 2 /HPF [facility] Urine WBC 11-20(A) 0 - 5 /HPF [facility] Urine Squamous Epithelial Cell 6-10 0 - 2 /HPF [facility] Urine Bacteria 1+ None Seen [facility] Hyaline Casts, Urine 0-2 0 - 2 /LPF [facility] 05/13/2024 1:09 PM EST 05/13/2024 4:07 PM EST Narrative [facility] - 05/13/2024 4:38 PM EST Urine, Clean Catch María Elena Zuleta MD LAB URINE ORDERABLES Fin al Result Performing Organization Address [facility] Co de Phone Number [facility] [address] [place] [phone] * Culture, Urine, Routine (05/13/2024 1:09 PM EST) Urine Urine specimen obtained by clean catch procedure / Unknown 05/13/2024 1:09 PM EST 05/13/2024 4:41 PM EST Comment:UACC Narrative [facility] - 05/17/2024 8:22 AM EST Viridans streptococcus group Quant > 100,000 cfu/mL Susc N/A Susceptibility not routinely performed on this isolate. Specimen Source: Urine clean catch María Elena Zuleta MD LAB MICROBIOLOGY - GENER AL ORDERABLES Final Result Performing Organization Address [facility] Co de Phone Number [facility] [address] [place] [phone] * T-SPOT??.TB (05/13/2024 11:57 AM EST) [facility] T Spot TB Negative Negative [facility] Negative Control Passed [facility] Positive Control Passed [facility] Comment:For additional infor filemon, please refer tohttp://education.[employer]/faq/PTK001(This link is being provided for informational/educational purposes only.)THIS TEST WAS PERFORMED AT:[employer] [id number] [place] [address]WZOLPQQROBERTH GOMEZ MD,PHD 05/13/2024 11:5 7 AM EST 05/13/2024 1:05 PM EST María Elena Zuleta MD LAB BLOOD ORDERABLES Fin al Result [facility] [address] [place] [phone] * Hepatitis C Antibody ([facility]) (04/10/2024) Pathologist [facility] Hepatitis C Ab Nonreactive Blood 04/10/2024 Historical Provider LAB BLOOD ORDERABLES Teri l Result * HIV Ab/Ag ([facility]) (04/10/2024) Pathologist [facility] HIV Ag/Ab Nonreactive Blood 04/10/2024 Historical Provider LAB BLOOD ORDERABLES Edit ed Result - Final * HPV mRNA E6/E7 w/Reflex to HPV Genotypes 16, 18/45 (01/09/2023 12:03 PM EDT) Pathologist [facility] HPV nRNA E6/E7 Not Detected Not Detected [facility] Comment:Methodology: Transcr iption-Mediated AmplificationThis assay detects E6/E7 viral messenger RNA (mRNA) from 14high-risk HPV types (16,18,31,33,35,39,45,51,52,56,58,59,66,68).Cervical sources are required for HPV testing.If a vaginal source from a patient who has had atotal hysterectomy with removal of cervix wassubmitted, please contact the testing laboratoryfor alternative testing options.For additional information, please refer tohttp://education.[employer]/faq/VCM101q7(This link if provided for information/educational purposes only.)THIS TEST WAS PERFORMED AT:[facility] [place] [id number] RASHID MD HPV mRNA E6/E7 [facility] HPV 16 RNA TNP [facility] HPV 18/45 RNA [facility] 01/09/2023 12:0 3 PM EDT 01/10/2023 9:15 AM EDT Sanju Quijano [facility] CYTOLOGY ORDERABLES F inal Result [facility] [address] [place] [phone] * Pap Smear (01/09/2023 12:03 PM EDT) 01/09/2023 12:0 3 PM EDT 01/10/2023 9:15 AM EDT Vic [facility] - 01/22/2023 10:48 AM EDT ----- ------- Name: Vilma Mendez ?Age/Sex: 27/F ? : 1995 Unit#: [id number] ?? Attend Dr: SANJU QUIJANO CNM ?Re01/09/23 ?Status: DEP REF ? Location: [facility] ? Disch: ? ----- ------- SPEC : [id number] ?RECD: 01/10/23 ? STATUS: ??SOUT ? REQ NUM: [id number] ? DEVON: 01/09/231203 ? SUBM DR: SANJU QUIJANO CNM ? [...] 66, 68) ?? HPV testing performed by [facility], [place], [place]. ??See reference laboratory ?? pion of the EMR for entire report. ?Clinical Information LMP: 12/29/2022 Previous PAP test:2021, [facility] HPV positive ? Material Received ?? ThinPrep-Vaginal/Cervical ----- ------- Signed (signature on file) Andres Wood MD 01/22/23 1048 ? ----- ------- ? END OF REPORT ? us Sanju Quijano [facility] CYTOLOGY ORDERABLES F inal Result [facility] [address] [place] [phone] from Last 3 Months or Most Recently Relevant to Health Maintenance Insurance [facility] STANDARD DENTAL-[facility] MEDICAID STAND ADULT Care Teams Newspaper Deliverer Relationship Specialty Start Date End Date María Elena Zuleta MD [address] [place] [phone] PCP - General Family Medicine 06/13/17 Seven Ly RN [address] [place] [phone] Stock SupervisorDaycare Teacher 05/26/24
--- OUTSIDE RECORDS SUMMARY | 2024-07-14 14:51 | XMS_ITS | Encounter Summary ---
Author Organization [employer] Address [address] [facility] 7t [place] [address] Care Team Providers Care Insurance Loss Assessor Name Role Phone María Elena Zuleta MD Primary Care Provider + Seven Ly RN Unavailable [phone] Encounter Details Date Type Department Care Team ([facility] st Contact Info) Description 07/13/2024 6:00 PM EDT Office Visit [facility] [address] [place] [address] [phone] Suresh Calderon MD [address] [place], [place] [phone] Screening examination for sexually transmitted disease (Primary Dx); Abdominal pressure Social History Tobacco Use Types Packs/Day Years [...] Mass Index 24.62 07/13/2024 5:39 PM EDT documented in this encounter Progress Notes * Suresh Calderon MD - 07/13/2024 6:00 PM EDT Subjective History was provided by the patient. Vilma Andrews is a 28 y.o. female who presents for evaluation of ongoing suprapubic pressure and malodorous vaginal discharge. Denies F/C/N/V/D. Denies dysuria or hematuria. Recently went to [facility] ER due to ruptured ovarian cyst but pain has improved. Recently evaluated by WRAPPER REWINDER (Dr. Jose Raul Bustamante). Recently had appointments on 06/18 & 07/06/2024. Brought this concern with him. States she was tested negative for BV or Vaginal Candidiasis. There was a discussion about possible boric acid treatment. She is here as she wants to make sure if does not have UTI. Also requesting STI screening. States she has a monogamous male partner with 100% condom use. Denies any chance of . Period is irregular. Labs (06/18/2024): Negative GC/CT; Negative Trich/BV/Lindsey Objective Vitals: 07/13/24 1739 BP: 122/74 BP Location: Left arm Patient Position: Sitting BP Cuff Size: Adult Pulse: 75 Resp: 16 Temp: 97.3 ??F (36.3 ??C) TempSrc: Temporal SpO2: 99% Weight: 134 lb 9.6 oz (61.1 kg) Height: 5' 2 (1.575 m) Physical Exam Vitals reviewed. Constitutional: General: She is not in acute distress. Appearance: Normal appearance. She is not ill-appearing, toxic-appearing or diaphoretic. HENT: Head: Normocephalic and atraumatic. Right Ear: External ear normal. Left Ear: External ear normal. Mouth/Throat: Mouth: Mucous membranes are moist. Pharynx: Oropharynx is clear. Eyes: Conjunctiva/sclera: Conjunctivae normal. Pulmonary: Effort: Pulmonary effort is normal. Abdominal: General: Abdomen is flat. There is no distension. Palpations: Abdomen is soft. Tenderness: There is no abdominal tenderness. Musculoskeletal: General: Normal range of motion. Cervical back: Neck supple. Skin: General: Skin is dry. Neurological: General: No focal deficit present. Mental Status: She is alert and oriented to person, place, and time. Psychiatric: Mood and Affect: Mood normal. Behavior: Behavior normal. Office Visit on 07/13/2024 Component Date Value Ref Range Status Color, UA 07/13/2024 Yellow Final Clarity, UA 07/13/2024 Clear Final Glucose, UA 07/13/2024 Negative Final Bilirubin, UA 07/13/2024 Negative Final Ketones, UA 07/13/2024 Negative Final Spec Grav, UA 07/13/2024 1.020 Final Blood, UA 07/13/2024 Negative Negative, None Detected Final pH, UA 07/13/2024 7.0 Final Protein, UA 07/13/2024 Negative Final Urobilinogen, UA 07/13/2024 0.2 Final Leukocytes, UA 07/13/2024 Negative Negative, Rare, Trace Final Nitrite, UA 07/13/2024 Negative Negative, None Detected Final Appearance, UA 07/13/2024 clear Final QC Media Lot # 07/13/2024 [id number] Final Lot# Expiration Date 07/13/2024 [id number] Final Diagnoses and all orders for this visit: Screening examination for sexually transmitted disease (Primary) - Hepatitis C Antibody with Reflex to HCV, RNA, Quantitative, Real-Time PCR; Future - HIV-1/2 Antigen and Antibodies, Fourth Generation, with Reflexes; Future - Syphilis Screen; Future Abdominal pressure - POCT urinalysis dipstick manually resulted - Bacterial Vaginosis - Chlamydia/N. Gonorrhoeae RNA, TMA, Urogenitial - Culture, Urine, Routine Patient presents to [facility] due to ongoing malodorous vaginal discharge and suprapubic pressure Recently tested negative for BV/Trich/Lindsey Today's POC UA unremarkable Also interested in STI screening No clinical evidence of acute abdomen Recent ER visit for ruptured ovarian cyst (doing well now) Will check SureSwab, GC/CT, and Urine Culture Will also check HIV, Hep C, and Syphilis Patient will try to avoid alliums and asparagus to see if any change in her vaginal odor Also evaluated by [facility] Indications for UC/ER use reviewed Advised to contact the clinic if persistent or worsening symptoms documented in this encounter Plan of Treatment Upcoming Encounters Date Type Department Care Team (Late st Contact Info) Description 07/27/2024 2:30 PM EDT Office Visit [facility] [address] [place] [address] Serena Daniel, OD [address] [place] [address] Scheduled Orders Name Type Priority Associated Diagnoses Orde r Schedule Culture, Urine, Routine Microbiology Routine Abdominal pressure Ordered: 07/13/2024 Hepatitis C Antibody with Reflex to HCV, RNA, Quantitative, Real-Time PCR Lab Routine Screening examination for sexually transmitted disease Expected: 07/13/2024 (Approximate), Expires: 07/13/2025 HIV-1/2 Antigen and Antibodies, Fourth Generation, with Reflexes Lab Routine Screening examination for sexually transmitted disease Expected: 07/13/2024 (Approximate), Expires: 07/13/2025 Syphilis Screen Lab Routine Screening examination for sexually transmitted disease Expected: 07/13/2024 (Approximate), Expires: 07/13/2025 documented as of this encounter Procedures Procedure Name Priority Date/Time Associated Diagnosis Comments BACTERIAL VAGINOSIS PANEL Routine 07/13/2024 5:55 PM EDT Abdominal pressure CHLAMYDIA/N. GONORRHOEAE RNA, TMA, UROGENITAL Routine 07/13/2024 5:55 PM EDT Abdominal pressure POCT URINALYSIS DIPSTICK Routine 07/13/2024 5:54 PM EDT Abdominal pressure documented in this encounter Results * Chlamydia/N. Gonorrhoeae RNA, TMA, Urogenitial (07/13/2024 5:55 PM EDT) CT PCR NOT DETECTED Not Detect. [facility] Comment:A not detected test result [...] psychologicalconsequences. NG PCR NOT DETECTED Not Detect. [facility] Comment:A not detected test result [...] PM EDT 07/14/2024 12:09 PM EDT Narrative [facility] - 07/14/2024 2:39 PM EDT Vaginal us Suresh Calderon MD LAB MICROBIOLOGY - GENERAL ORDER KRISTINA Final Result [facility] [address] [place] [phone] * Bacterial Vaginosis (07/13/2024 5:55 PM EDT) TRICHOMONAS VAGINALIS DETECTION BY PCR NOT DETECTED Not Detect [facility] BACTERIAL VAGINOSIS DETECTION BY PCR NEGATIVE Negative [facility] Comment:The BV organism targ ets [...] DETECTION BY PCR NOT DETECTED Not Detect [facility] Lindsey glab krusei PCR NOT DETECTED Not Detect [facility] Swab Vaginal structure / Unknown 07/13/2024 5:55 PM EDT 07/14/2024 12:09 PM EDT us Suresh Calderon MD LAB MICROBIOLOGY - GENERAL ORDER KRISTINA Final Result [facility] [address] [place] [phone] [phone] * POCT urinalysis dipstick manually resulted [...] Expiration Date Urine 07/13/2024 5:54 PM EDT Suresh Calderon MD POINT OF CARE TEST ENTER/EDIT OR DERABLES Final Result documented in this encounter Visit Diagnoses Diagnosis Screening examination for sexually transmitted disease- Primary Abdominal pressure Abdominal pain, unspecified site documented in this encounter Additional Health Concerns Assessment Noted Time PHQ-9 Depression Total Score: 6 11/26/ 24 9:34 AM EDT documented as of this encounter Care Teams Insurance Loss Assessor Relationship Specialty Start Date End Date María Elena Zuleta MD [address] [place] [phone] PCP - General Family Medicine 06/13/17 Seven Ly, JACKIE [address] [place] [phone] Infrastructure AdministratorDirector Video 05/26/24 documented as of this encounter
--- OUTSIDE RECORDS SUMMARY | 2024-07-14 14:51 | XMS_ITS | Encounter Summary ---
Author Organization [employer] Address [address] [facility] [address] [place] [address] Care Team Providers Care Electric Meter Repairer Name Role Phone María Elena Zuleta MD Primary Care Provider + Seven Ly RN Unavailable Reason for Visit * Reason Onset Date Comments triage 08/07/2022 Encounter Details Date Type Department Care Team (Late st Contact Info) Description 08/07/2022 Telephone [facility] [address] [place], [place] [phone] María Elena Zuleta MD [address] [place], [place] [phone] triage Social History Tobacco Use Types Packs/Day [...] Pt is advised to come to [facility] Pt requests some testing for STDs. Pt [...] Office Visit [facility] [address] [place] [address] Serena Daniel OD [address] [place] [address] documented as of this encounter Visit Diagnoses Not on filedocumented in this encounter Care Teams Electric Meter Repairer Relationship Specialty Start Date End Date María Elena Zuleta MD [address] [place] [address], [place] [address] PCP - General Family Medicine 06/13/17 Seven Ly RN [address] [place] [phone] Feedmobile DriverSecurity Systems Technician 05/26/24 documented as of this encounter
--- OUTSIDE RECORDS SUMMARY | 2024-07-14 14:51 | XMS_ITS | Encounter Summary ---
Author Organization [employer] Address [address] [facility] 7 [place] [address] Care Team Providers Care Educational Technician Name Role Phone María Elena Zuleta MD Primary Care Provider + Seven Ly RN Unavailable [phone] Reason for Visit * Reason Onset Date Comments Care Management 06/19/2024 C3CM- f/u call Encounter Details Date Type Department Care Team ([facility] st Contact Info) Description 06/19/2024 Telephone [facility] [address] [place], [place] [phone] Seven Ly, RN [address] [place], [place] [phone] Care Management (C3CM- f/u call) Social History [...] emergency room visits.Patient confirms attending visit with [facility]AC[facility] APPLICATIONS ANALYST yesterday. She states the visit went well. Per patient, symptoms have resolved for the most part but she states she is still experiencing some white vaginal discharge. Patient states she was tested by [facility] APPLICATIONS ANALYST and will be contacted with results/plan of care once available. Per patient, scheduled for pelvic US and f/u with [facility] APPLICATIONS ANALYST on 07/02/24. She states she hastransportation and [...] provided on Walk-In Urgent Care located in [facility]. Patient provided with after-hours line for [facility], , which offer night time triage service and option to transfer to emergency communications dispatcher provider if needed. Patient verbalizes understanding, and able to repeat back to scientific technical writer. A follow up call will be placed within 10 days, patientagrees with plan. documented in this encounter Plan of Treatment Upcoming Encounters Date Type Department Care Team ([facility] st Contact Info) Description 07/27/2024 2:30 PM EDT Office Visit [facility] [address] [place], [place] [phone] Serena Daniel, OD [address] [place] [address] documented as of this encounter Visit Diagnoses Not on filedocumented in this encounter Additional Health Concerns Assessment Noted Time PHQ-9 Depression Total Score: 6 11/27/19 24 9:34 AM EDT documented as of this encounter Care Teams Educational Technician Relationship Specialty Start Date End Date María Elena Zuleta MD [address] [place], [place] [phone] PCP - General Family Medicine 06/13/17 Seven Ly, JACKIE [address] [place] [address] Groundskeeper PorterTextiles Sales Representative 05/26/24 documented as of this encounter
--- OUTSIDE RECORDS SUMMARY | 2024-07-14 14:51 | XMS_ITS | Encounter Summary ---
Author Organization [employer] Address [address] [facility] 7t [place] [address] Care Team Providers Care Toe Stapler Name Role Phone María Elena Zuleta MD Primary Care Provider + Seven Ly RN Unavailable [phone] Encounter Details Date Type Department Care Team ([facility] st Contact Info) Description 11/01/2022 Orders Only [facility] [address] [place], [place] [phone] María Elena Zuleta MD [address] [place], [place] [phone] Vaginal discharge (Primary Dx) Social History Tobacco [...] 2:30 PM EDT Office Visit [facility] [address] [place] [address] Serena Daniel, OD [address] [place] [address] documented as of this encounter Procedures Procedure Name Priority Date/Time Associated Diagnosis Comments HIV ANTIBODY/ANTIGEN ([facility]) Routine 01/09/2023 12:18 PM EDT Vaginal [...] 12:18 PM EDT) HIV AB/AG Nonreactive Nonreactive [facility] Comment:HIV-1 p24 Ag and/or HIV-1/HIV-2 Ab not detected.A test result that is nonreactive does not exclude thepossibility of exposure to or infection with HIV-1 and/orHIV-2. Nonreactive results in this assay for individualswith prior exposure to HIV-1 and/or HIV-2 may be due toantigen and antibody levels that are below the limit ofdetection of this assay.The [employer] HIV Ag/Ab Combo assay result andsupplemental assay results should be interpreted inconjunction with the patient's clinical presentation,history and other laboratory results. If the results areinconsistent with clinical evidence, additional testing issuggested to confirm the result. 01/09/2023 12:1 8 PM EDT 01/09/2023 1:10 PM EDT us Sanju Quijano [facility] BLOOD ORDERABLES Teri cantu Result [facility] [address] [place] [phone] * Pap Smear (01/09/2023 12:03 PM EDT) 01/09/2023 12:0 3 PM EDT 01/10/2023 9:15 AM EDT Narrative [facility] - 01/22/2023 10:48 AM EDT ----- ------- Name: Elizabeth DarrylVilma ?Age/Sex: 27/F ? : 1995 Unit#: [id number] ?? Attend Dr: SANJU QUIJANO CNM ?Re01/09/23 ?Status: DEP REF ? Location: HO.CL ? Disch: ? ----- ------- SPEC : [id number] ?RECD: 01/10/23 ? STATUS: ??SOUT ? REQ NUM: [id number] ? DEVON: 01/09/23-1203 ? SUBM DR: SANJU [...] 66, 68) ?? HPV testing performed by [facility], [place], [place]. ??See reference laboratory ?? pion of the EMR for entire report. ?Clinical Information LMP: 12/29/2022 Previous PAP test:2021, ASC[facility] HPV positive ? Material Received ?? ThinPrep-Vaginal/Cervical ----- ------- Signed (signature on file) Andres Wood MD 01/22/23 9878 ? ----- ------- ? END OF REPORT ? Sanju Rhonda [facility] CYTOLOGY ORDERABLES F inal Result Performing Organization Address [facility] Co de Phone Number [facility] [address] [place], [place] [phone] * C.TRACHOMATIS/N. GONORRHOEAE DNA PROBE (01/09/2023 12:03 PM EDT) CTNG Ref Lab NOT DETECTED NOT DETECTED [facility] NG Ref Lab NOT DETECTED NOT DETECTED [facility] CTNG Ref Note SEE NOTE [facility] Comment:The analytical perfo rmance characteristics of thisassay, when used to test SurePath(TM) specimens have beendetermined by [facility]. The modifications havenot been cleared or approved by the FDA. This assay hasbeen validated pursuant to the CLIA regulations and isused for clinical purposes.For additional information, please refer tohttps://education.Mongo[employer]luice/faq/LJZ891(This link is being provided for information/educational purposes only.)THIS TEST WAS PERFORMED AT:[facility] [place] [id number] RASHID MD 01/09/2023 12:0 3 PM EDT 01/10/2023 9:15 AM EDT Sanju Rhonda [facility] MICROBIOLOGY - GENERA L ORDERABLES Final Result Performing Organization Address [facility] Co de Phone Number [facility] [address] [place] [phone] * HPV mRNA E6/E7 w/Reflex to HPV Genotypes 16, 18/45 (01/09/2023 12:03 PM EDT) Pathologist [facility] HPV nRNA E6/E7 Not Detected Not Detected [facility] Comment:Methodology: Transcr iption-Mediated AmplificationThis assay detects E6/E7 viral messenger RNA (mRNA) from 14high-risk HPV types (16,18,31,33,35,39,45,51,52,56,58,59,66,68).Cervical sources are required for HPV testing.If a vaginal source from a patient who has had atotal hysterectomy with removal of cervix wassubmitted, please contact the testing laboratoryfor alternative testing options.For additional information, please refer tohttp://education.MongoSluice/faq/XEV194p1(This link if provided for information/educational purposes only.)THIS TEST WAS PERFORMED AT:[facility] [place] [id number] RASHID MD HPV mRNA E6/E7 [facility] HPV 16 RNA [facility] HPV 18/45 RNA [facility] 01/09/2023 12:0 3 PM EDT 01/10/2023 9:15 AM EDT [facility]Y ORDERABLES F inal Result Performing Organization Address City/[facility]/ZIP Co de Phone Number [facility] [address] [place] [phone] * (ABNORMAL) Bacterial Vaginosis (01/09/2023 12:00 AM EDT) Trichomonas DNA Probe Negative Negative [facility] Gardnerella DNA Probe Positive(A) Negative [facility] Lindsey DNA Probe Positive(A) Negative [facility] 01/09/2023 01/09/2023 [facility] MICROBIOLOGY - GENERA L ORDERABLES Final Result Performing Organization Address [facility]/ZIP Co de Phone Number [facility] [address] [place] [phone] documented in this encounter Visit Diagnoses Diagnosis Vaginal discharge- Primary Leukorrhea, not specified as infective documented in this encounter Care Teams Toe Stapler Relationship Specialty Start Date End Date María Elena Zuleta MD [address] [place] [address] PCP - General Family Medicine 06/13/17 Seven Ly RN [address] [place] [phone] Bathhouse KeeperTool And Die Machinist 05/26/24 documented as of this encounter
--- OUTSIDE RECORDS SUMMARY | 2024-07-14 14:51 | XMS_ITS | Encounter Summary ---
Author Organization [employer] Address 75 [facility] 7t [place] [address] Care Team Providers Care Inlayer Name Role Phone María Elena Zuleta MD Primary Care Provider + Seven Ly RN Unavailable [phone] Encounter Details Date Type Department Care Team ([facility] st Contact Info) Description 07/02/2024 Orders Only [facility] External Provider, [facility] Social History Tobacco Use Types Packs/Day Years [...] Upcoming Encounters Date Type Department Care Team ([facility] st Contact Info) Description 07/27/2024 2:30 PM EDT Office Visit [facility] [address] [place] [address] Serena Daniel, OD [address] [place] [address] documented as of this encounter Procedures Procedure Name Priority Date/Time Associated Diagnosis Comments US PELVIS TRANSVAGINAL Routine 07/02/2024 4:38 PM EST documented in this encounter Results * US Pelvis Transvaginal (07/02/2024 4:38 PM EST) Anatomical Region Laterality Modality Pelvis Ultrasound 07/02/2024 4:38 PM EST Narrative 07/03/2024 7:15 AM EST ? [facility] ?[address] ?[place] [address] ? Ultrasound Report ? Signed ? Patient: Elizabeth Andrews,Vilma ?MR#: [id number] ?? [id number] ? : 1995 ?Acct:[id number] ? Age/Sex: 28 / F ?ADM Date: 02/27/25 ? Loc: HO.US ? Attending Dr: Jose Raul Bustamante MD ? Ordering Physician: Jose Raul Bustamante MD ?? Date of Service: 07/02/24 ?? Procedure(s): US pelvic and transvaginal ?? Accession Number(s): [id number] ? cc: María Elena Zuleta MD; Jose [...] DD/ 1638 ? TD/TT: 07/02/24 1651 ? Pharmacy Delivery Driver: ? Procedure Note Juarez, Image - 07/03/[address] [address] Ultrasound Report Signed Patient: Amber Mendez#: [id number] : 1995Acct:[id number] Age/Sex: Date: 07/02/24 Loc: HO.US Attending Dr: Jose Raul Bustamante MD Ordering Physician: Jose Raul Bustamante MD Date of Service: 07/02/24 Procedure(s): US pelvic and transvaginal Accession Number(s): [id number] cc: María Elena Zuleta MD; Jose Raul [...] 07/03/24 0712 DD/ 1638 TD/TT: 07/02/24 1651 Pharmacy Delivery Driver: [facility] External Provider IMG US PROCEDURES Final Result documented in this encounter Visit Diagnoses Not on filedocumented in this encounter Additional Health Concerns Assessment Noted Time PHQ-9 Depression Total Score: 6 11/27/19 24 9:34 AM EDT documented as of this encounter Care Teams Inlayer Relationship Specialty Start Date End Date María Elena Zuleta MD [address] [place] [address] PCP - General Family Medicine 06/13/17 Seven Ly RN [address] [place] [phone] Online MarketerPreservationist 05/26/24 documented as of this encounter
--- OUTSIDE RECORDS SUMMARY | 2024-07-14 14:51 | XMS_ITS | Encounter Summary ---
Author Organization [employer] Address 75 [facility] [place] [address] Care Team Providers Care Hr Coordinator Name Role Phone María Elena Zuleta MD Primary Care Provider + Seven Ly RN Unavailable [phone] Reason for Visit * Reason Comments Med Refill Encounter Details Date Type Department Care Team ([facility] st Contact Info) Description 05/24/2023 Refill [facility] [address] [place], [place] [phone] María Elena Zuleta MD [address] [place], [place] [phone] Social History Tobacco Use Types Packs/Day Years [...] PM EDT Office Visit [facility] [address] [place] [address] Serena Daniel, OD [address] [place] [address] documented as of this encounter Visit Diagnoses Not on filedocumented in this encounter Care Teams Hr Coordinator Relationship Specialty Start Date End Date María Elena Zuleta MD [address] [place] [address] PCP - General Family Medicine 06/13/17 Seven Ly RN [address] [place] [phone] Personal Investment AdviserStage Hand 05/26/24 documented as of this encounter
--- OUTSIDE RECORDS SUMMARY | 2024-07-14 14:51 | XMS_ITS | Encounter Summary ---
Author Organization [employer] Address 75 [facility] [address] [address] Care Team Providers Care Local Coordinator Name Role Phone María Elena Zuleta MD Primary Care Provider + Seven Ly RN Unavailable [phone] Reason for Visit * Reason Comments Care Coordination Appt reminder Encounter Details Date Type Department Care Team (Latest Contact Info) Description 07/14/2024 Patient Outreach [facility] [address] [place] [address] María Elena Zuleta MD 230 [place] [address] Care Coordination (Appt reminder) Social History Tobacco Use Types Packs/Day [...] encounter Progress Notes * Ivette Nunez - 07/14/2024 12:59 PM EDT CHW Ivette Nunez placed call to patient to let her know that the PT1 for appt on 07/15/24 with [facility]. Patient stated she will attend appt and will call me it if there are any concerns. documented in this encounter Plan of Treatment Upcoming Encounters Date Type Department Care Team (Late st Contact Info) Description 07/27/2024 2:30 PM EDT Office Visit [facility] OPTOMETRY [address] [place] [address] Tarka, Serena, OD [address] [place] [address] documented as of this encounter Visit Diagnoses Not on filedocumented in this encounter Additional Health Concerns Assessment Noted Time PHQ-9 Depression Total Score: 6 11/27/19 24 9:34 AM EDT documented as of this encounter Care Teams Local Coordinator Relationship Specialty Start Date End Date María Elena Zuleta MD [address] [place] [address] [place] [address] PCP - General Family Medicine 06/13/17 Seven Ly RN [address] [place] [address] Medicare BillerGeophysics Professor 05/26/24 documented as of this encounter
--- OUTSIDE RECORDS SUMMARY | 2024-07-14 14:51 | XMS_ITS | Encounter Summary ---
Author Organization [employer] Address 75 [facility] 7t [place] [address] Care Team Providers Care Sales Office Administrator Name Role Phone María Elena Zuleta MD Primary Care Provider + Seven Ly RN Unavailable [phone] Reason for Referral * Imaging (Routine) - Closed Specialty Diagnoses / Procedures Referred By Contac t Referred To Contact Radiology Diagnoses Abnormal abdominal CT scan Procedures MR Abdomen w/ and w/o Contrast Emani Bird MD 230 [place] [address] Phone: tel: fax: [address] Phone: tel: fax: Referral ID Status Reason Start Date Expiration Date Visits Re quested Visits Authorized [id number] Closed 06/29/2024 06/29/2025 1 1 Encounter Details Date Type Department Care Team (Late st Contact Info) Description 06/29/2024 Orders Only [facility] [address] [place], [place] [phone] Emani Bird MD 230 [place], [place] [phone] Abnormal abdominal CT scan (Primary Dx) Social [...] PM EDT Office Visit [facility] OPTOMETRY [address] [place] [address] Serena Daniel, OD [address] [place] [address] documented as of this encounter Procedures Procedure Name Priority Date/Time Associated Diagnosis Comments MR ABDOMEN W AND WO CONTRAST Routine 07/04/2024 10:21 AM EST Abnormal abdominal CT scan documented in this encounter Results * MR Abdomen w/ and w/o Contrast (07/04/2024 10:21 AM EST) Anatomical Region Laterality Modality Abdomen Magnetic Resonan ce 07/04/2024 10:2 1 AM EST Narrative 07/06/2024 8:28 AM EST ? [facility] ?[address] ?[place] [address] ? Magnetic Resonance Report ? Signed ? Patient: Elizabeth DarrylVilma ?MR#: [id number] ?? [id number] ? : 1995 ?Acct:[id number] ? Age/Sex: 28 / F ?ADM Date: 07/04/24 ? Loc: HO.MRI ? Attending Dr: Emani Bird MD ? Ordering Physician: Emani Bird ?? Date of Service: 07/04/24 ?? Procedure(s): MR abdomen wo/w con ?? Accession Number(s): [id number] ? cc: María Elena Zuleta MD; Emani [...] DD/ 1021 ? TD/TT: 07/04/24 1050 ? Physician Coder: ? Procedure Note Donparaster, Image - 07/06/2024 [place] [address] Magnetic Resonance Report Signed Patient: Amber Mendez#: [id number] : 1995Acct:[id number] Age/Sex: 28 FADM Date: 07/04/24 Loc: HO.MRI Attending Dr: Emani Bird MD Ordering Physician: Emani Bird Date of Service: 07/04/24 Procedure(s): MR abdomen wo/w con Accession Number(s): [id number] cc: María Elena Zuleta MD; Emani Bird [...] by: Javier Navarrete MD 07/06/2024 08:25 AM [facility] Dictated By: Javier Navarrete MD Signed By: <Electronically signed by Javier Navarrete MD in OV> 07/06/24 0825 DD/ 1021 TD/TT: 07/04/24 1050 Physician Coder: Emain Bird MD IM MRI PROCEDURES Final Resul t documented in this encounter Visit Diagnoses Diagnosis Abnormal abdominal CT scan- Primary Nonspecific (abnormal) findings on radiological and other examination of abdominal area, including retroperitoneum documented in this encounter Additional Health Concerns Assessment Noted Time PHQ-9 Depression Total Score: 6 11/27/19 24 9:34 AM EDT documented as of this encounter Care Teams Sales Office Administrator Relationship Specialty Start Date End Date María Elena uZleta MD [address] [place] [address] PCP - General Family Medicine 06/13/17 Seven Ly RN [address] [place] [address] Cutting Table OperatorSystems Engineer 05/26/24 documented as of this encounter
--- OUTSIDE RECORDS SUMMARY | 2024-07-14 14:52 | XMS_ITS | Encounter Summary ---
Author Organization [employer] Address 75 [facility] [place] [address] Care Team Providers Care Support Assistant Name Role Phone María Elena Zuleta MD Primary Care Provider + Seven Ly RN Unavailable [phone] Reason for Visit * Reason Onset Date Comments Care Management 07/13/2024 C3CM- f/u call Encounter Details Date Type Department Care Team ([facility] st Contact Info) Description 07/13/2024 Telephone [facility] MEDICINE 230 [place], [place] [phone] María Elena Zuleta MD 230 [place], [place] [phone] Care Management (C3CM- f/u call) Social History [...] Telephone Encounter - Seven Ly RN - 07/13/2024 12:56 PM EDT CM Seven Ly RN and JANNW Ivette Nunez placed outbound call to patient. Patient's name, and address confirmed. Patient states is doing well with no recent illnesses or emergency room visits.Per patient, scheduled to see [facility] on 07/16/24 at 8:00am. She states she may have transportation but would like for PT1 to be done just in case it is needed. THOMAS Steele will f/u with request and willupdate patient. Per patient, had a f/u with GL ACCOUNTANT on 07/06 to discuss US results. She states she was informed that the US results were normal and that she should f/u as needed. Visit on 07/20 cancelled. Per patient, feeling somewhat stressed and tired but doing well overall. She states she has been feeling stressed because her son has not been wanting to get on the bus to go to school in the mornings.Per mom, son is receiving early intervention and has an appointment scheduled tomorrow. She states that his therapists are aware of her concerns but that she will mention it again tomorrow. Patient is also aware of her upcoming visit with Optometry and denies any barriers to attending. No further questions or concerns. CM reinforced direct contact information or CHW for any additional questions or concerns. Education provided on Walk-In Urgent Care located in [facility] of [facility]. Patient provided with after-hours line for [facility], , which offer night time triage service and option to transfer to oncology rep specialist provider if needed. Patient verbalizes understanding, and able to repeat back to junior copywriter. A follow up call will be placed within 10 days, patientagrees with plan. documented in this encounter Plan of Treatment Upcoming Encounters Date Type Department Care Team ([facility] Contact Info) Description 07/27/2024 2:30 PM EDT Office Visit [facility] OPTOMETRY [address] [place], [place] [phone] Serena Daniel, OD [address] [place] [address] documented as of this encounter Visit Diagnoses Not on filedocumented in this encounter Additional Health Concerns Assessment Noted Time PHQ-9 Depression Total Score: 6 11/27/19 24 9:34 AM EDT documented as of this encounter Care Teams Support Assistant Relationship Specialty Start Date End Date María Elena Zuleta MD [address] [place] [address] PCP - General Family Medicine 06/13/17 Seven Ly RN [address] [place] [address] Community Resource OfficerCertification And Selection Specialist 05/26/24 documented as of this encounter
--- OUTSIDE RECORDS SUMMARY | 2024-07-14 14:52 | XMS_ITS | Encounter Summary ---
Author Organization [employer] Address 75 [facility] [place] [address] Care Team Providers Care Molybdenum Steamer Operator Name Role Phone María Elena Zuleta MD Primary Care Provider + Seven Ly RN Unavailable [phone] Reason for Visit * Reason Onset Date Comments Results 07/29/2023 Encounter Details Date Type Department Care Team ([facility] st Contact Info) Description 07/29/2023 Telephone [facility] MEDICINE 230 [place], [place] [phone] María Elena Zuleta MD 230 [place], [place] [phone] Results Social History Tobacco Use Types Packs/Day [...] labs, swab Date when done: 07/24 Facility: [facility] Please contact pt at [phone] documented in this encounter Plan of Treatment Upcoming Encounters Date Type Department Care Team (Late st Contact Info) Description 07/27/2024 2:30 PM EDT Office Visit [facility] OPTOMETRY [address] [place] [address] TarSerena barfield, OD [address] [place] [address] documented as of this encounter Visit Diagnoses Not on filedocumented in this encounter Care Teams Molybdenum Steamer Operator Relationship Specialty Start Date End Date María Elena Zuleta MD 230 [place] [address] PCP - General Family Medicine 06/13/17 Seven Ly RN 505 [place] [address] Back Office Medical AssistantEmery Wheel Molder 05/26/24 documented as of this encounter
== END 2024-07-13 00:01 | disposition home or self-care (01) ==
LOC: HO.HHCLNP
PROVIDERS: Visit Provider Family Medicine
DX: R10.9 Unspecified abdominal pain (principal)
CPT/HCPCS: 81515; 87086; 87491; 87591

== ENCOUNTER 2024-07-16 10:18 | Outpatient (REF) | payer MEDICAID, SELFPAY ==
[2024-07-16 12:25] LABS: Syphilis Screen Nonreactive (Nonreactive)
[2024-07-16 12:27] LABS: HIV AB/AG Nonreactive (Nonreactive); ~HepC Num1 0.22 S/CO (0.00-0.79); ~Hepatitis C Antibody Nonreactive (Nonreactive)
--- OUTSIDE RECORDS SUMMARY | 2024-07-16 12:47 | XMS_ITS | Encounter Summary ---
Author Organization [employer] Address 75 [facility] 7 [place] [address] Care Team Providers Care Sheet Metal Duct Installer Name Role Phone María Elena Zuleta MD Primary Care Provider + Seven Ly RN Unavailable [phone] Encounter Details Date Type Department Care Team ([facility] st Contact Info) Description 11/01/2022 Orders Only [facility] [address] [place], [place] [phone] María Elena Zuleta MD 230 [place], [place] [phone] Vaginal discharge (Primary Dx) Social History Tobacco [...] Visit [facility] OPTOMETRY [address] [place] [address] Serena Daniel, OD [address] [place] [address] documented as of this encounter Procedures Procedure Name Priority Date/Time Associated Diagnosis Comments HIV ANTIBODY/ANTIGEN ([facility]) Routine 01/09/2023 12:18 PM EDT Vaginal [...] PM EDT) HIV AB/AG Nonreactive Nonreactive [facility] Comment:HIV-1 p24 Ag and/or HIV-1/HIV-2 Ab not detected.A test result that is nonreactive does not exclude thepossibility of exposure to or infection with HIV-1 and/orHIV-2. Nonreactive results in this assay for individualswith prior exposure to HIV-1 and/or HIV-2 may be due toantigen and antibody levels that are below the limit ofdetection of this assay.The [employer] HIV Ag/Ab Combo assay result andsupplemental assay results should be interpreted inconjunction with the patient's clinical presentation,history and other laboratory results. If the results areinconsistent with clinical evidence, additional testing issuggested to confirm the result. 01/09/2023 12:1 8 PM EDT 01/09/2023 1:10 PM EDT us Sanju Quijano [facility] BLOOD ORDERABLES Teri cantu Result [facility] [address] [place] [phone] * Pap Smear (01/09/2023 12:03 PM EDT) 01/09/2023 12:0 3 PM EDT 01/10/2023 9:15 AM EDT Narrative [facility] - 01/22/2023 10:48 AM EDT ----- ------- Name: Elizabeth DarrylVilma ?Age/Sex: 27/F ? : 1995 Unit#: [id number] ?? Attend Dr: SANJU QUIJANO CNM ?Re01/09/23 ?Status: DEP REF ? Location: HO.CL ? Disch: ? ----- ------- SPEC : [id number] ?RECD: 01/10/23 ? STATUS: ??SOUT ? REQ NUM: [id number] ? DEVON: 01/09/23-1203 ? SUBM DR: SANJU [...] 66, 68) ?? HPV testing performed by [facility], [place], [place]. ??See reference laboratory ?? pion of the EMR for entire report. ?Clinical Information LMP: 12/29/2022 Previous PAP test:2021, ASCUS HPV positive ? Material Received ?? ThinPrep-Vaginal/Cervical ----- ------- Signed (signature on file) Andres Wood MD 01/22/23 0088 ? ----- ------- ? END OF REPORT ? Sanju Rhonda [facility] CYTOLOGY ORDERABLES F inal Result Performing Organization Address [facility] Co de Phone Number [facility] [address] [place], [place] [phone] * C.TRACHOMATIS/N. GONORRHOEAE DNA PROBE (01/09/2023 12:03 PM EDT) CTNG Ref Lab NOT DETECTED NOT DETECTED [facility] NG Ref Lab NOT DETECTED NOT DETECTED [facility] CTNG Ref Note SEE NOTE [facility] Comment:The analytical perfo rmance characteristics of thisassay, when used to test SurePath(TM) specimens have beendetermined by [facility]. The modifications havenot been cleared or approved by the FDA. This assay hasbeen validated pursuant to the CLIA regulations and isused for clinical purposes.For additional information, please refer tohttps://education.[employer]/faq/GGY743(This link is being provided for information/educational purposes only.)THIS TEST WAS PERFORMED AT:[facility] [place] [id number] RASHID MD 01/09/2023 12:0 3 PM EDT 01/10/2023 9:15 AM EDT Sanju Rhonda [facility] MICROBIOLOGY - GENERA L ORDERABLES Final Result Performing Organization Address [facility] Co de Phone Number [facility] [address] [place] [phone] * HPV mRNA E6/E7 w/Reflex to HPV Genotypes 16, 18/45 (01/09/2023 12:03 PM EDT) Pathologist [facility] HPV nRNA E6/E7 Not Detected Not Detected [facility] Comment:Methodology: Transcr iption-Mediated AmplificationThis assay detects E6/E7 viral messenger RNA (mRNA) from 14high-risk HPV types (16,18,31,33,35,39,45,51,52,56,58,59,66,68).Cervical sources are required for HPV testing.If a vaginal source from a patient who has had atotal hysterectomy with removal of cervix wassubmitted, please contact the testing laboratoryfor alternative testing options.For additional information, please refer tohttp://education.[employer]/faq/UPZ463q9(This link if provided for information/educational purposes only.)THIS TEST WAS PERFORMED AT:[facility] [place] [id number] RASHID MD HPV mRNA E6/E7 [facility] HPV 16 RNA [facility] HPV 18/45 RNA [facility] 01/09/2023 12:0 3 PM EDT 01/10/2023 9:15 AM EDT [facility] ORDERABLES F inal Result Performing Organization Address City/[facility]/ZIP Co de Phone Number [facility] [address] [place] [phone] * (ABNORMAL) Bacterial Vaginosis (01/09/2023 12:00 AM EDT) Trichomonas DNA Probe Negative Negative [facility] Gardnerella DNA Probe Positive(A) Negative [facility] Lindsey DNA Probe Positive(A) Negative [facility] 01/09/2023 01/09/2023 [facility] MICROBIOLOGY - GENERA L ORDERABLES Final Result Performing Organization Address [facility]/ZIP Co de Phone Number [facility] [address] [place] [phone] documented in this encounter Visit Diagnoses Diagnosis Vaginal discharge- Primary Leukorrhea, not specified as infective documented in this encounter Care Teams Sheet Metal Duct Installer Relationship Specialty Start Date End Date María Elena Zuleta MD [address] [place] [address] PCP - General Family Medicine 06/13/17 Seven Ly RN [address] [place] [phone] Sap Basis ConsultantFabricator Assembler Metal Products 05/26/24 documented as of this encounter
--- OUTSIDE RECORDS SUMMARY | 2024-07-16 12:47 | XMS_ITS | Encounter Summary ---
Author Organization [employer] Address 75 [facility] [place] [address] Care Team Providers Care Watermelon Inspector Name Role Phone María Elena Zuleta MD Primary Care Provider + Seven Ly RN Unavailable [phone] Reason for Visit * Reason Onset Date Comments Results 07/29/2023 Encounter Details Date Type Department Care Team ([facility] st Contact Info) Description 07/29/2023 Telephone [facility] MEDICINE 230 [place], [place] [phone] María Elena Zuleta MD [address] [place], [place] [phone] Results Social History Tobacco Use Types Packs/Day [...] labs, swab Date when done: 07/24 Facility: [facility] Please contact pt at [phone] documented in this encounter Plan of Treatment Upcoming Encounters Date Type Department Care Team (Late st Contact Info) Description 07/27/2024 2:30 PM EDT Office Visit [facility] OPTOMETRY [address] [place] [address] TarSerena barfield, OD [address] [place] [address] documented as of this encounter Visit Diagnoses Not on filedocumented in this encounter Care Teams Watermelon Inspector Relationship Specialty Start Date End Date María Elena Zuleta MD [address] [place] [address] PCP - General Family Medicine 06/13/17 Seven Ly RN [address] [place] [address] Electrician Substation SupervisorApple Turner 05/26/24 documented as of this encounter
--- OUTSIDE RECORDS SUMMARY | 2024-07-16 12:47 | XMS_ITS | Encounter Summary ---
Author Organization [employer] Address 75 [facility] 7t [place] [address] Care Team Providers Care Carton Gluing Machine Operator Name Role Phone María Elena Zuleta MD Primary Care Provider + Seven Ly RN Unavailable [phone] Reason for Referral * Consultation (Routine) - Authorized Specialty Diagnoses / Procedures Referred By Regulo huerta Referred To Contact Gastroenterology Diagnoses Pancreatic cyst María Elena Zuleta MD [address] [place] [address] Phone: tel: fax: [facility] Gastroenterology [address] 3rd [address] [place], [place] Phone: tel: fax: Referral ID Status Reason Start Date Expiration Date Visits Requested Visits Authorized [id number] Authorized Specialty Services Required 07/08/2024 07/08/2025 6 6 Reason for Visit * Reason Onset Date Comments Results 07/07/2024 Encounter Details Date Type Department Care Team (Late st Contact Info) Description 07/07/2024 Telephone [facility] MEDICINE 230 [place], [place] [phone] María Elena Zuleta MD [address] [place], [place] [phone] Results Social History Tobacco Use Types Packs/Day [...] will refer to GI Dr. Paniagua in [facility] and follow-up with her as scheduled. She did not have further questions and agreed with the POC * Telephone Encounter - Logan Landrys - 07/07/2024 10:54 AM EST TC from pt requesting call back regarding Results. Type of results: MRI Date when done: 07/04/2024 Facility: [facility] Pt states that she received her results on MyChart but is having trouble understanding them. Contact pt:[phone] documented in this encounter Plan of Treatment Upcoming Encounters Date Type Department Care Team (Late st Contact Info) Description 07/27/2024 2:30 PM EDT Office Visit [facility] OPTOMETRY [address] [place] [address] Serena Daniel, OD [address] [place] [address] Scheduled Referrals Name Type Priority Associated Diagnoses [...] documented as of this encounter Care Teams Carton Gluing Machine Operator Relationship Specialty Start Date End Date María Elena Zuleta MD [address] [place] [address] PCP - General Family Medicine 06/13/17 Seven Ly, JACKIE [address] [place] [phone] Final Assembly And Packing SupervisorStreetcar Operator 05/26/24 documented as of this encounter
--- OUTSIDE RECORDS SUMMARY | 2024-07-16 12:47 | XMS_ITS | Encounter Summary ---
Author Organization [employer] Address 75 [facility] [place] [address] Care Team Providers Care Keno Writer/Runner Name Role Phone María Elena Zuleta MD Primary Care Provider + Seven Ly RN Unavailable [phone] Reason for Visit * Reason Comments Care Coordination PT1 Encounter Details Date Type Department Care Team (Latest Contact Info) Description 07/13/2024 Patient Outreach [facility] MEDICINE 230 [place], [place] [phone] María Elena Zuleta MD [address] [place] [address] Care Coordination (PT1) Social History Tobacco Use [...] submitted PT1 to for [facility] gastroenterology in [address] [place] [address], once approved will help set up the PT1. documented in this encounter Plan of Treatment Upcoming Encounters Date Type Department Care Team (Late st Contact Info) Description 07/27/2024 2:30 PM EDT Office Visit [facility] OPTOMETRY [address] [place], [place] [phone] Serena Daniel, OD [address] [place] [address] documented as of this encounter Visit Diagnoses Not on filedocumented in this encounter Additional Health Concerns Assessment Noted Time PHQ-9 Depression Total Score: 6 11/27/19 24 9:34 AM EDT documented as of this encounter Care Teams Keno Writer/Runner Relationship Specialty Start Date End Date María Elena Zuleta MD [address] [place] [address] PCP - General Family Medicine 06/13/17 Seven Ly RN [address] [place] [phone] Eyeglass Frame TruerTeletype Telegrapher 05/26/24 documented as of this encounter
--- OUTSIDE RECORDS SUMMARY | 2024-07-16 12:47 | XMS_ITS | Encounter Summary ---
Author Organization [employer] Address [address] [facility] [place] [address] Care Team Providers Care Mental Health Counselor Name Role Phone María Elena Zuleta MD Primary Care Provider + Seven Ly RN Unavailable [phone] Reason for Visit * Reason Onset Date Comments Care Management 07/13/2024 C3CM- f/u call Encounter Details Date Type Department Care Team ([facility] st Contact Info) Description 07/13/2024 Telephone [facility] MEDICINE [address] [place], [place] [phone] María Elena Zuleta MD [address] [place], [place] [phone] Care Management (C3CM- f/u call) Social History [...] emergency room visits.Per patient, scheduled to see [facility] on 07/16/24 at 8:00am. She states she may have transportation but would like for PT1 to be done just in case it is needed. THOMAS Steele will f/u with request and willupdate patient. Per patient, had a f/u with RIBBON TIER on 07/06 to discuss US results. She [...] provided on Walk-In Urgent Care located in [facility]. Patient provided with after-hours line for [facility], , which offer night time triage service and option to transfer to coconut boiler provider if needed. Patient verbalizes understanding, and able to repeat back to grant writer. A follow up call will be placed within 10 days, patientagrees with plan. documented in this encounter Plan of Treatment Upcoming Encounters Date Type Department Care Team ([facility] Contact Info) Description 07/27/2024 2:30 PM EDT Office Visit [facility] OPTOMETRY [address] [place], [place] [phone] Serena Daniel, OD [address] [place] [address] documented as of this encounter Visit Diagnoses Not on filedocumented in this encounter Additional Health Concerns Assessment Noted Time PHQ-9 Depression Total Score: 6 11/27/19 24 9:34 AM EDT documented as of this encounter Care Teams Mental Health Counselor Relationship Specialty Start Date End Date María Elena Zuleta MD [address] [place] [address] PCP - General Family Medicine 06/13/17 Seven Ly RN [address] [place] [address] Child Center AssistantHost/Hostess Restaurant 05/26/24 documented as of this encounter
--- OUTSIDE RECORDS SUMMARY | 2024-07-16 12:47 | XMS_ITS | Encounter Summary ---
Author Organization [employer] Address [address] [facility] [address] Care Team Providers Care Sinter Press Operator Name Role Phone María Elena Zuleta MD Primary Care Provider + Seven Ly RN Unavailable [phone] Reason for Visit * Reason Comments Care Coordination SDOH f/u Encounter Details Date Type Department Care Team (Latest Contact Info) Description 07/02/2024 Patient Outreach [facility] MEDICINE [address] [place], [place] [phone] María Elena Zuleta MD [address] [place] [address] Care Coordination (SDOH f/u) Social History Tobacco [...] Wednesdays, and Walk-In Urgent Care Located in [facility]. Patient provided with after-hours line for [facility], , which offer night time triage service and option to transfer to contact acid plant operator helper provider if needed. Patient verbalizes understanding, and able to repeat back to policy writer sales. A follow up call willbe placed within 10 days, patient agrees with plan. documented in this encounter Plan of Treatment Upcoming Encounters Date Type Department Care Team ([facility] st Contact Info) Description 07/27/2024 2:30 PM EDT Office Visit [facility] OPTOMETRY [address] [place] [phone] Nimcocarolyne Serena, OD [address] [place] [address] documented as of this encounter Visit Diagnoses Not on filedocumented in this encounter Additional Health Concerns Assessment Noted Time PHQ-9 Depression Total Score: 6 11/26/ 24 9:34 AM EDT documented as of this encounter Care Teams Sinter Press Operator Relationship Specialty Start Date End Date María Elena Zuleta MD [address] [place] [phone] PCP - General Family Medicine 06/13/17 Seven Ly RN [address] [place] [phone] Hotel Administrative AssistantAcid Etch Operator 05/26/24 documented as of this encounter
--- OUTSIDE RECORDS SUMMARY | 2024-07-16 12:47 | XMS_ITS | Encounter Summary ---
Author Organization [employer] Address [address] [facility] 7[facility] [place] [address] Care Team Providers Care Political Cartoonist Name Role Phone María Elena Zuleta MD Primary Care Provider + Seven Ly RN Unavailable [phone] Reason for Visit * Reason Onset Date Comments triage 08/07/2022 Encounter Details Date Type Department Care Team (Late st Contact Info) Description 08/07/2022 Telephone [facility] MEDICINE [address] [place], [place] [phone] María Elena Zuleta MD [address] [place], [place] [phone] triage Social History Tobacco Use Types Packs/Day [...] July. Pt is advised to come to [facility] Pt requests some testing for STDs. [...] Visit [facility] OPTOMETRY [address] [place] [address] Serena Daniel OD [address] [place] [address] documented as of this encounter Visit Diagnoses Not on filedocumented in this encounter Care Teams Political Cartoonist Relationship Specialty Start Date End Date María Elena Zuleta MD [address] [place] [address], [place] [address] PCP - General Family Medicine 06/13/17 Seven Ly RN [address] [place] [phone] Veneer Press OperatorPrepress Supervisor 05/26/24 documented as of this encounter
--- OUTSIDE RECORDS SUMMARY | 2024-07-16 12:47 | XMS_ITS | Clinical Summary ---
Author Organization [employer] Address [address] [facility] 7t [place] [address] Care Team Providers Care Cashier Tube Room Name Role Phone María Elena Zuleta MD Primary Care Provider + Seven Ly RN Unavailable [phone] Allergies Active Allergy Reactions Criticality Noted [...] Department Care Team Description 07/14/2024 Patient Outreach [facility] MEDICINE [address] [place] [phone] María Elena Zuleta MD Care Coordination (Appt reminder) 07/13/2024 6:00 PM EDT Office Visit [facility] WALK-IN [address] [address] Suresh Calderon MD Screening examination for sexually transmitted disease (Primary Dx); Abdominal pressure 07/13/2024 Orders Only [address] [address] Suresh Calderon MD 07/13/2024 Patient Outreach [address] [address] María Elena Zuleta MD Care Coordination (PT1) 07/13/[address] [address] María Elena Zuleta MD Care Management (C3CM- f/u call) 07/07/[address] [address] María Elena Zuleta MD Results 07/02/2024 Orders Only [facility] External Provider, [facility] 07/02/[address] [address] María Elena Zuleta MD Care Management (C3CM- f/u call) 07/02/2024 Patient Outreach [address] [address] María Elena Zuleta MD Care Coordination ([facility] f/u) 06/29/2024 Orders Only [address] [address] Emani Bird MD Abnormal abdominal CT scan (Primary Dx) 06/19/[address] [address] Seven Ly, JACKIE Care Management (C3CM- f/u call) 06/18/2024 Orders Only GENERIC EXTERNAL DATA DEPARTMENT Provider, Generic External Data 06/12/2024 Telephone [facility] [address] [place] [address] Emani Bird MD 06/12/[address] [address] Karuna Slade, RN Results 06/05/2024 Telephone [facility] [address] [place] [address] Emani Bird MD 06/04/[address] [address] María Elena Zuleta MD Nurse Triage 06/04/[address] [phone] Seven Ly, JACKIE Care Management (C3- f/u call) 06/04/2024 Telephone [facility] [address] [phone] Emani Bird MD 06/03/2024 Patient Outreach [address] [address] María Elena Zuleta MD Care Coordination (SDOH/mail) 06/02/2024 3:15 PM EST Office Visit [address] [address] Sanju Quijano CNM Vaginal discharge (Primary Dx); Abnormal uterine bleeding (AUB) 06/02/[address] [address] María Elena Zuleta MD telephone call 06/02/2024 Travel 06/02/[address] [address] María Elena Zuleta MD Call Back Request 06/01/2024 Patient Outreach [address] [address] María Elena Zuleta MD Care Coordination (SDOH) 05/27/2024 3:30 PM EST Office Visit [address] [address] Emani Bird MD Rupture of cyst of right ovary (Primary Dx); IPMN (intraductal papillary mucinous neoplasm) 05/27/2024 Travel 05/26/[address] [address] Seven Ly RN 05/26/[address] [address] Seven Ly RN Care Management ([facility]- initial assessment/ enrollment) 05/22/2024 Patient Outreach [address] [address] María Elena Zuleta MD Care Coordination (CM/CHW appt reminder) 05/22/2024 Travel 05/21/2024 Patient Outreach [address] [address] María Elena Zuleta MD Care Coordination (CM/CHW outreach) 05/21/[address] [address] María Elena Zuleta MD ER Follow-up 05/21/[address] [address] Seven Ly RN 05/19/[address] [address] María Elena Zuleta MD Nurse Triage 05/15/2024 Telephone [facility] OPTOMETRY [address] [place] [address] Serena Daniel OD 05/14/[address] [address] María Elena Zuleta MD Results 05/13/2024 10:30 AM EST Office Visit [address] [address] María Elena Zuleta MD Visit for preventive health examination (Primary Dx); UTI symptoms; Encounter for immunization 05/13/2024 Orders Only [address] [place] [address] María Elena Zuleta MD 05/13/2024 Travel 05/12/[address] [address] Graciela Weber MA Chart prep 05/07/2024 Patient Outreach [address] [address] María Elena Zuleta MD Pre-visit Planning 04/23/2024 Telephone [facility] MEDICINE [address] [place] [address] Julius Tamayo RN from Last 3 Months [...] Description 07/27/2024 2:30 PM EDT Office Visit [facility] OPTOMETRY [address] [place] [address] Serena Daniel, OD [address] [place] [address] Health Maintenance Due Date Last Done Comments [...] 1995, Additional history exists HIV Screening Completed 07/16/2024, 10/2023, 06/14/2023, Additional history exists Hepatitis C Screening Completed 07/16/2024 , 04/10/2024, 10/30/2022, Additional history exists HIB Vaccines Aged Out No longer eligi ble based on patient's age to complete this topic RSV under 20 months Aged Out No longe r eligible based on patient's age to complete this topic Rotavirus Vaccines Aged Out No longer eligible based on patient's age to complete this topic Procedures Procedure Name Priority Date/Time Associated Diagnosis Comments SYPHILIS SCREEN Routine 07/16/2024 10:23 AM EDT Screening examination for sexually transmitted disease HIV 1/2 ANTIGEN/ANTIBODY, FOURTH GENERATION W/RFL Routine 07/16/2024 10:23 AM EDT Screening examination for sexually transmitted disease HEPATITIS C AB W/REFL TO HCV RNA, QN, PCR Routine 07/16/2024 10:23 AM EDT Screening examination for sexually transmitted disease CULTURE, URINE, ROUTINE Routine 07/13/2024 5:55 PM EDT CHLAMYDIA/N. GONORRHOEAE RNA, TMA, UROGENITAL Routine 07/13/2024 [...] AM EST Visit for preventive health examination HPV MRNA E6/E7 REFLEX TO HPV 16, 18/45 Routine 01/09/2023 12:03 PM EDT Vaginal discharge PAP SMEAR Routine 01/09/2023 12:03 PM EDT Vaginal discharge from Last 3 Months or Most Recently Relevant to Health Maintenance Results * Syphilis Screen (07/16/2024 10:23 AM EDT) Syphilis Screen Nonreactive Nonreactive [facility] Blood 07/16/2024 10:2 3 AM EDT 07/16/2024 11:15 AM EDT us Suresh Calderon MD LAB BLOOD ORDERABLES Final Resul t [facility] [address] [place] [phone] * Hepatitis C Antibody with Reflex to HCV, RNA, Quantitative, Real-Time PCR (07/16/2024 10:23 AM EDT) Hepatitis C Antibody Nonreactive Nonreactive [facility] Comment:Antibodies to HCV no t detected; does not exclude early acuteHCV infection. Blood Venous blood specimen / Unknown 07/16/2024 10:23 AM EDT 07/16/2024 11:15 AM EDT Suresh Calderon MD LAB BLOOD ORDERABLES Final Resul t Performing Organization Address City/[facility]/ZIP Co de Phone Number [facility] [address] [place] [phone] * HIV-1/2 Antigen and Antibodies, Fourth Generation, with Reflexes (07/16/2024 10:23 AM EDT) Pathologist [facility] HIV AB/AG Nonreactive Nonreactive [facility] Comment:HIV-1 p24 Ag and/or HIV-1/HIV-2 Ab not detected.A test result that is nonreactive does not exclude thepossibility of exposure to or infection with HIV-1 and/orHIV-2. Nonreactive results in this assay for individualswith prior exposure to HIV-1 and/or HIV-2 may be due toantigen and antibody levels that are below the limit ofdetection of this assay.The [employer] HIV Ag/Ab Combo assay result andsupplemental assay results should be interpreted inconjunction with the patient's clinical presentation,history and other laboratory results. If the results areinconsistent with clinical evidence, additional testing issuggested to confirm the result. Blood Venous blood specimen / Unknown 07/16/2024 10:23 AM EDT 07/16/2024 11:15 AM EDT Suresh Calderon MD LAB BLOOD ORDERABLES Final Resul t Performing Organization Address City/[facility]/ZIP Co de Phone Number [facility] [address] [place] [phone] * Bacterial Vaginosis (07/13/2024 5:55 PM EDT) Only the most recent of2 resultswithin the time period is included. TRICHOMONAS VAGINALIS DETECTION BY PCR NOT DETECTED Not Detect [facility] BACTERIAL VAGINOSIS DETECTION BY PCR NEGATIVE Negative [facility] Comment:The BV organism targ ets [...] DETECTION BY PCR NOT DETECTED Not Detect [facility] Lindsey glab krusei PCR NOT DETECTED Not Detect [facility] Swab Vaginal structure / Unknown 07/13/2024 5:55 PM EDT 07/14/2024 12:09 PM EDT Suresh Calderon MD LAB MICROBIOLOGY - GENERAL ORDER KRISTINA Final Result [facility] [address] [place] [phone] * Chlamydia/N. Gonorrhoeae RNA, TMA, Urogenitial (07/13/2024 5:55 PM EDT) Only the most recent of3 resultswithin the time period is included. Pathologist [facility] CT PCR NOT DETECTED Not Detect. [facility] Comment:A not detected test result [...] psychologicalconsequences. NG PCR NOT DETECTED Not Detect. [facility] Comment:A not detected test result [...] 5:55 PM EDT 07/14/2024 12:09 PM EDT [facility] - 07/14/2024 2:39 PM EDT Vaginal Suresh Calderon MD LAB MICROBIOLOGY - GENERAL ORDER KRISTINA Final Result Performing Organization Address [facility] Co de Phone Number [facility] [address] [place] [phone] * Culture, Urine, Routine (07/13/2024 5:55 PM EDT) Only the most recent of2 resultswithin the time period is included. Urine Urine specimen obtained by clean catch procedure / Unknown 07/13/2024 5:55 PM EDT 07/14/2024 12:08 PM EDT Comment:[facility] - 07/15/2024 11:01 AM EDT Urine Culture No growth. Specimen Source: Urine clean catch Suresh Calderon MD LAB MICROBIOLOGY - GENERAL ORDER KRISTINA Final Result Performing Organization Address City/[facility]/ZIP Co de Phone Number [facility] [address] [place] [phone] * POCT urinalysis dipstick manually resulted [...] EST Narrative 07/06/2024 8:28 AM EST ? [facility] ?[address] ?[place] [address] ? Magnetic Resonance Report ? Signed ? Patient: Vilma Mendez ?MR#: [id number] ?? [id number] ? : 1995 ?Acct:[id number] ? Age/Sex: 28 / F ?ADM Date: 07/04/24 ? Loc: HO.MRI ? Attending Dr: Emani Bird MD ? Ordering Physician: Emani Bird ?? Date of Service: 07/04/24 ?? Procedure(s): MR abdomen wo/w con ?? Accession Number(s): [id number] ? cc: María Elena Zuleta MD; Emani [...] DD/ 1021 ? TD/TT: 07/04/24 1050 ? Rn Maternity: ? Procedure Note Juarez, Image - 07/06/[address] [address] Magnetic Resonance Report Signed Patient: Amber Mendez#: [id number] : 1995Acct:[id number] Age/Sex: 28 / FADM Date: 07/04/24 Loc: HO.MRI Attending Dr: Emani Bird MD Ordering Physician: Emani Bird Date of Service: 07/04/24 Procedure(s): MR abdomen wo/w con Accession Number(s): [id number] cc: María Elena Zuleta MD; Emani Bird [...] Javier Navarrete MD 07/06/2024 08:25 AM EST Dictated By: Javier Navarrete MD Signed By: <Electronically signed by Javier Navarrete MD in OV> 07/06/24 0825 DD/ 1021 TD/TT: 07/04/24 1050 Rn Maternity: us Emani Bird MD [facility] [place] PROCEDURES Final Resul t * US Pelvis Transvaginal (07/02/2024 4:38 PM EST) Anatomical Region Laterality Modality Pelvis Ultrasound 07/02/2024 4:38 PM EST Narrative 07/03/2024 7:15 AM EST ? [facility] ?[address] ?[place] [address] ? Ultrasound Report ? Signed ? Patient: Elizabeth Andrews,Vilma ?MR#: [id number] ?? [id number] ? : 1995 ?Acct:[id number] ? Age/Sex: 28 / F ?ADM Date: 07/02/24 ? Loc: HO.US ? Attending Dr: Jose Raul Bustamante MD ? Ordering Physician: Jose Raul Bustamante MD ?? Date of Service: 07/02/24 ?? Procedure(s): US pelvic and transvaginal ?? Accession Number(s): [id number] ? cc: María Elena Zuleta MD; Jose [...] DD/ 1638 ? TD/TT: 07/02/24 1651 ? Rn Maternity: ? Procedure Note Donotwilliaminterpreter, Image - 07/03/2024 [place] [address] Ultrasound Report Signed Patient: Amber Mendez#: [id number] : 1995Acct:[id number] Age/Sex: Date: 07/02/24 Loc: HO.US Attending Dr: Jose Raul Bustamante MD Ordering Physician: Jose Raul Bustamante MD Date of Service: 07/02/24 Procedure(s): US pelvic and transvaginal Accession Number(s): [id number] cc: María Elena Zuleta MD; Jose Raul [...] 07/03/24 0712 DD/ 1638 TD/TT: 07/02/24 1651 Rn Maternity: [facility] External Provider IMG US PROCEDURES Final Result * POCT fern test, vaginal fluid manually resulted (06/02/2024 4:25 PM EST) Pathologist [facility] JOSI Prep Positive Comment:pH 4.5, neg whiff, n eg clue, neg trich, neg wbc, pos yeast Vaginal Fluid Vaginal structure / Unknown 06/02/2024 4:25 PM EST Impressions Sanju Quijano CNM - 06/02/2024 4:25 PM EST Vulvovaginal candidiasis Sanju Quijano CNM POINT OF CARE TEST ENTER/ EDIT ORDERABLES Final Result * POCT , urine manually resulted (06/02/2024 4:07 PM EST) [facility] Preg Test, Ur Negative Negative, Indeterminate, None Detected, Invalid, Specimen unsatisfactory for evaluation, Weakly Positive QC Media Lot # [id number] Lot# Expiration Date [id number] Urine 06/02/2024 4:07 PM EST Sanju LANDIS POINT OF CARE TEST ENTER/ EDIT ORDERABLES Final Result * (ABNORMAL) CBC auto differential (05/27/2024 4:01 PM EST) White Blood Count 10.8 4.8 - 10.8 X10*3/uL [facility] Red Blood Count 3.96(L) 4.20 - 5.50 X10*6/uL [facility] Hemoglobin 11.1(L) 12.0 - 16.0 g/dl [facility] Hematocrit 32.8(L) 37.0 - 47.0 % [facility] Mean Corpuscular Volume 82.8 80.0 - 98.0 fL [facility] Mean Corpuscular Hemoglobin 28.0 27.0 - 33.0 pg [facility] Mean Corpuscular HGB Conc 33.8 31.0 - 35.0 g/dl [facility] Red Cell Distribution Width 14.0 11.0 - 16.0 % [facility] Platelet Count 316 160 - 400 X10*3/uL [facility] Mean Platelet Volume 10.9 9.4 - 12.3 fL [facility] Neutrophils Percent Auto 60.5 45 - 73 % [facility] Imm Gran Pct Auto 0.4 0.0 - 0.4 % [facility] Lymphocytes Percent Auto 24.2 20 - 40 % [facility] Monocytes Percent Auto 9.9 2 - 11 % [facility] Eosinophils Percent Auto 4.4(H) 0 - 4 % [facility] Basophils Percent Auto 0.6 0 - 2 % [facility] NRBC Pct Auto 0.0 0.0 - 0.2 /100WBC [facility] Neutrophils Absolute Auto 6.5 2.0 - 8.3 x10*3/uL [facility] Imm Gran Abs Auto 0.04(H) 0.00 - 0.03 X10*3/uL [facility] Lymphocytes Absolute Auto 2.6 1.2 - 4.9 X10*3/uL [facility] Monocytes Absolute Auto 1.1 0.1 - 1.2 X10*3/uL [facility] Eosinophils Absolute Auto 0.5(H) 0.0 - 0.4 X10*3/uL [facility] Basophils Absolute Auto 0.1 0.0 - 0.2 X10*3/uL [facility] NRBC Abs Auto 0.000 0.0 - 0.012 X10*3/uL [facility] Blood Venous blood specimen / Unknown 05/27/2024 4:01 PM EST 05/27/2024 5:35 PM EST us Emani Bird MD LAB BLOOD ORDERABLES Final Res ult Performing Organization Address City/[facility]/ZIP Co de Phone Number [facility] [address] [place] [address] [phone] * (ABNORMAL) Urinalysis, Complete, with Reflex to Culture (05/13/2024 1:09 PM EST) Color Urine Yellow [facility] Appearance Urine Clear [facility] PH 6.5 5.0 - 9.0 [facility] Glucose Urine UA Negative Negative mg/dL [facility] Urine Blood Negative Negative [facility] Specific [place] - Urine 1.025 1.005 - 1.025 [facility] Urine Protein Negative Neg-Trace mg/dL [facility] Urine Ketones Negative Negative mg/dL [facility] Nitrite Urine Negative Negative [facility] Leukocyte Esterase Urine Small (1+)(A) Negative [facility] RBC Urine 0-2 0 - 2 /HPF [facility] Urine WBC 11-20(A) 0 - 5 /HPF [facility] Urine Squamous Epithelial Cell 6-10 0 - 2 /HPF [facility] Urine Bacteria 1+ None Seen [facility] Hyaline Casts, Urine 0-2 0 - 2 /LPF [facility] 05/13/2024 1:09 PM EST 05/13/2024 4:07 PM EST Narrative [facility] - 05/13/2024 4:38 PM EST Urine, Clean Catch us María Elena Zuleta MD LAB URINE ORDERABLES Fin al Result [facility] [address] [place] [address] [phone] * T-SPOT??.TB (05/13/2024 11:57 AM EST) T Spot TB Negative Negative [facility] Comment:A negative test resu lt [...] as aquantitative test. TS PANEL A 0 [facility] TS PANEL B 0 [facility] Negative Control Passed [facility] Positive Control Passed [facility] Comment:For additional infor mation, please refer tohttp://education.[employer]/faq/DFT754(This link is being provided for informational/educational purposes only.)THIS TEST WAS PERFORMED AT:[employer] [id number] [place] [address]ASXIRSAROBERTH GOMEZ MD,PHD 05/13/2024 11:5 7 AM EST 05/13/2024 1:05 PM EST us María Elena Zuleta MD LAB BLOOD ORDERABLES Fin al Result Performing Organization Address City/[facility]/ZIP Co de Phone Number [facility] [address] [place] [phone] * HPV mRNA E6/E7 w/Reflex to HPV Genotypes 16, 18/45 (01/09/2023 12:03 PM EDT) HPV nRNA E6/E7 Not Detected Not Detected [facility] Comment:Methodology: Transcr iption-Mediated AmplificationThis assay detects E6/E7 viral messenger RNA (mRNA) from 14high-risk HPV types (16,18,31,33,35,39,45,51,52,56,58,59,66,68).Cervical sources are required for HPV testing.If a vaginal source from a patient who has had atotal hysterectomy with removal of cervix wassubmitted, please contact the testing laboratoryfor alternative testing options.For additional information, please refer tohttp://education.[employer]/faq/UZS392v6(This link if provided for information/educational purposes only.)THIS TEST WAS PERFORMED AT:[employer] [place] [id number] RASHID MD HPV mRNA E6/E7 [facility] HPV 16 [facility] HPV 18/45 RNA [facility] 01/09/2023 12:0 3 PM EDT 01/10/2023 9:15 AM EDT Sanju Quijano [facility] CYTOLOGY ORDERABLES F inal Result [facility] [address] [place] [address] [phone] * Pap Smear (01/09/2023 12:03 PM EDT) 01/09/2023 12:0 3 PM EDT 01/10/2023 9:15 AM EDT Narrative [facility] - 01/22/2023 10:48 AM EDT ----- ------- Name: Vilma Mendez ?Age/Sex: 27/F ? : 1995 Unit#: [id number] ?? Attend Dr: SANJU QUIJANO CNM ?Re01/09/23 ?Status: DEP REF ? Location: HO.CL ? Disch: ? ----- ------- SPEC : [id number] ?RECD: 01/10/23 ? STATUS: ??SOUT ? REQ NUM: [id number] ? DEVON: 01/09/23-1203 ? SUBM DR: SANJU [...] 66, 68) ?? HPV testing performed by [facility], [place], [place]. ??See reference laboratory ?? pion of the EMR for entire report. ?Clinical Information LMP: 12/29/2022 Previous PAP test:2021, [facility] HPV positive ? Material Received ?? ThinPrep-Vaginal/Cervical ----- ------- Signed (signature on file) Andres Wood MD 01/22/23 1048 ? ----- ------- ? END OF REPORT ? us Sanju Quijano CNM LAB CYTOLOGY ORDERABLES F inal Result [facility] [address] [place] [address] [phone] from Last 3 Months or Most Recently Relevant to Health Maintenance Insurance [facility] MEDICAID STAND ADULT Care Teams Cashier Tube Room Relationship Specialty Start Date End Date María Elena Zuleta MD [address] [place] [phone] PCP - General Family Medicine 06/13/17 Seven Ly RN [address] [place] [phone] Chain TenderCoroner'S Juror 05/26/24
--- OUTSIDE RECORDS SUMMARY | 2024-07-16 12:47 | XMS_ITS | Encounter Summary ---
Author Organization [employer] Address [address] [facility] 7 [place] [address] Care Team Providers Care Audio Technician Name Role Phone María Elena Zuleta MD Primary Care Provider + Seven Ly RN Unavailable Reason for Visit * Reason Comments Med Refill Encounter Details Date Type Department Care Team ([facility] st Contact Info) Description 05/24/2023 Refill [facility] MEDICINE [address] [place], [place] [phone] María Elena Zuleta MD [address] [place], [place] [phone] Social History Tobacco Use Types Packs/Day Years [...] PM EDT Office Visit [facility] OPTOMETRY [address] [place] [address] Serena Daniel, OD [address] [place] [address] documented as of this encounter Visit Diagnoses Not on filedocumented in this encounter Care Teams Audio Technician Relationship Specialty Start Date End Date María Elena Zuleta MD [address] [place] [address] PCP - General Family Medicine 06/13/17 Seven Ly RN [address] [place] [phone] Fire PilotCherry Dipper 05/26/24 documented as of this encounter
--- OUTSIDE RECORDS SUMMARY | 2024-07-16 12:47 | XMS_ITS | Encounter Summary ---
Author Organization [employer] Address [address] [facility] 7t [place] [address] Care Team Providers Care Soap Drier Operator Name Role Phone María Elena Zuleta MD Primary Care Provider + Seven Ly RN Unavailable [phone] Encounter Details Date Type Department Care [...] t he electric, gas, oil or water [employer] threatened to shut off services in your [...] 2:30 PM EDT Office Visit [facility] OPTOMETRY [address] [place] [address] Serena Daniel, OD [address] [place] [phone] documented as of this encounter Procedures Procedure Name Priority Date/Time Associated Diagnosis Comments BACTERIAL VAGINOSIS PANEL Routine 06/18/2024 11:12 AM EST CHLAMYDIA/N. GONORRHOEAE RNA, TMA, UROGENITAL Routine 06/18/2024 11:12 AM EST documented in this encounter Results * Chlamydia/N. Gonorrhoeae RNA, TMA, Urogenitial (06/18/2024 11:12 AM EST) CT PCR NOT DETECTED Not Detect. [facility] Comment:A not detected test result [...] psychologicalconsequences. NG PCR NOT DETECTED Not Detect. [facility] Comment:A not detected test result [...] AM EST 06/18/2024 3:37 PM EST Narrative [facility] - 06/19/2024 1:58 PM EST Vaginal us Generic External Data Provider LAB MICROBIOLOGY - GENERAL ORDERABLES Final Result [facility] [address] [place] [phone] * Bacterial Vaginosis (06/18/2024 11:12 AM EST) TRICHOMONAS VAGINALIS DETECTION BY PCR NOT DETECTED Not Detect [facility] BACTERIAL VAGINOSIS DETECTION BY PCR NEGATIVE Negative [facility] Comment:The BV organism targ ets [...] DETECTION BY PCR NOT DETECTED Not Detect [facility] Lindsey glab krusei PCR NOT DETECTED Not Detect [facility] 06/18/2024 11:1 2 AM EST 06/18/2024 3:37 PM EST us Generic External Data Provider LAB MICROBIOLOGY - GENERAL ORDERABLES Final Result [facility] [address] [place] [phone] [phone] documented in this encounter Visit Diagnoses Not on filedocumented in this encounter Additional Health Concerns Assessment Noted Time PHQ-9 Depression Total Score: 6 11/26/ 24 9:34 AM EDT documented as of this encounter Care Teams Soap Drier Operator Relationship Specialty Start Date End Date María Elena Zuleta MD [address] [place] [address] PCP - General Family Medicine 06/13/17 Seven Ly RN [address] [place] [phone] Oil Truck DriverTaker Down 05/26/24 documented as of this encounter
--- OUTSIDE RECORDS SUMMARY | 2024-07-16 12:47 | XMS_ITS | Encounter Summary ---
Author Organization [employer] Address 75 [facility] [address] [place] [address] Care Team Providers Care Revenue Cycle Consultant Name Role Phone María Elena Zuleta MD Primary Care Provider + Seven Ly RN Unavailable [phone] Reason for Visit * Reason Onset Date Comments Care Management 07/02/2024 C3CM- f/u call Encounter Details Date Type Department Care Team ([facility] st Contact Info) Description 07/02/2024 Telephone [facility] MEDICINE [address] [place], [place] [phone] María Elena Zuleta MD [address] [place], [place] [phone] Care Management (C3CM- f/u call) Social History [...] provided on Walk-In Urgent Care located in [facility] of [facility]. Patient provided with after-hours line for [facility], , which offer night time triage service and option to transfer to lead solutions architect provider if needed. Patient verbalizes understanding, and able to repeat back to underwriter mortgage loan. A follow up call will be placed within 10 days, patient agrees with plan. documented in this encounter Plan of Treatment Upcoming Encounters Date Type Department Care Team ([facility] Contact Info) Description 07/27/2024 2:30 PM EDT Office Visit [facility] OPTOMETRY [address] [place], [place] [phone] TarSerena barfield, OD [address] [place], [place] [phone] documented as of this encounter Visit Diagnoses Not on filedocumented in this encounter Additional Health Concerns Assessment Noted Time PHQ-9 Depression Total Score: 6 11/27/19 24 9:34 AM EDT documented as of this encounter Care Teams Revenue Cycle Consultant Relationship Specialty Start Date End Date María Elena Zuleta MD [address] [place] [address] PCP - General Family Medicine 06/13/17 Seven Ly RN [address] [place] [address] Car LubricatorFuneral Attendant 05/26/24 documented as of this encounter
--- OUTSIDE RECORDS SUMMARY | 2024-07-16 12:47 | XMS_ITS | Encounter Summary ---
Author Organization [email or web address] Address 75 [facility] [place] [address] Care Team Providers Care Flame Cutting Supervisor Name Role Phone María Elena Zuleta MD Primary Care Provider + Seven Ly RN Unavailable [phone] Reason for Visit * Reason Onset Date Comments Triage 07/18/2022 Encounter Details Date Type Department Care Team (Late st Contact Info) Description 07/18/2022 Telephone [facility] MEDICINE [address] [place], [place] [phone] María Elena Zuleta MD [address] [place], [place] [phone] Triage Social History Tobacco Use Types Packs/Day [...] became very itchy, 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 Advised Pt tocome to [facility] today to be seen by [...] accepted this outcome Please contact pt at [phone] documented in this encounter Plan of Treatment Upcoming Encounters Date Type Department Care Team (Late st Contact Info) Description 07/27/2024 2:30 PM EDT Office Visit [facility] OPTOMETRY [address] [place] [address] Serena Daniel, OD [address] [place] [address] documented as of this encounter Visit Diagnoses Not on filedocumented in this encounter Care Teams Flame Cutting Supervisor Relationship Specialty Start Date End Date María Elena Zuleta MD [address] [place] [address] PCP - General Family Medicine 06/13/17 Seven Ly RN [address] [place] [address] Wardrobe MistressProgram Evaluator 05/26/24 documented as of this encounter
--- OUTSIDE RECORDS SUMMARY | 2024-07-16 12:47 | XMS_ITS | Encounter Summary ---
Author Organization [employer] Address 75 [facility] 7t [place] [address] Care Team Providers Care Ad Operations Specialist Name Role Phone María Elena Zuleta MD Primary Care Provider + Seven Ly RN Unavailable [phone] Reason for Referral * Imaging (Routine) - Closed Specialty Diagnoses / Procedures Referred By Contac t Referred To Contact Radiology Diagnoses Abnormal abdominal CT scan Procedures MR Abdomen w/ and w/o Contrast Emani Bird MD [address] [place] [address] Phone: tel: fax: [address] Phone: tel: fax: Referral ID Status Reason Start Date Expiration Date Visits Re quested Visits Authorized [id number] Closed 06/29/2024 06/29/2025 1 1 Encounter Details Date Type Department Care Team (Late st Contact Info) Description 06/29/2024 Orders Only [facility] MEDICINE 230 [place], [place] [phone] Emani Bird MD [address] [place], [place] [phone] Abnormal abdominal CT scan (Primary Dx) Social [...] PM EDT Office Visit C OPTOMETRY [address] [place] [address] Serena Daniel, OD [address] [place] [address] documented as of this encounter Procedures Procedure Name Priority Date/Time Associated Diagnosis Comments MR ABDOMEN W AND WO CONTRAST Routine 07/04/2024 10:21 AM EST Abnormal abdominal CT scan documented in this encounter Results * MR Abdomen w/ and w/o Contrast (07/04/2024 10:21 AM EST) Anatomical Region Laterality Modality Abdomen Magnetic Resonan ce 07/04/2024 10:2 1 AM EST Narrative 07/06/2024 8:28 AM EST ? [facility] ?[address] ?[place] [address] ? Magnetic Resonance Report ? Signed ? Patient: Elizabeth DarrylVilma ?MR#: [id number] ?? [id number] ? : 1995 ?Acct:[id number] ? Age/Sex: 28 / F ?ADM Date: 07/04/24 ? Loc: HO.MRI ? Attending Dr: Emani Bird MD ? Ordering Physician: Emani Bird ?? Date of Service: 07/04/24 ?? Procedure(s): MR abdomen wo/w con ?? Accession Number(s): [id number] ? cc: María Elena Zuleta MD; Emani [...] DD/ 1021 ? TD/TT: 07/04/24 1050 ? Architectural Sales Consultant: ? Procedure Note Donparaster, Image - 07/06/2024 [place] [address] Magnetic Resonance Report Signed Patient: Amber Mendez#: [id number] : 1995Acct:[id number] Age/Sex: 28 FADM Date: 07/04/24 Loc: HO.MRI Attending Dr: Emani Bird MD Ordering Physician: Emani Bird Date of Service: 07/04/24 Procedure(s): MR abdomen wo/w con Accession Number(s): [id number] cc: María Elena Zuleta MD; Emani Bird [...] by: Javier Navarrete MD 07/06/2024 08:25 AM [facility] Dictated By: Javier Navarrete MD Signed By: <Electronically signed by Javier Navarrete MD in OV> 07/06/24 0825 DD/ 1021 TD/TT: 07/04/24 1050 Architectural Sales Consultant: Emani Bird MD IM MRI PROCEDURES Final Resul t documented in this encounter Visit Diagnoses Diagnosis Abnormal abdominal CT scan- Primary Nonspecific (abnormal) findings on radiological and other examination of abdominal area, including retroperitoneum documented in this encounter Additional Health Concerns Assessment Noted Time PHQ-9 Depression Total Score: 6 11/27/19 24 9:34 AM EDT documented as of this encounter Care Teams Ad Operations Specialist Relationship Specialty Start Date End Date María Elena Zuleta MD [address] [place] [address] PCP - General Family Medicine 06/13/17 Seven Ly RN [address] [place] [phone] Battery CheckerAnimal Care Supervisor 05/26/24 documented as of this encounter
--- OUTSIDE RECORDS SUMMARY | 2024-07-16 12:47 | XMS_ITS | Encounter Summary ---
Author Organization [employer] Address 75 [facility] 7t [place] [address] Care Team Providers Care Threading Machine Tender Name Role Phone María Elena Zuleta MD Primary Care Provider + Seven Ly RN Unavailable [phone] Encounter Details Date Type Department Care Team ([facility] st Contact Info) Description 07/13/2024 Orders Only [facility] MEDICINE 230 [place], [place] [phone] Suresh Calderon MD 230 [place], [place] [phone] Social History Tobacco Use Types Packs/Day Years [...] Description 07/27/2024 2:30 PM EDT Office Visit [facility] OPTOMETRY 267 [place] [address] TarkaSerena, OD 267 [place] [address] documented as of this encounter Procedures Procedure Name Priority Date/Time Associated Diagnosis Comments CULTURE, URINE, ROUTINE Routine 07/13/2024 5:55 PM EDT documented in this encounter Results * Culture, Urine, Routine (07/13/2024 5:55 PM EDT) Urine Urine specimen obtained by clean catch procedure / Unknown 07/13/2024 5:55 PM EDT 07/14/2024 12:08 PM EDT Comment:UACC Narrative [facility] - 07/15/2024 11:01 AM EDT Urine Culture No growth. Specimen Source: Urine clean catch us Suresh Calderon MD LAB MICROBIOLOGY - GENERAL ORDER KRISTINA Final Result [facility] [address] [place] [phone] documented in this encounter Visit Diagnoses Not on filedocumented in this encounter Additional Health Concerns Assessment Noted Time PHQ-9 Depression Total Score: 6 11/27/19 24 9:34 AM EDT documented as of this encounter Care Teams Threading Machine Tender Relationship Specialty Start Date End Date María Elena Zuleta MD [address] [place] [address] PCP - General Family Medicine 06/13/17 Seven Ly RN [address] [place] [phone] Semiautomatic Taper OperatorElectric Meter Reader 05/26/24 documented as of this encounter
--- OUTSIDE RECORDS SUMMARY | 2024-07-16 12:47 | XMS_ITS | Encounter Summary ---
Author Organization [employer] Address 75 [facility] 7t [place] [address] Care Team Providers Care Fine Arts Instructor Name Role Phone María Elena Zuleta MD Primary Care Provider + Seven Ly RN Unavailable [phone] Encounter Details Date Type Department Care Team ([facility] st Contact Info) Description 07/02/2024 Orders Only [facility] External Provider, [facility] Social History Tobacco Use Types Packs/Day [...] Upcoming Encounters Date Type Department Care Team ([facility] st Contact Info) Description 07/27/2024 2:30 PM EDT Office Visit C OPTOMETRY [address] [place] [address] Serena Daniel, OD [address] [place] [address] documented as of this encounter Procedures Procedure Name Priority Date/Time Associated Diagnosis Comments US PELVIS TRANSVAGINAL Routine 07/02/2024 4:38 PM EST documented in this encounter Results * US Pelvis Transvaginal (07/02/2024 4:38 PM EST) Anatomical Region Laterality Modality Pelvis Ultrasound 07/02/2024 4:38 PM EST Narrative 07/03/2024 7:15 AM EST ? [facility] ?[address] ?[place] [address] ? Ultrasound Report ? Signed ? Patient: Elizabeth Andrews,Vilma ?MR#: [id number] ?? [id number] ? : 1995 ?Acct:[id number] ? Age/Sex: 28 / F ?ADM Date: 02/27/25 ? Loc: HO.US ? Attending Dr: Jose Raul Bustamante MD ? Ordering Physician: Jose Raul Bustamante MD ?? Date of Service: 07/02/24 ?? Procedure(s): US pelvic and transvaginal ?? Accession Number(s): [id number] ? cc: María Elena Zuleta MD; Jose [...] DD/ 1638 ? TD/TT: 07/02/24 1651 ? Worm Farmer: ? Procedure Note Juarez, Image - 07/03/[address] [address] Ultrasound Report Signed Patient: Amber Mendez#: [id number] : 1995Acct:[id number] Age/Sex: Date: 07/02/24 Loc: HO.US Attending Dr: Jose Raul Bustamante MD Ordering Physician: Jose Raul Bustamante MD Date of Service: 07/02/24 Procedure(s): US pelvic and transvaginal Accession Number(s): [id number] cc: María Elena Zuleta MD; Jose Raul [...] 07/03/24 0712 DD/ 1638 TD/TT: 07/02/24 1651 Worm Farmer: [facility] External Provider IMG US PROCEDURES Final Result documented in this encounter Visit Diagnoses Not on filedocumented in this encounter Additional Health Concerns Assessment Noted Time PHQ-9 Depression Total Score: 6 11/27/19 24 9:34 AM EDT documented as of this encounter Care Teams Fine Arts Instructor Relationship Specialty Start Date End Date María Elena Zuleta MD 230 [place] [address] PCP - General Family Medicine 06/13/17 Seven Ly RN [address] [place] [phone] Consulting Property ManagerTobacco Grader 05/26/24 documented as of this encounter
--- OUTSIDE RECORDS SUMMARY | 2024-07-16 12:47 | XMS_ITS | Encounter Summary ---
Author Organization [employer] Address 75 [facility] 7t [place] [address] Care Team Providers Care Resp Therapist Name Role Phone María Elena Zuleta MD Primary Care Provider + Seven Ly RN Unavailable [phone] Encounter Details Date Type Department Care Team ([facility] st Contact Info) Description 07/13/2024 6:00 PM EDT Office Visit [facility] [address] [place] [address] [phone] Suresh Calderon MD 230 [place], [place] [phone] Screening examination for sexually transmitted disease (Primary [...] Denies dysuria or hematuria. Recently went to [facility] ER due to ruptured ovarian cyst but pain has improved. Recently evaluated by DECAL APPLIER (Dr. Jose Raul Bustamante). Recently had appointments [...] - Culture, Urine, Routine Patient presents to [facility] due to ongoing malodorous vaginal discharge and [...] 07/27/2024 2:30 PM EDT Office Visit [facility] OPTOMETRY [address] [place] [address] Serena Daniel, OD [address] [place] [address] Scheduled Orders Name Type Priority Associated Diagnoses Orde r Schedule Culture, Urine, Routine Microbiology Routine Abdominal pressure Ordered: 07/13/2024 documented as of this encounter Procedures Procedure Name Priority Date/Time Associated Diagnosis Comments SYPHILIS SCREEN Routine 07/16/2024 10:23 AM EDT Screening examination for sexually transmitted disease HEPATITIS C AB W/REFL TO HCV RNA, QN, PCR Routine 07/16/2024 10:23 AM EDT Screening examination for sexually transmitted disease HIV 1/2 ANTIGEN/ANTIBODY, FOURTH GENERATION W/RFL Routine 07/16/2024 10:23 AM EDT Screening examination for sexually transmitted disease BACTERIAL VAGINOSIS PANEL Routine 07/13/2024 5:55 PM EDT Abdominal pressure CHLAMYDIA/N. GONORRHOEAE RNA, TMA, UROGENITAL Routine 07/13/2024 5:55 PM EDT Abdominal pressure POCT URINALYSIS DIPSTICK Routine 07/13/2024 5:54 PM EDT Abdominal pressure documented in this encounter Results * Syphilis Screen (07/16/2024 10:23 AM EDT) Syphilis Screen Nonreactive Nonreactive [facility] Blood 07/16/2024 10:2 3 AM EDT 07/16/2024 11:15 AM EDT us Suresh Calderon MD LAB BLOOD ORDERABLES Final Resul t [facility] [address] [place] [phone] * HIV-1/2 Antigen and Antibodies, Fourth Generation, with Reflexes (07/16/2024 10:23 AM EDT) HIV AB/AG Nonreactive Nonreactive [facility] Comment:HIV-1 p24 Ag and/or HIV-1/HIV-2 Ab not detected.A test result that is nonreactive does not exclude thepossibility of exposure to or infection with HIV-1 and/orHIV-2. Nonreactive results in this assay for individualswith prior exposure to HIV-1 and/or HIV-2 may be due toantigen and antibody levels that are below the limit ofdetection of this assay.The [employer] HIV Ag/Ab Combo assay result andsupplemental assay results should be interpreted inconjunction with the patient's clinical presentation,history and other laboratory results. If the results areinconsistent with clinical evidence, additional testing issuggested to confirm the result. Blood Venous blood specimen / Unknown 07/16/2024 10:23 AM EDT 07/16/2024 11:15 AM EDT us Suresh Calderon MD LAB BLOOD ORDERABLES Final Resul t Performing Organization Address [facility] [[email or web address]] Co de Phone Number [facility] [address] [place] [phone] * Hepatitis C Antibody with Reflex to HCV, RNA, Quantitative, Real-Time PCR (07/16/2024 10:23 AM EDT) [facility] Hepatitis C Antibody Nonreactive Nonreactive [facility] Comment:Antibodies to HCV no t detected; does not exclude early acuteHCV infection. Blood Venous blood specimen / Unknown 07/16/2024 10:23 AM EDT 07/16/2024 11:15 AM EDT us Suresh Calderon MD LAB BLOOD ORDERABLES Final Resul t Performing Organization Address [facility] [[email or web address]] Co de Phone Number [facility] [address] [place] [phone] * Chlamydia/N. Gonorrhoeae RNA, TMA, Urogenitial (07/13/2024 5:55 PM EDT) Pathologist [facility] CT PCR NOT DETECTED Not Detect. [facility] Comment:A not detected test result [...] psychologicalconsequences. NG PCR NOT DETECTED Not Detect. [facility] Comment:A not detected test result [...] PM EDT 07/14/2024 12:09 PM EDT Narrative [facility] - 07/14/2024 2:39 PM EDT Vaginal us Suresh Calderon MD LAB MICROBIOLOGY - GENERAL ORDER KRISTINA Final Result [facility] [address] [place] [phone] * Bacterial Vaginosis (07/13/2024 5:55 PM EDT) TRICHOMONAS VAGINALIS DETECTION BY PCR NOT DETECTED Not Detect [facility] BACTERIAL VAGINOSIS DETECTION BY PCR NEGATIVE Negative [facility] Comment:The BV organism targ ets [...] DETECTION BY PCR NOT DETECTED Not Detect [facility] Lindsey glab krusei PCR NOT DETECTED Not Detect [facility] Swab Vaginal structure / Unknown 07/13/2024 5:55 PM EDT 07/14/2024 12:09 PM EDT us Suresh Calderon MD LAB MICROBIOLOGY - GENERAL ORDER KRISTINA Final Result [facility] [address] [place] [phone] * POCT urinalysis dipstick manually resulted [...] documented as of this encounter Care Teams Resp Therapist Relationship Specialty Start Date End Date María Elena Zuleta MD [address] [place] [address] PCP - General Family Medicine 06/13/17 Seven Ly RN [address] [place], [place] [address]Deb[place] [address] FermentologistPlayer Piano Technician 05/26/24 documented as of this encounter
--- OUTSIDE RECORDS SUMMARY | 2024-07-16 12:47 | XMS_ITS | Encounter Summary ---
Author Organization [employer] Address 75 [facility] 7 [place] [address] Care Team Providers Care Wireless Construction Manager Name Role Phone María Elena Zuleta MD Primary Care Provider + Seven Ly RN Unavailable [phone] Reason for Visit * Reason Onset Date Comments Care Management 06/19/2024 C3CM- f/u call Encounter Details Date Type Department Care Team ([facility] st Contact Info) Description 06/19/2024 Telephone [facility] MEDICINE 230 [place], [place] [phone] Seven Ly, RN [address] [place], [place] [phone] Care Management (C3CM- f/u call) Social History [...] emergency room visits.Patient confirms attending visit with [facility] CONSTRUCTION TECHNICIAN yesterday. She states the visit went well. Per patient, symptoms have resolved for the most part but she states she is still experiencing some white vaginal discharge. Patient states she was tested by CONSTRUCTION TECHNICIAN and will be contacted with results/plan of care once available. Per patient, scheduled for pelvic US and f/u with CONSTRUCTION TECHNICIAN on 07/02/24. She states she hastransportation and [...] provided on Walk-In Urgent Care located in [facility] of [facility]. Patient provided with after-hours line for [facility], , which offer night time triage service and option to transfer to clinical program consultant provider if needed. Patient verbalizes understanding, and able to repeat back to tag writer. A follow up call will be placed within 10 days, patientagrees with plan. documented in this encounter Plan of Treatment Upcoming Encounters Date Type Department Care Team ([facility] st Contact Info) Description 07/27/2024 2:30 PM EDT Office Visit [facility] OPTOMETRY [address] [place], [place] [phone] Serena Daniel, OD [address] [place] [address] documented as of this encounter Visit Diagnoses Not on filedocumented in this encounter Additional Health Concerns Assessment Noted Time PHQ-9 Depression Total Score: 6 11/27/19 24 9:34 AM EDT documented as of this encounter Care Teams Wireless Construction Manager Relationship Specialty Start Date End Date María Elena Zuleta MD 230 [place], [place] [phone] PCP - General Family Medicine 06/13/17 Seven Ly, JACKIE [address] [place] [address] Healthcare LiaisonDesulphuring Operator 05/26/24 documented as of this encounter
--- OUTSIDE RECORDS SUMMARY | 2024-07-16 12:47 | XMS_ITS | Encounter Summary ---
Author Organization [employer] Address 75 [facility] [place] [address] Care Team Providers Care Valve Fitter Name Role Phone María Elena Zuleta MD Primary Care Provider + Seven Ly RN Unavailable [phone] Reason for Visit * Reason Comments Care Coordination Appt reminder Encounter Details Date Type Department Care Team (Latest Contact Info) Description 07/14/[address] [facility] MEDICINE [address] [place] [address] María Elena Zuleta MD 230 [place] [address] Care Coordination (Appt reminder) Social History Tobacco [...] Visit [facility] OPTOMETRY [address] [place] [address] Tarka, Serena, OD [address] [place] [address] documented as of this encounter Visit Diagnoses Not on filedocumented in this encounter Additional Health Concerns Assessment Noted Time PHQ-9 Depression Total Score: 6 11/27/19 24 9:34 AM EDT documented as of this encounter Care Teams Valve Fitter Relationship Specialty Start Date End Date María Elena Zuleta MD [address] [place] [address] [place] [address] PCP - General Family Medicine 06/13/17 Seven Ly RN [address] [place] [phone] Pet AmbassadorWool Supplier 05/26/24 documented as of this encounter
== END 2024-07-16 10:19 | disposition home or self-care (01) ==
LOC: HO.HHCL 10:18
PROVIDERS: Visit Provider Family Medicine
DX: E11.69 Type 2 diabetes mellitus with other specified complication (principal); E66.9 Obesity, unspecified; E78.5 Hyperlipidemia, unspecified; R80.9 Proteinuria, unspecified; E55.9 Vitamin D deficiency, unspecified
CPT/HCPCS: 36415; 86780; 86803; 87389

== ENCOUNTER 2024-09-11 13:13 | Outpatient (REF) | payer MEDICAID, SELFPAY ==
[2024-09-11 15:41] LABS: Bacterial Vaginosis PCR NEGATIVE (Negative); Candida Group PCR DETECTED (Not Detect); Candida glab krusei PCR NOT DETECTED (Not Detect); Trichomonas vaginalis PCR NOT DETECTED (Not Detect)
[2024-09-12 14:28] LABS: CT PCR NOT DETECTED (Not Detect.); NG PCR NOT DETECTED (Not Detect.)
== END 2024-09-11 13:14 | disposition home or self-care (01) ==
LOC: HO.HHCLNP 13:13
PROVIDERS: Visit Provider Family Medicine
DX: N89.8 Other specified noninflammatory disorders of vagina (principal)
CPT/HCPCS: 81515; 87491; 87591

== ENCOUNTER 2024-10-06 17:02 | Outpatient (REF) | payer MEDICAID, SELFPAY ==
--- OUTSIDE RECORDS SUMMARY | 2024-10-06 17:19 | XMS_ITS | Encounter Summary ---
Author Organization [employer] Address [address] [facility] [address] [place] [address] Care Team Providers Care Channel Sales Director Name Role Phone María Elena Zuleta MD Primary Care Provider + Seven Ly RN Unavailable [phone] Reason for Referral * Imaging (Routine) - Closed Specialty Diagnoses / Procedures Referred By Contac t Referred To Contact Radiology Diagnoses Abnormal abdominal CT scan Procedures MR Abdomen w/ and w/o Contrast Emani Bird MD [address] [place] [phone] Phone: tel: fax: [address] Phone: tel: fax: Referral ID Status Reason Start Date Expiration Date Visits Re quested Visits Authorized [id number] Closed 06/29/2024 06/29/2025 1 1 Encounter Details Date Type Department Care Team (Late st Contact Info) Description 06/29/2024 Orders Only [facility] MEDICINE [address] [place], [place] [phone] Emani Bird MD [address] [place] [phone] scan (Primary Dx) Social [...] Care Team (Late st Contact Info) Description 11/19/2024 10:30 AM EDT Office Visit [facility] MEDICINE [address] [place] [address] María Elena Zuleta MD [address] [place] [address] documented as of this encounter Procedures Procedure Name Priority Date/Time Associated Diagnosis Comments MR ABDOMEN W AND WO CONTRAST Routine 07/04/2024 10:21 AM EST Abnormal abdominal CT scan documented in this encounter Results * MR Abdomen w/ and w/o Contrast (07/04/2024 10:21 AM EST) Anatomical Region Laterality Modality Abdomen Magnetic Resonan ce 07/04/2024 10:2 1 AM EST Narrative 07/06/2024 8:28 AM EST ? [facility] ?[address] ?[place] [address] ? Magnetic Resonance Report ? Signed ? Patient: Elizabeth DarrylVilma ?MR#: [id number] ?? [id number] ? : 1995 ?Acct:[id number] ? Age/Sex: 28 / F ?ADM Date: 07/04/24 ? Loc: HO.MRI ? Attending Dr: Emani Bird MD ? Ordering Physician: Emani Bird ?? Date of Service: 07/04/24 ?? Procedure(s): MR abdomen wo/w con ?? Accession Number(s): [id number] ? cc: María Elena Zuleta MD; Emani [...] DD/ 1021 ? TD/TT: 07/04/24 1050 ? Hospice Clinical Marketer: ? Procedure Note Donparaster, Image - 07/06/2024 [place] [address] Magnetic Resonance Report Signed Patient: Amber Mendez#: [id number] : 1995Acct:[id number] Age/Sex: 28 FADM Date: 07/04/24 Loc: HO.MRI Attending Dr: Emani Bird MD Ordering Physician: Emani Bird Date of Service: 07/04/24 Procedure(s): MR abdomen wo/w con Accession Number(s): [id number] cc: María Elena Zuleta MD; Emani Bird [...] by: Javier Navarrete MD 07/06/2024 08:25 AM [facility] Dictated By: Javier Navarrete MD Signed By: <Electronically signed by Javier Navarrete MD in OV> 07/06/24 0825 DD/ 1021 TD/TT: 07/04/24 1050 Hospice Clinical Marketer: Emani Bird MD IM MRI PROCEDURES Final Resul t documented in this encounter Visit Diagnoses Diagnosis Abnormal abdominal CT scan- Primary Nonspecific (abnormal) findings on radiological and other examination of abdominal area, including retroperitoneum documented in this encounter Additional Health Concerns Assessment Noted Time PHQ-9 Depression Total Score: 6 11/27/19 24 9:34 AM EDT documented as of this encounter Care Teams Channel Sales Director Relationship Specialty Start Date End Date María Elena Zuleta MD [address] [place] [phone] PCP - General Family Medicine 06/13/17 Seven Ly RN [address] [place] [phone] Senior Java [id number] DeveloperConservation Engineer 05/26/24 08/24/24 documented as of this encounter
[2024-10-07 13:16] LABS: Bacterial Vaginosis PCR NEGATIVE (Negative); Candida Group PCR NOT DETECTED (Not Detect); Candida glab krusei PCR NOT DETECTED (Not Detect); Trichomonas vaginalis PCR NOT DETECTED (Not Detect)
== END 2024-10-06 17:03 | disposition home or self-care (01) ==
LOC: HO.HHCLNP 17:02
PROVIDERS: Visit Provider Internal Medicine
DX: R10.2 Pelvic and perineal pain (principal)
CPT/HCPCS: 81515; 87086

== ENCOUNTER 2024-11-25 16:50 | Outpatient (REF) | payer MEDICAID, SELFPAY ==
--- OUTSIDE RECORDS SUMMARY | 2024-11-25 16:52 | XMS_ITS | Clinical Summary ---
Author Organization [facility] Address [address] [place] [phone] Phone Care Team Providers Care Pipe Installer Name Role Phone Pcp, Unknown Primary Care Provider Unavailabl e Allergies No known active allergies Social History Tobacco Use Types Packs/Day Years Used Date Smoking Tobacco: Never Assessed Education Answer Date Recorded Are you interested in more education? Not on doroteo e 09/01/2022 Are you concerned about learning? Not on file 09/01/2022 No 09/01/2022 No 09/01/2022 Digital Access Answer Date Recorded No 10/02/2022 No 10/02/2022 Reliable internet access at home? Not on file 10/02/2022 Device with a working camera? Not on file Comments Unknown Sex and Gender Information Value Date Recorded Sex Assigned at Not on file Legal Sex Female 9:45 AM EST Gender Identity Not on file Sexual Orientation Not on file Last Filed Vital Signs Vital Sign Reading Time Taken Comments Blood Pressure 119/74 04/03/2022 10:53 AM EST Pulse 94 04/03/2022 10:53 AM EST Temperature 37.2 C (99 F) 04/03/2022 10:53 AM EST Respiratory Rate 20 04/03/2022 10:53 AM EST Oxygen Saturation 99% 04/03/2022 10:53 AM EST Inhaled Oxygen Concentration - - Weight 59 kg (130 lb) 04/03/2022 10:53 AM EST Height 157.5 cm (5' 2 ) 04/03/2022 10:53 AM EST Body Mass Index 23.78 04/03/2022 10:53 AM EST Plan of Treatment Health Maintenance Due Date Last Done Comments Adult Td,Tdap Booster 1995 DEPRESSION SCREENING 2007 SMOKING Hx and SMOKELESS TOB ACCO SCREENING 08/10/2008 HEPATITIS C SCREENING 08/10/2013 HIV ONE-TIME SCREENING (18-6 5 YEARS) 08/10/2013 PAP SMEAR 08/10/2016 COVID-19 VACCINE (2023-2 5 season) 2024 HEPATITIS A VACCINES Aged Out No long er eligible based on patient's age to complete this topic HIB VACCINES Aged Out No longer eligi ble based on patient's age to complete this topic MENINGOCOCCAL VACCINES (ACWY) Aged Out No longer eligible based on patient's age to complete this topic MENINGOCOCCAL VACCINES (B) Aged Out N o longer eligible based on patient's age to complete this topic PNEUMOCOCCAL VACCINES (0-49 years) Aged Out No longer eligible based on patient's age to complete this topic Medical Devices Not on file Insurance C3 ACO C3 ACO C3 ACO C3 ACO C3 ACO C3 ACO Care Teams Pipe Installer Relationship Specialty Start Date End Date Pcp, Unknown PCP - General 04/03/22 Additional Source Comments The information contained in this document represents components of the legal health record. It is not the complete legal health record.[facility]
== END 2024-11-25 16:51 | disposition home or self-care (01) ==
LOC: HO.HHCLNP 16:50
PROVIDERS: Visit Provider Student in an Organized Health Care Education/Training Program
DX: N76.6 Ulceration of vulva (principal)
CPT/HCPCS: 36415; 87255

== ENCOUNTER 2025-03-12 16:16 | Outpatient (REF) | payer MEDICAID, SELFPAY ==
--- OUTSIDE RECORDS SUMMARY | 2025-03-09 11:15 | XMS_ITS | Encounter Summary ---
Author Organization [employer] Address [address] [place] [address] [address] [place] [address] Care Team Providers Care Glass Cutting Machine Operator Name Role Phone María Elena Zuleta MD Primary Care Provider + Reason for Referral * Consultation (Routine) - Authorized Specialty Diagnoses / Procedures Referred By Contac t Referred To Contact Midwifery Diagnoses Counseling for initiation of control method María Elena Zuleta MD [address] [place] [phone] Phone: tel: fax: Esmer Ellis CNM [address] [place] [address] Phone: tel: fax: Referral ID Status Reason Start Date Expiration Date Visits Requested Visits Authorized [id number] Authorized Consult and Treat 03/10/2025 03/10/2026 1 1 Reason for Visit * Reason Comments Follow-up Encounter Details Date Type Department Care Team (Late st Contact Info) Description 03/09/2025 11:15 AM EST Office Visit [facility] MEDICINE [address] [place] [address] [phone] María Elena Zuleta MD [address] [place] [address] [phone] Slow transit constipation (Primary Dx); Counseling for initiation of control method; Pancreatic cyst; Vulvar lesion Social History Tobacco Use Types Packs/Day Years Used Date Smoking Tobacco: Never Passive Smoke Exposure: Never Smokeless Tobacco: Never Tobacco Cessation:Counseling Given: Not Answered Alcohol Use Standard Drinks/Week Comments Not Currently 0 (1 standard drink = 0.6 oz pur e alcohol) Depression Answer Date Recorded Patient Health Questionnaire-9 Score 0 03/09/2025 Patient Health Questionnaire-9 Score 0 03/09/2025 Last PHQ-9: Questionnaire Data Not on file 1 05/09/2024 Housing Stability Answer Date Recorded What is [...] Date Recorded Patient Health Questionnaire-2 Score 0 03/09/2025 Internet Access Answer Date Recorded Internet Access [...] Sign Reading Time Taken Comments Blood Pressure 100/72 03/09/2025 11:39 AM EST Pulse 78 03/09/2025 11:39 AM EST Temperature 36.8 C (98.2 F) 03/09/2025 11:39 AM EST Respiratory Rate 18 03/09/2025 11:39 AM EST Oxygen Saturation - - Inhaled Oxygen Concentration - - Weight 60.9 kg (134 lb 3.2 oz) 03/09/2025 11:39 AM EST Height 157.5 cm (5' 2 ) 03/09/2025 11:39 AM EST Body Mass Index 24.55 03/09/2025 11:39 AM EST documented in this encounter Functional Status * Over the past 2 weeks, how often have you been bothered by any of the following problems? Question Answer Date of Assessment Author Patient Health Questionnaire-2 Score 0 03/09/2025 11:40 AM EST Fabi Locke MA * Little interest or pleasure in doing things Answer Date of Assessment Author Not at all 03/09/2025 11:40 AM EST Fabi Zapata MA * Feeling down, depressed, or hopeless Answer Date of Assessment Author Not at all 03/09/2025 11:40 AM Fabi Macias MA * Trouble falling or staying asleep, or sleeping too much Answer Date of Assessment Author Not at all 03/09/2025 11:40 AM Fabi Macias MA * Feeling tired or having little energy Answer Date of Assessment Author Not at all 03/09/2025 11:40 AM Fabi Macias MA * Poor appetite or overeating Answer Date of Assessment Author Not at all 03/09/2025 11:40 AM Fabi Macias MA * Feeling bad about yourself - or that you are a failure or have let yourself or your family down Answer Date of Assessment Author Not at all 03/09/2025 11:40 AM Fabi Macias MA * Trouble concentrating on things, such as reading the newspaper or watching television Answer Date of Assessment Author Not at all 03/09/2025 11:40 AM Fabi Macias MA * Moving or speaking so slowly that other people could have noticed? Or the opposite - being so fidgety or restless that you have been moving around a lot more than usual. Answer Date of Assessment Author Not at all 03/09/2025 11:40 AM Fabi Macias MA * Thoughts that you would be better off or hurting yourself in some way Answer Date of Assessment Author Not at all 03/09/2025 11:40 AM Fabi Macias MA * Patient Health Questionnaire-9 Score Answer Date of Assessment Author 0 03/09/2025 11:40 AM Fabi Macias MA * Over the last 2 weeks, how often have you been bothered by any of the following problems? Question Answer Date of Assessment Author Feeling nervous, anxious, or on edge 0 03/09/2025 11:40 AM Fabi Wylie MA Not being able to stop or control worrying 0 03/09/2025 11:40 AM Fabi Wylie MA Worrying too much about different things 0 03/09/2025 11:40 AM Fabi Wylie MA Trouble relaxing 0 03/09/2025 11:40 AM Fabi Wylie MA Being so restless that it is hard to sit still 0 03/09/2025 11:40 AM Fabi Wylie MA Becoming easily annoyed or irritable 0 03/09/2025 11:40 AM Fabi Wylie MA Feeling afraid as if something awful might happen 0 03/09/2025 11:40 AM Fabi Rhodes MA NAHEED-7 Total Score 0 03/09/2025 11:40 AM Fabi Wylie MA documented as of this encounter Progress Notes * María Elena Zuleta MD - 03/09/2025 11:15 AM EST SUBJECTIVE: Vilma Andrews is a 29 y.o. year old female who presents for follow up BC. Denies recent illness, injury, or hospitalization. Patient is here with her 8-year-old son. Perineal Skin Irritation Described intermittent irritation and burning sensation of the perineal area/hemorrhoids. She's outof hem. Cream. LMP 03/02. She is not sexually active at this time and for the past 1 or 2 months. She is not usingbirth control, she usually uses condom. MRI of the abdomen earlier this year has shown a pancreatic and an ovarian cyst. She was seen by [facility] and will be followed up with a yearly MRI. 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 Problem List[1] Family History[2] Review of Systems Constitutional: Negative for chills, [...] for polydipsia and polyuria. Genitourinary: Positive for genital sores and vaginal pain. Negative for dysuria, frequency, pelvicpain and vaginal discharge. Musculoskeletal: Negative for back pain and neck pain. Skin: Negative for rash. Allergic/Immunologic: Negative for environmental allergies. Neurological: Negative for dizziness, seizures, weakness, light-headedness and headaches. Hematological: Negative for adenopathy. Psychiatric/Behavioral: Negative for agitation, behavioral problems, self-injury and suicidal ideas. OBJECTIVE: Vitals: 03/09/25 1139 BP: 100/72 Pulse: 78 Resp: 18 Temp: 98.2 ??F (36.8 ??C) Physical Exam HENT: Right Ear: Tympanic membrane and ear canal normal. Left Ear: Tympanic membrane and ear canal normal. Mouth/Throat: Mouth: Mucous membranes are moist. Pharynx: No oropharyngeal exudate or posterior oropharyngeal erythema. Eyes: Pupils: Pupils are equal, round, and reactive to light. Cardiovascular: Rate and Rhythm: Regular rhythm. Pulses: Normal pulses. Heart sounds: Normal heart sounds. No murmur heard. Pulmonary: Breath sounds: Normal breath sounds. Abdominal: General: Bowel sounds are normal. Palpations: Abdomen is soft. Tenderness: There is no abdominal tenderness. Genitourinary: Comments: Declined pelvic exam for examination of vulvar/genital lesion. Musculoskeletal: General: Normal range of motion. Cervical back: Neck supple. Skin: General: Skin is warm. Neurological: General: No focal deficit present. Mental Status: She is alert and oriented to person, place, and time. Psychiatric: Mood and Affect: Mood normal. Behavior: Behavior normal. Problem List Items Addressed This Visit Slow transit constipation - Primary Advise increase water intake. Use docusate or senna coat as needed constipation Use Preparation H rectal cream as needed hemorrhoidal pain or bleeding Relevant Medications fluconazole (Diflucan) 150 MG tablet senna-docusate (Senokot S) 8.6-50 MG tablet phenylephrine-shark liver oil-mineral oil-petrolatum (Preparation H) 0.25-3-14-71.9 % rectal ointment Counseling for initiation of control method We discussed about importance of STI prevention and unwanted pregnancies. She will continue using condoms as needed especially with new partners. We had discussed about emergency contraception and she is aware of both Plan B and Heather. She is aware that she can also request emergency IUD. We discussed hormonal and nonhormonal options for contraception, since she has tried Depo-Provera and hormonal patches in the past, she would like to be referred for IUD placement. Relevant Orders Referral to Gynecology (Esmer) Pancreatic cyst Seen by [facility], thought not to be malignant fissures. 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 Schedule for pelvic exam within 2 to 3 days This note was drafted using Ambient (AI) technology. The patient/patient's guardian has been informed and has consented to the use of this technology: Yes Follow Up: Medications Ordered Prior to Encounter[3] [1] Patient Active Problem List Diagnosis Slow transit constipation Risk for sexually transmitted disease Counseling for initiation of control method Encounter for preventive health examination Encounter for prescription of emergency contraception Non-toxic uninodular goiter Metrorrhagia Tinea corporis H. pylori infection Visit for preventive health examination Pancreatic cyst Folliculitis Vulvar lesion [2] No family history on file. [3] Current Outpatient Medications on File Prior to Visit Medication Sig Dispense Refill fluconazole (Diflucan) 150 MG tablet Take 1 tablet by mouth Once per day. ibuprofen 800 MG tablet Take 1 tablet by mouth every 8 (eight) hours if needed for pain. [DISCONTINUED] senna-docusate (Senokot S) 8.6-50 MG tablet Take 1 tablet by mouth Once per day. 30 tablet 11 No current facility-administered medications on file prior to visit. documented in this encounter Miscellaneous Notes * Assessment & Plan Note - María Elena Zuleta MD - 03/10/2025 3:22 PM EST Associated Problem(s): Counseling for initiation of control method We discussed about importance of STI prevention and unwanted pregnancies. She will continue using condoms as needed especially with new partners. We had discussed about emergency contraception and she is aware of both Plan B and Heather. She is aware that she can also request emergency IUD. We discussed hormonal and nonhormonal options for contraception, since she has tried Depo-Provera and hormonal patches in the past, she would like to be referred for IUD placement. 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 Schedule for pelvic exam within 2 to 3 days * Assessment & Plan Note - María Elena Zuleta MD - 03/10/2025 3:19 PM EST Associated Problem(s): Pancreatic cyst Seen by [facility], thought not to be malignant fissures. Follow-up with GI once per year * Assessment & Plan Note - María Elena Zuleta MD - 03/10/2025 3:19 PM EST Associated Problem(s): Slow transit constipation Advise increase water intake. Use docusate or senna coat as needed constipation Use Preparation H rectal cream as needed hemorrhoidal pain or bleeding documented in this encounter Plan of Treatment Scheduled Referrals Name Type Priority Associated Diagnoses Order Schedule Referral to Gynecology (Esmer) Outpatient Referral Routine Counseling for initiation of control method Expected: 03/10/2025 (Approximate), Expires: 03/10/2026 documented as of this encounter Visit Diagnoses Diagnosis Slow transit constipation- Primary Counseling for initiation of control method Pancreatic cyst Cyst and pseudocyst of pancreas Vulvar lesion Other specified noninflammatory disorder of vulva and perineum documented in this encounter Additional Health Concerns Assessment Noted Time PHQ-9 Depression Total Score: 0 03/09/20 25 11:40 AM EST documented as of this encounter Care Teams Glass Cutting Machine Operator Relationship Specialty Start Date End Date María Elena Zuleta MD [address] [place] [phone] PCP - General Family Medicine 06/13/17 documented as of this encounter
--- OUTSIDE RECORDS SUMMARY | 2025-03-12 12:00 | XMS_ITS | Encounter Summary ---
Author Organization [employer] Address 75 [facility] 7t [place] [address] Care Team Providers Care Machine Etcher Name Role Phone María Elena Zuleta MD Primary Care Provider + Encounter Details Date Type Department Care Team ([facility] st Contact Info) Description 03/12/2025 12:00 PM EST Office Visit [facility] [address] [place] [address] [phone] María Elena Zuleta MD [address] [place], [place] [phone] Skin tag of female perineum (Primary Dx); Pelvic and perineal pain Social History Tobacco Use Types Packs/Day Years Used Date Smoking Tobacco: Never Passive Smoke Exposure: Never Smokeless Tobacco: Never Alcohol Use Standard Drinks/Week Comments Yes 0 (1 standard drink = 0.6 oz pur e alcohol) socially Depression Answer Date Recorded Patient Health Questionnaire-9 [...] Sign Reading Time Taken Comments Blood Pressure 98/58 03/12/2025 11:54 AM EST Pulse 75 03/12/2025 11:54 AM EST Temperature 36.3 C (97.4 F) 03/12/2025 11:54 AM EST Respiratory Rate 20 03/12/2025 11:54 AM EST Oxygen Saturation 97% 03/12/2025 11:54 AM EST Inhaled Oxygen Concentration - - Weight 60.5 kg (133 lb 6.4 oz) 03/12/2025 11:54 AM EST Height 157.5 cm (5' 2 ) 03/12/2025 11:54 AM EST Body Mass Index 24.4 03/12/2025 11:54 AM EST documented in this encounter Progress Notes * María Elena Zuleta MD - 03/12/2025 12:00 PM EST Images from the original note were not included. SUBJECTIVE: Vilma Andrews is a 29 y.o. year old female who presents for sick visit/perineal lesions. Denies recent illness, injury, or hospitalization. Acute Concerns: Pt reports intermittent discomfort and sensation of a small lump in the perineal area, localized tothe site of a previous episiotomy site/scar. Symptoms are sometimes triggered or worsened during sexual intercourse. She denies numbness or paresthesia on the area or the leg. No vaginal discharge but does report dysuria x 5 days, she has been treated for BV in the past. 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 Problem List[1] Family History[2] Review of Systems Constitutional: Negative for chills, fatigue and fever. HENT: Negative for congestion, ear pain, nosebleeds, rhinorrhea, sinus pressure, sore throat and trouble swallowing. Eyes: Negative for pain and discharge. Respiratory: Negative for cough, chest tightness and shortness of breath. Cardiovascular: Negative for chest pain, palpitations and leg swelling. Gastrointestinal: Negative for abdominal pain, blood in stool, constipation, diarrhea and nausea. Endocrine: Negative for polydipsia and polyuria. Genitourinary: Positive for dysuria and vaginal pain. Negative for frequency, genital sores, pelvicpain and vaginal discharge. Musculoskeletal: Negative for back pain and neck pain. Skin: Negative for rash. Allergic/Immunologic: Negative for environmental allergies. Neurological: Negative for dizziness, seizures, weakness, light-headedness and headaches. Hematological: Negative for adenopathy. Psychiatric/Behavioral: Negative for agitation, behavioral problems, self-injury and suicidal ideas. OBJECTIVE: Vitals: 03/12/25 1154 BP: 98/58 Pulse: 75 Resp: 20 Temp: 97.4 ??F (36.3 ??C) SpO2: 97% Physical Exam Exam conducted with a early childhood educator aide present (Barbi Ferrer MA). HENT: Right Ear: Tympanic membrane and ear [...] Tenderness: There is no abdominal tenderness. Genitourinary: Labia: Right: Lesion present. No rash or tenderness. Left: Lesion present. No rash or tenderness. Comments: Small, NT, hypertrophied lesion on perineal/labial fold Musculoskeletal: General: Normal range of motion. Cervical back: Neck supple. Skin: General: Skin is warm. Neurological: General: No focal deficit present. Mental Status: She is alert and oriented to person, place, and time. Psychiatric: Mood and Affect: Mood normal. Behavior: Behavior normal. Problem List Items Addressed This Visit Pelvic and perineal pain - She has a small skin tag on episiotomy area, which is probably the culprit of patient's symptoms.Possible inflammation and irritation exacerbated by sexual activity - Apply Lotrisone cream nightly t x 2 weeks, can use Desitin ointment as needed irritation. - BV swab to follow Relevant Orders POCT Urinalysis (Completed) Bacterial Vaginosis Skin tag of female perineum - Primary This note was drafted using Ambient (AI) [...] Visit for preventive health examination Pancreatic cyst Pelvic and perineal pain Folliculitis Skin tag of female perineum [2] No family history on file. [3] Current Outpatient Medications on File Prior to Visit Medication Sig Dispense Refill fluconazole (Diflucan) 150 MG tablet Take 1 tablet by mouth Once per day. hydrocortisone (Anusol-HC) 2.5 % rectal cream Insert into the rectum 2 times daily for 14 days. 28 g 2 ibuprofen 800 MG tablet Take 1 tablet by mouth every 8 (eight) hours if needed for pain. phenylephrine-shark liver oil-mineral oil-petrolatum (Preparation H) 0.25-3-14-71.9 % rectal ointment Insert into the rectum if needed in the morning and at bedtime for hemorrhoids for up to 10 days.30 g 2 senna-docusate (Senokot S) 8.6-50 MG tablet Take 1 tablet by mouth Once per day. 30 tablet 11 [DISCONTINUED] senna-docusate (Senokot S) 8.6-50 MG tablet Take 1 tablet by mouth Once per day. 30 tablet 11 No current facility-administered medications on file prior to visit. documented in this encounter Miscellaneous Notes * Assessment & Plan Note - María Elena Zuleta MD - 03/12/2025 3:46 PM EST Associated Problem(s): Pelvic and perineal pain - She has a small skin tag on episiotomy area, which is probably the culprit of patient's symptoms.Possible inflammation and irritation exacerbated by sexual activity - Apply Lotrisone cream nightly t x 2 weeks, can use Desitin ointment as needed irritation. - BV swab to follow documented in this encounter Plan of Treatment Scheduled Orders Name Type Priority Associated Diagnoses Orde r Schedule Bacterial Vaginosis Microbiology Routine Pelvic and perineal pain Expected: 03/12/2025 (Approximate), Expires: 03/12/2026 documented as of this encounter Procedures Procedure Name Priority Date/Time Associated Diagnosis Comments POCT URINALYSIS DIPSTICK Routine 03/12/2025 12:19 PM EST Pelvic and perineal pain documented in this encounter Results * POCT Urinalysis (03/12/2025 12:19 PM EST) Color, UA Yellow Clarity, UA Clear Glucose, UA Negative Bilirubin, UA Negative Ketones, UA Negative Spec Grav, UA 1.025 Blood, UA Negative Negative, None Detected pH, UA 6.5 Protein, UA Negative Urobilinogen, UA 0.2 Leukocytes, UA Negative Negative, Rare, Trace Nitrite, UA Negative Negative, None Detected Appearance, UA clear QC Media Lot # [id number] Lot# Expiration Date Urine (Urine, Random) 03/12/2025 12:19 PM EST María Elena Zuleta MD POINT OF CARE TEST ENTER /EDIT ORDERABLES Final Result documented in this encounter Visit Diagnoses Diagnosis Skin tag of female perineum- Primary Pelvic and perineal pain documented in this encounter Additional Health Concerns Assessment Noted Time PHQ-9 Depression Total Score: 0 03/09/20 25 11:40 AM EST documented as of this encounter Care Teams Machine Etcher Relationship Specialty Start Date End Date María Elena Zuleta MD [address] [place] [phone] PCP - General Family Medicine 06/13/17 documented as of this encounter
--- OUTSIDE RECORDS SUMMARY | 2025-03-12 16:50 | XMS_ITS | Encounter Summary ---
Author Organization [employer] Address 75 [facility] 7t [place] [address] Care Team Providers Care Oenologist Name Role Phone María Elena Zuleta MD Primary Care Provider + Reason for Visit * Reason Onset Date Comments Appt question 03/12/2025 Encounter Details Date Type Department Care Team ([facility] st Contact Info) Description 03/12/2025 Telephone [facility] [address] [place], [place] [phone] María Elena Zuleta MD [address] [place] [address] Appt question Social History Tobacco Use Types Packs/Day Years [...] Telephone Encounter - Viviane Go RN - 03/12/2025 2:47 PM EST TC placed to patient [phone] in regards to below message. Patient inquiring if provider ordered any testing for herpes today. Patient advised provider ordered a BV panel and collected urine at the appointment however no other testing was ordered. Patient verbalized understanding. Patient to f/u PRN. * Telephone Encounter - Jose C Nunez - 03/12/2025 12:29 PM EST Tc from pt stating she just seen pcp today but forgot to request lab. Please contact pt at [phone] documented in this encounter Plan of Treatment Not on file documented as of this encounter Visit Diagnoses Not on filedocumented in this encounter Additional Health Concerns Assessment Noted Time PHQ-9 Depression Total Score: 0 03/09/20 25 11:40 AM EST documented as of this encounter Care Teams Oenologist Relationship Specialty Start Date End Date María Elena Zuleta MD [address] [place] [phone] PCP - General Family Medicine 06/13/17 documented as of this encounter
--- OUTSIDE RECORDS SUMMARY | 2025-03-12 16:50 | XMS_ITS | Encounter Summary ---
Author Organization [employer] Address 75 [facility] 7t [place] [address] Care Team Providers Care Cephalometric Tracer Name Role Phone María Elena Zuleta MD Primary Care Provider + Encounter Details Date Type Department Care Team (Latest Contact Info) Description 03/12/2025 Travel Social History Tobacco Use Types Packs/Day [...] as of this encounter Plan of Treatment Not on file documented as of this encounter Visit Diagnoses Not on filedocumented in this encounter Additional Health Concerns Assessment Noted Time PHQ-9 Depression Total Score: 0 03/09/20 25 11:40 AM EST documented as of this encounter Care Teams Cephalometric Tracer Relationship Specialty Start Date End Date María Elena Zuleta MD [address] [place] [phone] PCP - General Family Medicine 06/13/17 documented as of this encounter
--- OUTSIDE RECORDS SUMMARY | 2025-03-12 16:50 | XMS_ITS | Encounter Summary ---
Author Organization [employer] Address 75 [facility] 7t [place] [address] Care Team Providers Care Clinical Lab Clerk Name Role Phone María Elena Zuleta MD Primary Care Provider + Reason for Visit * Reason Onset Date Comments Medication Question 03/11/2025 Encounter Details Date Type Department Care Team ([facility] Contact Info) Description 03/11/2025 Telephone [facility] MED[facility]INE [address] [place], [place] [phone] María Elena Zuleta MD [address] [place] [address] Medication Question Social History Tobacco Use Types Packs/Day Years [...] Telephone Encounter - Viviane Go RN - 03/11/2025 11:02 AM EST Addressed in previous encounter. * Telephone Encounter - Mahad Gunter - 03/11/2025 9:45 AM EST TC from pt reports that unfortunately phenylephrine-shark liver oil-mineral oil- petrolatum (Preparation H) 0.25-3-14-71.9 % rectal ointment would have to be paid in [place] because its a OTC . Pt is requesting alternative that will be covered, documented in this encounter Plan of Treatment Not on file documented as of this encounter Visit Diagnoses Not on filedocumented in this encounter Additional Health Concerns Assessment Noted Time PHQ-9 Depression Total Score: 0 03/09/20 25 11:40 AM EST documented as of this encounter Care Teams Clinical Lab Clerk Relationship Specialty Start Date End Date María Elena Zuleta MD [address] [place] [phone] PCP - General Family Medicine 06/13/17 documented as of this encounter
--- OUTSIDE RECORDS SUMMARY | 2025-03-12 16:51 | XMS_ITS | Encounter Summary ---
Author Organization [employer] Address 75 [facility] 7t [place] [address] Care Team Providers Care Orthopedic Dentist Name Role Phone María Elena Zuleta MD Primary Care Provider + Encounter Details Date Type Department Care Team (Latest Contact Info) Description 03/09/2025 Travel Social History Tobacco Use Types Packs/Day [...] AM EST documented as of this encounter Functional Status * Over the [...] 11:40 AM Fabi Macias [place] * Feeling down, depressed, or hopeless [...] [place] documented as of this encounter Plan of Treatment Not on file documented as of this encounter Visit Diagnoses Not on filedocumented in this encounter Additional Health Concerns Assessment Noted Time PHQ-9 Depression Total Score: 0 03/09/20 25 11:40 AM EST documented as of this encounter Care Teams Orthopedic Dentist Relationship Specialty Start Date End Date María Elena Zuleta MD [address] [place] [phone] PCP - General Family Medicine 06/13/17 documented as of this encounter
--- OUTSIDE RECORDS SUMMARY | 2025-03-12 16:51 | XMS_ITS | Encounter Summary ---
Author Organization [employer] Address 75 [facility] 7t [place] [address] Care Team Providers Care Stoker Erector And Servicer Name Role Phone María Elena Zuleta MD Primary Care Provider + Seven Ly RN Unavailable [phone] Reason for Visit * Reason Onset Date Comments Results 07/29/2023 Encounter Details Date Type Department Care Team ([facility] st Contact Info) Description 07/29/2023 Telephone [facility] MEDICINE [address] [place], [place] [phone] María Elena Zuleta MD [address] [place], [place] [phone] Results Social History Tobacco Use Types Packs/Day [...] labs, swab Date when done: 07/24 Facility: [facility] Please contact pt at [phone] documented in this encounter Plan of Treatment Not on file documented as of this encounter Visit Diagnoses Not on filedocumented in this encounter Care Teams Stoker Erector And Servicer Relationship Specialty Start Date End Date María Elena Zuleta MD [address] [place] [address] PCP - General Family Medicine 06/13/17 Seven Ly RN [address] [place] [phone] Lumber Chain OffbearerPathology Supervisor 05/26/24 08/24/24 documented as of this encounter
--- OUTSIDE RECORDS SUMMARY | 2025-03-12 16:51 | XMS_ITS | Encounter Summary ---
Author Organization [employer] Address 75 [facility] 7t [place] [address] Care Team Providers Care Safety Trainer Name Role Phone María Elena Zuleta MD Primary Care Provider + Seven Ly RN Unavailable [phone] Encounter Details Date Type Department Care Team ([facility] st Contact Info) Description 11/01/2022 Orders Only [facility] MEDICINE [address] [place], [place] [phone] María Elena Zuleta MD [address] [place], [place] [phone] Vaginal discharge (Primary Dx) Social History Tobacco [...] Miscellaneous Notes * Result Encounter Note - Esmer Quijano CNM - 11/01/2022 5:00 PM EDT Hi - Vilma's creatinine is good, HIV neg. Can you reach out to see if she wants to do Truvada, review medication and I will send in rx. Thanks! * Result Encounter Note - Esmer Quijano CNM - 11/01/2022 5:00 PM EDT [...] further. Thanks! * Result Encounter Note - Esmer Quijano CNM - 11/01/2022 5:00 PM EDT Great - thanks! documented in this encounter Plan of Treatment Not on file documented as of this encounter Procedures Procedure Name Priority Date/Time Associated Diagnosis Comments HIV ANTIBODY/ANTIGEN (ANDREW ALSTON) Routine 01/09/2023 12:18 PM EDT Vaginal discharge C.TRACHOMATIS/N. GONORRHOEAE DNA PROBE Routine 01/09/2023 12:03 PM EDT Vaginal discharge HPV MRNA E6/E7 REFLEX TO HPV 16, 18/45 Routine 01/09/2023 12:03 PM EDT Vaginal discharge PAP SMEAR Routine 01/09/2023 12:03 PM EDT Vaginal discharge BACTERIAL VAGINOSIS PANEL Routine 01/09/2023 12:00 AM EDT Vaginal discharge documented in this encounter Results * HIV Ab/Ag (ANDREW DP) (01/09/2023 12:18 PM EDT) HIV AB/AG Nonreactive Nonreactive [facility] Comment:HIV-1 p24 Ag and/or HIV-1/HIV-2 Ab not detected.A test result that is nonreactive does not exclude thepossibility of exposure to or infection with HIV-1 and/orHIV-2. Nonreactive results in this assay for individualswith prior exposure to HIV-1 and/or HIV-2 may be due toantigen and antibody levels that are below the limit ofdetection of this assay.The [employer] HIV Ag/Ab Combo assay result andsupplemental assay results should be interpreted inconjunction with the patient's clinical presentation,history and other laboratory results. If the results areinconsistent with clinical evidence, additional testing issuggested to confirm the result. 01/09/2023 12:1 8 PM EDT 01/09/2023 1:10 PM EDT us Esmer Quijano [facility] BLOOD ORDERABLES Teri l Result [facility] [address] [place] [phone] * Pap Smear (01/09/2023 12:03 PM EDT) 01/09/2023 12:0 3 PM EDT 01/10/2023 9:15 AM EDT Narrative [facility] - 01/22/2023 10:48 AM EDT ----- ------- Name: Vilma Mendez Age/Sex: 27/F : 1995 Unit#: [id number] Attend Dr: ESMER QUIJANO CNM Re01/09/23 Status: DEP REF Location: [facility] Disch: ----- ------- SPEC : [id number] RECD: 01/10/23-914 STATUS: RENUKA AGUILA NUM: [id number] DEVON: 01/09/23-[address]: ESMER QUIJANO ENTERED: 01/10/23-1115 SP TYPE: Pap Smr OTHR DR: ORDERED: Pap Smear Interpretation Satisfactory for evaluation. Coccobacilli consistent with shift in vaginal sonia. Inflammation with associated cellular changes. Negative for intraepithelial lesion or malignancy. HPV mRNA E6/E7: NOT DETECTED This assay detects E6/E7 viral messenger RNA (mRNA) from 14 high-risk HPV types (16, 18, 31, 33, 35, 39, 45, 51, 52, 56, 58, 59, 66, 68) HPV testing performed by [employer], [place], [place]. See reference laboratory pion of the EMR for entire report. Clinical Information LMP: 12/29/2022 Previous PAP test:2021, ASCUS HPV positive Material Received ThinPrep-Vaginal/Cervical ----- ------- Signed (signature on file) Andres Wood MD 01/22/23 1048 ----- ------- END OF REPORT Esmer Quijano [facility] CYTOLOGY ORDERABLES F inal Result Performing Organization Address [facility] Co de Phone Number [facility] [address] [place] [phone] * C.TRACHOMATIS/N. GONORRHOEAE DNA PROBE (01/09/2023 12:03 PM EDT) CTNG Ref Lab NOT DETECTED NOT DETECTED [facility] NG Ref Lab NOT DETECTED NOT DETECTED [facility] CTNG Ref Note SEE NOTE [facility] Comment:The analytical perfo rmance characteristics of thisassay, when used to test SurePath(TM) specimens have beendetermined by [employer]. The modifications havenot been cleared or approved by the FDA. This assay hasbeen validated pursuant to the CLIA regulations and isused for clinical purposes.For additional information, please refer tohttps://education.[employer]/faq/RHK362(This link is being provided for information/educational purposes only.)THIS TEST WAS PERFORMED AT:[employer] [place] [phone] RASHID MD 01/09/2023 12:0 3 PM EDT 01/10/2023 9:15 AM EDT Esmer Quijano [facility] MICROBIOLOGY - GENERA L ORDERABLES Final Result Performing Organization Address [facility] Co de Phone Number [facility] [address] [place] [phone] * HPV mRNA E6/E7 w/Reflex to HPV Genotypes 16, 18/45 (01/09/2023 12:03 PM EDT) HPV nRNA E6/E7 Not Detected Not Detected [facility] Comment:Methodology: Transcr iption-Mediated AmplificationThis assay detects E6/E7 viral messenger RNA (mRNA) from 14high-risk HPV types (16,18,31,33,35,39,45,51,52,56,58,59,66,68).Cervical sources are required for HPV testing.If a vaginal source from a patient who has had atotal hysterectomy with removal of cervix wassubmitted, please contact the testing laboratoryfor alternative testing options.For additional information, please refer tohttp://education.[employer]/faq/KGC093t9(This link if provided for information/educational purposes only.)THIS TEST WAS PERFORMED AT:[employer] [facility] [place] [id number] RASHID MD HPV mRNA E6/E7 TNP [facility] HPV 16 RNA [facility] HPV 18/45 RNA [facility] 01/09/2023 12:0 3 PM EDT 01/10/2023 9:15 AM EDT Emser Quijano [facility] CYTOLOGY ORDERABLES F inal Result Performing Organization Address [facility] Co de Phone Number [facility] [address] [place] [phone] * (ABNORMAL) Bacterial Vaginosis (01/09/2023 12:00 AM EDT) Trichomonas DNA Probe Negative Negative [facility] Gardnerella DNA Probe Positive(A) Negative [facility] Lindsey DNA Probe Positive(A) Negative [facility] 01/09/2023 01/09/2023 Esmer [facility]AND[facility] MICROBIOLOGY - GENERA L ORDERABLES Final Result Performing Organization Address [facility]/ZIP Co de Phone Number [facility] [address] [place] [address] [phone] documented in this encounter Visit Diagnoses Diagnosis Vaginal discharge- Primary Leukorrhea, not specified as infective documented in this encounter Care Teams Safety Trainer Relationship Specialty Start Date End Date María Elena Zuleta MD [address] [place] [phone] PCP - General Family Medicine 06/13/17 Seven Ly RN [address] [place] [phone] Lower In SupervisorSection Laborer 05/26/24 08/24/24 documented as of this encounter
--- OUTSIDE RECORDS SUMMARY | 2025-03-12 16:51 | XMS_ITS | Encounter Summary ---
Author Organization [employer] Address 75 [facility] 7t [place] [address] Care Team Providers Care Fund Raiser Name Role Phone María Elena Zuleta MD Primary Care Provider + Reason for Visit * Reason Onset Date Comments Medication Question 03/11/2025 Encounter Details Date Type Department Care Team ([facility] st Contact Info) Description 03/11/2025 Refill [facility] MEDICINE [address] [place], [place] [phone] María Elena Zuleta MD [address] [place] [address] Social History Tobacco Use Types Packs/Day Years [...] Encounter - Viviane Go RN - 03/11/2025 10:43 AM EST TC placed to pharmacy [phone] in regards to below message. Pharmacy reports they did receive both prescriptions for senokot and preparation H. RN was informed the patient obtained the senokot this morning and the preparation H is NOT covered by insurance. RN was informed the preparation H namebrand is $11 out of pocket and store brand is $8 out of pocket. RN advised pharmacy is not aware ofalternatives that would be covered by insurance. RN called [facility] pharmacy to inquire on alternatives for preparation H for patients with [employer] insurance and was advised Anusol-HC may be covered. RN will pend medication to PCP. TC placed to patient [phone] to inform of above message. Patient is aware PCP will attempt to send Anusol-HC however we cannot guarantee it will be covered by insurance and patient may need to pay out of pocket. Patient verbalized understanding. Patient to f/u PRN. * Telephone Encounter - Ellen Albarado - 03/11/2025 9:31 AM EST Tc from pt stating that her pharmacy never receive the medication prescribed on 03/09 Contact pt at [phone] documented in this encounter Plan of Treatment Not on file documented as of this encounter Visit Diagnoses Not on filedocumented in this encounter Additional Health Concerns Assessment Noted Time PHQ-9 Depression Total Score: 0 03/09/20 25 11:40 AM EST documented as of this encounter Care Teams Fund Raiser Relationship Specialty Start Date End Date María Elena Zuleta MD [address] [place] [phone] PCP - General Family Medicine 06/13/17 documented as of this encounter
--- OUTSIDE RECORDS SUMMARY | 2025-03-12 16:51 | XMS_ITS | Clinical Summary ---
Author Organization [facility] Address [address] [place] [phone] Phone Care Team Providers Care Celebrity Chef Entrepreneur Media Personality Name Role Phone Pcp, Unknown Primary Care [...] (18-6 5 YEARS) 08/10/2013 PAP SMEAR 08/10/2016 INFLUENZA VACCINE (#1) 2024 COVID-19 VACCINE (2024-2 6 season) 2025 HEPATITIS A VACCINES Aged Out No long er eligible based on patient's age to complete this topic HIB VACCINES Aged Out No longer eligi ble based on patient's age to complete this topic IPV VACCINES Aged Out No longer eligi ble [...] ACO C3 ACO C3 ACO C3 ACO [facility] C3 ACO Care Teams Celebrity Chef Entrepreneur Media Personality Relationship Specialty Start Date End Date Pcp, Unknown PCP - General 04/03/22 Additional Source Comments The information contained in this document represents components of the legal health record. It is not the complete legal health record.[facility]
--- OUTSIDE RECORDS SUMMARY | 2025-03-12 16:51 | XMS_ITS | Encounter Summary ---
Author Organization [employer] Address [address] [facility] 7t [place] [address] Care Team Providers Care Wood Planer Name Role Phone María Elena Zuleta MD Primary Care Provider + Seven Ly RN Unavailable [phone] Reason for Visit * Reason Onset Date Comments Triage 07/18/2022 Encounter Details Date Type Department Care Team ([facility] st Contact Info) Description 07/18/2022 Telephone [facility] [address] [place], [place] [phone] María Elena Zuleta MD [address] [place], [place] [phone] Triage Social History Tobacco Use Types Packs/Day [...] became very itchy, it is storm perfect igiugig and is a blood worm per Pt description which is found on google . Advised Pt tocome to [facility] today to be seen by provider and [...] accepted this outcome Please contact pt at [phone] documented in this encounter Plan of Treatment Not on file documented as of this encounter Visit Diagnoses Not on filedocumented in this encounter Care Teams Wood Planer Relationship Specialty Start Date End Date María Elena Zuleta MD [address] [place] [address] PCP - General Family Medicine 06/13/17 Seven Ly RN [address] [place] [address] Caul PullerSnack Stewardess 05/26/24 08/24/24 documented as of this encounter
--- OUTSIDE RECORDS SUMMARY | 2025-03-12 16:51 | XMS_ITS | Encounter Summary ---
Author Organization [employer] Address [address] [facility] 7t [place] [address] Care Team Providers Care Food Mixer Assembler Name Role Phone María Elena Zuleta MD Primary Care Provider + Encounter Details Date Type Department Care Team (Latest Contact Info) Description 03/08/2025 Travel Social History Tobacco Use Types Packs/Day [...] documented as of this encounter Care Teams Food Mixer Assembler Relationship Specialty Start Date End Date María Elena Zuleta MD [address] [place] [phone] PCP - General Family Medicine 06/13/17 documented as of this encounter
--- OUTSIDE RECORDS SUMMARY | 2025-03-12 16:51 | XMS_ITS | Encounter Summary ---
Author Organization [employer] Address [address] [facility] 7t [place] [address] Care Team Providers Care Menswear Salesperson Name Role Phone María Elena Zuleta MD Primary Care Provider + Seven Ly RN Unavailable [phone] Reason for Visit * Reason Comments Med Refill Encounter Details Date Type Department Care Team ([facility] st Contact Info) Description 05/24/2023 Refill [facility] [address] [place], [place] [phone] María Elena Zuleta MD [address] [place], [place] [phone] Social History Tobacco Use Types Packs/Day Years [...] on filedocumented in this encounter Care Teams Menswear Salesperson Relationship Specialty Start Date End Date María Elena Zuleta MD [address] [place] [phone] PCP - General Family Medicine 06/13/17 Seven Ly RN [address] [place] [id number] Bevel Gear Generator OperatorSafety Aide 05/26/24 08/24/24 documented as of this encounter
--- OUTSIDE RECORDS SUMMARY | 2025-03-12 16:51 | XMS_ITS | Encounter Summary ---
Author Organization [employer] Address [address] [facility] 7t [place] [address] Care Team Providers Care Powertrain Control Systems Engineer Name Role Phone María Elena Zuleta MD Primary Care Provider + Seven Ly RN Unavailable [phone] Reason for Visit * Reason Onset Date Comments triage 08/07/2022 Encounter Details Date Type Department Care Team (Late st Contact Info) Description 08/07/2022 Telephone [facility] MEDICINE [address] [place], [place] [phone] María Elena Zuleta MD [address] [place], [place] [phone] triage Social History Tobacco Use Types Packs/Day [...] July. Pt is advised to come to [facility] Pt requests some testing for [...] on filedocumented in this encounter Care Teams Powertrain Control Systems Engineer Relationship Specialty Start Date End Date María Elena Zuleta MD [address] [place] [address] PCP - General Family Medicine 06/13/17 Seven Ly RN [address] [place] [address] Forest [employer] F[employer] DispatcherTractor Trailer Truck Driver 05/26/24 08/24/24 documented as of this encounter
--- OUTSIDE RECORDS SUMMARY | 2025-03-12 16:51 | XMS_ITS | Clinical Summary ---
Author Organization [employer] Address [address] [facility] 7t [place] [address] Care Team Providers Care Radio Talk Show Host Name Role Phone María Elena Zuleta MD Primary Care Provider + Allergies Active Allergy Reactions Criticality Noted Date Comments Penicillin V 07/10/2010 Other reaction(s): rash Medications fluconazole (Diflucan) 150 MG tablet Take 1 tablet by mouth Once per day. 06/02/19 Active ibuprofen 800 MG tablet Take 1 tablet by mouth every 8 (eight) hours if needed for pain. 02/23/20 25 Active senna-docusate (Senokot S) 8.6-50 MG tabletIndicatio ns:Slow transit constipation Take 1 tablet by mouth Once per day. 30 tablet 03/09/20 25 2025 Active phenylephrine-s hark liver oil-mineral oil-petrolatum (Preparation H) 0.25-3-14-71.9 % rectal ointment Insert into the rectum if needed in the morning and at bedtime for hemorrhoids for up to 10 days. 30 g 2 03/09/20 25 2024 Active hydrocortisone (Anusol-HC) 2.5 % rectal cream Insert into the rectum 2 times daily for 14 days. 28 g 2 03/11/20 25 2024 Active senna-docusate (Senokot S) 8.6-50 MG tabletIndicatio ns:Slow transit constipation Take 1 tablet by mouth Once per day. 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 Schedule for pelvic exam within 2 to 3 days Assessment & Plan (11/25/2024 11:25 PM EDT): Pt lesions is very tiny aprox 1-2 mm in right vulva ,not vesicular , can be from trauma ? But pt denies shaving area ,will need to r/o syphilis and herpes but seems less likely ,not folliculitis at this time States was tested today for ch/gn, RPR, HIV,hep C at CRS team -I confirmed w CRS that RPR was sent -sending today herpes PCR -will infor pt w result -empiric valacyclovir for 7 days as if 1st presentation -seems less likely -mupirocin x 5 days BID -alarm signs and symptoms Folliculitis 10/26/2024 Assessment & Plan (10/26/2024 4:06 PM EDT): Perineal area, advised patient to keep area clean and dry with gentle soap and avoid shaving of the area for now. Use doxycycline x 7 days and can use zinc oxide on affected areas Pelvic and perineal pain 10/06/2024 Assessment & Plan (03/12/2025 3:46 PM EST): - She has a small skin tag on episiotomy area, which is probably the culprit of patient's symptoms. Possible inflammation and irritation exacerbated by sexual activity - Apply Lotrisone cream nightly t x 2 weeks, can use Desitin ointment as needed irritation. - BV swab to follow Assessment & Plan (10/06/2024 1:51 PM EDT): BV ordered today UA and culture ordered F/u with gynecology Pancreatic cyst 07/07/2024 Assessment & Plan (03/10/2025 3:19 PM EST): Seen by [facility], thought not to be malignant fissures. Follow-up with GI once per year Visit for preventive health examination 05/13/19 Assessment [...] x 14 days - re consult PRN Metrorrhagia 07/25/2023 Assessment & Plan (08/22/2023 1:54 [...] US is pending Non-toxic uninodular goiter 07/21/2023 Encounter for preventive health examination 09/2023 Assessment [...] importance of Depo injections every 3 m Risk for sexually transmitted disease 10/30/2022 Assessment [...] control metho d 10/30/2022 Assessment & Plan (03/10/2025 3:22 PM EST): We discussed about importance of STI prevention [...] like to be referred for IUD placement. Assessment & Plan (10/30/2022 11:24 AM EDT): Depo-provera reminded pt to come to appointment for depo which has been orderd since July I will see her next week and if all tests and test is negative I will give Dep counseled regaridng use of condoms at all times. Slow transit constipation 09/17/2018 Assessment & Plan (03/10/2025 3:19 PM EST): Advise increase water intake. Use docusate or senna coat as needed constipation Use Preparation H rectal cream as needed hemorrhoidal pain or bleeding Assessment & Plan (10/06/2024 1:50 PM EDT): It was advised to drink more water, add more fiber to her diet and try to walk more frequently I will prescribe Senokot Resolved Problems Problem Noted Date Diagnosed Date Resolved Date Acute URI 09/15/2024 10/26/2024 Assessment & Plan (09/15/2024 2:17 PM EDT): Also here sleep cryptococcal has her son turned positive for strep pharyngitis. Patient is allergic to penicillin, will order Z-Farooq Take Tylenol as needed fever and pain Increase P.O. fluid intake and gargle with warm water and salt several times per day prior to meals Vaginal discharge 09/27/2023 10/26/2024 Assessment & Plan (09/27/2023 12:15 PM EDT): Could be physiological, r/o STI Order vaginal swab and fu PRN UTI symptoms 09/27/2023 10/26/2024 Assessment & Plan (05/13/2024 1:44 PM EST): Rule out UTI / Vaginitis, patient unable to void urine. Will order labs for her to get at earliest convenience and will FU results. Increase water intake and control constipation. UTI symptoms 07/25/2023 08/22/2023 DUB (dysfunctional uterine bleeding) 06/07/2023 10/26/2024 Assessment & Plan (11/27/2023 10:30 AM EDT): [...] bleeding persists for more than 1 m. Vulvovaginitis 05/22/2023 08/22/2023 Assessment & Plan (06/07/2023 [...] soaps, vaginal douches. Urination pain 05/10/2023 08/22/2023 Recurrent UTI 10/30/2022 10/26/2024 Assessment & Plan (10/30/2022 11:26 AM EDT): Prescription for macrobid x 7 days and ordered urine culture recommended post coital hygiene Today's pregancy test is negative Dysuria 10/30/2022 08/22/2023 Pelvic pain 08/22/2022 10/26/2024 Assessment & Plan (05/10/2023 12:09 PM EST): [...] and fu with me in 10 days Miscarriage 06/03/2019 08/22/2023 Vaginal discharge 10/18/2017 08/22/2023 Encounters Date Type Department Care Team Description 03/12/2025 12:00 PM EST Office Visit [facility] [address] [place] [phone] María Elena Zuleta MD Skin tag of female perineum (Primary Dx); Pelvic and perineal pain 03/12/2025 Telephone [facility] [address] [place] [phone] María Elena Zuleta MD Appt question 03/12/2025 Travel 03/11/[address] [address] María Elena Zuleta MD Medication Question 03/11/[address] [address] María Elena Zuleta MD 03/09/2025 11:15 AM EST Office Visit [address] [address] María Elena Zuleta MD Slow transit constipation (Primary Dx); Counseling for initiation of control method; Pancreatic cyst; Vulvar lesion 03/09/2025 Travel 03/08/2025 Travel 03/02/2025 Patient Outreach [facility] [address] [place] [address] María Elena Zuleta MD Pre-visit Planning (SDOH was already completed) 12/30/[address] [address] María Elena Zuleta MD march recall from Last 3 Months Immunizations Immunization Administration Dates Next Due DTaP 11/14/1999, 7,02/10/1996,12/17,1995 [...] Not Answered Alcohol Use Standard Drinks/Week Comments Yes 0 [...] Mass Index 24.4 03/12/2025 11:54 AM EST Plan of Treatment Health Maintenance Due Date Last Done Comments Dental Oral Exam 1995 Dental Prophylaxis 1995 Dental X-Ray: Bitewings 1995 Dental X-Ray: Full Mouth 1995 Alcohol/Substance Use Screening 2007 HPV/Cotest 01/10/2024 01/09/2023, 03/3 , 08/02/2021 Pap Smear 01/10/2024 01/09/2023, 09/02/2020 COVID-19 Vaccine ( season) 2025 02/28/2022, 02/07/2022 Influenza Vaccine (#1) 2025 7, 01/03/2012, 02/07/2007 Disability Screening 05/22/2025 05/22/2024 SDOH Screening 06/01/2025 06/01/2024 Family Planning (PISQ) 06/02/2025 06/02/2024 Depression Screening 03/09/2026 03/09/2025, 03/09/20 Tobacco Screening 03/12/2026 03/12/2025 DTaP/Tdap/Td Vaccines (9 - Td or Tdap) 05/13/2034 05/13/2024, 02/13/2017, 2009, Additional history exists Zoster Vaccines (1 of 2) 08/10/2045 RSV Patients and Patients Aged 60 years or older (1 - 1-dose 75+ series) 08/10/2070 IPV Vaccines Completed 12/03/1996, 11/1995, 1995, Additional history exists Pneumococcal Vaccine: Pediatrics (0 to 5 Years) and At-Risk Patients (6 to 49) Years Aged Out 04/18/2001, 04/18/2001 No longer eligibl e based on patient's age to complete this topic Hepatitis A Vaccines Completed 2009, 08/20/19 09 Meningococcal Vaccine Aged Out 08/21/2009 No malachi mame eligible based on patient's age to complete this topic HPV Vaccines Completed 11/24/2013, 08/04, 11/21/2007, Additional history exists Hepatitis B Vaccines Completed 09/17/2018, 04/15/1996, 1995, Additional history exists HIV Screening Completed 11/25/2024, 08/04, 07/16/2024, Additional history exists Hepatitis C Screening Completed 11/25/2024 , 08/19/2024, 07/16/2024, Additional history exists HIB Vaccines Aged Out No longer eligi ble based on patient's age to complete this topic Meningococcal B Vaccine Aged Out No l onger eligible based on patient's age to complete this topic RSV under 20 months Aged Out No longe r eligible based on patient's age to complete this topic Rotavirus Vaccines Aged Out No longer eligible based on patient's age to complete this topic Procedures Procedure Name Priority Date/Time Associated Diagnosis Comments POCT URINALYSIS DIPSTICK Routine 03/12/2025 12:19 PM EST Pelvic and perineal pain HEPATITIS C ANTIBODY ([place] [facility]) Routine 11/25/2024 HIV ANTIBODY/ANTIGEN ([place] [facility]) Routine 11/25/2024 HPV MRNA E6/E7 REFLEX TO HPV 16, 18/45 Routine 01/09/2023 12:03 PM EDT Vaginal discharge PAP SMEAR Routine 01/09/2023 12:03 PM EDT Vaginal discharge from Last 3 Months or Most Recently Relevant to Health Maintenance Results * POCT Urinalysis (03/12/2025 12:19 PM [...] Urine (Urine, Random) 03/12/2025 12:19 PM EST Result [facility] María Elena Zuleta MD POINT OF CARE TEST ENTER /EDIT ORDERABLES Final Result * Hepatitis C Antibody ([facility]) (11/25/2024) [facility] Hepatitis C Ab Nonreactive Blood 11/25/2024 Result [facility] Provider LAB BLOOD ORDERABLES Teri l Result * HIV Ab/Ag ([facility]) (11/25/2024) [facility] HIV Ag/Ab Nonreactive Blood 11/25/2024 Result [facility] LAB BLOOD ORDERABLES Edit ed Result - Final * HPV mRNA E6/E7 w/Reflex to HPV Genotypes 16, 18/45 (01/09/2023 12:03 PM EDT) [facility] HPV nRNA E6/E7 Not Detected Not Detected [facility] Comment:Methodology: Transcr iption-Mediated AmplificationThis assay detects E6/E7 viral messenger RNA (mRNA) from 14high-risk HPV types (16,18,31,33,35,39,45,51,52,56,58,59,66,68).Cervical sources are required for HPV testing.If a vaginal source from a patient who has had atotal hysterectomy with removal of cervix wassubmitted, please contact the testing laboratoryfor alternative testing options.For additional information, please refer tohttp://education.Tier 1 Performance/faq/OGM365q1(This link if provided for information/educational purposes only.)THIS TEST WAS PERFORMED AT:[address] [place] [id number] RASHID MD HPV mRNA E6/E7 TNP [facility] HPV 16 RNA TNP [facility] HPV 18/45 RNA TNP [facility] 01/09/2023 12:0 3 PM EDT 01/10/2023 9:15 AM EDT Sanju Quijano CNM LAB CYTOLOGY ORDERABLES F inal Result [facility] [address] [place] [address] [phone] * Pap Smear (01/09/2023 12:03 PM EDT) 01/09/2023 12:0 3 PM EDT 01/10/2023 9:15 AM EDT Narrative [facility] - 01/22/2023 10:48 AM EDT ----- ------- Name: Vilma Mendez Age/Sex: 27/F : 1995 Unit#: [id number] Attend Dr: SANJU QUIJANO CNM Re01/09/23 Status: DEP REF Location: HO.HHCL Disch: ----- ------- SPEC : [id number] RECD: 01/10/23 STATUS: RENUKA AGUILA NUM: [id number] DEVON: 01/09/23-1203 [facility] DR: SANJU QUIJANO CNM ENTERED: 01/10/23-1115 SP TYPE: Pap Smr OTHR [...] 59, 66, 68) HPV testing performed by [facility], [place], [place]. See reference laboratory pion of the EMR for entire report. Clinical Information LMP: 12/29/2022 Previous PAP test:2021, [facility] HPV positive Material Received ThinPrep-Vaginal/Cervical ----- ------- Signed (signature on file) Andres Wood MD 01/22/23 1048 ----- ------- END OF REPORT Sanju LANDIS LAB CYTOLOGY ORDERABLES F inal Result [facility] [address] [place] [address] [phone] from Last 3 Months or Most Recently Relevant to Health Maintenance Insurance [place] [facility] MEDICAID STAND ADULT Care Teams Radio Talk Show Host Relationship Specialty Start Date End Date María Elena Zuleta MD [address] [place] [phone] PCP - General Family Medicine 06/13/17
--- OUTSIDE RECORDS SUMMARY | 2025-03-12 16:51 | XMS_ITS | Encounter Summary ---
Author Organization [employer] Address [address] [facility] 7t [place] [address] Care Team Providers Care Fabrication Machine Operator Name Role Phone María Elena Zuleta MD Primary Care Provider + Seven Ly RN Unavailable [phone] Reason for Referral * Imaging (Routine) - Closed Specialty Diagnoses / Procedures Referred By Contac t Referred To Contact Radiology Diagnoses Abnormal abdominal CT scan Procedures MR Abdomen w/ and w/o Contrast Emani Bird MD [address] [place] [address] Phone: tel: fax: [address] Phone: tel: fax: Referral ID Status Reason Start Date Expiration Date Visits Re quested Visits Authorized [id number] Closed 06/29/2024 06/29/2025 1 1 Encounter Details Date Type Department Care Team (Late st Contact Info) Description 06/29/2024 Orders Only [facility] MEDICINE [address] [place] [phone] Emani Bird MD [address] [place] [phone] scan (Primary Dx) Social [...] AM EST Narrative 07/06/2024 8:28 AM EST [place] [address] Magnetic Resonance Report Signed Patient: Vilma Mendez MR#: [id number] : 1995 Acct:[id number] Age/Sex: 28 / F ADM Date: 07/04/24 Loc: HO.MRI Attending Dr: Emani Bird MD Ordering Physician: Emani Bird Date of Service: 07/04/24 Procedure(s): MR abdomen wo/w con Accession Number(s): [id number] cc: María Elena Zuleta MD; Emani Bird [...] 07/06/24 0825 DD/ 1021 TD/TT: 07/04/24 1050 Labor And Delivery Nurse: Procedure Note Donotuseinterpreter, Image - 07/06/2024 [place] [address] Magnetic Resonance Report Signed Patient: Amber Mendez#: [id number] : 1995Acct:[id number] Age/Sex: 28 FADM Date: 07/04/24 Loc: HO.MRI Attending Dr: Emani Bird MD Ordering Physician: Emani Bird Date of Service: 07/04/24 Procedure(s): MR abdomen wo/w con Accession Number(s): [id number] cc: María Elena Zuleta MD; Emani Bird [...] 07/06/24 0825 DD/ 1021 TD/TT: 07/04/24 1050 Labor And Delivery Nurse: Emani Bird MD IMG MRI PROCEDURES Final Resul t documented in this encounter Visit Diagnoses Diagnosis Abnormal abdominal CT scan- Primary Nonspecific (abnormal) findings on radiological and other examination of abdominal area, including retroperitoneum documented in this encounter Additional Health Concerns Assessment Noted Time PHQ-9 Depression Total Score: 6 11/27/19 24 9:34 AM EDT documented as of this encounter Care Teams Fabrication Machine Operator Relationship Specialty Start Date End Date María Elena Zuleta MD [address] [place] [address] PCP - General Family Medicine 06/13/17 Seven Ly RN [address] [place] [phone] Concierge ManagerLine Up Examiner 05/26/24 08/24/24 documented as of this encounter
[2025-03-12 20:42] LABS: Bacterial Vaginosis PCR NEGATIVE (Negative); Candida Group PCR NOT DETECTED (Not Detect); Candida glab krusei PCR NOT DETECTED (Not Detect); Trichomonas vaginalis PCR NOT DETECTED (Not Detect)
== END 2025-03-12 16:17 | disposition home or self-care (01) ==
LOC: HO.HHCLNP 16:16
PROVIDERS: Visit Provider Internal Medicine
DX: R10.20 Pelvic and perineal pain unspecified side (principal)
CPT/HCPCS: 81515